=== PATIENT | female | born 1955 | race Caucasian/White ===

== ENCOUNTER → 2017-11-09 15:11 | Outpatient (CLI) | payer OTHER, SELFPAY ==
--- NOTE | 2017-11-09 15:30 | MRI_ITS ---
STUDY: MRI LEFT ANKLE WITHOUT CONTRAST REASON FOR EXAM: Female, 62 years old. Achilles and peroneal tendinitis TECHNIQUE: Standardized fat and water weighted pulse sequences were obtained in all 3 orthogonal planes. COMPARISON: None. FINDINGS: There is thickening at the plantar fascia insertion. There is mild edema at the adjacent soft tissues (image 13/20 sagittal inversion recovery). There is a plantar calcaneal enthesophyte (image 11/20 sagittal T1). There is slight thickening with abnormal signal at the Achilles tendon insertion (image 12/20 sagittal inversion recovery). There is a small amount of fluid at the ankle and posterior subtalar joint (image 10/20 sagittal inversion recovery). There is a small synovial/ganglion cyst at the dorsal lateral aspect of the talonavicular joint measuring approximately 1.5 cm in greatest dimension. Normal posterior tibialis tendon. Normal flexor digitorum longus tendon. Normal flexor hallucis longus tendon. Normal peroneus longus and brevis tendons. Normal tibialis anterior tendon. Normal extensor hallucis longus tendon. Normal extensor digitorum longus tendons. Normal distal tibiofibular syndesmotic ligamentous complex. Normal lateral ligamentous complex. Normal subtalar ligaments and sinus tarsi. Normal deltoid ligamentous complexes. Normal plantar calcaneonavicular (spring) ligament. Normal tibiotalar articulation. Normal talar dome. Normal subtalar articulations. Normal talonavicular articulation. Normal calcaneocuboid articulation. Normal navicular-cuneiform articulations. MRI/Lower Ext Joint Only (Routine) IMPRESSION: Mild insertional Achilles tendinosis Plantar fasciitis Electronically Signed: Fahad Canchola MD at 22:38 EDT Tel , Service support ,
== END ==
PROVIDERS: Family Provider Family Medicine; PCP Family Medicine; Visit Provider Podiatrist
DX: M76.62 Achilles tendinitis, left leg (principal); M76.72 Peroneal tendinitis, left leg; M77.32 Calcaneal spur, left foot
CPT/HCPCS: 73721

== ENCOUNTER → 2018-02-10 09:11 | Outpatient (CLI) | payer OTHER, SELFPAY ==
[2018-02-10 13:04] LABS: T4 Free Direct 0.96 ng/dL (0.76-1.46); Thyroid Stim Hormone (TSH) 1.64 uIU/mL (0.358-3.74)
== END ==
PROVIDERS: Family Provider Family Medicine; PCP Family Medicine; Visit Provider Family Medicine
DX: R53.83 Other fatigue (principal); R68.89 Other general symptoms and signs
CPT/HCPCS: 36415; 84439; 84443

== ENCOUNTER → 2018-08-25 16:18 | Outpatient (CLI) | payer OTHER, SELFPAY ==
[2018-08-25 18:36] LABS: AST(SGOT) 35 U/L (15-37); Alanine Aminotransfer ALT/SGPT 41 U/L (13-56); Albumin, Serum 3.6 g/dL (3.2-5.0); Alkaline Phosphatase 84 U/L (45-117); Anion Gap 10 (5-15); BUN 27 mg/dL (7-18); BUN/Creat Ratio 30.6 RATIO (10-20); Calcium,Total 9.2 mg/dL (8.5-10.1); Chloride 106 mmol/L (98-107); Creatinine, Serum 0.88 mg/dL (0.55-1.02); EST Glomerular Filtration Rate 69 mL/min (>60); Est Glom Filt Rate - Afr Amer 84 mL/min (>60); Globulin 3.6 g/dL (2.2-4.2); Glucose 89 mg/dL (74-106); Potassium 3.9 mmol/L (3.5-5.1); Protein, Total 7.2 g/dL (6.4-8.2); Sodium Level 140 mmol/L (136-145)
[2018-08-25 19:15] LABS: Absolute Lymphocyte Count 2.09 X10^3/ul (0.83-4.51); Absolute Neutrophil Count 4.7 X10^3/uL (2.0-7.7); Basophil# 0.01 X10^3/uL; Basophil% 0.1 % (0-1); Eosinophil# 0.09 X10^3/uL; Eosinophils% 1.2 % (0-5); Hematocrit 41.3 % (37-47); Hemoglobin 13.3 g/dl (12.0-15.0); Lymphocyte # 2.09 X10^3/ul (4.0); Lymphocyte % 28.5 % (19-41); Mean Corp Hgb Conc 32.2 g/gl (32-36); Mean Corpuscular Hgb 29.8 pg (27.0-32.0); Mean Corpuscular Volume 92.4 fL (81-99); Mean Platelet Vol. 11.4 fl (6.2-12.0); Monocyte# 0.44 X10^3/uL; Neutrophil % 64.2 % (47-70); Platelet Count 250 K/mm3 (150-450); RBC Distribution Width CV 13.3 % (11.6-14.6); RBC Distribution Width SD 44.8 fl (35.1-43.9); Red Blood Count 4.47 M/mm3 (4.2-5.4); White Blood Count 7.3 K/mm3 (4.4-11.0)
[2018-08-25 19:18] LABS: POSITIVE COUNT NO; POSITIVE DIFFERENTIAL NO; POSITIVE MORPHOLOGY NO
== END ==
PROVIDERS: Family Provider Family Medicine; PCP Family Medicine; Visit Provider Family Medicine
DX: Z01.818 Encounter for other preprocedural examination (principal); M76.822 Posterior tibial tendinitis, left leg
CPT/HCPCS: 36415; 80053; 85025

== ENCOUNTER → 2018-08-30 16:53 | Outpatient (CLI) | payer OTHER, SELFPAY ==
--- NOTE | 2018-08-30 17:05 | MRI_ITS ---
STUDY: MRI LEFT MIDFOOT REASON FOR EXAM: Pain at the plantar distal metatarsals for 10 months. TECHNIQUE: Standardized fat and water weighted pulse sequences were obtained in all 3 orthogonal planes. COMPARISON: MRI images of the left ankle 11/09/2017. FINDINGS: Normal talonavicular articulation. Normal calcaneocuboid articulation. Normal navicular-cuneiform articulations. Normal intercuneiform articulations. Normal first tarsometatarsal articulation. Normal Lisfranc ligament. Normal second and third tarsometatarsal articulations. Normal cuboid fourth and cuboid fifth tarsometatarsal articulation. There is bone edema in the head and neck of the third metatarsal (inversion recovery sagittal images 12, 13), a stress phenomenon. Normal tibialis anterior tendon. Normal extensor hallucis longus tendon. Normal extensor digitorum longus tendons. Normal peroneus longus tendon and distal insertion. Normal peroneus brevis tendon and distal insertion. There is atrophy with partial fat replacement of the abductor digiti minimi muscle (T1 sagittal image 8) as on the prior study. Normal intermetatarsal spaces (T1 series 4 images 24-27). There is a ganglion cyst dorsal to the distal talus (inversion recovery sagittal images 19, 20) measuring 1.2 cm in length and unchanged since the prior study. MRI/Lower Ext/No Jt/w/o IMPRESSION: Bone edema in the head and neck of the third metatarsal, a stress phenomenon. Atrophy of the abductor digiti minimi muscle. Ganglion cyst dorsal to the distal talus. No demonstrated intermetatarsal neuroma. Electronically Signed: Gordon Sanchez MD at 14:51 EST Tel , Service support ,
== END ==
PROVIDERS: Family Provider Family Medicine; PCP Family Medicine; Referring Provider Podiatrist; Visit Provider Podiatrist
DX: G57.62 Lesion of plantar nerve, left lower limb (principal)
CPT/HCPCS: 73718

== ENCOUNTER 2018-09-10 07:02 | Day surgery (SDC) | payer OTHER, SELFPAY ==
[2018-09-10] VITALS (7 sets, daily range): BP systolic 121–132; BP diastolic 67–83; PULSE 50–72; RESP 14–18; TEMP 36–36.9; O2SAT 97–100; BMI 31.1
[2018-09-10] MEDS: Cefazolin 2 GM in 0.9% Normal Saline 100 ML IV (08:43)
--- NOTE | 2018-09-10 08:45 | TESH_PTH ---
PATIENT: ELEN JACOBSON LOC: [facility] [place] U#:[id number] AGE/SX: 63/F ROOM: RE09/10/[address]: Dr. Rakesh Leo DPM : 1955 BED: DIS: 09/10/2018 SPEC #: [id number] RECD: 09/10/18 12:27 STATUS: YURIY REBOLLEDO #: [id number] CATHERINE: 09/10/18 08:[address]: Rakesh Leo DEPT: SURGICAL PATHOLOGY RECD BY: Eyad Caicedo ENTERED: 09/10/18 12:59 SP TYPE: TENDON OTHR DR: Dr. Jorge L Leigh MD Tissues: A - Tendon and tendon sheath, NOS B - Bone of foot, NOS C - GANGLION CYST Procedures: Decalcification bone/plaque Surgery Specimen Level III Surgery Specimen Level IV HEADER OPERATION: Detach/reattach Achilles, Achilles tendon debridement/repair PRE-OP DIAGNOSIS: Left leg Achilles tendonitis, retrocalcaneal spur, plantar fascitis, Darrel's deformity, third metatarsal stress fracture, ganglion cyst TISSUE SUBMITTED: A - Debride left Achilles tendon and retrocalcaneal spur, B - Third metatarsal biopsy, C - Ganglion cyst MICROSCOPIC DIAGNOSIS A. Left Achilles tendon and retrocalcaneal spur, excisions: Tendinous tissue with focal reparative and reactive change. Osseocartilaginous tissue consistent with bony spur. B. Third metatarsal, biopsy: Focal changes suggestive of fracture site. C. Ganglion cyst, excision: Tissue consistent with ganglion cyst. AM:joey 09/16/18 MICROSCOPIC DESCRIPTION Slides are reviewed. GROSS DESCRIPTION A. Received is one container labeled with the patient name and designated left Achilles tendon and spur. The specimen consists of multiple irregular fragments of olivares-yellow soft tissue that in aggregate measure 2.5 x 2 x 0.2 cm. Also present in the specimen container are multiple irregular fragments of bone measuring in aggregate 3 x 2.5 x 0.2 cm is totally submitted in 2 cassettes as follows: 1 - soft tissue, 2 - bone after decalcification. B. Received is one container labeled with the patient name and designated third metatarsal biopsy. The specimen consists of multiple irregular fragments of minute light olivares bony tissue that in aggregate measure 1.5 x 1 x 0.1 cm. The specimen is totally submitted in one cassette after decalcification. C. Received is one container labeled with the patient name and designated ganglion cyst, left foot. The specimen consists of two irregular fragments of pink-yellow soft tissue that in aggregate measure 1.5 x 1 x 0.2 cm. The specimen is totally submitted in one cassette. / AM:janie 09/10/18 TC:5 CPT: 75952 x2, 16974, 47141 x2
--- NOTE | 2018-09-10 08:45 | RAD_ITS ---
STUDY: X-RAY - LEFT FOOT CLINICAL: Female, 63 years old. The debridement and resection of retrocalcaneal spur. TECHNIQUE: 2 intraoperative view(s) of the foot. COMPARISON: None. FINDINGS: Intraoperative services provided for resection and debridement of the retrocalcaneal spur RAD/Foot 2 Views IMPRESSION: Intraoperative imaging for resection and debridement of the retrocalcaneal spur. Electronically Signed: Donnie Cheney MD at 9:52 EST Tel [phone], Service support ,
[2018-09-10] MEDS: Calcium Chloride 1 GM/10 ML Syringe (09:21)
[2018-09-10] MEDS: Heparin Injection (Vial) 5,000 UNIT/ML VIAL 5000 UNIT (09:21)
[2018-09-10] MEDS: Bupivacaine Mpf 0.5% 30 ML VIAL (11:56)
--- NOTE | 2018-09-10 12:19 | DCINST_ITS ---
Discharge Diet: Light diet - advance as tolerated Discharge Activity: May Not Drive Weight Bearing Status: No weight bearing - No weightbearing left foot Keep extremity elevated above heart level: Left Leg - Keep left foot elevated using pillows for at least 50 minutes of every hour. Keep left heel offloaded and floating at all times Call your doctor if your incision/area has: Continuous Slow Oozing, Sudden Increased Bleeding, Foul Smelling Discharge Call your doctor if you observe: Fever of 101 or Higher, Coldness, Increased Pain, Shortness of breath, Chest pain, Increased palpitations (irregular heartbeat), Calf discomfort, Uncontrolled pain Cleanse incision/area with: Do not get Incision Wet, Keep Dressing Clean & Dry Allergies/Adverse Reactions: Allergies codeine Adverse Reaction (Intermediate, Verified 09/10/18 07:24) vomiting Medications to take at Discharge Ascorbic Acid [Vitamin C] 500 mg PO DAILY 09/03/18 Aspirin/Acetaminophen/Caffeine [Excedrin Migraine Caplet] 1 each PO PRN PRN 09/03/18 Docusate Sodium [Colace] 100 mg PO BID #20 cap 09/10/18 Ondansetron HCl [Zofran] 8 mg PO Q8H PRN PRN #20 tab 09/10/18 Oxycodone HCl/Acetaminophen [Percocet 5-325 mg Tablet] 1 - 2 ea PO Q4H PRN PRN 4 Days #40 tab 09/10/18 Rivaroxaban [Xarelto] 10 mg PO DAILY #30 tab 09/10/18 The following prescriptions were given: Oxycodone HCl/Acetaminophen [Percocet 5-325 mg Tablet] 1 - 2 ea PO Q4H PRN PRN 4 Days #40 tab PRN Reason: Pain Ondansetron HCl [Zofran] 8 mg PO Q8H PRN PRN #20 tab PRN Reason: Nausea/Vomiting Rivaroxaban [Xarelto] 10 mg PO DAILY #30 tab Docusate Sodium [Colace] 100 mg PO BID #20 cap Primary Care Physician: Jorge L Leigh MD [Primary Care Provider] - Test Results: Test results from this visit will be discussed in further detail at your follow- up appointment, if applicable. Please Follow Up With: Rakesh Leo DPM When: 1 week, sooner if needed
--- NOTE | 2018-09-10 12:23 | OP.PCM_ITS ---
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 Plantar fasciitis with infracalcaneal spur, left. Ganglion cyst, left foot. Chronic stress fracture 3rd metatarsal, left foot Post-Operative Diagnosis: Same Surgery/Procedure Performed:: Detach/Reattach Achilles tendon with debridement of achilles tendon, left. Resection of retrocalcaneal spur and Darrel's Deformity, left. Excision of ganglion cyst, left foot. Plantar fasciotomy with resection of infracalcaneal spur, left. Debridement/curettage of 3rd metatarsal with packing of bone graft, left. 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 Brianna Valencia Type of Anesthesia:: General Specimen's removed: 1. Debrided achilles tendon and resected retrocalcaneal spur Darrel's deformity, left. 2. Excision of ganglion cyst, left foot. 3. Debrided bone from left 3rd metatarsal Estimated Blood Loss (mL): 15mL Description of Procedure: Indications: This is a 63 year old female with chronic left posterior heel pain, plantar heel pain, pain to the 3rd metatarsal and ganglion cyst dorsal talonavicular joint. This is chronic and symptoms persist despite nonsurgical care. She has now elected to undergo the procedures surgically. This was discussed with her in great detail, reviewed the possible benefits vs risks and potential complications. Typical post op recovery was reviewed with her. The goals and the expectations were reviewed with her in detail. The consent forms were reviewed with her in detail, and she freely signed them. No guarantees were given nor implied. All of her questions were answered. Operative Procedure: The patient was brought back into the operating room. A time out was performed and the patient was properly identified and the surgical plan was confirmed. The patient received 2 g of IV Cefazolin for antibiotic prophylaxis. A well padded pneumatic tourniquet was applied around the left thigh. The patient received general per the anesthesiologist. The patient was placed on the operating room table in the prone position, with good padding and offloading for the bony prominences. She was carefully secured to the operating room table with a safety belt around her waist. The left foot/ankle/leg was s crubbed, prepped, draped in the usual aseptic fashion. Also of note the patient did receive a left lower extremity popliteal block in the pre operative holding area per the anesthesia team. A timeout was performed and the patient was properly identified and the surgical plan was confirmed. A Jamshidi needle was placed percutaneously to the lateral wall of the body of the calcaneus (at level of safe zone) and a total of 60mL of bone marrow aspirate was obtained, redirecting several times. The aspirated bone marrow aspirate was passed from the surgical field and was concentrated down to 3mL. The left foot and ankle were elevated for 3 minutes and the thigh pneumatic tourniquet was inflated to 350mmHg. Attention was directed to the lateral heel. A small skin incision was made to the lateral aspect at level of the safe zone of the lateral calcaneus. Careful disection was completed down to the lateral calcaneal wall. Using a stan bone biopsy trephine bone was harvested from the calcaneus and was placed into normal saline solution. The concentrated bone marrow aspirate was mixed with the bone graft as well as with some bone allograft for later packing into the 3rd metatarsal site. Attention was directed to the posterior heel. There was a palpable exostosis and Darrel's deformity present at the level of the posterior calcaneus. A linear incision was made using a 15 blade to the posterior aspect of the distal Achilles tendon and posterior calcaneus. Careful dissection was completed down through the subcutaneous tissue layer, down to the Achilles tendon and posterior calcaneus. The distal Achilles tendon was incised at the level of the midline, and was partially reflected off of the central posterior calcaneus exposing the retrocalcaneal spur and Darrel's deformity. The tendon was kept intact to the medial and lateral insertion points on the posterior calcaneus. The retrocalcaneal spur and the Darrel's deformity were resected using a powered sagittal saw and a powered rasp, the resected bone was sent to pathology. The Achilles tendon was also noted to be thickened, calcified, hard with nonviable tissue w/ fraying and tear present at the distal level; this was debrided down to healthy viable normal tendon. The debrided tendon was sent to pathology as well with the resected bone. Otherwise the rest of the tendon was noted to be healthy and viable appearing. The site was flushed out with copious amounts of normal saline solution. The Achilles tendon was reattached to the central portion of the posterior calcaneus using 1 Arthrex Speedbridge using the standar d manufacture's recommended technique as listed in the technique guide. The achilles tendon was intact, and there was negative Jules's test. 4-0 Vicryl was also used to repair the Achilles tendon. The subcutaneous tissue layer was reapproximated using 3-0 Vicryl. the skin was reapproximated using 3-0 Monocryl. Intraoperative fluoroscopy was obtained confirming proper resection of the spur and Darrel deformity. The pneumatic tourniquet was deflated at 58 minutes, there was immediate return of warmth and perfusion to the foot and to all toes on the foot with normal temperature present. CFT < 2 seconds to all toes. The patient was then carefully rotated into the spine position. The surgeons rescrubbed. The patient's left foot/ankle/leg were rescrubbed, prepped, draped in the usual aseptic fashion. The left foot was elevated and exsanguinated using an Esmarch bandage and the left thigh pneumatic tourniquet was inflated to 350mmHg (tourniquet was down for 20 minutes). Next attention was directed to the 3rd metatarsal bone. A skin incision was made overlying the dorsal lateral aspect of the 3rd metatarsal bone and careful dissection was completed down to the 3rd metatarsal head, neck and shaft. The bone to the head and neck as well as the distal shaft on the dorsal aspect did appear yellow, nonviable with a chronic stress fracture noted. This bone was soft as well, it involved the dorsal cortex and most of the bone at this level, but the plantar cortex was intact, the cartilage on the head of the 3rd metatarsal did appear to be intact and viable with no abnormality to the joint itself. The yellow, soft, nonviable bone was debrided using a curette and this bone was sent to pathology for further evaluation. The site was packed with the calcaneal autograft, mixed with the 3mL of concentrated bone marrow aspirate and cancellous bone allograft. The site was checked to see if a plate could be placed to stabilize the site, but the involved bone was to distal and no invol andres for screws to properly purchase distally. The site was stable and all other tissues were healthy and viable. There was no purulence, no maloder, no necrosis present. There was no deep abscess present. The site was flushed out using normal saline solution. The subcutaneous tissue was reapproximated using 3-0 and 4-0 Vicryl and skin was reapproximated using 3-0 Monocryl. Next attention was directed to the plantar fascia and infracalcaneal spur. The infracalcaneal spur was visualized on intra operative fluoroscopy, image was saved. A skin incision was made to the medial hindfoot at the level of the plantar fascia and infracalcaneal spur, careful dissection was completed down through the subcutaneous tissue layer. A plane was created superiorly and inferiorly around the plantar fascia and the medial 50% of the plantar fascia was released via a plantar fasciotomy. It was noted there was significant thickening of the plantar fascia with fibrosis consistent with chronic plantar fasciitis. The infracalcaneal spur was felt, and was carefully resected using a powered rasp. Resection of the infracalcaneal spur was confirmed using intraoperative fluoroscopy. The skin was reapproximated using 3-0 Nylon. Next attention was directed to the dorsal foot at level of the dorsal talonavicular joint. A skin incision was made between the anterior tibial tendon and extensor tendons overlying the dorsal talonavicular joint. Careful dissection was completed down through the subcutaneous tissue layer and a ganglion cyst was noted, it measured 1.5cm x 1.5cm. It was carefully excised and noted to be coming from the talonavicular joint. The excised cyst was sent to pathology as a specimen. A small separate skin incision had to be made lateral to the skin incision to get the lateral aspect of the cyst. The remaining tissues were healthy and viable. There was no purulence, no maloder, no necrosis present. There was no deep abscess present. The site was flushed out using normal saline solution. The subcutaneous tissue was reapproximated using 3-0 and 4-0 Vicryl and skin was reapproximated using 3-0 Monocryl. The pneumatic tourniquet was deflated at 78 minutes, there was immediate return of warmth and perfusion to the foot and to all toes on the foot with normal temperature present. CFT < 2 seconds to all toes. 18mL of 0.5% bupivacaine plain was given as a local nerve block around the surgical sites per ok by the anesthesia team. A dressing was applied which consisted of Cavilon to the sutured skin incisions, steristrips, Betadine soaked adaptic, 4x4 gauze, kerlix and john bandage, and a well padded below the knee posterior splint offloading the posterior heel. The patient tolerated the above operative procedure well at the anesthesia well with no complication. The patient was carefully repositioned into the supine position. The patient was transported to the recovery room with vital signs stable and in good condition. Post operative orders were placed. Post operative instructions were reviewed with her as well as her boyfriend, who was with her today. No weightbearing left foot, keep foot elevated for at least 50 minutes of every hour, keep dressing clean, dry and intact. Keep heel offloaded at all times. Prescription for Percocet 5mg/325mg was prescribed: 1-2 tabs PO q 6 hours PRN pain for pain control, as well as Lovenox 40mg subcutaneous once a day for DVT prophylaxis (was advised Xarelto was not covered). Cefadroxil 500mg PO q 12 hours to help prevent infection, as well as Zofran and Docusate were provided prescriptions as well. She is to follow up with me within 1 week or sooner if needed. Post operative left foot xrays were obtained in the recovery room which confirmed resection of the retrocalcaneal spur / Darrel deformity, resection of the infracalcaneal spur, as well as debridement/curettage and packing of distal 3rd metatarsal, otherwise no acute changes and stable xrays. Grafts/Implants Used: Arthrex Speedbridge - Complications None
--- NOTE | 2018-09-10 13:27 | RAD_ITS ---
STUDY: X-RAY - LEFT FOOT CLINICAL: Female, 63 years old. Achilles tendon resection and repair. TECHNIQUE: 3 postoperative views view(s) of the foot. COMPARISON: None. FINDINGS: The patient is status post resection and repair of the Achilles tendon. The posterior superior aspect of the calcaneus has been resected. RAD/Foot min 3 Views IMPRESSION: Status post resection and repair of the Achilles tendon. Electronically Signed: Donnie Cheney MD at 15:18 EST Tel [phone], Service support ,
--- OUTSIDE RECORDS SUMMARY | 2018-11-14 14:08 | XMS RPT_ITS ---
:1955 Author Organization [facility] Care Team Providers Name Role Phone JORGE L LEIGH Referring Unavailable MARY NUNEZ (MARILYN) Attending Unavailable Jorge L Leigh Attending Unavailable Lu, Jorge L Primary Care Unavailable Rakesh Leo Attending Unavailable Rakesh Leo Referring Unavailable Jorge L Leigh Primary Care Unavailable Rakesh Leo Attending Unavailable Rakesh Leo Referring Unavailable Jorge L Leigh Primary Care Unavailable Rakesh Leo Attending Unavailable Rakesh Leo Referring Unavailable Lu, Jorge L Primary Care Unavailable Jorge L Leigh Attending Unavailable Lu, Jorge L Primary Care Unavailable ASSESSMENT, HEALTH RISK Attending Unavailable Lu, Jorge L Primary Care Unavailable David Hernandez Attending Unavailable Jorge L Leigh Referring Unavailable Lu, Jorge L Primary Care Unavailable PROBLEMS PROBLEMS DATE TYPE CONDITION / CODE ATTENDING STATUS SOURCE 09/10/2018 Unknown M76.62 - AlbertRakesh wolfe Active [facility] tendinitis, left Hospital leg / Repository M76.62(ICD-10) 08/30/2018 Unknown G57.62 - Lesion MikeRakesh casey Active [place] [facility] plantar [facility] nerve, left Hospital lower limb / Repository G57.62(ICD-10) 04/06/2018 Active Unknown / NA Active [facility] UNK(Unknown) [facility] [place] Repository 03/12/2018 Unknown R47.02 - David Hernandez Active [place] Dysphasia / Community R47.02(ICD-10) Hospital Repository 11/09/2017 Unknown M76.72 - FelipaRakesh Active [place] Peroneal [facility] tendinitis, left Hospital leg / Repository M76.72(ICD-10) 11/09/2017 Unknown M77.32 - Albertyaneth Rakesh Active [facility] Calcaneal spur, [facility] left foot / Hospital M77.32(ICD-10) Repository PROCEDURES PROCEDURES No Procedure Records FoundRESULTS RESULTS OPERATIVE REPORT Observed: 09/11/2018 Status: F Source: [place] 5:06 PM [facility] [place], [place] REPOSITORY [facility] Medical Records Department [address] [place] [address] Operative Report 09/10/18 1219 MR#: [id number] Acct: [id number] Name: SOBIA JACOBSON Rep #: [id number] : 1955 63 From: Rakesh Leo DP PCP: Jorge L Leigh MD Status: [facility] Location: [facility] [place] Report of Operation Date of Procedure: 09/10/18 Pre-Operative Diagnosis: 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 Plantar fasciitis with infracalcaneal spur, left. Ganglion cyst, left foot. Chronic stress fracture 3rd metatarsal, left foot Post-Operative Diagnosis: Same Surgery/Procedure Performed:: Detach/Reattach Achilles tendon with debridement of achilles tendon, left. Resection of retrocalcaneal spur and Darrel's Deformity, left. Excision of ganglion cyst, left foot. Plantar fasciotomy with resection of infracalcaneal spur, left. Debridement/curettage of 3rd metatarsal with packing of bone graft, left. Premium of calcaneal autograft as well as bone marrow aspiration, left foot director of strategy & mobile: yes - Dr. Brianna Valencia Type of Anesthesia:: General Specimen's removed: 1. Debrided achilles tendon and resected retrocalcaneal spur Darrel's deformity, left. 2. Excision of ganglion cyst, left foot. 3. Debrided bone from left 3rd metatarsal Estimated Blood Loss (mL): 15mL Description of Procedure: Indications: This is a 63 year old female with chronic left posterior heel pain, plantar heel pain, pain to the 3rd metatarsal and ganglion cyst dorsal talonavicular joint. This is chronic and symptoms persist despite nonsurgical care. She has now elected to undergo the procedures surgically. This was discussed with her in great detail, reviewed the possible benefits vs risks and potential complications. Typical post op recovery was reviewed with her. The goals and the expectations were reviewed with her in detail. The consent forms were reviewed with her in detail, and she freely signed them. No guarantees were given nor implied. All of her questions were answered. Operative Procedure: The patient was brought back into the operating room. A time out was performed and the patient was properly identified and the surgical plan was confirmed. The patient received 2 g of IV Cefazolin for antibiotic prophylaxis. A well padded pneumatic tourniquet was applied around the left thigh. The patient received general per the anesthesiologist. The patient was placed on the operating room table in the prone position, with good padding and offloading for the bony prominences. She was carefully secured to the operating room table with a safety belt around her waist. The left foot/ankle/leg was scrubbed, prepped, draped in the usual aseptic fashion. Also of note the patient did receive a left lower extremity popliteal block in the pre operative holding area per the anesthesia team. A timeout was performed and the patient was properly identified and the surgical plan was confirmed. A Jamshidi needle was placed percutaneously to the lateral wall of the body of the calcaneus (at level of safe zone) and a total of 60mL of bone marrow aspirate was obtained, redirecting several times. The aspirated bone marrow aspirate was passed from the surgical field and was concentrated down to 3mL. The left foot and ankle were elevated for 3 minutes and the thigh pneumatic tourniquet was inflated to 350mmHg. Attention was directed to the lateral heel. A small skin incision was made to the lateral aspect at level of the safe zone of the lateral calcaneus. Careful disection was completed down to the lateral calcaneal wall. Using a stan bone biopsy trephine bone was harvested from the calcaneus and was placed into normal saline solution. The concentrated bone marrow aspirate was mixed with the bone graft as well as with some bone allograft for later packing into the 3rd metatarsal site. Attention was directed to the posterior heel. There was a palpable exostosis and Darrel's deformity present at the level of the posterior calcaneus. A linear incision was made using a 15 blade to the posterior aspect of the distal Achilles tendon and posterior calcaneus. Careful dissection was completed down through the subcutaneous tissue layer, down to the Achilles tendon and posterior calcaneus. The distal Achilles tendon was incised at the level of the midline, and was partially reflected off of the central posterior calcaneus exposing the retrocalcaneal spur and Darrel's deformity. The tendon was kept intact to the medial and lateral insertion points on the posterior calcaneus. The retrocalcaneal spur and the Darrel's deformity were resected using a powered sagittal saw and a powered rasp, the resected bone was sent to pathology. The Achilles tendon was also noted to be thickened, calcified, hard with nonviable tissue w/ fraying and tear present at the distal level; this was debrided down to healthy viable normal tendon. The debrided tendon was sent to pathology as well with the resected bone. Otherwise the rest of the tendon was noted to be healthy and viable appearing. The site was flushed out with copious amounts of normal saline solution. The Achilles tendon was reattached to the central portion of the posterior calcaneus using 1 Arthrex Speedbridge using the standard manufacture's recommended technique as listed in the technique guide. The achilles tendon was intact, and there was negative Jules's test. 4-0 Vicryl was also used to repair the Achilles tendon. The subcutaneous tissue layer was reapproximated using 3-0 Vicryl. the skin was reapproximated using 3-0 Monocryl. Intraoperative fluoroscopy was obtained confirming proper resection of the spur and Darrel deformity. The pneumatic tourniquet was deflated at 58 minutes, there was immediate return of warmth and perfusion to the foot and to all toes on the foot with normal temperature present. CFT < 2 seconds to all toes. The patient was then carefully rotated into the spine position. The surgeons rescrubbed. The patient's left foot/ankle/leg were rescrubbed, prepped, draped in the usual aseptic fashion. The left foot was elevated and exsanguinated using an Esmarch bandage and the left thigh pneumatic tourniquet was inflated to 350mmHg (tourniquet was down for 20 minutes). Next attention was directed to the 3rd metatarsal bone. A skin incision was made overlying the dorsal lateral aspect of the 3rd metatarsal bone and careful dissection was completed down to the 3rd metatarsal head, neck and shaft. The bone to the head and neck as well as the distal shaft on the dorsal aspect did appear yellow, nonviable with a chronic stress fracture noted. This bone was soft as well, it involved the dorsal cortex and most of the bone at this level, but the plantar cortex was intact, the cartilage on the head of the 3rd metatarsal did appear to be intact and viable with no abnormality to the joint itself. The yellow, soft, nonviable bone was debrided using a curette and this bone was sent to pathology for further evaluation. The site was packed with the calcaneal autograft, mixed with the 3mL of concentrated bone marrow aspirate and cancellous bone allograft. The site was checked to see if a plate could be placed to stabilize the site, but the involved bone was to distal and no involved for screws to properly purchase distally. The site was stable and all other tissues were healthy and viable. There was no purulence, no maloder, no necrosis present. There was no deep abscess present. The site was flushed out using normal saline solution. The subcutaneous tissue was reapproximated using 3-0 and 4-0 Vicryl and skin was reapproximated using 3-0 Monocryl. Next attention was directed to the plantar fascia and infracalcaneal spur. The infracalcaneal spur was visualized on intra operative fluoroscopy, image was saved. A skin incision was made to the medial hindfoot at the level of the plantar fascia and infracalcaneal spur, careful dissection was completed down through the subcutaneous tissue layer. A plane was created superiorly and inferiorly around the plantar fascia and the medial 50% of the plantar fascia was released via a plantar fasciotomy. It was noted there was significant thickening of the plantar fascia with fibrosis consistent with chronic plantar fasciitis. The infracalcaneal spur was felt, and was carefully resected using a powered rasp. Resection of the infracalcaneal spur was confirmed using intraoperative fluoroscopy. The skin was reapproximated using 3-0 Nylon. Next attention was directed to the dorsal foot at level of the dorsal talonavicular joint. A skin incision was made between the anterior tibial tendon and extensor tendons overlying the dorsal talonavicular joint. Careful dissection was completed down through the subcutaneous tissue layer and a ganglion cyst was noted, it measured 1.5cm x 1.5cm. It was carefully excised and noted to be coming from the talonavicular joint. The excised cyst was sent to pathology as a specimen. A small separate skin incision had to be made lateral to the skin incision to get the lateral aspect of the cyst. The remaining tissues were healthy and viable. There was no purulence, no maloder, no necrosis present. There was no deep abscess present. The site was flushed out using normal saline solution. The subcutaneous tissue was reapproximated using 3-0 and 4-0 Vicryl and skin was reapproximated using 3-0 Monocryl. The pneumatic tourniquet was deflated at 78 minutes, there was immediate return of warmth and perfusion to the foot and to all toes on the foot with normal temperature present. CFT < 2 seconds to all toes. 18mL of 0.5% bupivacaine plain was given as a local nerve block around the surgical sites per ok by the anesthesia team. A dressing was applied which consisted of Cavilon to the sutured skin incisions, steristrips, Betadine soaked adaptic, 4x4 gauze, kerlix and john bandage, and a well padded below the knee posterior splint offloading the posterior heel. The patient tolerated the above operative procedure well at the anesthesia well with no complication. The patient was carefully repositioned into the supine position. The patient was transported to the recovery room with vital signs stable and in good condition. Post operative orders were placed. Post operative instructions were reviewed with her as well as her boyfriend, who was with her today. No weightbearing left foot, keep foot elevated for at least 50 minutes of every hour, keep dressing clean, dry and intact. Keep heel offloaded at all times. Prescription for Percocet 5mg/325mg was prescribed: 1-2 tabs PO q 6 hours PRN pain for pain control, as well as Lovenox 40mg subcutaneous once a day for DVT prophylaxis (was advised Xarelto was not covered). Cefadroxil 500mg PO q 12 hours to help prevent infection, as well as Zofran and Docusate were provided prescriptions as well. She is to follow up with me within 1 week or sooner if needed. Post operative left foot xrays were obtained in the recovery room which confirmed resection of the retrocalcaneal spur / Darrel deformity, resection of the infracalcaneal spur, as well as debridement/curettage and packing of distal 3rd metatarsal, otherwise no acute changes and stable xrays. Grafts/Implants Used: Arthrex Speedbridge - Complications None 09/11/18 1706 <Electronically signed by Rakesh Leo DPM> Date Rakesh Leo DPM CC: Rakesh Leo DPM; Jorge L Leigh MD Signed DISCHARGE INSTRUCTION Observed: 09/10/2018 Status: F Source: [place] 12:19 PM [facility] [place], [place] REPOSITORY [facility] Medical Records Department [address] [place] [address] Instructions for Home/Discharge Instructions 09/10/18 1217 MR#: [id number] Acct: [id number] Name: SALUDALPASOBIA Rep #: [id number] : 1955 63 From: Rakesh Leo DPM PCP: Jorge L Leigh MD Status: REG SDC Discharge Diet: Light diet - advance as tolerated Discharge Activity: May Not Drive Weight Bearing Status: No weight bearing - No weightbearing left foot Keep extremity elevated above heart level: Left Leg - Keep left foot elevated using pillows for at least 50 minutes of every hour. Keep left heel offloaded and floating at all times Call your doctor if your incision/area has: Continuous Slow Oozing, Sudden Increased Bleeding, Foul Smelling Discharge Call your doctor if you observe: Fever of 101 or Higher, Coldness, Increased Pain, Shortness of breath, Chest pain, Increased palpitations (irregular heartbeat), Calf discomfort, Uncontrolled pain Cleanse incision/area with: Do not get Incision Wet, Keep Dressing Clean AND Dry Allergies/Adverse Reactions: Allergies codeine Adverse Reaction (Intermediate, Verified 09/10/18 07:24) vomiting Medications to take at Discharge Ascorbic Acid [Vitamin C] 500 mg PO DAILY 09/03/18 Aspirin/Acetaminophen/Caffeine [Excedrin Migraine Caplet] 1 each PO PRN PRN 09/03/18 Docusate Sodium [Colace] 100 mg PO BID #20 cap 09/10/18 Ondansetron HCl [Zofran] 8 mg PO Q8H PRN PRN #20 tab 09/10/18 Oxycodone HCl/Acetaminophen [Percocet 5-325 mg Tablet] 1 - 2 ea PO Q4H PRN PRN 4 Days #40 tab 09/10/18 Rivaroxaban [Xarelto] 10 mg PO DAILY #30 tab 09/10/18 The following prescriptions were given: Oxycodone HCl/Acetaminophen [Percocet 5-325 mg Tablet] 1 - 2 ea PO Q4H PRN PRN 4 Days #40 tab PRN Reason: Pain Ondansetron HCl [Zofran] 8 mg PO Q8H PRN PRN #20 tab PRN Reason: Nausea/Vomiting Rivaroxaban [Xarelto] 10 mg PO DAILY #30 tab Docusate Sodium [Colace] 100 mg PO BID #20 cap Primary Care Physician: Jorge L Leigh MD [Primary Care Provider] - Test Results: Test results from this visit will be discussed in further detail at your follow-up appointment, if applicable. Please Follow Up With: Rakesh Leo DPM When: 1 week, sooner if needed 09/10/18 1219 <Electronically signed by Rakesh Leo DPM> Date Rakesh Leo DPM CC: Jorge L Leigh MD Signed FOOT MIN 3 VIEWS Observed: 09/10/2018 Status: F Source: [place] 12:17 PM [facility] [place], [place] REPOSITORY [facility] Imaging Services [address] [place] [address] Foot min 3 Views MR#: [id number] Acct: [id number] Name: SOBIA JACOBSON Rep #: [id number] : 1955 F 63 From: Donnie Cheney MD PCP: Jorge L Leigh MD Status: [facility] Study: Foot min 3 Views Date of Exam: 09/10/18 Exam# [id number] Ordering Dr: Rakesh Leo DPM STUDY: X-RAY - LEFT FOOT CLINICAL: Female, 63 years old. Achilles tendon resection and repair. TECHNIQUE: 3 postoperative views view(s) of the foot. COMPARISON: None. FINDINGS: The patient is status post resection and repair of the Achilles tendon. The posterior superior aspect of the calcaneus has been resected. RAD/Foot min 3 Views IMPRESSION: Status post resection and repair of the Achilles tendon. Electronically Signed: Donnie Cheney MD at 15:18 EST Tel [phone], Service support , CC: Rakesh Leo DPM; Jorge L Leigh MD Imaging Technician: Signed TENDON/OR TENDON Observed: 09/10/2018 Status: F Source: [place] 8:45 AM [facility] [place], [place] REPOSITORY Patient: SOBIA JACOBSON : 1955 (63/F) Acct Num: [id number] Phys: Rakesh Leo DPM Unit Num: [id number] Loc: [facility] [place] Specimen: [id number] Received: 09/10/187 Spec Type: TENDON TISSUES 1 TISSUES: A. Tendon and tendon sheath, NOS B. Bone of foot, NOS C. GANGLION CYST GROSS DESCRIPTION A. Received is one container labeled with the patient name and designated left Achilles tendon and spur. The specimen consists of multiple irregular fragments of olivares-yellow soft tissue that in aggregate measure 2.5 x 2 x 0.2 cm. Also present in the specimen container are multiple irregular fragments of bone measuring in aggregate 3 x 2.5 x 0.2 cm is totally submitted in 2 cassettes as follows: 1 - soft tissue, 2 - bone after decalcification. B. Received is one container labeled with the patient name and designated third metatarsal biopsy. The specimen consists of multiple irregular fragments of minute light olivares bony tissue that in aggregate measure 1.5 x 1 x 0.1 cm. The specimen is totally submitted in one cassette after decalcification. C. Received is one container labeled with the patient name and designated ganglion cyst, left foot. The specimen consists of two irregular fragments of pink-yellow soft tissue that in aggregate measure 1.5 x 1 x 0.2 cm. The specimen is totally submitted in one cassette. / AM:sp 09/10/18 TC:5 CPT: 83834 x2, 83237, 11887 x2 HEADER OPERATION: Detach/reattach Achilles, Achilles tendon debridement/repair PRE-OP DIAGNOSIS: Left leg Achilles tendonitis, retrocalcaneal spur, plantar fascitis, Darrel's deformity, third metatarsal stress fracture, ganglion cyst TISSUE SUBMITTED: A - Debride left Achilles tendon and retrocalcaneal spur, B - Third metatarsal biopsy, C - Ganglion cyst MICROSCOPIC DESCRIPTION Slides are reviewed. MICROSCOPIC DIAGNOSIS A. Left Achilles tendon and retrocalcaneal spur, excisions: Tendinous tissue with focal reparative and reactive change. Osseocartilaginous tissue consistent with bony spur. B. Third metatarsal, biopsy: Focal changes suggestive of fracture site. C. Ganglion cyst, excision: Tissue consistent with ganglion cyst. AM:joey 09/16/18 Signed Yuniel Marcus DO 09/16/18 <signature on file> Performed By: #### PTSAVANA #### [facility] [address] [place], [address] FOOT 2 VIEWS Observed: 09/10/2018 Status: F Source: [place] 5:14 AM [facility] [place], [place] REPOSITORY [facility] Imaging Services [address] [place] [address] Foot 2 Views MR#: [id number] Acct: [id number] Name: SOBIA JACOBSON Rep #: [id number] : 1955 F 63 From: Donnie Cheney MD PCP: Jorge L Leigh MD Status: [facility] Study: Foot 2 Views Date of Exam: 09/10/18 Exam# [id number] Ordering Dr: Rakesh Leo DPM STUDY: X-RAY - LEFT FOOT CLINICAL: Female, 63 years old. The debridement and resection of retrocalcaneal spur. TECHNIQUE: 2 intraoperative view(s) of the foot. COMPARISON: None. FINDINGS: Intraoperative services provided for resection and debridement of the retrocalcaneal spur RAD/Foot 2 Views IMPRESSION: Intraoperative imaging for resection and debridement of the retrocalcaneal spur. Electronically Signed: Donnie Cheney MD at 9:52 EST Tel [phone], Service support , CC: Rakesh Leo DPM; Jorge L Leigh MD Imaging Technician: Signed LOWER EXT/NO JT/W/O Observed: 08/30/2018 Status: F Source: [place] 5:05 PM [facility] [place] [place] REPOSITORY [facility] Imaging Services [address] [place] [address] Lower Ext/No Jt/w/o MR#: [id number] Acct: [id number] Name: SOBIA JACOBSON Rep #: [id number] : 1955 F 62 From: Gordon Sanchez MD PCP: Jorge L Leigh MD Status: [facility] Study: Lower Ext/No Jt/w/o Date of Exam: 08/30/18 Exam# [id number] Ordering Dr: Rakesh Leo DPM STUDY: MRI LEFT MIDFOOT REASON FOR EXAM: Pain at the plantar distal metatarsals for 10 months. TECHNIQUE: Standardized fat and water weighted pulse sequences were obtained in all 3 orthogonal planes. COMPARISON: MRI images of the left ankle 11/09/2017. FINDINGS: Normal talonavicular articulation. Normal calcaneocuboid articulation. Normal navicular-cuneiform articulations. Normal intercuneiform articulations. Normal first tarsometatarsal articulation. Normal Lisfranc ligament. Normal second and third tarsometatarsal articulations. Normal cuboid fourth and cuboid fifth tarsometatarsal articulation. There is bone edema in the head and neck of the third metatarsal (inversion recovery sagittal images 12, 13), a stress phenomenon. Normal tibialis anterior tendon. Normal extensor hallucis longus tendon. Normal extensor digitorum longus tendons. Normal peroneus longus tendon and distal insertion. Normal peroneus brevis tendon and distal insertion. There is atrophy with partial fat replacement of the abductor digiti minimi muscle (T1 sagittal image 8) as on the prior study. Normal intermetatarsal spaces (T1 series 4 images 24-27). There is a ganglion cyst dorsal to the distal talus (inversion recovery sagittal images 19, 20) measuring 1.2 cm in length and unchanged since the prior study. MRI/Lower Ext/No Jt/w/o IMPRESSION: Bone edema in the head and neck of the third metatarsal, a stress phenomenon. Atrophy of the abductor digiti minimi muscle. Ganglion cyst dorsal to the distal talus. No demonstrated intermetatarsal neuroma. Electronically Signed: Gordon Sanchez MD at 14:51 EST Tel , Service support , CC: Rakesh Leo DPM; Jorge L Leigh MD Imaging Technician: Signed COMPREHENSIVE METABOLIC Collected: 08/25/2018 Status: F Source: [place] 4:21 PM [facility] [place], [place] REPOSITORY TYPE CODE TESTS RESULT OUT OF RANGE REFERENCE UNITS LAB L501.0100 74-106 mg/dL Normal GLU 89 Result Comment: Please note revised GLUCOSE reference range effective 2017. LAB L501.1000 7-18 mg/dL High BUN 27 LAB L501.1100 0.55-1.02 mg/dL Normal CREAT,SERUM 0.88 Result Comment: The validity of the calculated GFR AND GFRAA in patients over 70 years has not been determined. Clinical correlation is essential. LAB L501.1110 >60 mL/min Normal EST GFR 69 Result Comment: Non- GFR Calc LAB L501.1115 >60 mL/min Normal EST GFR - AA 84 Result Comment: GFR Calc LAB L501.1300 10-20 RATIO High BUN/CRE 30.6 LAB L501.1500 6.4-8.2 g/dL T Normal PROT 7.2 LAB L501.1800 3.2-5.0 g/dL Normal ALB 3.6 LAB L501.1950 2.2-4.2 g/dL Normal GLOB 3.6 LAB L501.2000 0.9-2.4 RATIO Normal A/G 1.0 LAB L501.2200 8.5-10.1 mg/dL CA Normal 9.2 LAB L501.4100 15-37 U/L Normal AST 35 LAB L501.4305 45-117 U/L Normal ALK P 84 LAB L501.4405 13-56 U/L Normal ALT 41 LAB L501.4600 0.20-1.00 mg/dL T Normal BILI 0.30 LAB L501.5300 136-145 mmol/L NA Normal 140 LAB L501.5600 3.5-5.1 mmol/L K Normal 3.9 LAB L501.5900 98-107 mmol/L CL Normal 106 LAB L501.6100 21.0-32.0 mmol/L Normal CO2 24.0 LAB L501.6200 5-15 Normal GAP 10 Performed By: #### L500.4050 #### [facility] [address] [place], [address] CBC W/DIFF, AUTOMATED Collected: 08/25/2018 Status: F Source: [place] 4:21 PM [facility] [place], [place] REPOSITORY TYPE CODE TESTS RESULT OUT OF RANGE REFERENCE UNITS LAB L100.1000 4.4-11.0 K/mm3 Normal WBC 7.3 LAB L100.1200 4.2-5.4 M/mm3 Normal RBC 4.47 LAB L100.1300 12.0-15.0 g/dl Normal HGB 13.3 LAB L100.1400 37-47 % Normal HCT 41.3 LAB L100.1500 81-99 fL Normal MCV 92.4 LAB L100.1600 27.0-32.0 pg Normal MCH 29.8 LAB L100.1700 32-36 g/gl Normal MCHC 32.2 LAB L100.1810 11.6-14.6 % Normal RDW CV 13.3 LAB L100.1820 35.1-43.9 fl High RDW SD 44.8 LAB L100.1900 150-450 K/mm3 Normal PLT 250 LAB L100.2000 6.2-12.0 fl Normal MPV 11.4 LAB L100.2100 47-70 % Normal NEUT% 64.2 LAB L100.2200 19-41 % Normal LY% 28.5 LAB L100.2300 0-10 % Normal MONO% 6.0 LAB L100.2400 0-5 % Normal EO% 1.2 LAB L100.2500 0-1 % Normal BASO% 0.1 LAB L100.2550 0.0-0.9 % Normal IM GRAN % 0.000 Result Comment: IG% - Immature Granulocytes (promyelocytes, myelocytes and metamyelocytes) > 1% indicates that a LEFT SHIFT is Present. LAB L100.2620 2.0-7.7 X10 3/uL Normal Absolute Neut 4.7 LAB L100.2720 0.83-4.51 X10 3/ul Normal Absolute Lymph 2.09 Performed By: #### L100.0100 #### [facility] [place], [address] PROGRESS Observed: 04/14/2018 Status: COMPLETED Source: [place] 8:32 AM [facility] REPOSITORY HNO ID: [id number] Author: Leeann Hays Service: (none) Author Type: (none) Type: Progress Notes Filed: 04/14/2018 8:32 AM Note Text: Pap logged and normal pap letter sent to patient. Leeann Hays HPV W/GENOTYPE Collected: 04/06/2018 Status: F Source: [place] 2:40 PM [facility] REPOSITORY TYPE CODE TESTS RESULT OUT OF REFERENCE UNITS RANGE LAB HPVT16 HPV HighRisk Negative for Type 16 HPV DNA high risk type 16 by PCR. LAB HPVT18 HPV HighRisk Negative for Type 18 HPV DNA high risk type 18 by PCR. LAB HPVHRO HPV HighRisk Negative for Other HPV DNA high risk types: 31,33,35,39,45 ,51,52,56,58,5 9,66,68 by PCR. Result Comment: This test was developed and its performance characteristics determined by [facility]'s Cory Hoffman [facility] Pathology and Laboratory Medicine [place] ([facility]). It has not been cleared or approved by the FDA. -[facility] is regulated under CLIA as qualified to perform high-complexity testing. This test is used for clinical purposes. It should not be regarded as inv estigational or for research. Performed By: #### HPVHRR #### [facility] [address] [place], [place] [address] CYTOLOGY Observed: 04/06/2018 Status: C Source: [place] 2:40 [facility] REPOSITORY ADDITIONAL PROCEDURES PRESENT Specimen originated from [facility] Specimen #: [id number] Submitting Physician: MARY NUNEZ SPECIMEN SUBMITTED A: CERVICAL, SCREENING, FLUID FINAL DIAGNOSIS A. CERVICAL, SCREENING, FLUID Satisfactory for interpretation. Negative for intraepithelial lesion or malignancy. Atrophic specimen. This specimen has been analyzed by the ThinPrep Imaging System, an automated imaging and review system, which assists the laboratory in evaluating cells on ThinPrep Pap tests. Following automated imaging, selected ramos from every slide are reviewed by a assistant clinical nurse manager. EDGAR Lovell(ASCP) (Electronic Signature) ADDITIONAL PROCEDURE(S) HUMAN PAPILLOMA VIRUS Date Ordered: 04/08/2018 Date Reported: 04/12/2018 Procedure Results and Interpretation Negative for HPV DNA high risk type 16 by PCR. Negative for HPV DNA high risk type 18 by PCR. Negative for HPV DNA high risk types: 31,33,35,39,45,51,52,56,58,59,66,68 by PCR. This test was developed and its performance characteristics determined by [facility] [place] ([facility]). It has not been cleared or approved by the FDA. [facility] is regulated under CLIA as qualified to perform high-complexity testing. This test is used for clinical purposes. It should not be regarded as investigational or for research. 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, [address] [place] [address]. The Pap Smear is a screening test for cervical cancer. False negative results occur with all screening tests, emphasizing the need for rescreening at recommended intervals, and clinical correlation. CNCO Observed: 04/06/2018 Status: COMPLETED Source: [place] 2:38 PM [facility] [place] REPOSITORY HNO ID: [id number] Author: Mammography Coordinator Service: (none) Author Type: Physician Type: Letter Filed: 04/07/2018 11:32 PM Note Text: April 06, 2018 PID: [id number] Sobia Jacobson [address] [place] [address] Dear Ms. Wattsmikhailalpa, We are pleased to inform you that the results of your recent breast imaging exam on 04/06/2018 are normal. Early detection of cancer is very important. We also understand recommendations regarding breast cancer screening are controversial. Please discuss with your primary care provider which strategy is best for you and whether a mammogram is right for you. Your imaging studies and report will be kept on file at [facility] as part of your permanent medical record and are available for your continuing care. Thank you for allowing us to help in meeting your health care needs. Sincerely, Dr. Car Interpreting Radiologist [facility] (Normal over 40) PROGRESS Observed: 04/06/2018 Status: COMPLETED Source: [place] 2:33 PM [facility] [place] REPOSITORY HNO ID: [id number] Author: Mary Drakecalf Service: (none) Author Type: Nurse Practitioner Type: Progress Notes Filed: 04/06/2018 2:59 PM Note Text: Sobia Jacobson is a 62 year old who presents for her annual gynecologic exam without complaints. Postmenopausal: Yes since age [age] HRT use: No. Last Pap: 2011 normal HPV: 2011 negative History of abnormal pap: Yes Last mammogram: 2017 pending History of abnormal mammogram: Yes benign Sexually active: No Hot flashes: Yes Night sweats: Yes Vaginal dryness: No Obstetric History T3 L2 SAB1 TAB0 Ectopic0 Multiple0 Live Births0 Comment: One daughter was stillborn. Pt also has one step-child Pt also has 3 Step-grandchildren and one grandchild PAST MEDICAL HISTORY Diagnosis Date - External hemorrhoids without mention of complication - Internal hemorrhoids without mention of complication - Other forms of migraine PAST SURGICAL HISTORY Procedure Laterality Date - DELIVERY ONLY x3 , low cervical - COLONOSCOP W/ OR W/O [facility] SPEC 12/05/11 repeat 10 years - DANDC, DIAG AND/OR THERAPEUTIC Dilation AND curettage - LIGATE FALLOPIAN TUBE Tubal ligation - PAST SURGICAL HISTORY OF 09/05/2009 Cyst removed from left thumb - STEREOTACTIC CORE BIOPSY 04/16/07 right FAMILY HISTORY Problem Relation Age of Onset - Diabetes Mother - Heart Mother CAD, stent; AFTER AGE 65; - Coronary Artery Disease Father sudden [place], age late 70's - Diabetes Other both parents' families SOCIAL HISTORY Social History Substance Use Topics - Smoking status: Never Smoker - Smokeless tobacco: Never Used - Alcohol use No REVIEW OF SYSTEMS Abdomen: No abdominal pain, nausea, vomiting, or constipation. No bloating, early satiety, indigestion, or increased flatulence. +diarrhea 2-3 weeks ago Bladder: No dysuria, gross hematuria, urinary frequency, urinary urgency, or incontinence Breast: No breast lumps, nipple d/c, overlying skin changes, redness or skin retraction Allergies and current medication updated:Yes EXAM: LMP 03/19/2010 GENERAL: pleasant, female in no apparent distress HEENT: Normocephalic, atraumatic, mucus membranes moist and no lesions NECK: Supple, full range of motion, no adenopathy and thyroid normal DERMATOLOGY: Normal, without lesions, non-icteric and non-hirsute BREAST: soft, non-tender, symmetric, no dominant mass, normal nipple-areolar complex, no lymphadenopathy and no nipple discharge CHEST: Normal inspiratory effort ABDOMEN: soft, non-tender and no masses PELVIC: external genitalia normal, normal Bartholin's glands, urethra, [facility]'s glands, no vulvar lesions, no cervical lesions, physiologic discharge present, normal appearing perineal body and perianal region BIMANUAL: uterus normal size, shape and consistency, no adnexal masses, non-tender and no cervical motion tenderness RECTOVAGINAL: deferred. NEURO: alert and oriented x3,exam grossly non-focal EXTREMITIES: normal ASSESSMENT/PLAN: 1) Health maintenance: Pap done with HPV. Mammogram up to date Nutrition, exercise and routine health maintenance exams reviewed. Calcium/Vitamin D supplementation information provided. 2) Follow up one year or sooner as needed Mary Nunez APRN.MARILYN ALESHA SCREENING Observed: 04/06/2018 Status: F Source: [place] 2:20 PM [facility] * * *Final Report* * * DATE OF EXAM: Apr 06 2018 2:20PM [facility] 0581 - [facility] SCREENING / PROCEDURE REASON: routine * * * * Physician Interpretation * * * * RESULT: #[id number] - ALESHA SCREENING BILATERAL DIGITAL SCREENING MAMMOGRAM WITH CAD: 04/06/2018 HISTORY: Routine Screening Mammogram - patient reports NO breast symptoms /priors available for comparison. RESULT: TECHNIQUE: The study was acquired using full field digital technology and interpreted from soft copy. Current study was also evaluated with a Computer Aided Detection (CAD). Comparison is made to exams dated: 03/23/2017 mammogram - [facility], 03/21/2016 mammogram - [facility], 02/01/2015 mammogram, 12/28/2012 mammogram, 10/17/2011 mammogram - [facility], and 03/17/2007 [facility]. There are scattered fibroglandular elements in both breasts. There are biopsy clips in the right breast. No significant masses, calcifications, or other findings are seen in either breast. There has been no significant interval change. IMPRESSION: NEGATIVE There is no mammographic evidence of malignancy.A 1 year screening mammogram is recommended. The exam was reviewed by a staff physician. Herrera cervantes,mario/irish:04/06/2018 14:38:18 Medical Practice Assistant: Tiny LEON)(Marycruz), [facility] letter sent: Normal over 40 Mammogram BI-RADS: 1 Negative Imaging Technician: Irish Transcribe Date/Time: Apr 06 2018 2:03P Dictated by: PALLAVI CURRIE MD This examination was interpreted and the report reviewed and electronically signed by: HERRERA CAR MD on Apr 06 2018 2:38PM EST [id number] CNOV Observed: 04/06/2018 Status: COMPLETED Source: [place] 2:15 PM [facility] REPOSITORY Office Visit (WOOB) SOBIA JACOBSON ([id number]) 1955 F Date Time Provider Department 04/06/18 2:15 PM MARY NUNEZ (MARILYN) WOOB During your visit today, we recorded the following information about you: Blood pressure Weight Height 110/74 80.7 kg 1.6 m Mary Nunez APRN.CNP 04/06/2018 2:59 PM Signed Sobia Jacobson is a 62 year old who presents for her annual gynecologic exam without complaints. Postmenopausal: Yes since age 56/55 HRT use: No. Last Pap: 2011 normal HPV: 2011 negative History of abnormal pap: Yes Last mammogram: 2017 pending History of abnormal mammogram: Yes benign Sexually active: No Hot flashes: Yes Night sweats: Yes Vaginal dryness: No Obstetric History T3 L2 SAB1 TAB0 Ectopic0 Multiple0 Live Births0 Comment: One daughter was stillborn. Pt also has one step-child Pt also has 3 Step-grandchildren and one grandchild PAST MEDICAL HISTORY Diagnosis Date - External hemorrhoids without mention of complication - Internal hemorrhoids without mention of complication - Other forms of migraine PAST SURGICAL HISTORY Procedure Laterality Date - DELIVERY ONLY x3 , low cervical - COLONOSCOP W/ OR W/O [facility] SPEC 12/05/11 repeat 10 years - DANDC, DIAG AND/OR THERAPEUTIC Dilation AND curettage - LIGATE FALLOPIAN TUBE Tubal ligation - PAST SURGICAL HISTORY OF 09/05/2009 Cyst removed from left thumb - STEREOTACTIC CORE BIOPSY 04/16/07 right FAMILY HISTORY Problem Relation Age of Onset - Diabetes Mother - Heart Mother CAD, stent; AFTER AGE 65; - Coronary Artery Disease Father sudden [place], age late 70's - Diabetes Other both parents' families SOCIAL HISTORY Social History Substance Use Topics - Smoking status: Never Smoker - Smokeless tobacco: Never Used - Alcohol use No REVIEW OF SYSTEMS Abdomen: No abdominal pain, nausea, vomiting, or constipation. No bloating, early satiety, indigestion, or increased flatulence. +diarrhea 2-3 weeks ago Bladder: No dysuria, gross hematuria, urinary frequency, urinary urgency, or incontinence Breast: No breast lumps, nipple d/c, overlying skin changes, redness or skin retraction Allergies and current medication updated:Yes EXAM: LMP 03/19/2010 GENERAL: pleasant, female in no apparent distress HEENT: Normocephalic, atraumatic, mucus membranes moist and no lesions NECK: Supple, full range of motion, no adenopathy and thyroid normal DERMATOLOGY: Normal, without lesions, non-icteric and non-hirsute BREAST: soft, non-tender, symmetric, no dominant mass, normal nipple-areolar complex, no lymphadenopathy and no nipple discharge CHEST: Normal inspiratory effort ABDOMEN: soft, non-tender and no masses PELVIC: external genitalia normal, normal Bartholin's glands, urethra, [facility]'s glands, no vulvar lesions, no cervical lesions, physiologic discharge present, normal appearing perineal body and perianal region BIMANUAL: uterus normal size, shape and consistency, no adnexal masses, non-tender and no cervical motion tenderness RECTOVAGINAL: deferred. NEURO: alert and oriented x3,exam grossly non-focal EXTREMITIES: normal ASSESSMENT/PLAN: 1) Health maintenance: Pap done with HPV. Mammogram up to date Nutrition, exercise and routine health maintenance exams reviewed. Calcium/Vitamin D supplementation information provided. 2) Follow up one year or sooner as needed Mary Nunez APRN.MARILYN Hays 04/14/2018 8:32 AM Signed Pap logged and normal pap letter sent to patient. Leeann Hays Referring Provider: SELF [200] Allergies As of Date: 04/06/2018 Noted Allergy Reaction CODEINE 09/23/2006 8 - GI Upset Date Reviewed: 04/06/2018 Reviewed by: Mary Nunez - Fully Assessed Reason for Visit: Well Woman [[id number]] Primary Visit Diagnosis:Encounter for gynecological examination (general) (routine) without abnormal findings [Z01.419] Other Visit Diagnoses:Visit for screening mammogram [Z12.31] Encounter for screening for human papillomavirus (HPV) [Z11.51] Pap smear for cervical cancer screening [Z12.4] Order(s):ALESHA SCREENING [[id number]] Order #: [id number] FUTURE PAP FLUID CERVICAL SCREENING [[id number]] Order #: [id number] #[id number] HPV W/GENOTYPE [SQHPVHRR] Order #: [id number]. #:[id number] Problem List As Of Date 04/06/2018 Noted Resolved Abnormal mammogram, unspecified [R92.8] INVALID FOR* Priority: B More... Routine general medical examination at a health*INVALID FOR*10/17/2011 Priority: A Class: Chronic More... Routine gynecological examination [Z01.419] INVALID FOR*10/17/2011 Priority: B Class: Chronic More... Family history of other cardiovascular diseases*INVALID FOR* Priority: A More... Obesity [E66.9] INVALID FOR* Priority: A ASCUS favor benign [R87.610] INVALID FOR* Dyspareunia [ULQ9465] INVALID FOR* Disposition: Return in 1 year (on 04/06/2019) for Annual Exam. Follow-up and Disposition History Recorded Letter Text Mary Nunez CNP [facility] [address], [place] [address] Sobia Jacobson [facility] [place] [address] 04/14/2018 [facility]: [id number] Dear Sobia, We are pleased to inform you that your recent Pap Test was within normal limits. Because Pap tests are so effective in the early detection of cervical cancer, you are encouraged to continue having the test at regular intervals. You will be due for a 1 year Gynecological Exam after this date 04/06/2019. If you have any questions regarding the above information, do not hesitate to call our office at between the hours of 8:00 a.m. and 5:00 p.m. Sincerely, Mary Nunez CNP Encounter Status:Closed by MARY NUNEZ on 04/06/18 PROCEDURE Observed: 04/06/2018 Status: COMPLETED Source: [place] 1:58 PM [facility] REPOSITORY O ID: [id number] Author: Tiny Howard) Isabelle Pulido Service: (none) Author Type: Chief Medical Physicist Type: Procedures Filed: 04/06/2018 2:20 PM Note Text: Radiology Service Progress Note PATIENT NAME: Sobia Mimi Jacobson DATE OF SERVICE: April 06, 2018 TIME: 1:58 PM PATIENT IDENTITY VERIFICATION COMPLETED USING TWO (2) METHODS: Patient confirmed name verbally and Date of . PATIENT GENDER DATA: Female. status: : No status: NO. PATIENT RELEVANT IMPLANT DATA REVIEWED: Not Applicable RADIOLOGY DEPARTMENT: [facility] DATA: Not applicable SIGNED BY: RT Shahid April 06, 2018 1:58 PM LIPID PROFILE Collected: 03/16/2018 Status: F Source: [place] 7:16 AM [facility] [place] [place] REPOSITORY TYPE CODE TESTS RESULT OUT OF RANGE REFERENCE UNITS LAB L501.4900 200 mg/dL Normal CHOL 163 Result Comment: <200 mg/dL Desirable 200-240 mg/dL Borderline >240 mg/dL High Risk LAB L501.5000 mg/dL Normal TRIG 102 Result Comment: The drugs N-Acetylcysteine and Metamizole may falsely depress this assay. Serum Triglycerides Reference Interval Normal <150 mg/dL Borderline high 150 - 199 mg/dL High 200 - 499 mg/dL Very High > or = 500 mg/dL LAB L501.6400 mg/dL Normal HDL 52 Result Comment: The drugs N-Acetylcysteine and Metamizole may falsely depress this assay. Reference Range HDL <40 mg/dL Low HDL Cholesterol HDL >or= 60 mg/dL High HDL Cholesterol LAB L501.6500 0-130 mg/dL Normal LDL 91 LAB L501.6600 5-40 mg/dL Normal VLDL 20 Performed By: #### L500.4100, L501.0100 #### [facility] [address] [place], [address] GLUCOSE Collected: 03/16/2018 Status: F Source: [place] 7:16 AM [facility] [place] [place] REPOSITORY TYPE CODE TESTS RESULT OUT OF RANGE REFERENCE UNITS LAB L501.0100 74-106 mg/dL Normal GLU 75 Result Comment: Please note revised GLUCOSE reference range effective 2017. Performed By: #### L500.4100, L501.0100 #### [facility] [address] [place], [address] SURGERY VISIT REPORT Observed: 03/12/2018 Status: F Source: [place] 1:23 PM [facility] [place] [place] REPOSITORY [facility] [address] [place] [address] OFFICE VISIT Date of Service: 03/12/18 MR#: [id number] Acct: [id number] Name: SOBIA JACOBSON Rep #: [id number] : 1955 Provider: David Hernandez MD Age/Sex: 62/F [place] [facility] [place] Status: Signed Intake Vital Signs03/12/18 Height 5 ft 3 in 03/12/18 Weight: 180 lb Intake Visit Reasons: Issues with swallowing discuss EGD Fudger Required: No Is patient in pain?: No Allergies codeine Allergy (Intermediate, Verified 03/12/18 13:03) vomiting Medications omega-3 fatty acids 1,000 mg capsule 1,000 mg PO QDAY 03/12/18 [History Confirmed 03/12/18] potassium 99 mg tablet 2.5 meq PO QDAY 03/12/18 [History Confirmed 03/12/18] PFSH Medical History Acid reflux (Acute) Epigastric pain (Acute) Hemorrhoids (Acute) Surgical History History cyst removed left thumb (Acute) History of (Acute) History of dilatation and curettage (Acute) Family History Mother Diabetes Arthritis Social History Smoking Status: Never smoker alcohol intake: never substance use type: does not use HPI HPI HPI: SOBIA JACOBSON, is a 62 F who presents to the office today for dysphasia. Patient states that over the last 6 months she has noticed food getting stuck in her distal esophagus particularly dry foods. When she swallows water feels like the water is going around it and eventually she will sometimes vomit this food material out. She has had these type of symptoms off and on for better than a year. Worse over the last several months. She has never had an upper scope. ROS General General: No weight change, appetite, fatigue, colon cancer, breast cancer or weakness HEENT HEENT: No difficulty swallowing, eye injury, eye surgery, swollen glands or hoarseness Endo Endocrine: No thyroid disease, diabetes mellitus, thyroid cancer, Hair loss, heat intolerance or cold intolerance Skin Skin: No rash or changing moles Breast Breast: No left breast lump, right breast lump, nipple discharge, breast pain, abnormal mammogram, abnormal US or breast enlargement Musc Musculoskeletal: No back problems, arthritis, rheumatoid arthritis, gout or joint pain Cardio Cardiovascular: No murmur, pacemaker, heart disease, atrial fibrillation, high blood pressure, heart attack, heart stent, palpitations, shortness of breat with exertion or chest pain Psych Psychiatric: No depression, anxiety or hearing voices Resp Respiratory: No shortness of breath, No sleep apnea, No cough, No COPD, No asthma, No emphysema, No wheezing Gastro Gastrointestinal: No abdominal pain, No nausea or vomiting, No diarrhea, No constipation, No blood in stool, Yes acid reflux, Yes hemorrhoids, No ulcers, No gallbladder problem, No black,tarry stools Eber Hematologic: No blood thinners, No blood disorders, No bleeding, No anemia, No blood clots Neuro Neurologic: No system reviewed and no additional complaints, except as docu, No as per HPI, No abnormal walking, No abnormal hearing, No abnormal movements, No abnormal speech, No behavioral changes, No burning sensations, No confusion, No seizure-like activity, No unsteadiness, No dizziness, No localized weakness, No frequent falls, No headache(s), No lack of coordination, No loss of vision, No memory loss, No numbness, No other visual disturbances, No radiating pain, No restless legs, No sensory deficit, No fainting, No tingling, No tremor(s), No weakness, No other Exam Const General: well developed, no acute distress, well hydrated Orientation: oriented to person, oriented to place, oriented to time [facility] Head: normocephalic, atraumatic Ears: external ears normal Mouth: moist mucous membranes Eyes Sclera: sclerae normal Pupils: normal by confrontation Neck Neck: no lymphadenopathy noted Neck mass: No Thyroid: symmetrical, thyroid normal Chest Chest palpation AND inspection: normal inspection of the chest Breast Palpation: No nipple discharge Resp Effort AND Inspection: normal respiratory effort Auscultation: clear to auscultation bilaterally Percussion: percussion normal Cardio Rate: regular rate Rhythm: regular rhythm Heart Sounds: no murmurs GI Palpation: soft, no masses, no hepatosplenomegaly, nontender Rectal Exam: other Other: Rectal exam deferred. Extrem General: no clubbing, cyanosis or edema, normal to inspection Assessment AND Plan Problems 1. Dysphasia R47.02 Plan I have discussed the above with the patient. I have offered the patient esophagogastroduodenoscopy for evaluation. I have explained the risks/benefits of the procedure and described the procedure. I have discussed the risks with the patient, including but not limited to: infection, bleeding, perforation of the GI tract requiring emergency surgery, inability to complete the procedure, injury to any internal organs, complications of anesthesia, etc. - the patient understands and agrees to proceed. I have answered all the patient's questions to the patient's satisfaction and the patient has no further questions. Coding Level of Care Code Off vis,new,level 3 Diagnoses Dysphasia R47.02 03/12/18 1323 <Electronically signed by David Hernandez MD> Date David Hernandez MD Cosigner Signature: Date (if applicable) CC: Jorge L Leigh MD THYROID STIM HORMONE Collected: 02/10/2018 Status: F Source: [place] (TSH) 9:13 AM [facility] [place], [place] REPOSITORY TYPE CODE TESTS RESULT OUT OF RANGE REFERENCE UNITS LAB L501.9520 0.358-3.74 uIU/mL Normal TSH 1.64 Performed By: #### L501.9520, L506.0400 #### [facility] [address] [place], [place], [address] T4 FREE DIRECT Collected: 02/10/2018 Status: F Source: EMILY 9:13 AM [facility] [place], [place] REPOSITORY TYPE CODE TESTS RESULT OUT OF RANGE REFERENCE UNITS LAB L506.0400 0.76-1.46 ng/dL Normal T4 FREE 0.96 DIRECT Performed By: #### L501.9520, L506.0400 #### [facility] [address] [place], [address] LOWER EXT JOINT ONLY Observed: 11/09/2017 Status: F Source: EMILY (ROUTINE) 3:34 PM [facility] [place] [place] REPOSITORY [facility] Imaging Services [address] [place] [address] Lower Ext Joint Only (Routine) MR#: [id number] Acct: [id number] Name: SOBIA JACOBSON Rep #: [id number] : 1955 F 62 From: Fahad Canchola MD PCP: Jorge L Leigh Status: REG CLI Study: Lower Ext Joint Only (Routine) Date of Exam: 11/09/17 Exam# [id number] Ordering Dr: Rakesh Leo DPM STUDY: MRI LEFT ANKLE WITHOUT CONTRAST REASON FOR EXAM: Female, 62 years old. Achilles and peroneal tendinitis TECHNIQUE: Standardized fat and water weighted pulse sequences were obtained in all 3 orthogonal planes. COMPARISON: None. FINDINGS: There is thickening at the plantar fascia insertion. There is mild edema at the adjacent soft tissues (image 13/20 sagittal inversion recovery). There is a plantar calcaneal enthesophyte (image 11/20 sagittal T1). There is slight thickening with abnormal signal at the Achilles tendon insertion (image 12/20 sagittal inversion recovery). There is a small amount of fluid at the ankle and posterior subtalar joint (image 10/20 sagittal inversion recovery). There is a small synovial/ganglion cyst at the dorsal lateral aspect of the talonavicular joint measuring approximately 1.5 cm in greatest dimension. Normal posterior tibialis tendon. Normal flexor digitorum longus tendon. Normal flexor hallucis longus tendon. Normal peroneus longus and brevis tendons. Normal tibialis anterior tendon. Normal extensor hallucis longus tendon. Normal extensor digitorum longus tendons. Normal distal tibiofibular syndesmotic ligamentous complex. Normal lateral ligamentous complex. Normal subtalar ligaments and sinus tarsi. Normal deltoid ligamentous complexes. Normal plantar calcaneonavicular (spring) ligament. Normal tibiotalar articulation. Normal talar dome. Normal subtalar articulations. Normal talonavicular articulation. Normal calcaneocuboid articulation. Normal navicular-cuneiform articulations. MRI/Lower Ext Joint Only (Routine) IMPRESSION: Mild insertional Achilles tendinosis Plantar fasciitis Electronically Signed: Fahad Canchola MD at 22:38 EDT Tel , Service support , CC: Rakesh Leo DPM; Jorge L Leigh Imaging Technician: Signed ALLERGIES ALLERGIES DATE TYPE / CODE NAME / CODE REACTION SEVERITY SOURCE 09/10/2018 Drug codeine/H94883 Vomiting [facility] Allergy/4160 1550(RXNORM) Hospital [address]802(SNOMED Repository CT) 09/23/2006 DRUG CODEINE GI UPSET [facility] INGREDI/4195 [facility] [address](SNOMED Repository CT) ENCOUNTERS ENCOUNTERS ADMIT/DISCHARGE ACCOUNT ADMITTING ENCOUNTER LOCATION SOURCE NUMBER CLASS 09/10/2018/09/10/[id number] ing:SDCRoom: Repository AC04 08/30/2018 [id number] [facility] ing:MRI Repository 08/25/2018 [id number] [facility] ing:BFHLAB Repository 04/06/2018/04/07/20 [id number] Ambulatory [address] Repository 04/06/2018/04/06/[id number] Repository 03/16/2018 [id number] [facility] ing:HW Repository 03/12/2018/03/12/20 [id number] Ambulatory BMSBuilding:B [place] [facility] Repository 02/10/2018 [id number] [facility] ing:BFHLAB Repository 11/09/2017 [id number] [facility] ing:MRI Repository PAYERS PAYERS ENCOUNTER GUARANTOR PAYER SUBSCRIBER SOURCE 09/10/2018 SOBIA Le Primary Insurance:UMR SOBIA Le [place] [id number] [place] [id number] SPEELMANDOB: [facility] Number: [id number], [place] [id number] Repository [address]Isr: (330) Date:[id number] [phone] () [address] [place] [phone]: 09/10/2018 Secondary NOT GIVENUNK Emily Insurance:SELF PAY [facility] Number: Effective Repository Date:2018-07-29 08/30/2018 SOBIA Le Primary Insurance:UMR SOBIA Le [place] [id number] [place] [id number] SPEELMANDOB: [facility] CENTER Number: [id number], [place] [id number] Repository [address]Xcy: ([phone]) Date:[id number] [phone] () [address] [place] [phone]: 08/30/2018 Secondary NOT GIVENUNK [place] Insurance:SELF PAY [facility] Number: Effective Repository Date:2018-08-19 08/25/2018 SOBIA Le Primary Insurance:UMR SOBIA [place] [id number] [place] [id number] SPEELMANDOB: [facility] CENTER Number: [id number], [place] [id number] Repository [address]Nyt: (330) Date:0630-38-02PU [phone] () [address] [place] [phone]: 08/25/2018 Secondary NOT GIVENUNK [place] Insurance:SELF PAY [facility] Number: Effective Repository Date:2018-08-25 03/16/2018 SOBIA C Primary NOT GIVENUNK [place] [id number] Insurance:SELF PAY [place] Number: Effective Repository [id number]: (330) Date:2018-03-03 [phone] () 03/12/2018 SOBIA C Primary Insurance:UMR SOBIA Diaz [id number] [place] [id number] SPEELMANDOB: [facility] Number: [id number], [place] [id number] Repository [address]Iws: (330) Date:4757-51-13YF [phone] () [address] [place] [phone]: 03/12/2018 Secondary NOT GIVENUNK [place] Insurance:SELF PAY [facility]: Effective Repository Date:2018-03-12 02/10/2018 SOBIA C Primary Insurance:UMR SOBIA Diaz [id number] [place] [id number] SPEELMANDOB: [facility] Number: [id number], [place] [id number] Repository [address]Fof: (330) Date:[id number] [phone] () [address] [place] [phone]: 02/10/2018 Secondary NOT GIVENUNK [place] Insurance:SELF PAY [facility] Number: Effective Repository Date:2018-02-10 11/09/2017 SOBIA C Primary Insurance:UMR SOBIA Diaz [id number] [place] [id number] SPEELMANDOB: [facility] Number: [id number], [place] [id number] Repository [address]Vgn: (330) Date:3163-46-04MI [phone] () [address] [place] [phone]: 11/09/2017 Secondary NOT GIVENUNK [place] Insurance:SELF PAY [facility] Number: Effective Repository Date:2017-10-30
== END 2018-09-10 17:59 | disposition home or self-care (01) ==
LOC: SDC 07:04 → AC 07:08
PROVIDERS: Family Provider Family Medicine; PCP Family Medicine; Referring Provider Podiatrist; Visit Provider Podiatrist
PROC: (CPT 28899; principal; 2018-09-10 08:30)
DX: M76.62 Achilles tendinitis, left leg (principal); M92.62 Juvenile osteochondrosis of tarsus, left ankle; M72.2 Plantar fascial fibromatosis; M67.472 Ganglion, left ankle and foot; M84.375A Stress fracture, left foot, initial encounter for fracture; X58.XXXA Exposure to other specified factors, initial encounter
CPT/HCPCS: 01480; 20900; 28090; 28119; 28200; 28485; 64445; 73620; 73630; 76000; 88304; 88305; 88311; C1713; J7120; J2405

== ENCOUNTER 2019-01-12 15:30 | Outpatient (RCR) | payer OTHER, SELFPAY ==
[2018-09-10 07:26] VITALS: BMI 31.1
--- NOTE | 2018-11-30 16:00 | HP.PTEVAL ---
Patient's Visit Information ELEN JACOBSON is a 63 year old F referred to Physical Therapy by Rakesh Leo DPM with a diagnosis of L s/p detach and reattach achilles, removal of spurs, PF, grafting of 3rd m. Date of Evaluation: 11/30/18 Physical Therapist: JAIDA Pablo - Visit Plan Frequency: 2-3x /Week Duration: 4-6 Weeks Plan: 2-3X/ week for 4-6 weeks for L ankle AROM, PROM, stretching gait training, strengthening, reduction in swelling, balance and proprioception with HEP and E-stim PRN - Subjective Findings: Pt had surgery Sep 10, 2018. She has had 2 bone spurs for a number of years and one day she pivioted on her foot and it felt like every bone in foot broke. She walked on it broken for a year and then they had to detach the achilles and reattach to get the bone spur and then did a bone graft to heal the bone. They also took out a couple of cysts. Pt reports that she still has a lot of swelling and the broken bones have healed. Does not have trouble putting weight through her feel. SHe feels like something is wrapped around her 2 little toes and pulling back and it is kind of painful and bothersome. She started this week walking without the boot and did a few hours each day. And she sits so much at work. She has no worn the boot all this week and felt washing machine tender and certain ways she can not move it. He gave her some exercises and has not been faithful of doing them. She has been walking about 1 mile 3-5 times per week and she has some pain/discomfort and swelling after it...... At work she only props it up if it starts to bother her. She thinks that it might be less swollen in the morning. Stairs: she goes up 18 stairs at work and goes up recip with a railing. - Pain L foot pain Pain Intensity (Out of 10): 2 Pain Intensity Range: 7 - Objective Gait: Walks with decrease stance time on the L foot. Decreased heel to toe pattern. Girth measurements: R: lat to med met 24.4 cm, fig 8 50.2 cm, and 21.4 cm met heads. L: 28.2, 53.1 and 22.6. AROM: R: 15 DF, 45 PF, 8 EV, and 30 INV. L: 9 DF, 35 PF, 5 EV, and 25 INV. L ankle MMT NT secondary to surgical procedure - Goals Goal 1:: I HEP Goal Time Frame: 4-6 Weeks Goal 2:: Walk without an antalgic gait in a normal shoe Goal Time Frame: 4-6 Weeks Goal 3:: Increase L ankle AROM to equal that of the R (ankle AROM at time of eval: R: lat to med met 24.4 cm, fig 8 50.2 cm, and 21.4 cm met heads. L: 28.2, 53.1 and 22.6) Goal Time Frame: 4-6 Weeks Goal 4:: No pain with walking 1 mile 3-4 times per week in regular shoe Goal Time Frame: 4-6 Weeks - Rehabilitation Potential Rehabilitation Potential: Good - Anticipated Interventions Patient/Client Instruction: Educate patient on: Condition, Plan of Care For the Purpose of:: To decrease pain, To decrease swelling/inflammation, To increase ROM, To improve nutrient delivery to tissue, To improve muscle performance and motor function, To improve ability to perform ADL's, To increase tolerance to activity/condition/position, To improve performance and independence with ADL's, To improve gait and locomotor functions, To improve health of tissue, To decrease soft tissue restriction, To increase flexibility/ROM, To improve balance Therapeutic Exercise to Include: Strength training, Endurance training, Balance training, Flexibilty training, Gait and locomotor training, Passive ROM, Active ROM For the Purpose of:: To decrease pain, To decrease swelling/inflammation, To increase ROM, To improve nutrient delivery to tissue, To improve muscle performance and motor function, To improve ability to perform ADL's, To increase tolerance to activity/condition/position, To improve performance and independence with ADL's, To improve gait and locomotor functions, To improve health of tissue, To decrease soft tissue restriction, To increase flexibility/ROM, To improve balance Functional Training to Include: Gait training For the Purpose of:: To improve gait and locomotor functions Manual Therapy Techniques to Include: Passive ROM, Soft tissue mobilization For the Purpose of:: To increase ROM IF ES: Yes For the Purpose of:: To decrease pain, To decrease swelling/inflammation, To improve nutrient delivery to tissue Thank you for the opportunity to evaluate your patient. For Medicare and Medicare HMO plans, please review the plan of care and approve it. It will need to be FAXED BACK to us at [phone] for Medicare purposes. For Medicare only, by signing this I certify the plan of care. Please let me know if there are questions or concerns regarding this plan of care. Physician Signature: Date:
--- NOTE | 2019-01-12 16:03 | HP.PTDCSUM ---
HP - PT D/C Summary It has been my pleasure to treat ELEN JACOBSON under orders from Rakesh Leo DPM, for the diagnosis of L s/p detach and reattach achilles, removal of spurs, PF, grafting of 3rd m for a total of 19 visit(s). Discharge Date: 01/12/19 Please see the following information for a summary of their discharge status. - Subjective Subjective: Pt reports that today she feels better today than she has. SHe having trouble curling her toes... Dr not sure if that will ever come back. - Pain L foot pain Pain Intensity (Out of 10): 1 - Overall Improvement % Improvement: 50 - Objective Objective/Function: L AROM: DF 15. PF 44. INV 34. EV 11. Normal gait pattern - Goals Goal 1:: I HEP Goal Progress: Goal Met Goal 2:: Walk without an antalgic gait in a normal shoe Goal Progress: Goal Met Goal 3:: Increase L ankle AROM to equal that of the R (ankle AROM at time of eval: R: 15 DF, 45 PF, 8 EV, and 30 INV. L: 9 DF, 35 PF, 5 EV, and 25 INV) Goal Progress: Goal Met Goal 4:: No pain with walking 1 mile 3-4 times per week in regular shoe Goal Progress: Goal Met - Plan Plan: DC PT to HEP - D/C Information Discharge Comments: DC PT to HEP If there are questions or concerns regarding this patient's physical therapy, please feel free to call me at [phone]. Thank you for the referral of this patient. Sincerely, Negar Dixon, MPT
== END 2019-01-12 19:00 | disposition home or self-care (01) ==
LOC: PT 15:30
PROVIDERS: Family Provider Family Medicine; PCP Family Medicine; Referring Provider Podiatrist; Visit Provider Podiatrist
DX: Z98.890 Other specified postprocedural states (principal)
CPT/HCPCS: 97110; 97161

== ENCOUNTER → 2019-03-04 | Outpatient (CLI) | payer OTHER, SELFPAY ==
[2018-09-10 07:26] VITALS: BMI 31.1
[2019-03-04 13:01] LABS: Vitamin D,25 Hydroxy 26.8 ng/mL (29.95-100.01)
[2019-03-04 13:09] LABS: ALB/GLOB Ratio 0.9 RATIO (0.9-2.4); AST(SGOT) 19 U/L (15-37); Alanine Aminotransfer ALT/SGPT 23 U/L (13-56); Albumin, Serum 3.6 g/dL (3.2-5.0); Alkaline Phosphatase 98 U/L (45-117); Anion Gap 6 (5-15); BUN 22 mg/dL (7-18); BUN/Creat Ratio 27.4 RATIO (10-20); Calcium,Total 9.2 mg/dL (8.5-10.1); Chloride 105 mmol/L (98-107); EST Glomerular Filtration Rate 77 mL/min (>60); Est Glom Filt Rate - Afr Amer 93 mL/min (>60); Globulin 3.8 g/dL (2.2-4.2); Glucose 98 mg/dL (74-106); Magnesium 1.9 mg/dL (1.6-2.6); Potassium 3.7 mmol/L (3.5-5.1); Protein, Total 7.4 g/dL (6.4-8.2); Sodium Level 139 mmol/L (136-145); T4 Free Direct 0.88 ng/dL (0.76-1.46); Thyroid Stim Hormone (TSH) 1.59 uIU/mL (0.358-3.74)
== END | disposition home or self-care (01) ==
LOC: BFHLAB 10:30
PROVIDERS: Family Provider Family Medicine; PCP Family Medicine; Visit Provider Family Medicine
DX: M84.40XA Pathological fracture, unspecified site, initial encounter for fracture (principal)
CPT/HCPCS: 36415; 80053; 82306; 83735; 84439; 84443

== ENCOUNTER → 2019-03-15 | Outpatient (CLI) | payer OTHER, SELFPAY ==
[2018-09-10 07:26] VITALS: BMI 31.1
--- NOTE | 2019-03-15 15:37 | BD_ITS ---
STUDY: DUAL ENERGY X-RAY ABSORPTIOMETRY / DXA REASON FOR EXAM: Female, 63 years old. Loss of height. The patient is postmenopausal. TECHNIQUE: Bone Mineral Density (BMD) measurements of lumbar spine and bilateral hips were obtained. COMPARISON: None. FINDINGS: Lumbar Spine (L1-L4): g/cm2 (1.192) / T-score (0.1) / Z-score (1.4) Findings are suggestive of normal bone density with a low fracture risk. Left Femur Total: g/cm2 (0.889) / T-score (-0.9) / Z-score (0.1) Left Femoral Neck: g/cm2 (0.856) / T-score (-1.3) / Z-score (0.0) Right Femur Total: g/cm2 (0.900) / T-score (-0.9) / Z-score (0.1) Right Femoral Neck: g/cm2 (0.852) / T-score (-1.3) / Z-score (0.0) BD/Dexa Bone Density Study IMPRESSION: The patient is considered osteopenic as outlined below according to World Feroz Organization (WHO) criteria with a low fracture risk. Reference Information: The T-score is the number of standard deviations above or below the standard which is normal for young adults at their peak bone mineral density. The World Health Organization (WHO) interprets the T-scores as follows: Above -1 Normal bone density Between -1 and -2.5 Osteopenia Equal to / or below -2.5 Osteoporosis As a practical clinical guideline, osteopenia may be graded as follows: Mild -1 through -1.5 Moderate -1.6 through -2.0 Severe -2.1 through -2.4 The Z-score is the number of standard deviations above or below age-matched controls. A Z-score of less than -1.5 would be considered abnormal. References: 1. NIH Osteoporosis and Related Bone Diseases http://www.osteo.org 2. International Society for Clinical Densitometry http://www.iscd.org 3. National Osteoporosis Foundation http://www.nof.org Electronically Signed: Donnie Cheney, at 10:21 EDT , Service support ,
== END | disposition home or self-care (01) ==
LOC: OPBD 15:32
PROVIDERS: Family Provider Family Medicine; PCP Family Medicine; Referring Provider Family Medicine; Visit Provider Family Medicine
DX: M84.40XA Pathological fracture, unspecified site, initial encounter for fracture (principal)
CPT/HCPCS: 77080

== ENCOUNTER 2019-04-22 05:52 | Day surgery (SDC) | payer OTHER, SELFPAY ==
[2019-03-31 14:55] VITALS: BMI 31.1
--- NOTE | 2019-04-01 01:21 | HP_ITS ---
Intake Vital Signs 03/31/19 Body Mass Index (BMI) 31.1 03/31/19 Height 5 ft 3 in 03/31/19 Weight: 183 lb 2 oz 03/31/19 Body Mass Index (BMI) 32.4 03/31/19 Blood Pressure 129/79 H 03/31/19 Blood Pressure Location Rt brachial 03/31/19 Blood Pressure Position Sitting 03/31/19 Respiratory Rate 20 H 03/31/19 Pulse Rate 82 03/31/19 Pulse Ox 96 Intake Visit Reasons: Discuss having EGD/Dysphagia Chief Complaint: dysphagia Check Scaler Required: No Is patient in pain?: No Allergies codeine Adverse Reaction (Intermediate, Verified 03/31/19 14:54) vomiting Medications Ascorbic Acid [Vitamin C] 500 mg PO DAILY 09/03/18 [History Confirmed 03/31/19] artificial tears (hypromellose) 0.5 % eye drops 2 drp OPHTHALMIC 4-8XD 03/31/19 [History Confirmed 03/31/19] doxycycline monohydrate 40 mg capsule,immediate - delay release 1 cap PO DAILY 03/31/19 [History Confirmed 03/31/19] flaxseed oil 1,000 mg capsule 1,000 mg PO DAILY PRN 03/31/19 [History Confirmed 03/31/19] Is last menstrual period known: No Post menopausal: Yes Patient : No PFSH Medical History Acid reflux (Acute) Dysphagia (Acute) Epigastric pain (Acute) Hemorrhoids (Acute) Surgical History History cyst removed left thumb (Acute) History of (Acute) History of section (Acute) History of section (Acute) History of dilatation and curettage (Acute) History of right breast biopsy (Acute) Family History Mother Diabetes Arthritis Father Heart disease Hypertension Myocardial infarction Social History (Updated 04/01/19 @ 13:21 by David Hernandez MD) Smoking Status: Never smoker alcohol intake: never substance use type: does not use HPI HPI HPI: ELEN JACOBSON is a 63 F who presents to the office today for HPI HPI Surgical H&P: Yes HPI: ELEN JACOBSON, is a 63 F who presents to the office today for Evaluation of dysphagia. Over the last few years the patient has had random intermittent episodes where food is gotten stuck in her esophagus. She has never had an upper scope.She has also had no testing. There is no pattern to when this happens but recently it has gotten more frequent. ROS General General: No weight change, appetite, fatigue, colon cancer, breast cancer or weakness HEENT HEENT: No difficulty swallowing, eye injury, eye surgery, swollen glands or hoarseness Endo Endocrine: No thyroid disease, diabetes mellitus, thyroid cancer, Hair loss, heat intolerance or cold intolerance Musc Musculoskeletal: Yes back problems; no arthritis, rheumatoid arthritis, gout or joint pain Cardio Cardiovascular: No murmur, pacemaker, heart disease, atrial fibrillation, high blood pressure, heart attack, heart stent, palpitations, shortness of breat with exertion or chest pain Resp Respiratory: No shortness of breath, No sleep apnea, No cough, No COPD, No asthma, No emphysema, No wheezing Gastro Gastrointestinal: No abdominal pain, No nausea or vomiting, No diarrhea, No constipation, No blood in stool, Yes acid reflux, No hemorrhoids, No ulcers, No gallbladder problem, No black,tarry stools Eber Hematologic: No blood thinners, No blood disorders, No bleeding, No anemia, No blood clots Neuro Neurologic: No weakness Exam Const General: no acute distress, well developed, well hydrated Orientation: oriented to person, oriented to place, oriented to time [facility] Head: normocephalic, atraumatic Ears: external ears normal Mouth: moist mucous membranes Eyes Sclera: sclerae normal Pupils: normal by confrontation Neck Neck: no lymphadenopathy noted Neck mass: No Thyroid: thyroid normal, symmetrical Chest Chest palpation & inspection: normal inspection of the chest Resp Effort & Inspection: normal respiratory effort Auscultation: clear to auscultation bilaterally Percussion: percussion normal Cardio Rate: regular rate Rhythm: regular rhythm Heart Sounds: no murmurs GI Palpation: soft, no hepatosplenomegaly, no masses, nontender Rectal Exam: other Other: Rectal exam deferred. Extrem General: normal to inspection, no clubbing, cyanosis or edema Assessment & Plan Problems 1. Esophageal dysphagia R13.10 Plan I have discussed the above with the patient. I have offered the patient esophagogastroduodenoscopy for evaluation. I have explained the risks/benefits of the procedure and described the procedure. I have discussed the risks with the patient, including but not limited to: infection, bleeding, perforation of the GI tract requiring emergency surgery, inability to complete the procedure, injury to any internal organs, complications of anesthesia, etc. - the patient understands and agrees to proceed. I have answered all the patient's questions to the patient's satisfaction and the patient has no further questions. The patient has been given instructions for the colon cleansing preparation. Orders Orders: EGD 03/31/19 R47.02 Coding Level of Care Code Off vis,new,level 3 Diagnoses Esophageal dysphagia R13.10 ??Dysphagia type: esophageal phase 04/01/19 1321 <Electronically signed by David cuellar MD> Date _ David Hernandez MD I have re-examined the patient. There are no clinical changes since date of exam.
[2019-04-22] VITALS (7 sets, daily range): BP systolic 96–123; BP diastolic 35–77; PULSE 53–74; RESP 16; TEMP 36.3–36.8; O2SAT 94–99; BMI 31.7
--- NOTE | 2019-04-22 | IMM_PTH ---
PATIENT: ELEN JACOBSON LOC: EN U#:[id number] AGE/SX: 63/F ROOM: RE04/22/[address]: Dr. David Hernandez MD : 1955 BED: DIS: 04/22/2019 SPEC #: [id number] RECD: 04/22/19 11:44 STATUS: YURIY REKristel #: [id number] CATHERINE: 04/22/19 00:[address]: David Hernandez DEPT: IMMUNOHISTOCHEMISTRY RECD BY: Sharona Lewis ENTERED: 04/22/19 11:45 SP TYPE: IMMUNO OTHR DR: Dr. Jorge L Leigh MD Tissues: Gastric mucous membrane Procedures: H Pylori (initial) Comments: @ Specimen number changed from [id number] to [id number] @ on 04/22/19 at 1154 by GONZALES. PHYSICIAN & INSTITUTION [place] [address] SPECIMEN INFORMATION: Tissue Source: A - Antrum biopsy Clinical Info: Esophageal dysphagia Specimen Number: [id number] CPT code: 35036 METHODOLOGY: Deparaffinized sections of prefer/formalin-fixed tissue or PAP/DQ stained slides are incubated with monoclonal/polyclonal antibodies/oligonucleotide probes. Localization is made via biotin free immunoperoxidase method. Appropriate controls are performed and reacted as expected. Results on target cell population are indicated in the following table: RESULTS: ANTIBODY / CLONE RESULT Block A H Pylori (polyclonal) positive These tests were developed and their performance characteristics determined by [facility]. They may not have been cleared or approved by the U.S. Food and Drug Administration. The FDA has determined that such clearance or approval is not necessary. INTERPRETATION: Antrum biopsy: Positive for Helicobacter pylori organisms. ADELAIDE:joey 04/26/19
[2019-04-22] MEDS: Lactated Ringers 1,000 ML 100 ML IV (06:31)
--- NOTE | 2019-04-22 07:00 | EGD_PTH ---
PATIENT: ELEN JACOBSON LOC: EN U#:[id number] AGE/SX: 63/F ROOM: RE04/22/[address]: Dr. David Hernandez MD : 1955 BED: DIS: 04/22/2019 SPEC #: [id number] RECD: 04/22/19 07:42 STATUS: YURIY AMAURY #: [id number] CATHERINE: 04/22/19 07:[address]: David Hernandez DEPT: SURGICAL PATHOLOGY RECD BY: Eyad Caicedo ENTERED: 04/22/19 10:04 SP TYPE: EGD BIOPSY OT DR: Dr. Jorge L Leigh MD Tissues: A - Gastric mucous membrane B - Esophageal mucous membrane Procedures: Special Stain Group II Surgery Specimen Level IV Alcian Blue/PAS (control) HEADER OPERATION: EGD ([facility] [place], [place]) PRE-OP DIAGNOSIS: Esophageal dysphagia TISSUE SUBMITTED: A. Antrum biopsy for H. pylori and path, B. Distal esophagus biopsy MICROSCOPIC DIAGNOSIS A. Antrum, biopsy: Mild to moderate gastritis. See microscopic description and comment. B. Distal esophagus, biopsy: Fragments of gastroesophageal mucosa with focal ulceration and mild to moderate chronic inflammation. Intestinal metaplasia (goblet cell metaplasia) is not identified. See comment. SJ:rg 04/26/19 COMMENT A. The results of immunohistochemistry for Helicobacter pylori will be reported separately ([id number]). B. Alcian blue/PAS stain with matched control is used in the evaluation of the specimen. MICROSCOPIC DESCRIPTION Slides are reviewed. A. The specimen shows fragments of gastric mucosa with chronic inflammatory cell infiltrates in the lamina propria consisting of lymphocytes and plasma cells, consistent with mild to moderate chronic gastritis. GROSS DESCRIPTION A - Received in fixative is one container labeled with the patient's name and designated antrum biopsy. The specimen consists of one irregular fragment of light olivares soft tissue that measures 0.3 x 0.3 x 0.1 cm. The specimen is totally submitted in one cassette. B - Received in fixative is one container labeled with the patient's name and designated distal esophagus biopsy. The specimen consists of multiple irregular fragments of light olivares soft tissue that in aggregate measure 0.6 x 0.3 x 0.1 cm. The specimen is totally submitted in one cassette. / ADELAIDE:joey 04/22/19 TC:3 CPT: 64913 x2, 76122
--- NOTE | 2019-04-22 07:22 | OP.ENDO_ITS ---
04/22/2019 Jorge L Leigh Re : Upper GI endoscopy procedure for Sobia Hay Dear Lu This procedure was performed on Monday, April 22, 2019. My impressions and recommendations are as follows: Impressions : - LA Grade A reflux esophagitis. Biopsied. - Small hiatal hernia. - Chronic gastritis. Biopsied. - Normal examined duodenum. No specimens collected. Recommendations : - Discharge patient to home. - Resume previous diet. - Use Prilosec OTC 20 mg PO daily daily. - Continue present medications. My findings are described in the full procedure note, which is enclosed. If I can be of further assistance, please feel free to contact me at Doctor phone number(s): , Fax: [phone], Work: . Sincerely, MD David Graham MD 04/22/2019 7:21:48 AM This report has been signed electronically.
== END 2019-04-22 08:22 | disposition home or self-care (01) ==
LOC: EN 05:53 → AC 05:54
PROVIDERS: Family Provider Family Medicine; PCP Family Medicine; Referring Provider Family Medicine; Visit Provider Surgery
PROC: 0DJ08ZZ Inspection of Upper Intestinal Tract, Via Natural or Artificial Opening Endoscopic (ICD-10-PCS; CPT 43235; principal; 2019-04-22 06:55)
DX: K29.50 Unspecified chronic gastritis without bleeding (principal); K22.10 Ulcer of esophagus without bleeding; K21.0 Gastro-esophageal reflux disease with esophagitis; K44.9 Diaphragmatic hernia without obstruction or gangrene; G43.909 Migraine, unspecified, not intractable, without status migrainosus; G25.81 Restless legs syndrome; Z78.0 Asymptomatic menopausal state
CPT/HCPCS: 43239; 88305; 88313; 88342; J7120; J2405

== ENCOUNTER 2019-07-07 07:48 | Day surgery (SDC) | payer OTHER, SELFPAY ==
[2019-06-29 14:34] VITALS: BMI 31.7
[2019-07-07 08:09] VITALS: BP 129/94; PULSE 61; RESP 16; TEMP 36.1; O2SAT 97
== END 2019-07-07 08:55 | disposition home or self-care (01) ==
LOC: EN 07:49
PROVIDERS: Surgery; Family Provider Family Medicine; PCP Family Medicine; Referring Provider Family Medicine; Visit Provider Surgery
PROC: F00ZJWZ Instrumental Swallowing and Oral Function Assessment using Swallowing Equipment (ICD-10-PCS; CPT 43235; principal; 2019-07-07 07:55)
DX: R13.10 Dysphagia, unspecified (principal)
CPT/HCPCS: 91010; 91013

== ENCOUNTER 2020-02-20 08:52 | Inpatient (IN) | payer OTHER, SELFPAY ==
[2019-06-29 14:34] VITALS: BMI 31.7
[2020-02-20] VITALS (23 sets, daily range): BP systolic 87–141; BP diastolic 45–119; PULSE 77–95; RESP 16–18; TEMP 35.8–37.2; O2SAT 94–98; BMI 34.4; BMI 35.0; BMI 35.1
--- NOTE | 2020-02-20 09:04 | ED.DCSUM_ITS ---
History of Present Illness Chief Complaint: GI Bleed Informant: Patient - Nausea/Vomiting/Emesis GI Symptom: Nausea, Vomiting Onset: Today Quality: Coffee ground, Hematemesis - Diarrhea/Melena/Hematochezia GI Symptom: Melena Onset: Today Stool Quality: Black Narrative: Patient is a 64-year-old female presenting from home via EMS for GI bleeding. Patient started having vomiting of coffee-ground/red blood as well as black stools around 1 AM. She states she had 2 episodes of vomiting and about 4 episodes of bowel movements. EMS arrived and she was actually on the toilet. When they transitioned her over patient passed out. Patient became diaphoretic and vomited. Patient is since returned to her baseline. Patient denies any associated abdominal pain. Patient denies any history of GI bleeding. She states she most recently had an upper scope about 6 months ago. She is being worked up for what sounds like strictures of her esophagus. She denies a history of stomach ulcers. She notes she has been taking generic [id number] Excedrin daily for headaches lately. She states she has had some mild heartburn but denies any other symptoms. She is to the past 2 days her stools have been a little bit darker. Patient denies any other complaints at this time. She denies any history of alcohol abuse or cirrhosis of the liver/esophageal varices. She is not on any long-term anticoagulant use. Prior similar symptoms: No Past Medical History - Allergies and Home Meds Allergies/Adverse Reactions: Allergies codeine Adverse Reaction (Intermediate, Verified 02/20/20 09:01) vomiting Past Medical History: - - History of H. pylori infection, hemorrhoids, GERD Surgical History: noncontributory Smoking Status: Never smoker - Family History Maternal Family History: Family History (Last Reviewed 02/20/20 @ 15:08 by ADRIAN Jones) Mother Diabetes Arthritis Father Heart disease Hypertension Myocardial infarction Family History: Reports: No pertinent history Review of Systems General: Reports: Malaise, Sweats. Denies: Chills, Fever Eyes: Denies: Visual changes - bilaterally, Diplopia ENT: Denies: Rhinorrhea, Sore throat Cardiovascular: Denies: Chest pain, Palpitations Respiratory: Denies: Dyspnea, Cough, Dyspnea on exertion Gastrointestinal: Reports: Nausea, Vomiting, Diarrhea, Melena, Hematochezia. Denies: Abdominal pain Genitourinary: Denies: Dysuria, Hematuria, Frequency Musculoskeletal: Denies: Back pain, Extremity Pain Skin: Denies: Rash, Wounds Neurological: Denies: Headache, Weakness, Numbness Physical Exam Vital Signs/Narrative: Vital Signs Temp Pulse Resp BP Pulse Ox 02/20/20 08:56 96.4 F L 88 17 129/119 H 98 Inital Vital Signs reviewed: Yes General: Well nourished, Well developed, No Acute Distress Head: Normocephalic, Atraumatic Eyes: Perrl, EOMI, Pale conjunctiva ENT: Moist mucous membranes, No rhinorrhea Neck: Supple, Nontender Cardiovascular: Regular rate, Regular rhythm, No murmurs Respiratory: No distress, CTA bilaterally, Chest nontender Abdomen: Soft, Nontender, Nondistended, Normal bowel sounds. Negative for: Guarding, Rebound tenderness Rectal: Guaiac positive, Nontender, - - Melena Back: Nontender, Normal Inspection Extremities: Nontender, No edema Skin: No rash, Pallor Neurological: Alert, Oriented x3, Cranial nerves II-XII grossly intact, Normal Strength, Normal Sensation Psychological: Normal affect, Normal Mood Diagnostic/Tx/Re-eval - Rhythm Strip Rhythm Strip: Sinus Rhythm Rate: 87 Ectopy: None - EKG Initial EKG Interpretation: Sinus Rhythm, - - Normal sinus rhythm at a rate of 87 Normal axis Normal intervals Nonspecific T wave inversions in inferior leads as well as V4 through V6 with no reciprocal changes Prior: Changed - T wave inversions are new compared to prior EKG on 08/29/2011 - Medical Decision Making Patient is evaluated for vomiting and diarrhea. Her presentation is consistent with an upper GI bleed she has melena on exam and hematemesis in her emesis basin. Patient's blood pressure is on the low side of normal. She is given 2 L of IV fluids. She does have an elevated lactate however I suspect this is from acute blood loss and dehydration and I do not suspect infection. She does not have sepsis at this time. Patient is given high-dose IV Protonix for concern of GI bleed. Patient been taking [id number] Excedrin which I believe is what could be triggering it. I did discuss the case with surgery on-call, Dr. Walh who is comfortable keeping her at our facility. Patient does have an acute anemia however she does not require transfusion at this time. 2 units of blood are placed on hold just in case. Patient is accepted to the medicine service. Patient is agreeable with plan. She does not have any further bleeding while in the emergency room. She is not tachycardic and remains very hemodynamically stable so I think she should be good for the PCU at disposition. ED Disposition - Plan for ED Patient: Disposition: Acute [facility] Diagnosis: Acute blood loss anemia, Upper GI bleed
[2020-02-20] MEDS: 0.9% Normal Saline 1,000 ML 1000 ML IV (09:14)
[2020-02-20] MEDS: Ondansetron 4 MG/2 ML Vial IV (09:14)
[2020-02-20 09:32] LABS: Absolute Lymphocyte Count 1.83 X10^3/uL (0.83-4.51); Basophil# 0.01 X10^3/uL; Basophil% 0.1 % (0-1); Eosinophil# 0.01 X10^3/uL; Eosinophils% 0.1 % (0-5); Hematocrit 31.6 % (37-47); Lymphocyte # 1.83 X10^3/ul (4.0); Lymphocyte % 16.5 % (19-41); Mean Corp Hgb Conc 31.6 g/dL (32-36); Mean Corpuscular Hgb 29.7 pg (27.0-32.0); Mean Corpuscular Volume 93.8 fL (81-99); Mean Platelet Vol. 12.5 fl (6.2-12.0); Monocyte# 0.18 X10^3/uL; Monocyte% 1.6 % (0-10); NRBC Flagged by Analyzer 0 % (0-5); Neutrophil % 81.3 % (47-70); Platelet Count 267 K/mm3 (150-450); RBC Distribution Width CV 14.5 % (11.6-14.6); RBC Distribution Width SD 49.9 fl (35.1-43.9); Red Blood Count 3.37 M/mm3 (4.2-5.4); White Blood Count 11.1 K/mm3 (4.4-11.0)
[2020-02-20 09:53] LABS: ALB/GLOB Ratio 1.1 RATIO (0.9-2.4); AST(SGOT) 22 U/L (15-37); Alanine Aminotransfer ALT/SGPT 26 U/L (13-56); Alkaline Phosphatase 43 U/L (45-117); Anion Gap 8 (5-15); BUN 59 mg/dL (7-18); BUN/Creat Ratio 52.7 RATIO (10-20); Calcium,Total 8.5 mg/dL (8.5-10.1); Chloride 108 mmol/L (98-107); Creatinine, Serum 1.12 mg/dL (0.55-1.02); EST Glomerular Filtration Rate 52 mL/min (>60); Est Glom Filt Rate - Afr Amer 63 mL/min (>60); Estimated Creatinine Clearance 43.08 ml/min; Globulin 2.8 g/dL (2.2-4.2); Glucose 226 mg/dL (74-106); Lipase 113 U/L (73-393); Potassium 3.2 mmol/L (3.5-5.1); Protein, Total 5.8 g/dL (6.4-8.2); Sodium Level 142 mmol/L (136-145)
[2020-02-20 09:56] LABS: Lactic Acid 4.4 mmol/L (0.4-1.9)
[2020-02-20] MEDS: 0.9% Normal Saline 1,000 ML 999 ML IV (10:12)
--- NOTE | 2020-02-20 10:27 | NURSING ---
DR ARORA FOR DR BLANCO
--- NOTE | 2020-02-20 10:41 | NURSING ---
PCU UPPER GI BLEED MAITE
--- NOTE | 2020-02-20 10:41 | NURSING ---
ENDO ROBOTHEM EGD
--- NOTE | 2020-02-20 10:58 | CON.PCM_ITS ---
Reason for Consult Date of Consultation: 02/20/20 History of Present Illness: The patient is a 64 year old F presented to the ER due to nausea and vomiting, hematemesis. Patient states she started having nausea around 130 this morning and did continue having the vomiting as well. Patient believes that she did have maroonish blood each time however she did not take a good look the first couple times. Patient did also have solid bowel movement followed by more of a diarrhea that is darker in color. Patient has been taking Excedrin 2 tabs daily for several days. She denies any use of ibuprofen or Motrin as she states that does not work. Patient has a history of H. pylori back in March 2019 was katherine ated with a Prevpac. Patient also had issues with some dysphasia and was sent to GI doctor in [place] which required complete repeat work-up however the reading radiologist was not in network patient did not complete work-up. Patient denies any abdominal pain. Patient's last EGD was in March 2019 which did show some gastritis small hiatal hernia and again was H. pylori positive by Dr. Hernandez. Patient's work-up in the ER showed a hemoglobin 10, lactic acid of 4.4, heart rate 70s to 80s, blood pressure systolically low 100s. Past Medical History Medical History: Medical History (Last Reviewed 07/14/19 @ 14:[address] David Hernandez MD) History of Helicobacter pylori infection (Acute) Onset Date: ~03/2019 Z86.19 Dysphagia (Acute) R13.10 Epigastric pain (Acute) R10.13 Hemorrhoids (Acute) K64.9 Acid reflux (Acute) K21.9 Allergies codeine Adverse Reaction (Intermediate, Verified 02/20/20 09:01) vomiting Home Medications: Ambulatory Orders Medication Instructions Recorded artificial tears(hypromellose) 0.5 2 drp OPHTHALMIC 4-8XD 03/31/19 % eye drops flaxseed oil 1,000 mg capsule 1,000 mg PO DAILY 03/31/19 Ibuprofen [Motrin] 600 mg PO Q8H PRN 04/20/19 Surgical History: Surgical History (Last Reviewed 07/14/19 @ 14:[address] 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 David Hernandez MD) Mother Diabetes Arthritis Father Heart disease Hypertension Myocardial infarction History Items: No pertinent history Review of Systems Constitutional: Reports: Anorexia - Physical Exam Vitals/I&O's: Vital Signs Temp Pulse Resp BP Pulse Ox 96.4 F L 88 17 129/119 H 98 02/20/20 08:56 02/20/20 08:56 02/20/20 08:56 02/20/20 08:56 02/20/20 08:56 Oxygen Delivery Method Room Air Weight: 194 lb 3.636 oz Body Mass Index (BMI) 34.4 Intake and Output for Last 24 Hours 02/18/20 02/19/20 02/20/20 23:59 23:59 23:59 Intake Total 35 / 35 Balance 35 / 35 General: Alert, Oriented x3, Cooperative, No apparent distress HEENT: Atraumatic Microbiology Past 72 Hours 02/20/20 09:00 Stool Stool Occult Blood (MICHAEL) - Final Occult Blood Positive Laboratory Results 02/20/20 08:40: WBC 11.1 H, RBC 3.37 L, Hgb 10.0 L, Hct 31.6 L, MCV 93.8, MCH 29.7, MCHC 31.6 L, RDW Std Deviation 49.9 H, RDW Coeff of Pedro 14.5, Plt Count 267, MPV 12.5 H, Immature Gran % (Auto) 0.400, Neut % (Auto) 81.3 H, Lymph % (Auto) 16.5 L, Marshall % (Auto) 1.6, Eos % (Auto) 0.1, Baso % (Auto) 0.1, Absolute Neuts (auto) 9.0 H, Absolute Lymphs (auto) 1.83, Nucleated RBC % 0 02/20/20 08:40: Sodium 142, Potassium 3.2 L, Chloride 108 H, Carbon Dioxide 26.0, Anion Gap 8, BUN 59 H, Creatinine 1.12 H, Estim Creat Clear Calc 43.08, Est GFR (MDRD) Af Amer 63, Est GFR (MDRD) Non-Af 52 L, BUN/Creatinine Ratio 52.7 H, Glucose 226 H, Calcium 8.5, Total Bilirubin 0.30, AST 22, ALT 26, Alkaline Phosphatase 43 L, Troponin I < 0.015, Total Protein 5.8 L, Albumin 3.0 L, Globulin 2.8, Albumin/Globulin Ratio 1.1, Lipase 113 02/20/20 08:40: Lactic Acid 4.4 H* 02/20/20 09:05: Blood Type Pending, Antibody Screen Pending 02/20/20 09:05: Crossmatch See Detail Current Medications Sodium Chloride () 1,000 mls @ 999 mls/hr IV .Q1H1M ONE Stop: 02/20/20 11:11 Last Admin: 02/20/20 10:12 Dose: 999 mls/hr Documented by: Assessment/Plan All Active Problems (Last Reviewed 07/14/19 @ 14:[address] David Hernandez MD) History of Helicobacter pylori infection (Acute ~03/2019) Dysphagia (Acute) Epigastric pain (Acute) Hemorrhoids (Acute) Acid reflux (Acute) 64-year-old female with anemia, upper GI bleed?nausea/vomiting, elevated lactic acid. 1. N.p.o./IV fluids, patient did receive 2 L in the ER. Patient will be admitted to the PCU. Plan to do an EGD and patient was given Protonix 80 mg IV will continue to be on 40 mg IV twice daily. Repeat lactic acid scheduled 2. I have discussed the above with the patient. I have offered the patient EGD for evaluation. I have explained the risks/benefits of the procedure and described the procedure. I have discussed the risks with the patient, including but not limited to: infection, bleeding, perforation of the GI tract requiring emergency surgery, inability to complete the procedure, injury to any internal organs, complications of anesthesia, etc. - the patient understands and agrees to proceed. I did discuss with patient that there is bleeding and cannot control may need to be transferred to another facility with GI. I have answered all the patient's questions to the patient's satisfaction and the patient has no further questions. Genie Wahl M.D. Pager: [phone] [facility] [address] [place] [address], [address] [place] [address] Office: [phone]
--- NOTE | 2020-02-20 11:00 | IMM_PTH ---
PATIENT: ELEN JACOBSON LOC: PCU U#:[id number] AGE/SX: 64/F ROOM: [facility] RE02/20/[address]: Dr. Filiberto Smith DO : 1955 BED: 1 DIS: 02/21/2020 SPEC #: [id number] RECD: 02/21/20 11:52 STATUS: YURIY REQ #: [id number] CATHERINE: 02/20/20 11:[address]: Genie Wahl DEPT: IMMUNOHISTOCHEMISTRY RECD BY: Krysten Gibson ENTERED: 02/21/20 11:53 SP TYPE: IMMUNO OTHR DR: DO Dr. Jorge L Burch MD Tissues: Stomach, NOS Procedures: H Pylori (initial) PHYSICIAN & INSTITUTION [place] [id number] SPECIMEN INFORMATION: Tissue Source: Antrum biopsy Clinical Info: Coffee ground emesis Specimen Number: [id number] CPT code: 52598 METHODOLOGY: Deparaffinized sections of prefer/formalin-fixed tissue or PAP/DQ stained slides are incubated with monoclonal/polyclonal antibodies/oligonucleotide probes. Localization is made via biotin free immunoperoxidase method. Appropriate controls are performed and reacted as expected. Results on target cell population are indicated in the following table: RESULTS: ANTIBODY / CLONE RESULT H Pylori (polyclonal) negative These tests were developed and their performance characteristics determined by [facility]. They may not have been cleared or approved by the U.S. Food and Drug Administration. The FDA has determined that such clearance or approval is not necessary. INTERPRETATION: Antrum biopsy: Negative for Helicobacter pylori organisms. SJ:joey 02/22/20
--- NOTE | 2020-02-20 11:00 | EGD_PTH ---
PATIENT: ELEN JACOBSON LOC: PCU U#:[id number] AGE/SX: 64/F ROOM: [facility] RE02/20/[address]: Dr. Filiberto Smith DO : 1955 BED: 1 DIS: 02/21/2020 SPEC #: [id number] RECD: 02/20/20 11:56 STATUS: YURIY REKristel #: [id number] CATHERINE: 02/20/20 11:[address]: Genie Wahl DEPT: SURGICAL PATHOLOGY RECD BY: Sharona Lewis ENTERED: 02/21/20 09:40 SP TYPE: EGD BIOPSY OT DR: DO Dr. Jorge L Burch MD Tissues: Gastric mucous membrane Procedures: Special Stain Group II Surgery Specimen Level IV Alcian Blue/PAS (control) HEADER OPERATION: EGD (MAC) PRE-OP DIAGNOSIS: Coffee ground emesis TISSUE SUBMITTED: Antrum biopsy for histo and H. pylori MICROSCOPIC DIAGNOSIS Antrum biopsy: Moderate gastritis. Focal intestinal metaplasia (goblet cell metaplasia). See microscopic description and comment. ADELAIDE:joey 02/22/20 COMMENT The results of immunohistochemistry for Helicobacter pylori will be reported separately ([id number]). Alcian blue/PAS stain with matched control is used in the evaluation of the specimen. MICROSCOPIC DESCRIPTION Slides are reviewed. The specimen shows fragments of gastric mucosa with chronic inflammatory cell infiltrates in the lamina propria consisting of lymphocytes and plasma cells, consistent with moderate chronic gastritis. Focal intestinal metaplasia is also noted. GROSS DESCRIPTION Received in fixative is one container labeled with the patient's name and designated antrum biopsy. The specimen consists of one irregular fragment of light olivares soft tissue that measures 0.3 x 0.1 x 0.1 cm. The specimen is totally submitted in one cassette. / ADELAIDE:joey 02/21/20 TC:3 CPT: 82860, 25218
[2020-02-20] MEDS: Lactated Ringers 1,000 ML 100 ML IV (11:23)
--- NOTE | 2020-02-20 11:46 | OP.EGD_ITS ---
Patient Name: Sobia Hay Procedure Date: 02/20/2020 11:00 AM Date of : 1955 Age: 64 Procedure: Upper GI endoscopy Indications: Hematemesis, Melena Providers: Genie Wahl MD Medicines: Monitored Anesthesia Care Patient Profile: This is a 64 year old female. Complications: No immediate complications. Procedure: Pre-Anesthesia Assessment: - Prior to the procedure, a History and Physical was performed, and patient medications and allergies were reviewed. The patient's tolerance of previous anesthesia was also reviewed. The risks and benefits of the procedure and the sedation options and risks were discussed with the patient. All questions were answered, and informed consent was obtained. Prior Anticoagulants: The patient has taken aspirin, last dose was 1 day prior to procedure. ASA Grade Assessment: Per anesthesia. After reviewing the risks and benefits, the patient was deemed in satisfactory condition to undergo the procedure. After obtaining informed consent, the endoscope was passed under direct vision. Throughout the procedure, the patient's blood pressure, pulse, and oxygen saturations were monitored continuously. The Endoscope was introduced through the mouth, and advanced to the second part of duodenum. The upper GI endoscopy was accomplished without difficulty. The patient tolerated the procedure well. Scope In: 11:34:05 AM Scope Out: 11:38:33 AM Total Procedure Duration Time 0 hours 4 minutes 28 seconds Findings: No gross lesions were noted in the entire esophagus. A small hiatal hernia was present. Mildly erythematous mucosa without bleeding was found in the gastric antrum. This was biopsied with a cold forceps for histology. Biopsies were taken with a cold forceps for Helicobacter pylori cultures. Two non-bleeding duodenal ulcers with adherent clot were found in the first portion of the duodenum. The largest lesion was 3 mm in largest dimension. Impression: - No gross lesions in esophagus. - Small hiatal hernia. - Erythematous mucosa in the antrum. Biopsied. - Multiple non-bleeding duodenal ulcers with adherent clot. Recommendation: - Await pathology results. - Return patient to [facility] for ongoing care. - Full liquid diet. - Continue present medications. - - Use Protonix (pantoprazole) 40 mg IV BID while in the hospital, then 40 mg PO BID at home. Procedure Code(s): --- Professional --- 76905, Esophagogastroduodenoscopy, flexible, transoral; with biopsy, single or multiple Diagnosis Code(s): --- Professional --- K44.9, Diaphragmatic hernia without obstruction or gangrene K31.89, Other diseases of stomach and duodenum K26.4, Chronic or unspecified duodenal ulcer with hemorrhage K92.0, Hematemesis K92.1, Melena (includes Hematochezia) CPT copyright 2017 [employer]. All rights reserved. The codes documented in this report are preliminary and upon deicer kit assembler review may be revised to meet current compliance requirements. MD Genie Rios MD 02/20/2020 11:45:49 AM This report has been signed electronically. Number of Addenda: 0 Note Initiated On: 02/20/2020 11:00 AM
--- NOTE | 2020-02-20 11:46 | OP.CCLET_ITS ---
02/20/2020 Jorge L Leigh Re : Upper GI endoscopy procedure for Sobia Hay Dear Lu This procedure was performed on Thursday, February 20, 2020. My impressions and recommendations are as follows: Impressions : - No gross lesions in esophagus. - Small hiatal hernia. - Erythematous mucosa in the antrum. Biopsied. - Multiple non-bleeding duodenal ulcers with adherent clot. Recommendations : - Await pathology results. - Return patient to [facility] for ongoing care. - Full liquid diet. - Continue present medications. - - Use Protonix (pantoprazole) 40 mg IV BID while in the hospital, then 40 mg PO BID at home. My findings are described in the full procedure note, which is enclosed. If I can be of further assistance, please feel free to contact me at Doctor phone number(s): , Work: . Sincerely, MD Genie Rios MD 02/20/2020 11:45:49 AM This report has been signed electronically.
[2020-02-20 13:38] LABS: Hematocrit 26.7 % (37-47); Hemoglobin 8.5 g/dL (12.0-15.0)
--- NOTE | 2020-02-20 15:02 | HP.PCM_ITS ---
Problem List (1) Acute blood loss anemia Status: Acute (2) Upper GI bleed Status: Acute (3) History of Helicobacter pylori infection Status: Chronic (4) Dysphagia Status: Chronic Qualifiers: Dysphagia type: esophageal phase Qualified Code(s): R13.10 - Dysphagia, unspecified (5) Hemorrhoids Status: Chronic (6) Acid reflux Status: Chronic (7) Migraines Status: Chronic History of Present Illness Date of Admission: 02/20/20 Chief Complaint: coffee ground emesis The patient is a 64 year old F with pmhx of migraines for which she uses exedrin and aspirin, GERD, esophageal strictures, H pylori, hemorrhoids who presented to the ER with c/o vomiting coffee ground emesis. This began at about 0100 the day of presentation. She had multiple episodes of vomiting and additionally multiple black stools that day. She was picked up by EMS and loss consciousness. She was found to have + hemoccult blood and was anemic at Hgb of 10.0. The patient was admitted and taken for an EGD with Dr. Wahl which located multiple non bleeding duodenal ulcers with clot. The patient had been using both aspirin containing execdrin and additional aspirin for migraine. She is comfortable in bed post EGD with ongoing diarrhea, no nausea or abd pain. Mild LH while at rest. She plans to have a colonoscopy in the AM. Last was about 8 years ago with no issues. [] Past Medical History Past Medical History (Chronic Problems): Chronic Problems (Last Reviewed 07/14/19 @ 14:[address] David Hernandez MD) Migraines (Chronic) History of Helicobacter pylori infection (Chronic ~03/2019) Dysphagia (Chronic) Epigastric pain (Chronic) Hemorrhoids (Chronic) Acid reflux (Chronic) Medical History: Medical History (Last Reviewed 07/14/19 @ 14:[address] David Hernandez MD) History of Helicobacter pylori infection (Acute) Onset Date: ~03/2019 Z86.19 Dysphagia (Acute) R13.10 Epigastric pain (Acute) R10.13 Hemorrhoids (Acute) K64.9 Acid reflux (Acute) K21.9 Allergies codeine Adverse Reaction (Intermediate, Verified 02/20/20 09:01) vomiting Home Medications: Ambulatory Orders Medication Instructions Recorded artificial tears(hypromellose) 0.5 2 drp OPHTHALMIC 4-8XD 03/31/19 % eye drops flaxseed oil 1,000 mg capsule 1,000 mg PO DAILY 03/31/19 Ibuprofen [Motrin] 600 mg PO Q8H PRN 04/20/19 Surgical History: Surgical History (Last Reviewed 07/14/19 @ 14:[address] David Hernandez MD) History cyst removed left thumb History of Z98.891 History of section Z98.89 History of section Z98.891 History of colonoscopy Onset Date: ~03/2019 Z98.89 History of dilatation and curettage Z.0 History of esophagogastroduodenoscopy (EGD) Onset Date: ~03/2019 Z History of right breast biopsy Z. Surgical History: - - left foot surgery, C section, D&C Psychiatric History: No pertinent psych hx [employer] History: No pertinent [employer] history Lives: With Family Smoking Status: Never smoker Tobacco Use: Non-smoker Alcohol: None Drugs: None - *Family History Maternal Family History: Family History (Last Reviewed 02/20/20 @ 15:08 by ADRIAN Jones) Mother Diabetes Arthritis Father Heart disease Hypertension Myocardial infarction History Items: No pertinent history Review of Systems Constitutional: Reports: Weakness, Fatigue. Denies: Chills, Fever, Weight Change HEENT: Denies: Head Aches, Sinus Congestion, Sinus Drainage Cardiovascular: Reports: Light Headedness, Syncope. Denies: Chest Pain, Chest Pressure, Edema, Heaviness, Palpitations Respiratory: Denies: Cough, Shortness of Breath, Shortness of breath at rest, Sputum production Gastrointestinal: Reports: Diarrhea, Hematochezia, Nausea, Melena, Vomiting. Denies: Abdominal Pain Genitourinary: Denies: Dysuria, Hesitancy, Urgency Musculoskeletal: Denies: Joint Pain, Joint Tenderness, Muscle pain Skin: Denies: Lesions, Rash, Wounds Neurological: Denies: Numbness, Tingling, Focal weakness Psychiatric: Denies: Anxiety, Depression, Homicidal Ideations, Suicidal Ideations Hematologic/ Lymphatic: Denies: Easy Bruising, Easy Bleeding VTE Information - Inpt Only VTE Present on Admission: No VTE Mechan Device Prophylaxis: SCD's VTE Pharm Prophylaxis ordered?: No Reason prophylaxis not ordered:: Medical Contraindication Patient Problems: Active and Suspected Problems (Last Reviewed 07/14/19 @ 14:[address] David Hernandez MD) Acute blood loss anemia (Acute) Upper GI bleed (Acute) - Physical Exam Vitals/I&O's: Vital Signs Temp Pulse Resp BP Pulse Ox 98.2 F 82 18 110/60 98 02/20/20 12:51 02/20/20 13:28 02/20/20 12:51 02/20/20 12:51 02/20/20 12:51 Oxygen Delivery Method Room Air Weight: 197 lb 15.602 oz Body Mass Index (BMI) 35.0 Intake and Output for Last 24 Hours 02/18/20 02/19/20 02/20/20 23:59 23:59 23:59 Intake Total 2196.67 / 2196.67 Balance 2196.67 / 2196.67 General: Alert, Oriented x3, Cooperative HEENT: Atraumatic, PERRLA, EOMI, Normocephalic Neck: Supple, No JVD, Negative Carotid Bruits Lungs: Clear to auscultation, Normal air movement Cardiovascular: Regular rate, No murmurs Abdomen: Bowel Sounds Present, Soft, Non Tender Extremities: No edema, Capillary Refill Less than 3 Seconds Skin: No rashes, No breakdown Musculoskeletal: No Tenderness to Palpation of Joints or Extremities Neurological: Cranial nerves II-XII grossly intact Psych/Mental Status: Normal Affect, Appropriate, Alert and oriented to time, place, person, mood and affect Microbiology Past 72 Hours 02/20/20 09:00 Stool Stool Occult Blood (MICHAEL) - Final Occult Blood Positive Laboratory Results 02/20/20 08:40: WBC 11.1 H, RBC 3.37 L, Hgb 10.0 L, Hct 31.6 L, MCV 93.8, MCH 29.7, MCHC 31.6 L, RDW Std Deviation 49.9 H, RDW Coeff of Pedro 14.5, Plt Count 267, MPV 12.5 H, Immature Gran % (Auto) 0.400, Neut % (Auto) 81.3 H, Lymph % (Auto) 16.5 L, [place] % (Auto) 1.6, Eos % (Auto) 0.1, Baso % (Auto) 0.1, Absolute Neuts (auto) 9.0 H, Absolute Lymphs (auto) 1.83, Nucleated RBC % 0 02/20/20 08:40: Sodium 142, Potassium 3.2 L, Chloride 108 H, Carbon Dioxide 26.0, Anion Gap 8, BUN 59 H, Creatinine 1.12 H, Estim Creat Clear Calc 43.08, Est GFR (MDRD) Af Amer 63, Est GFR (MDRD) Non-Af 52 L, BUN/Creatinine Ratio 52.7 H, Glucose 226 H, Calcium 8.5, Total Bilirubin 0.30, AST 22, ALT 26, Alkaline Phosphatase 43 L, Troponin I < 0.015, Total Protein 5.8 L, Albumin 3.0 L, Globulin 2.8, Albumin/Globulin Ratio 1.1, Lipase 113 02/20/20 08:40: Lactic Acid 4.4 H* 02/20/20 09:05: Blood Type AB POSITIVE, Antibody Screen NEGATIVE 02/20/20 09:05: Crossmatch See Detail 02/20/20 13:27: Hgb 8.5 L, Hct 26.7 L Current Medications Potassium Chloride/Sodium Chloride () 1,000 mls @ 125 mls/hr IV .Q8H DARLYN Last Admin: 02/20/20 13:17 Dose: 125 mls/hr Documented by: Sodium Chloride () 500 mls @ 15 mls/hr IV PRN PRN PRN Reason: Blood Transfusion Sodium Chloride () 250 mls @ 15 mls/hr IV .[id number] PRN PRN Reason: Saline Flush Sodium Chloride () 250 mls @ 15 mls/hr IV .[id number] PRN PRN Reason: Additional IVPB Infusion Ondansetron HCl (Zofran) 4 mg IV Q8H PRN PRN PRN Reason: NAUSEA/VOMITING Sodium Chloride () 10 - 40 ml IV UD PRN PRN Reason: SALINE FLUSH Assessment/Plan All Active Problems (Last Reviewed 07/14/19 @ 14:[address] David Hernandez MD) Acute blood loss anemia (Acute) Upper GI bleed (Acute) 1. Acute blood loss anemia 2/2 upper GI bleed - duodenal ulcers. complicated by heavy aspirin use. s/p EGD. nonbleeding per scope. continue PPI and monitor H/H. Colonoscopy in AM. Transfuse if Hgb <7. Hx H pylori but complete 2 rounds of treatment in past. Bx pending. 2. GERD - ppi. 3. Hx hemorrhoids - colonoscopy tomorrow. 4. Migraines - I advised the patient to discontinue all aspirin products and no NSAIDs. She should discuss alternative migraine therapy or possible referral to neurology if she continues to have migraines frequently. DVT ppx: SCDs DC planning: depending on results of colonoscopy tomorrow This patient was seen by Clifton Torrez PA-C under the supervision of Dr. Smith.
[2020-02-20 16:39] LABS: Bacteria 0 SEEN /hpf (None Seen); Mucous, Urine 0 SEEN /hpf (<or=2+); Red Blood Cells-Urine 0 SEEN /hpf (0-5); Squamous Epithelial Cells - UA 0 SEEN /hpf (5-10)
[2020-02-20 16:45] LABS: Color, Urine Straw (Yellow); Glucose, Dipstick Normal (Normal); Ketone-Dipstick Negative (Negative); Leukocyte Esterase-Dipstick 100 /ul (Negative); Nitrite-Dipstick Negative (Negative); Occult Blood-Urine Negative /ul (Negative); Protein-Dipstick Negative (Negative); Urine Bilirubin Dipstick Negative (Negative); Urine Clarity Clear (Clear); Urine Urobilinogen Normal (Normal)
[2020-02-20 16:49] LABS: Hematocrit 24.7 % (37-47); Hemoglobin 7.9 g/dL (12.0-15.0)
[2020-02-20 16:56] LABS: White Blood Cells 0-5 SEEN /hpf (0-5)
[2020-02-20] MEDS: Acetaminophen 325 MG Tablet 650 MG PO (21:35)
[2020-02-21] MEDS: 0.9% Saline Lock 10 ML Syringe IV ×2 (00:03→06:37)
[2020-02-21 02:59] VITALS: PULSE 83
[2020-02-21] MEDS: Acetaminophen 325 MG Tablet 650 MG PO (04:53)
[2020-02-21 05:20] VITALS: BP 97/54; PULSE 77; RESP 18; TEMP 36.8; O2SAT 95
[2020-02-21 06:52] LABS: Absolute Lymphocyte Count 3.29 X10^3/uL (0.83-4.51); Absolute Neutrophil Count 5.7 X10^3/uL (2.0-7.7); Basophil# 0.02 X10^3/uL; Basophil% 0.2 % (0-1); Eosinophil# 0.03 X10^3/uL; Eosinophils% 0.3 % (0-5); Hemoglobin 9.1 g/dL (12.0-15.0); Lymphocyte # 3.29 X10^3/ul (4.0); Lymphocyte % 34.3 % (19-41); Mean Corp Hgb Conc 32.5 g/dL (32-36); Mean Corpuscular Hgb 30.2 pg (27.0-32.0); Mean Platelet Vol. 11.5 fl (6.2-12.0); Monocyte# 0.52 X10^3/uL; Monocyte% 5.4 % (0-10); NRBC Flagged by Analyzer 0 % (0-5); Neutrophil # 5.68 X10^3/uL (2.7-7.7); Neutrophil % 59.4 % (47-70); Platelet Count 172 K/mm3 (150-450); RBC Distribution Width CV 14.7 % (11.6-14.6); RBC Distribution Width SD 49.6 fl (35.1-43.9); Red Blood Count 3.01 M/mm3 (4.2-5.4); White Blood Count 9.6 K/mm3 (4.4-11.0)
[2020-02-21 07:00] VITALS: PULSE 75
[2020-02-21 07:15] LABS: Anion Gap 3 (5-15); BUN 20 mg/dL (7-18); BUN/Creat Ratio 25.9 RATIO (10-20); Calcium,Total 7.6 mg/dL (8.5-10.1); Chloride 116 mmol/L (98-107); Creatinine, Serum 0.77 mg/dL (0.55-1.02); EST Glomerular Filtration Rate 80 mL/min (>60); Est Glom Filt Rate - Afr Amer 97 mL/min (>60); Estimated Creatinine Clearance 62.66 ml/min; Glucose 97 mg/dL (74-106); Potassium 3.8 mmol/L (3.5-5.1); Sodium Level 147 mmol/L (136-145)
--- NOTE | 2020-02-21 09:26 | PN.SURG_ITS ---
Patient Problems: Active and Suspected Problems (Last Reviewed 07/14/19 @ 14:[address] David Hernandez MD) Acute blood loss anemia (Acute) Upper GI bleed (Acute) Subjective: Patient's hemoglobin did drop to a low of 7.9 to get units of blood current hemoglobin is 9.1, patient did tolerate full liquids yesterday, currently patient has a little bit of nausea she states she can have a little nausea sometimes with her migraines. - Physical Exam Vitals/I&O's: Vital Signs Temp Pulse Resp BP Pulse Ox 98.2 F 75 18 97/54 L 95 02/21/20 05:20 02/21/20 07:00 02/21/20 05:20 02/21/20 05:20 02/21/20 05:20 Oxygen Delivery Method Room Air Weight: 197 lb 15.602 oz Body Mass Index (BMI) 35.0 Intake and Output for Last 24 Hours 02/19/20 02/20/20 02/21/20 23:59 23:59 23:59 Intake Total 3830.00 / 3830.00 834.7 / 834.7 Balance 3830.00 / 3830.00 834.7 / 834.7 General: Alert, Oriented x3, Cooperative, No apparent distress HEENT: Atraumatic Lungs: Normal air movement Cardiovascular: Regular rate Abdomen: Soft, Non Tender, Non-Distended Microbiology Past 72 Hours 02/20/20 09:00 Stool Stool Occult Blood (MICHAEL) - Final Occult Blood Positive Laboratory Results 02/20/20 08:40: WBC 11.1 H, RBC 3.37 L, Hgb 10.0 L, Hct 31.6 L, MCV 93.8, MCH 29.7, MCHC 31.6 L, RDW Std Deviation 49.9 H, RDW Coeff of Pedro 14.5, Plt Count 267, MPV 12.5 H, Immature Gran % (Auto) 0.400, Neut % (Auto) 81.3 H, Lymph % (Auto) 16.5 L, [place] % (Auto) 1.6, Eos % (Auto) 0.1, Baso % (Auto) 0.1, Absolute Neuts (auto) 9.0 H, Absolute Lymphs (auto) 1.83, Nucleated RBC % 0 02/20/20 08:40: Sodium 142, Potassium 3.2 L, Chloride 108 H, Carbon Dioxide 26.0, Anion Gap 8, BUN 59 H, Creatinine 1.12 H, Estim Creat Clear Calc 43.08, Est GFR (MDRD) Af Amer 63, Est GFR (MDRD) Non-Af 52 L, BUN/Creatinine Ratio 52.7 H, Glucose 226 H, Calcium 8.5, Total Bilirubin 0.30, AST 22, ALT 26, Alkaline Phosphatase 43 L, Troponin I < 0.015, Total Protein 5.8 L, Albumin 3.0 L, Globulin 2.8, Albumin/Globulin Ratio 1.1, Lipase 113 02/20/20 08:40: Lactic Acid 4.4 H* 02/20/20 09:05: Blood Type AB POSITIVE, Antibody Screen NEGATIVE 02/20/20 09:05: Crossmatch See Detail 02/20/20 13:27: Hgb 8.5 L, Hct 26.7 L 02/20/20 16:25: Urine Color Straw, Urine Clarity Clear, Urine pH 6.0, Ur Specific [place] 1.010, Urine Protein Negative, Urine Glucose (UA) Normal, Urine Ketones Negative, Urine Occult Blood Negative, Urine Nitrite Negative, Urine Bilirubin Negative, Urine Urobilinogen Normal, Ur Leukocyte Esterase 100 H, Urine RBC 0 SEEN, Urine WBC 0-5 SEEN, Ur Squamous Epith Cells 0 SEEN, Urine Bacteria 0 SEEN, Urine Mucus 0 SEEN 02/20/20 16:25: Hgb 7.9 L, Hct 24.7 L 02/21/20 06:30: WBC 9.6, RBC 3.01 L, Hgb 9.1 L, Hct 28.0 L, MCV 93.0, MCH 30.2, MCHC 32.5, RDW Std Deviation 49.6 H, RDW Coeff of Pedro 14.7 H, Plt Count 172, MPV 11.5, Immature Gran % (Auto) 0.400, Neut % (Auto) 59.4, Lymph % (Auto) 34.3, [place] % (Auto) 5.4, Eos % (Auto) 0.3, Baso % (Auto) 0.2, Absolute Neuts (auto) 5.7, Absolute Lymphs (auto) 3.29, Nucleated RBC % 0 02/21/20 06:30: Sodium 147 H, Potassium 3.8, Chloride 116 H, Carbon Dioxide 28.0, Anion Gap 3 L, BUN 20 H, Creatinine 0.77, Estim Creat Clear Calc 62.66, Est GFR (MDRD) Af Amer 97, Est GFR (MDRD) Non-Af 80, BUN/Creatinine Ratio 25.9 H , Glucose 97, Calcium 7.6 L Current Medications Acetaminophen (Tylenol) 650 mg PO Q6H PRN PRN PRN Reason: Pain Score 1-10/10 Last Admin: 02/21/20 04:53 Dose: 650 mg Documented by: Potassium Chloride/Sodium Chloride () 1,000 mls @ 75 mls/hr IV .[id number] DARLYN Last Admin: 02/21/20 05:32 Dose: 75 mls/hr Documented by: Sodium Chloride () 500 mls @ 15 mls/hr IV PRN PRN PRN Reason: Blood Transfusion Sodium Chloride () 250 mls @ 15 mls/hr IV .[id number] PRN PRN Reason: Saline Flush Sodium Chloride () 250 mls @ 15 mls/hr IV .[id number] PRN PRN Reason: Additional IVPB Infusion Pantoprazole Sodium 40 mg/ (Sodium Chloride) 110 mls @ 330 mls/hr IV Q12 DARLYN Last Infusion: 02/21/20 08:58 Dose: Infused Documented by: Ondansetron HCl (Zofran) 4 mg IV Q8H PRN PRN PRN Reason: NAUSEA/VOMITING Sodium Chloride () 10 - 40 ml IV UD PRN PRN Reason: SALINE FLUSH Last Admin: 02/21/20 06:37 Dose: 10 ml Documented by: Medical Necessity - Tobacco Use Smoking Status: Never smoker Tobacco Use: Non-smoker Assessment/Plan All Active Problems (Last Reviewed 07/14/19 @ 14:[address] David Hernandez MD) Acute blood loss anemia (Acute) Upper GI bleed (Acute) 64-year-old female with anemia, duodenal ulcers on EGD with adherent clot post 2 units packed red blood cells 1. Lab patient continue Protonix 40 mg p.o. twice daily x2. Will have patient follow-up with me in about 4 weeks. Genie Wahl M.D. Pager: [phone] [facility] [address] [place] [address], [facility], [address] [place] [id number] Office: [phone]
[2020-02-21 10:01] VITALS: BP 103/58; PULSE 67; RESP 14; TEMP 36.8; O2SAT 97
--- NOTE | 2020-02-21 10:13 | PCM.DC ---
- Discharge Diagnoses Current Active Problems: Current Active and Chronic Problems (Last Reviewed 07/14/19 @ 14:[address] David Hernandez MD) Acute blood loss anemia (Acute) Upper GI bleed (Acute) Migraines (Chronic) You will use the following diet at home:: No restrictions Your food should be the consistency of: Regular Your liquids should be the consistency of: Regular/Thin Discharge Activity: Return to Normal Activity Call your doctor if you observe: - - black or bloody stools Allergies/Adverse Reactions: Allergies codeine Adverse Reaction (Intermediate, Verified 02/20/20 09:01) vomiting Medications to take at Discharge artificial tears(hypromellose) 0.5 % eye drops 2 drp OPHTHALMIC 4-8XD 03/31/19 flaxseed oil 1,000 mg capsule 1,000 mg PO DAILY 03/31/19 Gabapentin [Neurontin] 200 mg PO BID #56 cap 02/21/20 Ondansetron HCl [Zofran] 4 mg PO Q6H PRN PRN #12 tab 02/21/20 Pantoprazole Sodium 40 mg PO BID #60 tablet.dr 02/21/20 Tramadol HCl [Ultram] 50 mg PO Q6H PRN PRN 3 Days #12 tab 02/21/20 The following prescriptions were given: Gabapentin [Neurontin] 200 mg PO BID #56 cap Transmission Status: Received by [id number] Pantoprazole Sodium 40 mg PO BID #60 tablet.dr Transmission Status: Received by [id number] Tramadol HCl [Ultram] 50 mg PO Q6H PRN PRN 3 Days #12 tab PRN Reason: Headache Transmission Status: Received by [id number] Primary Care Physician: Jorge L Leigh MD [Primary Care Provider] - Please follow up with your Primary Care Physician in: 1-2 weeks Test Results: Test results from this visit will be discussed in further detail at your follow-up appointment, if applicable. Please Follow Up With: Genie Wahl MD When: 4 weeks Proposed Discharge Date: 02/21/20
--- NOTE | 2020-02-21 10:20 | CASEMGMT ---
MELLISSA MCCARTHY assessment: Face to Face with patient for initial transition planning/care coordination assessment. MELLISSA MCCARTHY introduced self and role at [facility], pt voices understanding and consents to assessment at this time. Pt is sitting up in bed in no distress at this time. Pt is A/Ox4 at this time and answers all questions appropriately at this time. Care providers, pharmacy, and demographics verified at this time. Presentation: Dark stool, dizziness, lethargic, diaphoretic, pale Admitting dx: GI Bleed PCP: Lu Specialists: abril Wahl Preferred Pharmacy: [facility] Insurance: UMR Prescription Benefit: UMR Living Will/HPOA: Pt states has LW/HPOA and pt is aware that they are not on file at [facility] at this time. Pt states her son, Jose J Hay, is HPOA. LNOK: Jose J Hay, son/HPOA; Saad Hay, son Living Arrangements: Pt states her mother lives with her in 1 story home and states no concerns at home at this time. Pt states is independent with ADL's. Transportation: Pt states drives self and states no transportation concerns at this time. DME/HHC: Pt states no current DME or need for further DME at this time. Pt states no hx of HHC or SNF in the past. Pt states no concerns with going home at time of discharge. 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 Pt states does not smoke or drink ETOH. Pt states no further concerns/needs at this time. CM to follow for any further discharge planning/needs. Advised pt to ask for CM if any further questions/concerns/needs arise, voices understanding. Pt Goal: Home Plan: [place] MELLISSA MCCARTHY
--- NOTE | 2020-02-21 11:01 | PHA.DC.MC ---
Pharmacy Service has performed discharge medication reconciliation and counseling for this patient. 1. ONDANSETRON 4MG PO Q6H PRN NAUSEA 2. GABAPENTIN 200MG PO BID 3. PANTOPRAZOLE 40MG PO BID 4. TRAMADOL 50MG PO Q6H PRN HEADACHE X 3 DAYS The patient's discharge medication list was reviewed for discrepancies and discrepancies were resolved. Home Medications artificial tears(hypromellose) 0.5 % eye drops 2 drp OPHTHALMIC 4-8XD 03/31/19 flaxseed oil 1,000 mg capsule 1,000 mg PO DAILY 03/31/19 Gabapentin [Neurontin] 200 mg PO BID #56 cap 02/21/20 Ondansetron HCl [Zofran] 4 mg PO Q6H PRN PRN #12 tab 02/21/20 Pantoprazole Sodium 40 mg PO BID #60 tablet.dr 02/21/20 Tramadol HCl [Ultram] 50 mg PO Q6H PRN PRN 3 Days #12 tab 02/21/20 The patient was counseled on the following discharge medications and changes in medications for homegoing were reviewed. The Reason for Use, instructions for use, and potential side effects were reviewed for all new medications. The patient's questions regarding all of their medications were answered. The patient was able to verbally demonstrate an understanding of their discharge medications.
--- NOTE | 2020-02-21 11:42 | DS.PCM_ITS ---
Discharge Date and Diagnosis Date of Admission: 02/20/20 Date of Discharge: 02/21/20 - Primary Discharge Diagnosis Acute Problems: Acute blood loss anemia 2/2 upper GI bleed 2/2 duodenal ulcer likely 2/2 aspirin use Hx H pylori GERD Hemorrhoids Migraines - Secondary Discharge Diagnosis Chronic Problems: Chronic Problems (Last Reviewed 07/14/19 @ 14:[address] David Hernandez MD) Migraines (Chronic) History of Helicobacter pylori infection (Chronic ~03/2019) Dysphagia (Chronic) Epigastric pain (Chronic) Hemorrhoids (Chronic) Acid reflux (Chronic) Hospital Course and Treatment Imaging Results: Diagnostics: EGD: Impression: - No gross lesions in esophagus. - Small hiatal hernia. - Erythematous mucosa in the antrum. Biopsied. - Multiple non-bleeding duodenal ulcers with adherent clot. Recommendation: - Await pathology results. - Return patient to hospital [facility] for ongoing care. - Full liquid diet. - Continue present medications. - - Use Protonix (pantoprazole) 40 mg IV BID while in the hospital, then 40 mg PO BID at home. Consults: [facility] - Gen Surgery Operations: None Procedures: EGD Summary of Care Provided: Hospital Course: The patient is a 64 year old F with past medical history of GERD, H. pylori infection, migraine headaches, who presented to the emergency room with vomiting of coffee-ground emesis and black stools. She was found to be anemic with a hemoglobin of 10, and had positive Hemoccult blood. She had been taking both Excedrin and additional aspirin for daily headaches stating that she had migraines. She was suspected to have an upper GI bleed due to the heavy aspirin use. She was taken for upper endoscopy and found to have multiple duodenal ulcers that were not actively bleeding. She was given IV Protonix and kept in the telemetry unit overnight. Her hemoglobin declined to 7.9 and she was transfused with 2 units of packed red blood cells with good response with a hemoglobin of 9.1 the following day. No further coffee-ground emesis or black stools. She was advised on strict discontinuation of all NSAIDs and aspirin- containing products. She was placed on Protonix twice daily orally to go home with. She was given Neurontin and Ultram for headaches and will need to follow- up with her PCP in 1 to 2 weeks for ongoing care. She can also follow-up with a general surgeon in 4 weeks. She was discharged home in stable condition. This patient was seen by Clifton Torrez PA-C under the supervision of Doctor Luis. [] - Physical Exam Vitals/I&O's: Vital Signs Temp Pulse Resp BP Pulse Ox 98.3 F 67 14 103/58 L 97 02/21/20 10:01 02/21/20 10:01 02/21/20 10:01 02/21/20 10:01 02/21/20 10:01 Oxygen Delivery Method Room Air Weight: 197 lb 15.602 oz Body Mass Index (BMI) 35.0 Intake and Output for Last 24 Hours 02/19/20 02/20/20 02/21/20 23:59 23:59 23:59 Intake Total 3830.00 / 3830.00 1239.7 / 1239.7 Balance 3830.00 / 3830.00 1239.7 / 1239.7 General: Alert, Oriented x3, Cooperative HEENT: Atraumatic, PERRLA, EOMI, Normocephalic Neck: Supple, No JVD, Negative Carotid Bruits Lungs: Clear to auscultation, Normal air movement Cardiovascular: Regular rate, No murmurs Abdomen: Bowel Sounds Present, Soft, Non Tender Extremities: No edema, Capillary Refill Less than 3 Seconds Skin: No rashes, No breakdown Musculoskeletal: No Tenderness to Palpation of Joints or Extremities Neurological: Cranial nerves II-XII grossly intact Psych/Mental Status: Normal Affect, Appropriate, Alert and oriented to time, place, person, mood and affect Microbiology Past 72 Hours 02/20/20 09:00 Stool Stool Occult Blood (MICHAEL) - Final Occult Blood Positive Laboratory Results 02/20/20 09:05: Crossmatch See Detail 02/20/20 13:27: Hgb 8.5 L, Hct 26.7 L 02/20/20 16:25: Urine Color Straw, Urine Clarity Clear, Urine pH 6.0, Ur Specific [place] 1.010, Urine Protein Negative, Urine Glucose (UA) Normal, Urine Ketones Negative, Urine Occult Blood Negative, Urine Nitrite Negative, Urine Bilirubin Negative, Urine Urobilinogen Normal, Ur Leukocyte Esterase 100 H, Urine RBC 0 SEEN, Urine WBC 0-5 SEEN, Ur Squamous Epith Cells 0 SEEN, Urine Bacteria 0 SEEN, Urine Mucus 0 SEEN 02/20/20 16:25: Hgb 7.9 L, Hct 24.7 L 02/21/20 06:30: WBC 9.6, RBC 3.01 L, Hgb 9.1 L, Hct 28.0 L, MCV 93.0, MCH 30.2, MCHC 32.5, RDW Std Deviation 49.6 H, RDW Coeff of Pedro 14.7 H, Plt Count 172, MPV 11.5, Immature Gran % (Auto) 0.400, Neut % (Auto) 59.4, Lymph % (Auto) 34.3, [place] % (Auto) 5.4, Eos % (Auto) 0.3, Baso % (Auto) 0.2, Absolute Neuts (auto) 5.7, Absolute Lymphs (auto) 3.29, Nucleated RBC % 0 02/21/20 06:30: Sodium 147 H, Potassium 3.8, Chloride 116 H, Carbon Dioxide 28.0, Anion Gap 3 L, BUN 20 H, Creatinine 0.77, Estim Creat Clear Calc 62.66, Est GFR (MDRD) Af Amer 97, Est GFR (MDRD) Non-Af 80, BUN/Creatinine Ratio 25.9 H , Glucose 97, Calcium 7.6 L Discharge Diet: No Restrictions Discharge Activity: Return to Normal Activity Call your doctor if you observe: - - black or bloody stools Home Medications: Medications to take at Discharge artificial tears(hypromellose) 0.5 % eye drops 2 drp OPHTHALMIC 4-8XD 03/31/19 flaxseed oil 1,000 mg capsule 1,000 mg PO DAILY 03/31/19 Gabapentin [Neurontin] 200 mg PO BID #56 cap 02/21/20 Ondansetron HCl [Zofran] 4 mg PO Q6H PRN PRN #12 tab 02/21/20 Pantoprazole Sodium 40 mg PO BID #60 tablet. 02/21/20 Tramadol HCl [Ultram] 50 mg PO Q6H PRN PRN 3 Days #12 tab 02/21/20 Following Prescrptions Were Given to Patient: Gabapentin [Neurontin] 200 mg PO BID #56 cap Transmission Status: Received by [facility] Pantoprazole Sodium 40 mg PO BID #60 tablet. Transmission Status: Received by [facility] Tramadol HCl [Ultram] 50 mg PO Q6H PRN PRN 3 Days #12 tab PRN Reason: Headache Transmission Status: Received by [facility] Ondansetron HCl [Zofran] 4 mg PO Q6H PRN PRN #12 tab PRN Reason: Nausea Transmission Status: Received by [facility] Primary Care Physician: Jorge L Leigh MD [Primary Care Provider] - Please follow up with your Primary Care Physician in: 1-2 weeks Please Follow Up With: Genie Wahl MD When: 4 weeks Please Follow Up With: Jorge L Leigh MD Disposition: Home Minutes spent on discharge:: 35 Patient Condition:: Stable Medical Necessity - Tobacco Use Smoking Status: Never smoker Tobacco Use: Non-smoker Meaningful Use Info Meaningful Use Diagnoses (Choose all that apply): None applicable
== END 2020-02-21 11:23 | disposition home or self-care (01) | DRG 811 ==
LOC: ED 11:26 → PCU 11:28
PROVIDERS: Physician Assistant; Surgery; Admitting Provider Internal Medicine; Emergency Provider Emergency Medicine; PCP Family Medicine; Visit Provider Internal Medicine
PROC: 0DJ08ZZ Inspection of Upper Intestinal Tract, Via Natural or Artificial Opening Endoscopic (ICD-10-PCS; CPT 43235; principal; 2020-02-20 10:55)
DX: D62 Acute posthemorrhagic anemia (principal); K26.4 Chronic or unspecified duodenal ulcer with hemorrhage; T39.015A Adverse effect of aspirin, initial encounter; Y92.9 Unspecified place or not applicable; E86.0 Dehydration; E87.6 Hypokalemia; R13.10 Dysphagia, unspecified; K64.9 Unspecified hemorrhoids; G43.909 Migraine, unspecified, not intractable, without status migrainosus; K21.9 Gastro-esophageal reflux disease without esophagitis; Z78.0 Asymptomatic menopausal state; Z79.899 Other long term (current) drug therapy; Z86.19 Personal history of other infectious and parasitic diseases
CPT/HCPCS: 36415; 80048; 80053; 81001; 82274; 83605; 83690; 84484; 85014; 85018; 85025; 86850; 86900; 86901; 86920; 86922; 88305; 88313; 88342; 93005; 99284; J7030; J7040; J7120; P9016; A4216; J2405; J3490

== ENCOUNTER 2020-02-24 13:28 | Inpatient (IN) | payer OTHER, SELFPAY ==
[2020-02-20 12:45] VITALS: BMI 35.0
[2020-02-24] VITALS (16 sets, daily range): BP systolic 94–119; BP diastolic 54–84; PULSE 77–89; RESP 13–20; TEMP 36.9–37.7; O2SAT 93–100; BMI 34.1; BMI 35.2; BMI 35.3
--- NOTE | 2020-02-24 13:47 | CT_ITS ---
STUDY: CT BRAIN WITHOUT CONTRAST REASON FOR EXAM: Female, 64 years old. MIGRAINE, N/V. RADIATION DOSAGE (If Supplied By Facility): CTDIvol = ( 44.99 ) mGy, DLP = ( 779.24 ) mGycm TECHNIQUE: Transaxial CT imaging of the brain was performed without administration of intravenous contrast material. Coronal and sagittal reconstructions were performed. Individualized dose optimization techniques were used for this CT. COMPARISON: None. FINDINGS: Normal soft tissue structures. Normal calvarium. Normal size ventricles and extra-axial spaces for the patient''s age. Normal white matter tracts of the cerebral hemispheres. Normal basal ganglia and thalami. Normal brainstem. Normal cerebellum. There is no intracranial hemorrhage. There are no findings of an acute ischemic infarction. Normal visualized paranasal sinuses. CT/Brain/Head without Contrast IMPRESSION: Normal unenhanced CT scan of the brain. Electronically Signed: Jimy Bill MD at 14:45 EDT , Service support ,
--- NOTE | 2020-02-24 13:49 | ED.DCSUM_ITS ---
History of Present Illness Chief Complaint: Headache Informant: Patient Onset: Days Context: Gradual Onset Timing: Waxes and wanes Current Severity: Mild Maximum Severity: Moderate Narrative: Patient present secondary to continued migraine with nausea. She was recently admitted for a GI bleed. She was found of multiple duodenal ulcers that were not actively bleeding. She was discharged on Neurontin and Ultram to help her headaches in order to avoid NSAIDs and steroids. Patient continues with headache. She reports chills but no fever. She reports mild nausea. She has not noted any more blood in her stool. - Past Medical History (1) Upper GI bleed Status: Resolved (2) History of Helicobacter pylori infection Status: Chronic (3) Migraines Status: Chronic Past Medical History - Allergies and Home Meds Allergies/Adverse Reactions: Allergies codeine Adverse Reaction (Intermediate, Verified 02/24/20 13:31) vomiting Primary Care Physician: Jorge L Leigh MD [Primary Care Provider] - Prior records reviewed: Yes Surgical History: - - left foot surgery, C section, D&C Lives: Spouse/ Significant Other Smoking Status: Never smoker - Family History Maternal Family History: Family History (Last Reviewed 02/20/20 @ 15:08 by ADRIAN Jones) Mother Diabetes Arthritis Father Heart disease Hypertension Myocardial infarction Family History: Reports: No pertinent history Review of Systems General: Denies: Chills, Fever Eyes: Denies: Visual changes - bilaterally ENT: Denies: Bilateral ear pain Cardiovascular: Denies: Chest pain Respiratory: Denies: Dyspnea, Cough Gastrointestinal: Reports: Nausea. Denies: Abdominal pain, Vomiting Genitourinary: Denies: Dysuria Musculoskeletal: Denies: Swelling, Extremity Pain Skin: Denies: Rash Neurological: Reports: Headache, Weakness - Generalized weakness. Denies: Parasthesia Hematologic: Denies: Easy bruising, Easy bleeding Allergy: Denies: Uticaria Physical Exam Vital Signs/Narrative: Vital Signs Temp Pulse Resp BP Pulse Ox 02/24/20 13:31 99 F 89 14 94/84 H 95 Inital Vital Signs reviewed: Yes General: Well nourished, Well developed Head: Normocephalic ENT: Moist mucous membranes Neck: Supple Cardiovascular: Regular rate, Regular rhythm Respiratory: No distress, CTA bilaterally Abdomen: Soft, Nontender Extremities: Nontender Skin: Normal color Neurological: Alert, Oriented x3, Normal Strength, Normal Sensation Psychological: Normal affect Diagnostic/Tx/Re-eval Impressions Brain CT 02/24/20 13:47 IMPRESSION: Normal unenhanced CT scan of the brain. Electronically Signed: Jimy Bill MD at 14:45 EDT , Service support , 02/24/20 13:47 Brain/Head without Contrast [CT] Stat Laboratory Results 02/24/20 02/24/20 02/24/20 13:10 13:10 14:15 WBC 8.7 RBC 1.54 L Hgb 4.7 L* Hct 15.1 L MCV 98.1 D MCH 30.5 MCHC 31.1 L RDW Std Deviation 51.4 H RDW Coeff of Pedro 15.9 H Plt Count 213 MPV 11.5 Immature Gran % (Auto) 1.000 H Neut % (Auto) 74.8 H Lymph % (Auto) 17.0 L [place] % (Auto) 7.0 Eos % (Auto) 0.1 Baso % (Auto) 0.1 Absolute Neuts (auto) 6.5 Absolute Lymphs (auto) 1.47 Nucleated RBC % 0.3 Diff Path Review May foll Platelet Estimate ADEQUATE Polychromasia 1+ Hypochromasia 2+ Basophilic Stippling RARE Anisocytosis 1+ Microcytosis 1+ Sodium 140 Potassium 3.2 L Chloride 104 Carbon Dioxide 32.0 Anion Gap 4 L BUN 13 Creatinine 0.70 Estim Creat Clear Calc 68.93 Est GFR (MDRD) Af Amer 109 Est GFR (MDRD) Non-Af 90 BUN/Creatinine Ratio 18.6 Glucose 123 H Calcium 7.9 L Crossmatch See Detail - Medical Decision Making Patient was given Phenergan with EMS. No further medications were given at this time. Hemoglobin has dropped significantly since her recent discharge, currently down to 4.7. She is typed and crossed for 3 units. Patient denies active bleeding at this time. I did speak with Dr. Wahl who scoped her recently. She did asked the patient remain n.p.o. I will speak with hospitalist for admission. ED Disposition - Plan for ED Patient: Disposition: Acute Care Hospital [facility] Diagnosis: Anemia, Cephalgia Referrals: Jorge L Leigh MD [Primary Care Provider] -
[2020-02-24 13:59] LABS: Absolute Lymphocyte Count 1.47 X10^3/uL (0.83-4.51); Absolute Neutrophil Count 6.5 X10^3/uL (2.0-7.7); Basophil# 0.01 X10^3/uL; Basophil% 0.1 % (0-1); Eosinophil# 0.01 X10^3/uL; Eosinophils% 0.1 % (0-5); Hematocrit 15.1 % (37-47); Lymphocyte # 1.47 X10^3/ul (4.0); Mean Corp Hgb Conc 31.1 g/dL (32-36); Mean Corpuscular Hgb 30.5 pg (27.0-32.0); Mean Corpuscular Volume 98.1 fL (81-99); Mean Platelet Vol. 11.5 fl (6.2-12.0); Monocyte# 0.61 X10^3/uL; NRBC Flagged by Analyzer 0.3 % (0-5); Neutrophil # 6.48 X10^3/uL (2.7-7.7); Neutrophil % 74.8 % (47-70); POSITIVE COUNT YES; Platelet Count 213 K/mm3 (150-450); RBC Distribution Width CV 15.9 % (11.6-14.6); RBC Distribution Width SD 51.4 fl (35.1-43.9); Red Blood Count 1.54 M/mm3 (4.2-5.4); White Blood Count 8.7 K/mm3 (4.4-11.0)
[2020-02-24 14:02] LABS: Differential Indicated SCAN CRITERIA MET; Hemoglobin 4.7 g/dL (12.0-15.0)
--- NOTE | 2020-02-24 14:04 | ED.RN ---
NOTIFIED OF Hgb OF 4.7.
[2020-02-24 14:08] LABS: Anion Gap 4 (5-15); BUN 13 mg/dL (7-18); BUN/Creat Ratio 18.6 RATIO (10-20); Calcium,Total 7.9 mg/dL (8.5-10.1); Chloride 104 mmol/L (98-107); EST Glomerular Filtration Rate 90 mL/min (>60); Est Glom Filt Rate - Afr Amer 109 mL/min (>60); Estimated Creatinine Clearance 68.93 ml/min; Glucose 123 mg/dL (74-106); Potassium 3.2 mmol/L (3.5-5.1); Sodium Level 140 mmol/L (136-145)
[2020-02-24] MEDS: 0.9% Normal Saline 1,000 ML 1000 ML IV (14:14)
[2020-02-24 14:27] LABS: Anisocytosis 1+; Basophilic Stippling RARE; Hypochromasia 2+; Microcytosis 1+; Platelet Estimate ADEQUATE (ADEQ); Polychromasia 1+
--- NOTE | 2020-02-24 15:16 | NURSING ---
MED SURG SEMENTI ANEMIA, HEADACHE
--- NOTE | 2020-02-24 15:52 | NURSING ---
MED SURG ANEMIA, HEADACHE SEMENTI
--- NOTE | 2020-02-24 15:57 | PCM.HP.STD ---
Problem List (1) Hypokalemia Status: Acute (2) Hypocalcemia Status: Acute (3) Acute blood loss anemia Status: Acute (4) Upper GI bleed Status: Acute (5) Migraines Status: Chronic Comment: most days of the month (6) History of Helicobacter pylori infection Status: Chronic Comment: in the past, recent H. Pylori was negative (7) Dysphagia Status: Chronic Qualifiers: Dysphagia type: esophageal phase Qualified Code(s): R13.10 - Dysphagia, unspecified (8) Epigastric pain Status: Chronic (9) Hemorrhoids Status: Chronic (10) Acid reflux Status: Chronic (11) Hiatal hernia Status: Chronic Comment: No evidence of esophagitis on recent EGD done 02/20/[address] Wahl History of Present Illness Date of Admission: 02/24/20 Chief Complaint: severe headache The patient is a 64 year old F with a past medical history significant for GERD, migraines and obesity who was recently admitted to [facility] on 02/20/2020 for an upper GI bleed. She had been taking frequent Excedrin for nearly daily migraine headaches. She was seen by Dr. Wahl and had an EGD done and this showed no gross lesions in the esophagus, small hiatal hernia, erythematous gastric mucosa and multiple nonbleeding duodenal ulcers with adherent clot. She was treated with IV Protonix 40 mg twice daily initially and then discharged on 40 mg twice daily with instructions not to take any nonsteroidal anti-inflammatory agents or aspirin. Her hemoglobin at discharge on 3019 was 9.1. She presented to the emergency room on 02/24/2020 complaining of a severe migraine associated with nausea and vomiting. She denied hematemesis to me and also stated she had not had a BM in 2 days. She denied abdominal pain. she was given Gabapentin 100 mg BID and Ultram 50 mg PRN for migraines at [place]. She has never seen a neurologist about the headaches. Vital signs at presentation to the emergency department were temperature 98.3, pulse rate 67, blood pressure 103/58, respiratory rate 14 and she was 97% saturated on room air. Significant lab included a hemoglobin of 4.7, down from 9.1 on 02/21/2020. Platelets were within normal limits. Potassium was low at 3.2. Calcium was low at 7.9 and the albumin on 02/20/2020 was 3.0 with a corrected serum calcium of 8.6 which is within normal limits. She was treated with Benadryl, Phenergan and Reglan for the migraine and she is going to be admitted to the intensive care unit for severe acute blood loss anemia. 3 units of packed red cells were ordered by Dr. Perera in the emergency department. She had H. pylori earlier in the year but her most recent H. pylori on 02/20/2020 was negative. The biopsy of the gastric antrum showed moderate gastritis and focal metaplasia. Dr. Wahl saw her in the ED and plans on EGD in the AM. Past Medical History Past Medical History (Chronic Problems): Chronic Problems (Last Reviewed 07/14/19 @ 14:[address] David Hernandez MD) Migraines (Chronic) most days of the month Hiatal hernia (Chronic) No evidence of esophagitis on recent EGD done 02/20/[address] Wahl History of Helicobacter pylori infection (Chronic ~03/2019) in the past, recent H. Pylori was negative Dysphagia (Chronic) Epigastric pain (Chronic) Hemorrhoids (Chronic) Acid reflux (Chronic) Medical History: Medical History (Last Reviewed 02/24/20 @ 20:[address] Anju Lewis DO) History of Helicobacter pylori infection (Chronic) Onset Date: ~03/2019 Z86.19 in the past, recent H. Pylori was negative Dysphagia (Chronic) R13.10 Epigastric pain (Chronic) R10.13 Hemorrhoids (Chronic) K64.9 Acid reflux (Chronic) K21.9 Allergies codeine Adverse Reaction (Intermediate, Verified 02/24/20 13:31) vomiting Home Medications: Ambulatory Orders Medication Instructions Recorded artificial tears(hypromellose) 0.5 2 drp OPHTHALMIC 4-8XD 03/31/19 % eye drops flaxseed oil 1,000 mg capsule 1,000 mg PO DAILY 03/31/19 Gabapentin [Neurontin] 200 mg PO BID #56 cap 02/21/20 Ondansetron HCl [Zofran] 4 mg PO Q6H PRN PRN #12 tab 02/21/20 Pantoprazole Sodium 40 mg PO BID #60 tablet. 02/21/20 Surgical History: Surgical History (Last Reviewed 02/24/20 @ 20:[address] Anju Lewis DO) History cyst removed left thumb History of Z98.891 History of section Z98.891 History of section Z98.891 History of colonoscopy Onset Date: ~03/2019 Z98.890 History of dilatation and curettage Z98.890 History of esophagogastroduodenoscopy (EGD) Onset Date: ~03/2019 Z98.890 History of right breast biopsy Z98.890 Surgical History: - - left foot surgery, C section, D&C Psychiatric History: No pertinent psych hx SUEDE BRUSHER History: No pertinent SUEDE BRUSHER history Lives: Spouse/ Significant Other Smoking Status: Never smoker Tobacco Use: Non-smoker Alcohol: None Drugs: None - *Family History Maternal Family History: Family History (Last Reviewed 02/24/20 @ 20:[address] Anju Lewis DO) Mother Diabetes Arthritis Father Heart disease Hypertension Myocardial infarction History Items: No pertinent history Review of Systems Constitutional: Reports: Anorexia, Weakness, Fatigue. Denies: Chills, Fever, Weight Change Eyes: Denies: Blurred vision HEENT: Reports: Head Aches - Almost daily for the past 30 years. Denies: Sinus Congestion, Sinus Drainage, Sore Throat Cardiovascular: Reports: Light Headedness. Denies: Chest Pain, Edema, Palpitations, Syncope Respiratory: Reports: Shortness of Breath, Shortness of breath upon exertion. Denies: Cough, Shortness of breath at rest, Sputum production Gastrointestinal: Reports: Nausea, Vomiting. Denies: Abdominal Pain, Constipation, Diarrhea, Hematemesis, Hematochezia, Melena - No bowel movement for 2 days Genitourinary: Denies: Dysuria Musculoskeletal: Denies: Joint Pain, Joint Tenderness Skin: Denies: Rash, Wounds Neurological: Reports: Headaches. Denies: Balance problems, Slurred speech, Confusion, Focal weakness, Numbness, Tingling, Tremor, Seizures Psychiatric: Denies: Anxiety, Depression, Homicidal Ideations, Suicidal Ideations Endocrine: Denies: Change in Body Habitus Hematologic/ Lymphatic: Denies: Easy Bruising, Easy Bleeding, Hx of blood clot VTE Information - Inpt Only VTE Present on Admission: No VTE Mechan Device Prophylaxis: SCD's, Knee High RANDY Hose VTE Pharm Prophylaxis ordered?: No Reason prophylaxis not ordered:: Treatment Not Indicated - Patient has acute upper GI bleed with severe acute blood loss anemia Patient Problems: Active and Suspected Problems (Last Reviewed 07/14/19 @ 14:[address] David Hernandez MD) Hypokalemia (Acute) Hypocalcemia (Acute) - Physical Exam Vitals/I&O's: Vital Signs Temp Pulse Resp BP Pulse Ox 98.5 F 84 14 99/65 100 02/24/20 15:24 02/24/20 15:24 02/24/20 15:24 02/24/20 15:24 02/24/20 15:24 Oxygen Flow Rate (L/min) 2 Oxygen Delivery Method Nasal Cannula Weight: 192 lb 10.944 oz Body Mass Index (BMI) 34.1 General: Alert, Oriented x3, Cooperative, Well developed, Well nourished, - - she is ghostly pale, even her lips. she appears to be in pain and has photophobia HEENT: Atraumatic, PERRLA, EOMI, Normocephalic, - - Palpebral conjunctiva is very pale Oral: No Gingival or Mucosal Lesions/ Ulcerations, Dry Mucosa Neck: Supple, No JVD, Negative Carotid Bruits Lungs: Clear to auscultation, Normal air movement Cardiovascular: Regular rate, Regular Rhythm, Normal S1, Normal S2, Murmur - She has a soft systolic ejection murmur heard at the second right intercostal space which is most likely a flow murmur because it was not present on 02/20/2020 when she was admitted the first time Abdomen: Bowel Sounds Present - Bowel sounds are present and are not hyperactive, Soft, Non Tender, Non-Distended, Obese, - - No guarding with palpation Extremities: No clubbing, No cyanosis, No edema, Diminished Peripheral Pulses Skin: No rashes, No breakdown Musculoskeletal: No Tenderness to Palpation of Joints or Extremities, No Muscle Wasting Neurological: Cranial nerves II-XII grossly intact, Neuro grossly intact Psych/Mental Status: Appropriate, Flat Affect Laboratory Results 02/24/20 13:10: WBC 8.7, RBC 1.54 L, Hgb 4.7 L*, Hct 15.1 L, MCV 98.1 D, MCH 30.5, MCHC 31.1 L, RDW Std Deviation 51.4 H, RDW Coeff of Pedro 15.9 H, Plt Count 213, MPV 11.5, Immature Gran % (Auto) 1.000 H, Neut % (Auto) 74.8 H, Lymph % (Auto) 17.0 L, [place] % (Auto) 7.0, Eos % (Auto) 0.1, Baso % (Auto) 0.1, Absolute Neuts (auto) 6.5, Absolute Lymphs (auto) 1.47, Nucleated RBC % 0.3, Diff Path Review May foll, Platelet Estimate ADEQUATE, Polychromasia 1+, Hypochromasia 2+, Basophilic Stippling RARE, Anisocytosis 1+, Microcytosis 1+ 02/24/20 13:10: Sodium 140, Potassium 3.2 L, Chloride 104, Carbon Dioxide 32.0, Anion Gap 4 L, BUN 13, Creatinine 0.70, Estim Creat Clear Calc 68.93, Est GFR (MDRD) Af Amer 109, Est GFR (MDRD) Non-Af 90, BUN/Creatinine Ratio 18.6, Glucose 123 H, Calcium 7.9 L 02/24/20 14:15: Blood Type AB POSITIVE, Antibody Screen NEGATIVE, Crossmatch See Detail Assessment/Plan All Active Problems (Last Reviewed 07/14/19 @ 14:[address] David Hernandez MD) Acute blood loss anemia (Acute) Upper GI bleed (Acute) Hypokalemia (Acute) Hypocalcemia (Acute) Impressions 1. Acute severe blood loss anemia secondary to recently diagnosed peptic ulcer disease with multiple nonbleeding duodenal ulcers with adherent clot. H. pylori was negative. Antral biopsy showed moderate chronic gastritis with some focal aplasia. 2. Peptic ulcer disease with multiple duodenal ulcers most likely secondary to frequent Excedrin to help with daily headaches she has had for many years. 3. Migraine cephalgia-almost daily. She has never seen a neurologist. She was on no treatment for migraines other than Excedrin prior to her admission on 02/20/2020 4. History of H. pylori infection-treated with antibiotics earlier this year. 5. Hypokalemia 6. Dehydration 7. Hypocalcemia Plan for treatment She has been seen by Dr. Wahl who plans a repeat EGD in the a.m. 3 units of packed red blood cells have been ordered We will give an 80 mg bolus of IV Protonix and start a continuous Protonix infusion Sips and chips only H&H every 6 hours Magnesium 2 g IV now, Depakene 500 mg p.o. every 8 hours, Decadron 6 mg IV every 6 hours x4 doses to treat cephalgia Hydrate Recheck lab in the a.m. Supplement potassium Check an albumin and calculate the calcium corrected for hypoalbuminemia I recommended to her that she follow-up with a neurologist regarding daily headaches post discharge Inpatient E&M: 40970 Init Hosp L3
--- NOTE | 2020-02-24 17:02 | PCM.CONS.GEN ---
Reason for Consult Date of Consultation: 02/24/20 History of Present Illness: The patient is a 64 year old F well-known to me status post EGD showing nonbleeding duodenal ulcers on 02/19 patient was started on Protonix IV the previous day she was discharged from the hospital on 02/20. Patient states since she left the hospital she has been having some nausea and also issues with her migraines she had was given Neurontin as well as tramadol for the migraines so she would not take Excedrin or aspirin. Patient denies any further black stools at home or hematemesis states she did have some nausea and dry heaves or only clear sputum with vomiting. On admission patient's hemoglobin was 4.7, she is typed and crossed for 3 units packed red blood cells. Patient will be admitted to the ICU overnight for closer monitoring. Past Medical History Past Medical History (Chronic Problems): Chronic Problems (Last Reviewed 02/24/20 @ 20:[address] Anju Lewis DO) Migraines (Chronic) most days of the month Hiatal hernia (Chronic) No evidence of esophagitis on recent EGD done 02/20/[address] Wahl History of Helicobacter pylori infection (Chronic ~03/2019) in the past, recent H. Pylori was negative Dysphagia (Chronic) Epigastric pain (Chronic) Hemorrhoids (Chronic) Acid reflux (Chronic) Medical History: Medical History (Last Reviewed 02/24/20 @ 20:[address] Anju Lewis DO) History of Helicobacter pylori infection (Chronic) Onset Date: ~03/2019 Z86.19 in the past, recent H. Pylori was negative Dysphagia (Chronic) R13.10 Epigastric pain (Chronic) R10.13 Hemorrhoids (Chronic) K64.9 Acid reflux (Chronic) K21.9 Allergies codeine Adverse Reaction (Intermediate, Verified 02/24/20 13:31) vomiting Home Medications: Ambulatory Orders Medication Instructions Recorded artificial tears(hypromellose) 0.5 2 drp OPHTHALMIC 4-8XD 03/31/19 % eye drops flaxseed oil 1,000 mg capsule 1,000 mg PO DAILY 03/31/19 Gabapentin [Neurontin] 200 mg PO BID #56 cap 02/21/20 Ondansetron HCl [Zofran] 4 mg PO Q6H PRN PRN #12 tab 02/21/20 Pantoprazole Sodium 40 mg PO BID #60 tablet. 02/21/20 Surgical History: Surgical History (Last Reviewed 02/24/20 @ 20:[address] Anju Lewis DO) History cyst removed left thumb History of Z98.891 History of section Z98.891 History of section Z98.891 History of colonoscopy Onset Date: ~03/2019 Z98.890 History of dilatation and curettage Z98.890 History of esophagogastroduodenoscopy (EGD) Onset Date: ~03/2019 Z98.890 History of right breast biopsy Z98.890 Surgical History: - - left foot surgery, C section, D&C Psychiatric History: No pertinent psych hx [employer] History: No pertinent [employer] history Lives: Spouse/ Significant Other Smoking Status: Never smoker - *Family History Maternal Family History: Family History (Last Reviewed 02/24/20 @ 20:[address] Anju Lewis DO) Mother Diabetes Arthritis Father Heart disease Hypertension Myocardial infarction History Items: No pertinent history Review of Systems Constitutional: Reports: Anorexia, Fatigue HEENT: Denies: Difficulty Swallowing Cardiovascular: Denies: Chest Pain Respiratory: Denies: Shortness of Breath Gastrointestinal: Reports: Nausea, Vomiting. Denies: Abdominal Pain, Hematemesis, Hematochezia, Melena Genitourinary: Denies: Dysuria Skin: Denies: Rash Neurological: Reports: Headaches Psychiatric: Denies: Anxiety Hematologic/ Lymphatic: Reports: Anemia Patient Problems: Active and Suspected Problems (Last Reviewed 02/24/20 @ 20:[address] Anju Lewis DO) Hypokalemia (Acute) Hypocalcemia (Acute) - Physical Exam Vitals/I&O's: Vital Signs Temp Pulse Resp BP Pulse Ox 99.7 F H 82 16 112/65 100 02/24/20 17:00 02/24/20 17:00 02/24/20 17:00 02/24/20 17:00 02/24/20 17:00 Oxygen Flow Rate (L/min) 2 Oxygen Delivery Method Nasal Cannula Weight: 192 lb 10.944 oz Body Mass Index (BMI) 34.1 Intake and Output for Last 24 Hours 02/22/20 02/23/20 02/24/20 23:59 23:59 23:59 Intake Total 0 / 0 Balance 0 / 0 General: Alert, Oriented x3, Cooperative, - - pale Lungs: Normal air movement Cardiovascular: Regular rate Abdomen: Soft, Non Tender, Non-Distended Extremities: No clubbing, No cyanosis, No edema Neurological: Cranial nerves II-XII grossly intact Psych/Mental Status: Normal Affect Laboratory Results 02/24/20 13:10: WBC 8.7, RBC 1.54 L, Hgb 4.7 L*, Hct 15.1 L, MCV 98.1 D, MCH 30.5, MCHC 31.1 L, RDW Std Deviation 51.4 H, RDW Coeff of Pedro 15.9 H, Plt Count 213, MPV 11.5, Immature Gran % (Auto) 1.000 H, Neut % (Auto) 74.8 H, Lymph % (Auto) 17.0 L, [place] % (Auto) 7.0, Eos % (Auto) 0.1, Baso % (Auto) 0.1, Absolute Neuts (auto) 6.5, Absolute Lymphs (auto) 1.47, Nucleated RBC % 0.3, Diff Path Review December, Platelet Estimate ADEQUATE, Polychromasia 1+, Hypochromasia 2+, Basophilic Stippling RARE, Anisocytosis 1+, Microcytosis 1+ 02/24/20 13:10: Sodium 140, Potassium 3.2 L, Chloride 104, Carbon Dioxide 32.0, Anion Gap 4 L, BUN 13, Creatinine 0.70, Estim Creat Clear Calc 68.93, Est GFR (MDRD) Af Amer 109, Est GFR (MDRD) Non-Af 90, BUN/Creatinine Ratio 18.6, Glucose 123 H, Calcium 7.9 L 02/24/20 14:15: Blood Type AB POSITIVE, Antibody Screen NEGATIVE, Crossmatch See Detail Assessment/Plan All Active Problems (Last Reviewed 02/24/20 @ 20:[address] Anju Lewis, DO) Acute blood loss anemia (Acute) Upper GI bleed (Acute) Hypokalemia (Acute) Hypocalcemia (Acute) 64-year-old female with anemia, recent EGD showing duodenal ulcers nonbleeding on 02/19 1. Patient's hemoglobin is 4.7 she is given 3 units of packed red blood cells. Also Protonix drip. Patient denies any black stools or hematemesis, she states she did not think she has had a bowel movement since she left on Thursday. Patient states she has been nauseated and also very fatigued since she left the hospital. 2. I have discussed the above with the patient. I have offered the patient EGD for evaluation--plan for tomorrow at 8 AM unless patient has any changes in vital signs or does not have adequate change in hemoglobin with the blood. Patient's current vital signs of heart rate in the 80s and blood pressure systolically is 116.. Would plan to likely do a colonoscopy later once she has gotten blood so the prep will not dehydrate her even further. I have explained the risks/benefits of the procedure and described the procedure. I have discussed the risks with the patient, including but not limited to: infection, bleeding, perforation of the GI tract requiring emergency surgery, inability to complete the procedure, injury to any internal organs, complications of anesthesia, etc. - the patient understands and agrees to proceed. I have answered all the patient's questions to the patient's satisfaction and the patient has no further questions. Procedure essential: Yes On 11/08/2019 the [place] Department of Health ([facility]) Public Order signed by [facility] Director Ghazala Forbes M.D., regarding the Management of Non-Essential Surgeries and Procedures for the purpose of preserving Personal Protective Equipment (PPE) and critical hospital capacity and resources within [place] went into effect as of 11/09/2019 at 5:00PM. According to the [facility] Public Order: This action will remain in full force and effect until the State of Emergency declared by the Governor no longer exists or the Director of the [facility] rescinds or modifies this Order. This [facility] order stated all non-essential or elective surgeries and procedures that utilize PPE should be delayed unless there is undue risk to the current or future health of a patient. After reviewing the aforementioned [facility] Public Order and the patients clinical case, I have determined that the scheduled procedure meets the criteria to go forward. Reason for performing procedure: There is a risk of rapidly worsening to severe symptoms (time sensitive). Genie Wahl M.D. Pager: [phone] [facility] [address] [place] [address], [address] [place] [address] Office: [phone] Inpatient E&M: 45173 Init Hosp L2
[2020-02-24] MEDS: dexAMETHasone 4 MG/ML Vial 6 MG IV ×2 (19:03→23:41)
[2020-02-24 21:53] LABS: Magnesium 1.9 mg/dL (1.6-2.6)
[2020-02-24 22:06] LABS: Albumin, Serum 2.4 g/dL (3.2-5.0)
[2020-02-24] MEDS: 0.9% Saline Lock 10 ML Syringe IV (23:41)
[2020-02-25] VITALS (23 sets, daily range): BP systolic 100–120; BP diastolic 58–75; PULSE 64–79; RESP 12–18; TEMP 36.6–37.1; O2SAT 92–99
[2020-02-25] MEDS: dexAMETHasone 4 MG/ML Vial 6 MG IV ×2 (05:01→13:50)
[2020-02-25 05:38] LABS: Hematocrit 29.7 % (37-47); Hemoglobin 9.6 g/dL (12.0-15.0)
[2020-02-25 05:55] LABS: ALB/GLOB Ratio 0.9 RATIO (0.9-2.4); AST(SGOT) 11 U/L (15-37); Alanine Aminotransfer ALT/SGPT 16 U/L (13-56); Albumin, Serum 2.4 g/dL (3.2-5.0); Alkaline Phosphatase 35 U/L (45-117); Anion Gap 5 (5-15); BUN 12 mg/dL (7-18); BUN/Creat Ratio 17.8 RATIO (10-20); Calcium,Total 7.4 mg/dL (8.5-10.1); Chloride 110 mmol/L (98-107); Creatinine, Serum 0.68 mg/dL (0.55-1.02); EST Glomerular Filtration Rate 94 mL/min (>60); Est Glom Filt Rate - Afr Amer 113 mL/min (>60); Estimated Creatinine Clearance 70.96 ml/min; Globulin 2.7 g/dL (2.2-4.2); Glucose 141 mg/dL (74-106); Magnesium 2.5 mg/dL (1.6-2.6); Protein, Total 5.1 g/dL (6.4-8.2); Sodium Level 143 mmol/L (136-145)
[2020-02-25 06:59] LABS: Hematocrit 29.4 % (37-47); Hemoglobin 9.6 g/dL (12.0-15.0); Mean Corp Hgb Conc 32.7 g/dL (32-36); Mean Corpuscular Hgb 31.2 pg (27.0-32.0); Mean Corpuscular Volume 95.5 fL (81-99); Mean Platelet Vol. 11.4 fl (6.2-12.0); Platelet Count 203 K/mm3 (150-450); RBC Distribution Width CV 14.6 % (11.6-14.6); RBC Distribution Width SD 47.2 fl (35.1-43.9); Red Blood Count 3.08 M/mm3 (4.2-5.4); White Blood Count 8.2 K/mm3 (4.4-11.0)
[2020-02-25 07:17] LABS: Scan Indicated on CBC? Y/N NO
[2020-02-25] MEDS: Lactated Ringers 1,000 ML 100 ML IV (08:00)
--- NOTE | 2020-02-25 08:05 | EGD_PTH ---
PATIENT: ELEN JACOBSON LOC: PCU U#:[id number] AGE/SX: 64/F ROOM: [facility] RE02/24/[address]: Dr. Pollo Hwang MD : 1955 BED: 1 DIS: 02/27/2020 SPEC #: [id number] RECD: 02/25/20 10:19 STATUS: YURIY AMAURY #: [id number] CATHERINE: 02/25/20 08:[address]: Genie Wahl DEPT: SURGICAL PATHOLOGY RECD BY: Sharona Lewis ENTERED: 02/27/20 09:35 SP TYPE: EGD [facility]OPSY [facility] DR: DO Dr. Pollo Rodgers MD Dr. Scott Hannan, MD Tissues: Gastric mucous membrane Procedures: Surgery Specimen Level IV HEADER OPERATION: [place] [place] DIAGNOSIS: Acute blood loss, GI bleed TISSUE SUBMITTED: Antrum biopsy for H. pylori and histo MICROSCOPIC DIAGNOSIS Gastric antrum, biopsy: Chronic gastritis. See comment. AM:joey 02/28/20 COMMENT The results of immunohistochemistry for Helicobacter pylori will be reported separately ([id number]). MICROSCOPIC DESCRIPTION Slides are reviewed. GROSS DESCRIPTION Received in fixative is one container labeled with the patient's name and designated antrum biopsy. The specimen consists of one irregular fragment of light olivares soft tissue that measures 0.4 x 0.2 x 0.1 cm. The specimen is totally submitted in one cassette. / SJ:joey 02/27/20 TC:3 CPT: 97559
--- NOTE | 2020-02-25 08:05 | IMM_PTH ---
PATIENT: ELEN JACOBSON LOC: PCU U#:[id number] AGE/SX: 64/F ROOM: [facility] RE02/24/[address]: Dr. Pollo Hwang MD : 1955 BED: 1 DIS: 02/27/2020 SPEC #: [id number] RECD: 02/27/20 11:53 STATUS: SOUT REQ #: [id number] CATHERINE: 02/25/20 08:[address]: Genie Wahl DEPT: IMMUNOHISTOCHEMISTRY RECD BY: Krysten Gibson ENTERED: 02/27/20 11:54 SP TYPE: IMMUNO OTHR DR: DO Dr. Pollo Rodgers MD Dr. Scott Hannan, MD Dr. Tamera Robotham, MD Tissues: Stomach, NOS Procedures: H Pylori (initial) Comments: @ Ordering doctor for H.PYLORI edited from to @ by PARKER at 02/27/20 1154 @ Submitting doctor edited from to @ by RGOOD at 02/27/20 1154 PHYSICIAN & INSTITUTION [place] [address] SPECIMEN INFORMATION: Tissue Source: Antrum biopsy Clinical Info: Acute blood loss, GI bleed Specimen Number: [id number] CPT code: 24972 METHODOLOGY: Deparaffinized sections of prefer/formalin-fixed tissue or PAP/DQ stained slides are incubated with monoclonal/polyclonal antibodies/oligonucleotide probes. Localization is made via biotin free immunoperoxidase method. Appropriate controls are performed and reacted as expected. Results on target cell population are indicated in the following table: RESULTS: ANTIBODY / CLONE RESULT H Pylori (polyclonal) negative These tests were developed and their performance characteristics determined by [facility]. They may not have been cleared or approved by the U.S. Food and Drug Administration. The FDA has determined that such clearance or approval is not necessary. INTERPRETATION: Antrum, biopsy: Negative for Helicobacter pylori organisms. AM:joey 02/28/20
--- NOTE | 2020-02-25 08:34 | OP.CCLET_ITS ---
02/25/2020 Jorge L Leigh Re : Upper GI endoscopy procedure for Sobia Hay Dear Lu This procedure was performed on Tuesday, February 25, 2020. My impressions and recommendations are as follows: Impressions : - Small hiatal hernia. - Gastritis-appeared worse than in last EGD. Biopsied. - Normal examined duodenum. previous small ulcers not seen Recommendations : - Clear liquid diet. - Give Protonix (pantoprazole): 8 mg/hr IV by continuous infusion or 40 mg IV BID while in hospital. - Perform a colonoscopy in 2 days, while still in the hospital. - Continue present medications. My findings are described in the full procedure note, which is enclosed. If I can be of further assistance, please feel free to contact me at Doctor phone number(s): , Work: . Sincerely, MD Genie Rios MD 02/25/2020 8:33:40 AM This report has been signed electronically.
--- NOTE | 2020-02-25 08:34 | OP.EGD_ITS ---
Patient Name: Sobia Hay Procedure Date: 02/25/2020 7:59 AM Date of : 1955 Age: 64 Procedure: Upper GI endoscopy Indications: Iron deficiency anemia due to suspected upper gastrointestinal bleeding Providers: Genie Wahl MD Medicines: Monitored Anesthesia Care Patient Profile: This is a 64 year old female. Complications: No immediate complications. Procedure: Pre-Anesthesia Assessment: - Prior to the procedure, a History and Physical was performed, and patient medications and allergies were reviewed. The patient's tolerance of previous anesthesia was also reviewed. The risks and benefits of the procedure and the sedation options and risks were discussed with the patient. All questions were answered, and informed consent was obtained. Prior Anticoagulants: The patient has taken no previous anticoagulant or antiplatelet agents. ASA Grade Assessment: Per anesthesia. After reviewing the risks and benefits, the patient was deemed in satisfactory condition to undergo the procedure. After obtaining informed consent, the endoscope was passed under direct vision. Throughout the procedure, the patient's blood pressure, pulse, and oxygen saturations were monitored continuously. The gastroscope was introduced through the mouth, and advanced to the second part of duodenum. The upper GI endoscopy was accomplished without difficulty. The patient tolerated the procedure well. Scope In: 8:10:52 AM Scope Out: 8:19:14 AM Total Procedure Duration Time 0 hours 8 minutes 22 seconds Findings: A small hiatal hernia was present. Diffuse moderate inflammation was found in the gastric antrum. Biopsies were taken with a cold forceps for histology. Biopsies were taken with a cold forceps for Helicobacter pylori cultures. Biopsies were taken with a cold forceps for Helicobacter pylori testing using a rapid urease test. The examined duodenum was normal- previous small ulcers not seen. Impression: - Small hiatal hernia. - Gastritis-appeared worse than in last EGD. Biopsied. - Normal examined duodenum. previous small ulcers not seen Recommendation: - Clear liquid diet. - Give Protonix (pantoprazole): 8 mg/hr IV by continuous infusion or 40 mg IV BID while in hospital. - Perform a colonoscopy in 2 days, while still in the hospital. - Continue present medications. Procedure Code(s): --- Professional --- 20427, Esophagogastroduodenoscopy, flexible, transoral; with biopsy, single or multiple Diagnosis Code(s): --- Professional --- K44.9, Diaphragmatic hernia without obstruction or gangrene K29.70, Gastritis, unspecified, without bleeding D50.9, Iron deficiency anemia, unspecified CPT copyright 2017 [employer]. All rights reserved. The codes documented in this report are preliminary and upon rod pointer review may be revised to meet current compliance requirements. MD Genie Rios MD 02/25/2020 8:33:40 AM This report has been signed electronically. Number of Addenda: 0 Note Initiated On: 02/25/2020 7:59 AM
[2020-02-25] MEDS: Sucralfate 1 GM Tablet PO ×3 (09:35→22:06)
--- NOTE | 2020-02-25 09:41 | PN_ITS ---
<Leeann De Jesus - Last Filed: 02/25/20 09:54> Patient Problems: Active and Suspected Problems (Last Reviewed 02/24/20 @ 20:[address] Anju Lewis DO) Hypokalemia (Acute) Hypocalcemia (Acute) Subjective: Patient seen and examined. Underwent EGD this morning which showed gastritis, previous ulcers resolved. Patient denies shortness of breath, lightheadedness, abdominal pain, nausea, vomiting. Denies headache currently. - Physical Exam Vitals/I&O's: Vital Signs Temp Pulse Resp BP Pulse Ox 98.6 F 77 16 113/73 97 02/25/20 08:45 02/25/20 08:45 02/25/20 08:45 02/25/20 08:45 02/25/20 08:45 Oxygen Flow Rate (L/min) 2 Oxygen Delivery Method Room Air Weight: 192 lb 14.472 oz Body Mass Index (BMI) 35.2 Intake and Output for Last 24 Hours 02/23/20 02/24/20 02/25/20 23:59 23:59 23:59 Intake Total 1599 / 1599 2354.17 / 2354.17 Output Total 800 / 800 575 / 575 Balance 799 / 799 1779.17 / 1779.17 General: Alert, Oriented x3, Cooperative HEENT: Atraumatic, PERRLA, EOMI, Normocephalic Neck: Supple, No JVD, Negative Carotid Bruits Lungs: Clear to auscultation, Normal air movement Cardiovascular: Regular rate, No murmurs Abdomen: Bowel Sounds Present, Soft, Non Tender Extremities: No edema, Capillary Refill Less than 3 Seconds Skin: No rashes, No breakdown Musculoskeletal: No Tenderness to Palpation of Joints or Extremities Neurological: Cranial nerves II-XII grossly intact, Neuro grossly intact Psych/Mental Status: Normal Affect, Appropriate Laboratory Results 02/24/20 13:10: WBC 8.7, RBC 1.54 L, Hgb 4.7 L*, Hct 15.1 L, MCV 98.1 D, MCH 30.5, MCHC 31.1 L, RDW Std Deviation 51.4 H, RDW Coeff of Pedro 15.9 H, Plt Count 213, MPV 11.5, Immature Gran % (Auto) 1.000 H, Neut % (Auto) 74.8 H, Lymph % (Auto) 17.0 L, [place] % (Auto) 7.0, Eos % (Auto) 0.1, Baso % (Auto) 0.1, Absolute Neuts (auto) 6.5, Absolute Lymphs (auto) 1.47, Nucleated RBC % 0.3, Diff Path Review December, Platelet Estimate ADEQUATE, Polychromasia 1+, Hypochromasia 2+, Basophilic Stippling RARE, Anisocytosis 1+, Microcytosis 1+ 02/24/20 13:10: Sodium 140, Potassium 3.2 L, Chloride 104, Carbon Dioxide 32.0, Anion Gap 4 L, BUN 13, Creatinine 0.70, Estim Creat Clear Calc 68.93, Est GFR (MDRD) Af Amer 109, Est GFR (MDRD) Non-Af 90, BUN/Creatinine Ratio 18.6, Glucose 123 H, Calcium 7.9 L 02/24/20 13:42: Albumin 2.4 L 02/24/20 13:49: Magnesium 1.9 02/24/20 14:15: Blood Type AB POSITIVE, Antibody Screen NEGATIVE, Crossmatch See Detail 02/25/20 05:15: Hgb 9.6 L, Hct 29.7 L 02/25/20 05:15: WBC 8.2, RBC 3.08 L, Hgb 9.6 L, Hct 29.4 L, MCV 95.5, MCH 31.2, MCHC 32.7 D, RDW Std Deviation 47.2 H, RDW Coeff of Pedro 14.6, Plt Count 203, MPV 11.4 02/25/20 05:15: Sodium 143, Potassium 4.0, Chloride 110 H, Carbon Dioxide 28.0, Anion Gap 5, BUN 12, Creatinine 0.68, Estim Creat Clear Calc 70.96, Est GFR (MDRD) Af Amer 113, Est GFR (MDRD) Non-Af 94, BUN/Creatinine Ratio 17.8, Glucose 141 H, Calcium 7.4 L, Magnesium 2.5, Total Bilirubin 0.20, AST 11 L, ALT 16, Alkaline Phosphatase 35 L, Total Protein 5.1 L, Albumin 2.4 L, Globulin 2.7, Albumin/Globulin Ratio 0.9 Current Medications Dexamethasone Sodium Phosphate (Decadron) 6 mg IV Q6H [facility] Stop: 02/25/20 12:07 Last Admin: 02/25/20 05:01 Dose: 6 mg Documented by: Potassium Chloride 10 meq/ (Sodium Chloride) 1,005 mls @ 80 mls/hr IV .[id number] [facility] Last Infusion: 02/25/20 09:18 Dose: 80 mls/hr Documented by: Sodium Chloride () 500 mls @ 15 mls/hr IV PRN PRN PRN Reason: Blood Transfusion Lactated Ringer's () 1,000 mls @ 100 mls/hr IV .Q10H [facility] Last Infusion: 02/25/20 08:49 Dose: Infused Documented by: Pantoprazole Sodium 40 mg/ (Sodium Chloride) 110 mls @ 330 mls/hr IV Q12 [facility] Nutritional Formula (Lactose Free) (Ensure Clear) 120 ml PO TIDCM [facility] Ondansetron HCl (Zofran) 4 mg IV Q8H PRN PRN PRN Reason: NAUSEA/VOMITING Prochlorperazine Edisylate (Compazine Iv) 5 mg IV Q4H PRN PRN PRN Reason: Breakthrough Nausea/Vomiting Sodium Chloride () 10 - 40 ml IV UD PRN PRN Reason: SALINE FLUSH Last Admin: 02/24/20 23:41 Dose: 40 ml Documented by: Sucralfate (Carafate) 1 gm PO 1HR_ACHS [facility] Last Admin: 02/25/20 09:35 Dose: 1 gm Documented by: Valproic Acid (Depakene) 500 mg PO Q8 [facility] Last Admin: 02/25/20 05:01 Dose: 500 mg Documented by: Medical Necessity - Tobacco Use Smoking Status: Never smoker Tobacco Use: Non-smoker Assessment/Plan All Active Problems (Last Reviewed 02/24/20 @ 20:[address] Anju Lewis, DO) Acute blood loss anemia (Acute) Upper GI bleed (Acute) Hypokalemia (Acute) Hypocalcemia (Acute) 1. Acute blood loss anemia secondary to GI bleed-recent admission for GI bleed with EGD 02/20/2020 that demonstrated multiple nonbleeding duodenal ulcers with adherent clot. Repeat EGD 02/25/2020 demonstrated gastritis, worse than prior EGD with resolved previous ulcers. Continue IV PPI twice daily. General surgery following with plans for colonoscopy on [place]. Trend H&H. Clear liquids. Biopsies taken from EGD, pending. Patient has a history of H. pylori. 2. Migraine cephalgia-previously used Excedrin excessively which she is no longer using secondary to #1. On Depakote and Decadron. Headache resolved currently. Recommend follow-up with neurology. DVT prophylaxis-SCDs This patient was seen by GILMA Christopher under the supervision of Dr. Hwang. <Pollo Hwang E - Last Filed: 02/25/20 10:16> - Physical Exam Vitals/I&O's: Vital Signs Temp Pulse Resp BP Pulse Ox 98.6 F 77 16 113/73 97 02/25/20 08:45 02/25/20 08:45 02/25/20 08:45 02/25/20 08:45 02/25/20 08:45 Oxygen Flow Rate (L/min) 2 Oxygen Delivery Method Room Air Weight: 192 lb 14.472 oz Body Mass Index (BMI) 35.2 Intake and Output for Last 24 Hours 02/23/20 02/24/20 02/25/20 23:59 23:59 23:59 Intake Total 1599 / 1599 2392.84 / 2392.84 Output Total 800 / 800 575 / 575 Balance 799 / 799 1817.84 / 1817.84 Laboratory Results 02/24/20 13:10: WBC 8.7, RBC 1.54 L, Hgb 4.7 L*, Hct 15.1 L, MCV 98.1 D, MCH 30.5, MCHC 31.1 L, RDW Std Deviation 51.4 H, RDW Coeff of Pedro 15.9 H, Plt Count 213, MPV 11.5, Immature Gran % (Auto) 1.000 H, Neut % (Auto) 74.8 H, Lymph % (Auto) 17.0 L, [place] % (Auto) 7.0, Eos % (Auto) 0.1, Baso % (Auto) 0.1, Absolute Neuts (auto) 6.5, Absolute Lymphs (auto) 1.47, Nucleated RBC % 0.3, Diff Path Review December, Platelet Estimate ADEQUATE, Polychromasia 1+, Hypochromasia 2+, Basophilic Stippling RARE, Anisocytosis 1+, Microcytosis 1+ 02/24/20 13:10: Sodium 140, Potassium 3.2 L, Chloride 104, Carbon Dioxide 32.0, Anion Gap 4 L, BUN 13, Creatinine 0.70, Estim Creat Clear Calc 68.93, Est GFR (MDRD) Af Amer 109, Est GFR (MDRD) Non-Af 90, BUN/Creatinine Ratio 18.6, Glucose 123 H, Calcium 7.9 L 02/24/20 13:42: Albumin 2.4 L 02/24/20 13:49: Magnesium 1.9 02/24/20 14:15: Blood Type AB POSITIVE, Antibody Screen NEGATIVE, Crossmatch See Detail 02/25/20 05:15: Hgb 9.6 L, Hct 29.7 L 02/25/20 05:15: WBC 8.2, RBC 3.08 L, Hgb 9.6 L, Hct 29.4 L, MCV 95.5, MCH 31.2, MCHC 32.7 D, RDW Std Deviation 47.2 H, RDW Coeff of Pedro 14.6, Plt Count 203, MPV 11.4 02/25/20 05:15: Sodium 143, Potassium 4.0, Chloride 110 H, Carbon Dioxide 28.0, Anion Gap 5, BUN 12, Creatinine 0.68, Estim Creat Clear Calc 70.96, Est GFR (MDRD) Af Amer 113, Est GFR (MDRD) Non-Af 94, BUN/Creatinine Ratio 17.8, Glucose 141 H, Calcium 7.4 L, Magnesium 2.5, Total Bilirubin 0.20, AST 11 L, ALT 16, Alkaline Phosphatase 35 L, Total Protein 5.1 L, Albumin 2.4 L, Globulin 2.7, Albumin/Globulin Ratio 0.9 Current Medications Dexamethasone Sodium Phosphate (Decadron) 6 mg IV Q6H [facility] Stop: 02/25/20 12:07 Last Admin: 02/25/20 05:01 Dose: 6 mg Documented by: Potassium Chloride 10 meq/ (Sodium Chloride) 1,005 mls @ 80 mls/hr IV .[id number] [facility] Last Infusion: 02/25/20 09:47 Dose: 0 mls/hr Documented by: Sodium Chloride () 500 mls @ 15 mls/hr IV PRN PRN PRN Reason: Blood Transfusion Lactated Ringer's () 1,000 mls @ 100 mls/hr IV .Q10H [facility] Last Infusion: 02/25/20 08:49 Dose: Infused Documented by: Pantoprazole Sodium 40 mg/ (Sodium Chloride) 110 mls @ 330 mls/hr IV Q12 [facility] Last Admin: 02/25/20 09:47 Dose: 330 mls/hr Documented by: Nutritional Formula (Lactose Free) (Ensure Clear) 120 ml PO TIDCM [facility] Ondansetron HCl (Zofran) 4 mg IV Q8H PRN PRN PRN Reason: NAUSEA/VOMITING Prochlorperazine Edisylate (Compazine Iv) 5 mg IV Q4H PRN PRN PRN Reason: Breakthrough Nausea/Vomiting Sodium Chloride () 10 - 40 ml IV UD PRN PRN Reason: SALINE FLUSH Last Admin: 02/24/20 23:41 Dose: 40 ml Documented by: Sucralfate (Carafate) 1 gm PO 1HR_ACHS [facility] Last Admin: 02/25/20 09:35 Dose: 1 gm Documented by: Valproic Acid (Depakene) 500 mg PO Q8 [facility] Last Admin: 02/25/20 05:01 Dose: 500 mg Documented by: Assessment/Plan Hospitalist note: I am seeing this patient in conjunction with Leeann De Jesus. I independently seen and examined the patient. Progress note above, laboratory data and imaging studies reviewed and I concur with above work-up and treatment plan. This morning, patient underwent upper EGD that showed gastritis, previous small ulcers healed. Headache has been improving. Denies abdominal pain, nausea or vomiting. Her vital signs are stable. - Physical Exam General: Alert, Oriented x3, Cooperative, No apparent distress. HEENT: Atraumatic, PERRLA, EOMI. Neck: Supple, No JVD, Negative Carotid Bruits, Trachea Midline, Thyroid Normal. Lungs: Clear to auscultation, Normal air movement, No rhonchi, No wheeze, No rales. Cardiovascular: Regular rate, Regular Rhythm, Normal S1, Normal S2, PMI Normal. Abdomen: Bowel Sounds Present, Soft, Non Tender, Non-Distended, No Hepato- splenomegaly. Extremities: No clubbing, No cyanosis, No edema Skin: No rashes, No breakdown Neurological: Cranial nerves are intact, neuro grossly intact Vital Signs are stable. Assessment and plan: #1 acute severe blood loss anemia: Secondary to GI bleed. Patient had recent a dmission for GI bleed, EGD done on February 20, 2020 that showed multiple nonbleeding duodenal ulcers with adherent clot. Patient received total of 3 months of packed RBCs. Admission globin was 4.7, this morning hemoglobin was 9.6 g/dL. Repeat upper EGD done today and revealed gastritis which looks worse than last EGD, small ulcers healed. Currently, vital signs are stable. General surgery on the case, plan for colonoscopy on Thursday, start clear liquids, transfer to PCU, repeat H&H tomorrow morning. #2 hypokalemia/hypocalcemia: Potassium replaced and corrected. Serum albumin is 2.4. Serum calcium today is 7.4 mg/dL. Corrected calcium for albumin is 8.7 mg/dL which is normal. #3 headache/possible migraine: She is on Decadron Depakote. Headache significant improved. Recommend follow-up with neurology as outpatient. This note was generated with [employer] dictation software. It may contain incorrect words, spelling, and punctuation that were not noted in checking the note before signing. Inpatient E&M: 23166 Subs Hosp L2
[2020-02-25] MEDS: 0.9% Saline Lock 10 ML Syringe IV (13:42)
[2020-02-25] MEDS: Ensure Clear 120 ML Liquid PO (13:45)
[2020-02-26] VITALS (9 sets, daily range): BP systolic 102–136; BP diastolic 54–83; PULSE 64–86; RESP 14–17; TEMP 36.8–36.9; O2SAT 96–100
[2020-02-26 05:54] LABS: Hematocrit 25.6 % (37-47); Hemoglobin 8.3 g/dL (12.0-15.0)
[2020-02-26] MEDS: Sucralfate 1 GM Tablet PO ×4 (06:37→21:50)
--- NOTE | 2020-02-26 08:36 | PN.SURG_ITS ---
Patient Problems: Active and Suspected Problems (Last Reviewed 02/24/20 @ 20:[address] Anju Lewis, DO) Hypokalemia (Acute) Hypocalcemia (Acute) Subjective: Patient still states she feels good, hemoglobin 8.3, patient denies any bowel movement for has been having flatus. - Physical Exam Vitals/I&O's: Vital Signs Temp Pulse Resp BP Pulse Ox 98.5 F 64 14 105/67 98 02/26/20 04:00 02/26/20 07:00 02/26/20 04:00 02/26/20 04:00 02/26/20 04:00 Oxygen Flow Rate (L/min) 2 Oxygen Delivery Method Room Air Weight: 192 lb 3.889 oz Body Mass Index (BMI) 35.2 Intake and Output for Last 24 Hours 02/24/20 02/25/20 02/26/20 23:59 23:59 23:59 Intake Total 1599 / 1599 4308.50 / 4308.50 500 / 500 Output Total 800 / 800 575 / 575 Balance 799 / 799 3733.50 / 3733.50 500 / 500 General: Alert, Oriented x3, Cooperative, No apparent distress HEENT: Atraumatic Lungs: Normal air movement Cardiovascular: Regular rate Abdomen: Soft, Non Tender, Non-Distended Extremities: No clubbing, No cyanosis, No edema Laboratory Results 02/26/20 05:17: Hgb 8.3 L, Hct 25.6 L Current Medications Potassium Chloride 10 meq/ (Sodium Chloride) 1,005 mls @ 80 mls/hr IV .[id number] [facility] Last Infusion: 02/25/20 22:30 Dose: 80 mls/hr Documented by: Sodium Chloride () 500 mls @ 15 mls/hr IV PRN PRN PRN Reason: Blood Transfusion Pantoprazole Sodium 40 mg/ (Sodium Chloride) 110 mls @ 330 mls/hr IV Q12 [facility] Last Infusion: 02/25/20 22:27 Dose: Infused Documented by: Nutritional Formula (Lactose Free) (Ensure Clear) 120 ml PO TIDCM [facility] Last Admin: 02/26/20 07:59 Dose: Not Given Documented by: Ondansetron HCl (Zofran) 4 mg IV Q8H PRN PRN PRN Reason: NAUSEA/VOMITING Prochlorperazine Edisylate (Compazine Iv) 5 mg IV Q4H PRN PRN PRN Reason: Breakthrough Nausea/Vomiting Sodium Chloride () 10 - 40 ml IV UD PRN PRN Reason: SALINE FLUSH Last Admin: 02/25/20 13:42 Dose: 20 ml Documented by: Sucralfate (Carafate) 1 gm PO 1HR_ACHS [facility] Last Admin: 02/26/20 06:37 Dose: 1 gm Documented by: Valproic Acid (Depakene) 500 mg PO Q8 [facility] Last Admin: 02/26/20 06:37 Dose: 500 mg Documented by: Medical Necessity - Tobacco Use Smoking Status: Never smoker Tobacco Use: Non-smoker Assessment/Plan All Active Problems (Last Reviewed 02/24/20 @ 20:[address] Anju dudley, DO) Acute blood loss anemia (Acute) Upper GI bleed (Acute) Hypokalemia (Acute) Hypocalcemia (Acute) 64-year-old female with anemia, recent EGD showing duodenal ulcers nonbleeding on 02/19, yesterday EGD also superiorly healed but there was gastritis which was worse 1. I have discussed the above with the patient. I have offered the patient colonoscopy for evaluation--plan for tomorrow at 8 AM unless patient has any changes in vital signs or does not have adequate change in hemoglobin with the blood. Patient's current vital signs of heart rate in the 80s and blood pressure systolically is 116.. Would plan to likely do a colonoscopy later once she has gotten blood so the prep will not dehydrate her even further. I have explained the risks/benefits of the procedure and described the procedure. I have discussed the risks with the patient, including but not limited to: infection, bleeding, perforation of the GI tract requiring emergency surgery, inability to complete the procedure, injury to any internal organs, complications of anesthesia, etc. - the patient understands and agrees to proceed. I have answered all the patient's questions to the patient's satisfaction and the patient has no further questions. Bowel prep with Gatorade/MiraLAX and Dulcolax. Procedure essential: Yes On 11/08/2019 the [facility] ([facility]) Public Order signed by [facility] Director Ghazala Forbes M.D., regarding the Management of Non-Essential Surgeries and Procedures for the purpose of preserving Personal Protective Equipment (PPE) and critical hospital capacity and resources within [place] went into effect as of 11/09/2019 at 5:00PM. According to the [facility] Public Order: This action will remain in full force and effect until the State of Emergency declared by the Governor no longer exists or the Director of the [facility] rescinds or modifies this Order. This [facility] order stated all non-essential or elective surgeries and procedures that utilize PPE should be delayed unless there is undue risk to the current or future health of a patient. After reviewing the aforementioned [facility] Public Order and the patients clinical case, I have determined that the scheduled procedure meets the criteria to go forward. Reason for performing procedure: There is a risk of rapidly worsening to severe symptoms (time sensitive). Genie Wahl M.D. Pager: [phone] [facility] [address] [place] [address], [address] [place] [address] Office: [phone] Inpatient E&M: 05940 [facility] Hosp L1
--- NOTE | 2020-02-26 10:36 | PN_ITS ---
<Leeann De Jesus - Last Filed: 02/26/20 10:39> Patient Problems: Active and Suspected Problems (Last Reviewed 02/24/20 @ 20:[address] Anju Lewis DO) Hypokalemia (Acute) Hypocalcemia (Acute) Subjective: Patient seen and examined. Hemoglobin stable. Patient denies current symptoms or complaints. Plan for colonoscopy Thursday. Denies further headache. - Physical Exam Vitals/I&O's: Vital Signs Temp Pulse Resp BP Pulse Ox 98.5 F 70 14 102/54 L 96 02/26/20 10:00 02/26/20 10:00 02/26/20 10:00 02/26/20 10:00 02/26/20 10:00 Oxygen Flow Rate (L/min) 2 Oxygen Delivery Method Room Air Weight: 192 lb 3.889 oz Body Mass Index (BMI) 35.2 Intake and Output for Last 24 Hours 02/24/20 02/25/20 02/26/20 23:59 23:59 23:59 Intake Total 1599 / 1599 4308.50 / 4308.50 500 / 500 Output Total 800 / 800 575 / 575 Balance 799 / 799 3733.50 / 3733.50 500 / 500 General: Alert, Oriented x3, Cooperative HEENT: Atraumatic, PERRLA, EOMI, Normocephalic Neck: Supple, No JVD, Negative Carotid Bruits Lungs: Clear to auscultation, Normal air movement Cardiovascular: Regular rate, No murmurs Abdomen: Bowel Sounds Present, Soft, Non Tender, Non-Distended Extremities: No clubbing, No cyanosis, No edema, Capillary Refill Less than 3 Seconds Skin: No rashes, No breakdown Musculoskeletal: No Tenderness to Palpation of Joints or Extremities Neurological: Cranial nerves II-XII grossly intact, Neuro grossly intact Psych/Mental Status: Normal Affect, Appropriate Laboratory Results 02/26/20 05:17: Hgb 8.3 L, Hct 25.6 L Current Medications Potassium Chloride 10 meq/ (Sodium Chloride) 1,005 mls @ 80 mls/hr IV .[id number] [facility] Last Infusion: 02/25/20 22:30 Dose: 80 mls/hr Documented by: Sodium Chloride () 500 mls @ 15 mls/hr IV PRN PRN PRN Reason: Blood Transfusion Pantoprazole Sodium 40 mg/ (Sodium Chloride) 110 mls @ 330 mls/hr IV Q12 [facility] Last Admin: 02/26/20 09:03 Dose: 330 mls/hr Documented by: Ondansetron HCl (Zofran) 4 mg IV Q8H PRN PRN PRN Reason: NAUSEA/VOMITING Prochlorperazine Edisylate (Compazine Iv) 5 mg IV Q4H PRN PRN PRN Reason: Breakthrough Nausea/Vomiting Sodium Chloride () 10 - 40 ml IV UD PRN PRN Reason: SALINE FLUSH Last Admin: 02/25/20 13:42 Dose: 20 ml Documented by: Sucralfate (Carafate) 1 gm PO 1HR_ACHS [facility] Last Admin: 02/26/20 06:37 Dose: 1 gm Documented by: Valproic Acid (Depakene) 500 mg PO Q8 [facility] Last Admin: 02/26/20 06:37 Dose: 500 mg Documented by: Medical Necessity - Tobacco Use Smoking Status: Never smoker Tobacco Use: Non-smoker Assessment/Plan All Active Problems (Last Reviewed 02/24/20 @ 20:[address] Anju Lewis DO) Acute blood loss anemia (Acute) Upper GI bleed (Acute) Hypokalemia (Acute) Hypocalcemia (Acute) 1. Acute blood loss anemia secondary to GI bleed-recent admission for GI bleed with EGD 02/20/2020 that demonstrated multiple nonbleeding duodenal ulcers with adherent clot. Repeat EGD 02/25/2020 demonstrated gastritis, worse than prior EGD with resolved previous ulcers. Continue IV PPI twice daily. General surgery following with plans for colonoscopy on Thursday. Trend H&H. Clear liquids. Biopsies taken from EGD, pending. Patient has a history of H. pylori. 2. Migraine cephalgia-previously used Excedrin excessively which she is no longer using secondary to #1. On Depakote and completed Decadron. Headache resolved currently. Recommend follow-up with neurology. 3. Hypokalemia-replaced per protocol, resolved. DVT prophylaxis-SCDs This patient was seen by GILMA Christopher under the supervision of Dr. Hwang. <Pollo Hwang E - Last Filed: 02/26/20 10:52> - Physical Exam Vitals/I&O's: Vital Signs Temp Pulse Resp BP Pulse Ox 98.5 F 70 14 102/54 L 96 02/26/20 10:00 02/26/20 10:00 02/26/20 10:00 02/26/20 10:00 02/26/20 10:00 Oxygen Flow Rate (L/min) 2 Oxygen Delivery Method Room Air Weight: 192 lb 3.889 oz Body Mass Index (BMI) 35.2 Intake and Output for Last 24 Hours 02/24/20 02/25/20 02/26/20 23:59 23:59 23:59 Intake Total 1599 / 1599 4308.50 / 4308.50 639 / 639 Output Total 800 / 800 575 / 575 Balance 799 / 799 3733.50 / 3733.50 639 / 639 Laboratory Results 02/26/20 05:17: Hgb 8.3 L, Hct 25.6 L Current Medications Sodium Chloride () 500 mls @ 15 mls/hr IV PRN PRN PRN Reason: Blood Transfusion Pantoprazole Sodium 40 mg/ (Sodium Chloride) 110 mls @ 330 mls/hr IV Q12 [facility] Last Infusion: 02/26/20 10:41 Dose: Infused Documented by: Ondansetron HCl (Zofran) 4 mg IV Q8H PRN PRN PRN Reason: NAUSEA/VOMITING Prochlorperazine Edisylate (Compazine Iv) 5 mg IV Q4H PRN PRN PRN Reason: Breakthrough Nausea/Vomiting Sodium Chloride () 10 - 40 ml IV UD PRN PRN Reason: SALINE FLUSH Last Admin: 02/26/20 10:43 Dose: 20 ml Documented by: Sucralfate (Carafate) 1 gm PO 1HR_ACHS [facility] Last Admin: 02/26/20 10:44 Dose: 1 gm Documented by: Valproic Acid (Depakene) 500 mg PO Q8 [facility] Last Admin: 02/26/20 06:37 Dose: 500 mg Documented by: Assessment/Plan Hospitalist note: I am seeing this patient in conjunction with Leeann De Jesus. I independently seen and examined the patient. Progress note above, laboratory data and imaging studies reviewed and I concur with above work-up and treatment plan. Apart from mild abdominal distention, no other complaints. Denied abdominal pain, nausea or vomiting. Denied hematochezia or melena. Denied chest pain or shortness of breath. She has no more headaches. Her vital signs are stable. - Physical Exam General: Alert, Oriented x3, Cooperative, No apparent distress. HEENT: Atraumatic, PERRLA, EOMI. Neck: Supple, No JVD, Negative Carotid Bruits, Trachea Midline, Thyroid Normal. Lungs: Clear to auscultation, Normal air movement, No rhonchi, No wheeze, No rales. Cardiovascular: Regular rate, Regular Rhythm, Normal S1, Normal S2, PMI Normal. Abdomen: Bowel Sounds Present, Soft, Non Tender, Non-Distended, No Hepato- splenomegaly. Extremities: No clubbing, No cyanosis, No edema Skin: No rashes, No breakdown Neurological: Cranial nerves are intact, neuro grossly intact Vital Signs are stable. Assessment and plan: #1 acute severe blood loss anemia: Today's hemoglobin is 8.3 g/dL, it was 9.6 yesterday. She is on IV Protonix. At this time, no evidence of active bleeding. It is secondary to GI bleed. Patient had recent admission for GI bleed, EGD done on February 20, 2020 that showed multiple nonbleeding duodenal ulcers with adherent clot. Patient received total of 3 months of packed RBCs. Repeat upper EGD done yesterday and revealed gastritis which looks worse than last EGD, small ulcers healed. Currently, vital signs are stable. General surgery on the case, plan for colonoscopy tomorrow. #2 hypokalemia/hypocalcemia: Potassium replaced and corrected. Serum albumin is 2.4. Serum calcium today is 7.4 mg/dL. Corrected calcium for albumin is 8.7 mg/dL which is normal. #3 headache/possible migraine: She is on Decadron Depakote. Headache resolved. Recommend follow-up with neurology as outpatient. This note was generated with [employer] dictation software. It may contain incorrect words, spelling, and punctuation that were not noted in checking the note before signing. Inpatient E&M: 47268 Subs Hosp L2
[2020-02-26] MEDS: 0.9% Saline Lock 10 ML Syringe IV (10:43)
[2020-02-26] MEDS: Bisacodyl 5 MG Tablet 20 MG PO (14:42)
[2020-02-26] MEDS: Polyethylene Glycol 3350 BOWEL PREP PO (17:09)
[2020-02-26 18:57] LABS: Hematocrit 31.4 % (37-47)
[2020-02-27] VITALS (11 sets, daily range): BP systolic 103–118; BP diastolic 50–70; PULSE 67–71; RESP 16–18; TEMP 36.6–37.3; O2SAT 95–100; BMI 34.0
--- NOTE | 2020-02-27 | EGD_PTH ---
PATIENT: ELEN JACOBSON LOC: PCU U#:[id number] AGE/SX: 64/F ROOM: [facility] RE02/24/[address]: Dr. Pollo Hwang MD : 1955 BED: 1 DIS: 02/27/2020 SPEC #: [id number] RECD: 02/27/20 09:55 STATUS: YURIY AMAURY #: [id number] CATHERINE: 02/27/20 00:[address]: Genie Wahl DEPT: SURGICAL PATHOLOGY RECD BY: Sharona Lewis ENTERED: 02/27/20 10:48 SP TYPE: EGD BIOPSY [facility] DR: DO Dr. Pollo Rodgers MD Dr. Scott Hannan, MD Tissues: A - Cecum, NOS B - Ileum, NOS C - POLYP Procedures: Surgery Specimen Level IV HEADER OPERATION: EGD ([facility]) PRE-OP DIAGNOSIS: Acute blood loss, GI bleed TISSUE SUBMITTED: A - Cecum biopsy, B - Terminal ileum biopsy, C - Hepatic flexure polyp biopsy MICROSCOPIC DIAGNOSIS A. Cecum, biopsy: Focal acute mild colitis. See microscopic description and comment. B. Terminal ileum, biopsy: A fragment of small intestinal mucosa, no pathologic diagnosis. C. Hepatic flexure polyp, biopsy: Consistent with inflammatory polyp. SJ:joey 02/28/20 COMMENT A. Correlation with clinical, colonoscopic findings and appropriate follow up are necessary. Case has been reviewed in consultation with Dr. Marcus who concurs with the above diagnosis. IDC:AM MICROSCOPIC DESCRIPTION Slides are reviewed. A. The specimen shows fragments of colonic mucosa with mild acute and chronic inflammatory cell infiltrate in the lamina propria, focal minimal cryptitis and crypt abscesses. Significant glandular distortion or granulomas are not seen. GROSS DESCRIPTION A - Received in fixative is one container labeled with the patient's name and designated cecum biopsy. The specimen consists of multiple irregular fragments of light olivares soft tissue that in aggregate measure 1 x 0.2 x 0.1 cm. The specimen is totally submitted in one cassette. B - Received in fixative is one container labeled with the patient's name and designated terminal ileum biopsy. The specimen consists of one irregular fragment of light olivares soft tissue that measures 0.2 x 0.2 x 0.1 cm. The specimen is totally submitted in one cassette. C - Received in fixative is one container labeled with the patient's name and designated hepatic flexure polyp. The specimen consists of one minute fragment of light olivares soft tissue measuring 0.1 cm in greatest dimension. The specimen is totally submitted in one cassette. / SJ:rg 02/27/20 TC:2 CPT: 05469 x3
[2020-02-27 00:09] LABS: Hematocrit 28.9 % (37-47); Hemoglobin 9.3 g/dL (12.0-15.0)
[2020-02-27] MEDS: 0.9% Normal Saline 1,000 ML 15 ML IV (01:51)
--- NOTE | 2020-02-27 05:55 | EKG12_ITS ---
Test Reason : AM EKG Blood Pressure : / mmHG Vent. Rate : 067 BPM Atrial Rate : 067 BPM P-R Int : 150 ms QRS Dur : 088 ms QT Int : 416 ms P-R-T Axes : 019 011 002 degrees QTc Int : 439 ms Normal sinus rhythm Normal ECG Confirmed by DEON HAND, JOSIAH ([id number]), editor managing newspaper YOSHI BARCENAS ([id number]) on 02/29/2020 10:24:45 AM Referred By: GUILLE Confirmed By:JOSIAH CHAVARRIA MD
[2020-02-27 06:23] LABS: Absolute Lymphocyte Count 3.07 X10^3/uL (0.83-4.51); Absolute Neutrophil Count 4.3 X10^3/uL (2.0-7.7); Basophil# 0.02 X10^3/uL; Basophil% 0.2 % (0-1); Eosinophil# 0.26 X10^3/uL; Eosinophils% 3.2 % (0-5); Hematocrit 31.9 % (37-47); Hemoglobin 10.1 g/dL (12.0-15.0); Lymphocyte # 3.07 X10^3/ul (4.0); Lymphocyte % 37.4 % (19-41); Mean Corp Hgb Conc 31.7 g/dL (32-36); Mean Corpuscular Hgb 30.5 pg (27.0-32.0); Mean Corpuscular Volume 96.4 fL (81-99); Mean Platelet Vol. 10.8 fl (6.2-12.0); Monocyte% 6.1 % (0-10); NRBC Flagged by Analyzer 0 % (0-5); Neutrophil # 4.33 X10^3/uL (2.7-7.7); Neutrophil % 52.7 % (47-70); Platelet Count 270 K/mm3 (150-450); Red Blood Count 3.31 M/mm3 (4.2-5.4); White Blood Count 8.2 K/mm3 (4.4-11.0)
[2020-02-27 06:37] LABS: Partial Thromboplast Time 25.4 Seconds (24.1-36.2)
[2020-02-27 06:54] LABS: AST(SGOT) 11 U/L (15-37); Alanine Aminotransfer ALT/SGPT 17 U/L (13-56); Albumin, Serum 2.5 g/dL (3.2-5.0); Alkaline Phosphatase 40 U/L (45-117); Anion Gap 6 (5-15); BUN 5 mg/dL (7-18); BUN/Creat Ratio 5.8 RATIO (10-20); Chloride 112 mmol/L (98-107); Creatinine, Serum 0.86 mg/dL (0.55-1.02); EST Glomerular Filtration Rate 71 mL/min (>60); Est Glom Filt Rate - Afr Amer 85 mL/min (>60); Estimated Creatinine Clearance 56.11 ml/min; Globulin 2.8 g/dL (2.2-4.2); Glucose 83 mg/dL (74-106); Potassium 3.3 mmol/L (3.5-5.1); Protein, Total 5.3 g/dL (6.4-8.2); Sodium Level 145 mmol/L (136-145)
--- NOTE | 2020-02-27 07:43 | OP.COLON_ITS ---
Patient Name: Sobia Hay Procedure Date: 02/27/2020 6:07 AM Date of : 1955 Age: 64 Procedure: Colonoscopy Indications: Melena, Acute post hemorrhagic anemia Providers: Genie Wahl MD Medicines: Monitored Anesthesia Care Patient Profile: This is a 64 year old female. Last Colonoscopy: 7-8 years ago. Complications: No immediate complications. Procedure: Pre-Anesthesia Assessment: - Prior to the procedure, a History and Physical was performed, and patient medications and allergies were reviewed. The patient's tolerance of previous anesthesia was also reviewed. The risks and benefits of the procedure and the sedation options and risks were discussed with the patient. All questions were answered, and informed consent was obtained. Prior Anticoagulants: The patient has taken no previous anticoagulant or antiplatelet agents. ASA Grade Assessment: Per anesthesia. After reviewing the risks and benefits, the patient was deemed in satisfactory condition to undergo the procedure. After I obtained informed consent, the scope was passed under direct vision. Throughout the procedure, the patient's blood pressure, pulse, and oxygen saturations were monitored continuously. The Colonoscope was introduced through the anus and advanced to the cecum, identified by the appendiceal orifice, ileocecal valve and palpation. The colonoscopy was performed without difficulty. The patient tolerated the procedure well. The quality of the bowel preparation was good. Scope In: 7:01:23 AM Scope Withdrawal Time 0 hours 16 minutes 32 seconds Scope Out: 7:34:55 AM Total Procedure Duration Time 0 hours 33 minutes 32 seconds Findings: Skin tags were found on perianal exam. A few small-mouthed diverticula were found in the sigmoid colon and descending colon. The terminal ileum appeared normal. Biopsies were taken with a cold forceps for histology. Mild inflammation characterized by erythema was found in the cecum. Biopsies were taken with a cold forceps for histology. The exam was otherwise without abnormality on direct and retroflexion views. A less than 5 mm polyp was found in the hepatic flexure. The polyp was sessile. The polyp was removed with a cold biopsy forceps. Resection and retrieval were complete. Biopsies were taken with a cold forceps for histology. Impression: - Perianal skin tags found on perianal exam. - Diverticulosis in the sigmoid colon and in the descending colon. - The examined portion of the ileum was normal. Biopsied. - Mild inflammation was found in the cecum. Biopsied. - The examination was otherwise normal on direct and retroflexion views. - One less than 5 mm polyp at the hepatic flexure, removed with a cold biopsy forceps. Resected and retrieved. Biopsied. Recommendation: - Discharge patient to home. - Resume previous diet. - Continue present medications. - Await pathology results. - Repeat colonoscopy in 3 - 5 years for screening purposes. Procedure Code(s): --- Professional --- 08275, Colonoscopy, flexible; with biopsy, single or multiple Diagnosis Code(s): --- Professional --- K52.9, Noninfective gastroenteritis and colitis, unspecified D12.3, Benign neoplasm of transverse colon (hepatic flexure or splenic flexure) K64.4, Residual hemorrhoidal skin tags K92.1, Melena (includes Hematochezia) D62, Acute posthemorrhagic anemia K57.30, Diverticulosis of large intestine without perforation or abscess without bleeding CPT copyright 2017 [employer]. All rights reserved. The codes documented in this report are preliminary and upon online editor review may be revised to meet current compliance requirements. MD Genie Rios MD 02/27/2020 7:43:19 AM This report has been signed electronically. Number of Addenda: 0 Note Initiated On: 02/27/2020 6:07 AM
--- NOTE | 2020-02-27 07:43 | OP.CCLET_ITS ---
02/27/2020 Jorge L Leigh Re : Colonoscopy procedure for Sobia Hay Dear Lu This procedure was performed on Thursday, February 27, 2020. My impressions and recommendations are as follows: Impressions : - Perianal skin tags found on perianal exam. - Diverticulosis in the sigmoid colon and in the descending colon. - The examined portion of the ileum was normal. Biopsied. - Mild inflammation was found in the cecum. Biopsied. - The examination was otherwise normal on direct and retroflexion views. - One less than 5 mm polyp at the hepatic flexure, removed with a cold biopsy forceps. Resected and retrieved. Biopsied. Recommendations : - Discharge patient to home. - Resume previous diet. - Continue present medications. - Await pathology results. - Repeat colonoscopy in 3 - 5 years for screening purposes. My findings are described in the full procedure note, which is enclosed. If I can be of further assistance, please feel free to contact me at Doctor phone number(s): , Work: . Sincerely, MD Genie Rios MD 02/27/2020 7:43:19 AM This report has been signed electronically.
--- NOTE | 2020-02-27 10:36 | DCINST_ITS ---
- Discharge Diagnoses Current Active Problems: Current Active and Chronic Problems (Last Reviewed 02/24/20 @ 20:[address] nAju Lewis, DO) Hypokalemia (Acute) Hypocalcemia (Acute) Hiatal hernia (Chronic) No evidence of esophagitis on recent EGD done 02/20/[address] Wahl You will use the following diet at home:: Other - Light diet- advance as tolerated Discharge Activity: Return to Normal Activity Call your doctor if you observe: Shortness of breath, Dizziness, Fainting spells, Chest pain Allergies/Adverse Reactions: Allergies codeine Adverse Reaction (Intermediate, Verified 02/24/20 13:31) vomiting Medications to take at Discharge artificial tears(hypromellose) 0.5 % eye drops 2 drp OPHTHALMIC 4-8XD 03/31/19 flaxseed oil 1,000 mg capsule 1,000 mg PO DAILY 03/31/19 Ondansetron HCl [Zofran] 4 mg PO Q6H PRN PRN #12 tab 02/21/20 Pantoprazole Sodium 40 mg PO BID #60 tablet.dr 02/27/20 Sucralfate [Carafate] 1 gm PO 1HR_ACHS #120 tab 02/27/20 The following prescriptions were given: Sucralfate [Carafate] 1 gm PO 1HR_ACHS #120 tab [id number] Pantoprazole Sodium 40 mg PO BID #60 tablet. Transmission [facility]: [id number] Primary Care Physician: Jorge L Leigh MD [Primary Care Provider] - Please follow up with your Primary Care Physician in: 1 Week Test Results: Test results from this visit will be discussed in further detail at your follow- up appointment, if applicable. Please Follow Up With: Genie Wahl MD When: 1 Week Please Follow Up With: Dr. Sai Trinidad - Neurology When: Call for appt for chronic migraines. [phone] Proposed Discharge Date: 02/27/20
--- NOTE | 2020-02-27 10:41 | DS.PCM_ITS ---
<Leeann De Jesus - Last Filed: 02/27/20 10:58> Discharge Date and Diagnosis Date of Admission: 02/24/20 Date of Discharge: 02/27/20 - Primary Discharge Diagnosis Acute Problems: Active Problems (Last Reviewed 02/24/20 @ 20:[address] Anju Lewis DO) 1. Acute blood loss anemia secondary to GI bleed 2. Migraine cephalgia 3. Hypokalemia - Secondary Discharge Diagnosis Chronic Problems: Chronic Problems (Last Reviewed 02/24/20 @ 20:[address] Anju Lewis DO) Migraines (Chronic) most days of the month Hiatal hernia (Chronic) No evidence of esophagitis on recent EGD done 02/20/[address] Wahl History of Helicobacter pylori infection (Chronic ~03/2019) in the past, recent H. Pylori was negative Dysphagia (Chronic) Epigastric pain (Chronic) Hemorrhoids (Chronic) Acid reflux (Chronic) Hospital Course and Treatment Imaging Results: Diagnostic Data Brain CT 02/24/20 13:47 IMPRESSION: Normal unenhanced CT scan of the brain. Electronically Signed: Jimy Bill MD at 14:45 EDT , Service support , Dr. Wahl- General Surgery Operations: None Procedures: Colonoscopy, EGD Summary of Care Provided: The patient is a 64 year old F admitted 02/24/2020 due to migraine, found to have severe anemia. 1. Acute blood loss anemia secondary to GI bleed-recent admission for GI bleed with EGD 02/20/2020 that demonstrated multiple nonbleeding duodenal ulcers with adherent clot. Repeat EGD 02/25/2020 demonstrated gastritis, worse than prior EGD with resolved previous ulcers. General surgery consulted during admission. Patient received 3 units PRBC and hemoglobin has since remained stable. EGD biopsies pending. Patient has a history of H. pylori. Patient underwent colonoscopy 02/27/2020 which demonstrated diverticulosis in the sigmoid colon and in the descending colon, mild inflammation was found in the cecum which was biopsied. Otherwise normal. 5 mm polyp at the hepatic flexure removed which was biopsied as well. Continue PPI twice daily and Carafate at discharge. Follow-up with Dr. Wahl in 1 week. 2. Migraine cephalgia-previously used Excedrin excessively which she is no longer using secondary to #1. Treated with Depakote and Decadron during admi ssion, headache resolved. Recommend follow-up with neurology. 3. Hypokalemia-replaced per protocol. General: Alert, Oriented x3, Cooperative HEENT: Atraumatic, PERRLA, EOMI, Normocephalic Neck: Supple, No JVD, Negative Carotid Bruits Lungs: Clear to auscultation, Normal air movement Cardiovascular: Regular rate, No murmurs Abdomen: Bowel Sounds Present, Soft, Non Tender, Non-Distended Extremities: No clubbing, No cyanosis, No edema, Capillary Refill Less than 3 Seconds Skin: No rashes, No breakdown Musculoskeletal: No Tenderness to Palpation of Joints or Extremities Neurological: Cranial nerves II-XII grossly intact, Neuro grossly intact Psych/Mental Status: Normal Affect, Appropriate Patient seen and examined prior to discharge. Physical assessment as noted above. Patient is stable for discharge with follow up recommendations as noted above. This patient was seen by GILMA Christopher under the supervision of Dr. Hwang. - Physical Exam Vitals/I&O's: Vital Signs Temp Pulse Resp BP Pulse Ox 99.2 F H 69 16 118/67 97 02/27/20 09:10 02/27/20 09:10 02/27/20 09:10 02/27/20 09:10 02/27/20 09:10 Oxygen Flow Rate (L/min) 2 Oxygen Delivery Method Room Air Weight: 192 lb 3.889 oz Body Mass Index (BMI) 34.0 Intake and Output for Last 24 Hours 02/25/20 02/26/20 02/27/20 23:59 23:59 23:59 Intake Total 4308.50 / 4308.50 1799 / 1799 107.25 / 107.25 Output Total 575 / 575 Balance 3733.50 / 3733.50 1799 / 1799 107.25 / 107.25 Laboratory Results 02/26/20 18:30: Hgb 10.0 L, Hct 31.4 L 02/27/20 00:00: Hgb 9.3 L, Hct 28.9 L 02/27/20 05:55: WBC 8.2, RBC 3.31 L, Hgb 10.1 L, Hct 31.9 L, MCV 96.4, MCH 30.5, MCHC 31.7 L, RDW Std Deviation 51.0 H, RDW Coeff of Pedro 15.0 H, Plt Count 270, MPV 10.8, Immature Gran % (Auto) 0.400, Neut % (Auto) 52.7, Lymph % (Auto) 37.4, [place] % (Auto) 6.1, Eos % (Auto) 3.2, Baso % (Auto) 0.2, Absolute Neuts (auto) 4.3, Absolute Lymphs (auto) 3.07, Nucleated RBC % 0 02/27/20 05:55: Sodium 145, Potassium 3.3 L, Chloride 112 H, Carbon Dioxide 27.0, Anion Gap 6, BUN 5 L, Creatinine 0.86, Estim Creat Clear Calc 56.11, Est GFR (MDRD) Af Amer 85, Est GFR (MDRD) Non-Af 71, BUN/Creatinine Ratio 5.8 L, Glucose 83, Calcium 8.0 L, Total Bilirubin 0.40, Direct Bilirubin 0.10, AST 11 L , ALT 17, Alkaline Phosphatase 40 L, Total Protein 5.3 L, Albumin 2.5 L, Globulin 2.8 02/27/20 05:55: PT 13.0, INR 1.0, APTT 25.4 Current Medications Sodium Chloride () 500 mls @ 15 mls/hr IV PRN PRN PRN Reason: Blood Transfusion Pantoprazole Sodium 40 mg/ (Sodium Chloride) 110 mls @ 330 mls/hr IV Q12 [facility] Last Admin: 02/27/20 10:14 Dose: 330 mls/hr Documented by: Sodium Chloride () 1,000 mls @ 15 mls/hr IV .Q48H [facility] Last Infusion: 02/27/20 09:00 Dose: Infused Documented by: Ondansetron HCl (Zofran) 4 mg IV Q8H PRN PRN PRN Reason: NAUSEA/VOMITING Prochlorperazine Edisylate (Compazine Iv) 5 mg IV Q4H PRN PRN PRN Reason: Breakthrough Nausea/Vomiting Simethicone (Mylicon) 80 mg PO X1 ONE Stop: 02/27/20 10:24 Sodium Chloride () 10 - 40 ml IV UD PRN PRN Reason: SALINE FLUSH Last Admin: 02/26/20 10:43 Dose: 20 ml Documented by: Sucralfate (Carafate) 1 gm PO 1HR_ACHS [facility] Last Admin: 02/27/20 05:55 Dose: Not Given Documented by: Valproic Acid (Depakene) 500 mg PO Q8 [facility] Last Admin: 02/27/20 05:55 Dose: Not Given Documented by: Discharge Diet: Light diet - advance as tolerated Discharge Activity: Return to Normal Activity Call your doctor if you observe: Shortness of breath, Dizziness, Fainting spells, Chest pain Home Medications: Medications to take at Discharge artificial tears(hypromellose) 0.5 % eye drops 2 drp OPHTHALMIC 4-8XD 03/31/19 flaxseed oil 1,000 mg capsule 1,000 mg PO DAILY 03/31/19 Ondansetron HCl [Zofran] 4 mg PO Q6H PRN PRN #12 tab 02/21/20 Pantoprazole Sodium 40 mg PO BID #60 tablet. 02/27/20 Sucralfate [Carafate] 1 gm PO 1HR_ACHS #120 tab 02/27/20 Following Prescrptions Were Given to Patient: Sucralfate [Carafate] 1 gm PO 1HR_ACHS #120 tab Transmission Status: Received by [id number] Pantoprazole Sodium 40 mg PO BID #60 tablet. Transmission Status: Received by [id number] Primary Care Physician: Jorge L Leigh MD [Primary Care Provider] - Please follow up with your Primary Care Physician in: 1 Week Please Follow Up With: Genie Wahl MD When: 1 Week Please Follow Up With: Dr. Sai Trinidad - Neurology When: Call for appt for chronic migraines Disposition: Home Minutes spent on discharge:: 35 Patient Condition:: Stable Medical Necessity - Tobacco Use Smoking Status: Never smoker Tobacco Use: Non-smoker Meaningful Use Info Meaningful Use Diagnoses (Choose all that apply): None applicable <Pollo Hwang E - Last Filed: 02/27/20 12:36> Discharge Date and Diagnosis - Secondary Discharge Diagnosis Chronic Problems: Chronic Problems (Last Reviewed 02/24/20 @ 20:[address] Anju Lewis DO) Migraines (Chronic) most days of the month Hiatal hernia (Chronic) No evidence of esophagitis on recent EGD done 02/20/[address] Wahl History of Helicobacter pylori infection (Chronic ~03/2019) in the past, recent H. Pylori was negative Dysphagia (Chronic) Epigastric pain (Chronic) Hemorrhoids (Chronic) Acid reflux (Chronic) Hospital Course and Treatment Summary of Care Provided: Hospitalist note: Discharge summary above reviewed and I concur with the above discharge and treatment plan. Patient presented to the emergency room because of headache, found to have severe acute blood loss anemia attributed to GI bleed. On admission, she was found to have hemoglobin of 4.7 g/dL. She received a total of 3 units of packed RBCs. Before this admission and on February 20, 2020, patient had upper EGD for GI bleed, found to have multiple nonbleeding duodenal ulcers with adherent blood clots. During this hospital stay, general surgery consulted repeat EGD done and revealed gastritis which looks worse than the last EGD, small duodenal ulcers healed and there was no evidence of active bleeding. Also, patient had colonoscopy during this hospital stay that revealed diverticulosis, ileum, mild inflammation of the cecum which was pipe sized, there was a small polyp 5 mm in the hepatic flexure which was removed, there was no active bleeding. After blood transfusion, her hemoglobin and hematocrit are stabilized. Patient had abdominal distention for which she was started on simethicone. Patient complained of migraine headaches which was treated with Decadron and Depakote. CT scan brain showed no acute findings. With treatment, headache resolved. Her vital signs remained stable. Patient discharged home in a stable medical condition, discharged on Protonix 40 mg p.o. twice daily as well as Carafate, plan to follow-up with general surgery in 1 week, recommended follow-up with PCP in 1 week as well as follow-up with neurology regarding the migraine headaches as outpatient. - Physical Exam General: Alert, Oriented x3, Cooperative, No apparent distress. HEENT: Atraumatic, PERRLA, EOMI. Neck: Supple, No JVD, Negative Carotid Bruits, Trachea Midline, Thyroid Normal. Lungs: Clear to auscultation, Normal air movement, No rhonchi, No wheeze, No rales. Cardiovascular: Regular rate, Regular Rhythm, Normal S1, Normal S2, PMI Normal. Abdomen: Bowel Sounds Present, Soft, Non Tender, Non-Distended, No Hepato- splenomegaly. Extremities: No clubbing, No cyanosis, No edema Skin: No rashes, No breakdown Neurological: Cranial nerves are intact, neuro grossly intact Vital Signs are stable. This note was generated with [employer] dictation software. It may contain incorrect words, spelling, and punctuation that were not noted in checking the note before signing. - Physical Exam Vitals/I&O's: Vital Signs Temp Pulse Resp BP Pulse Ox 99.2 F H 69 16 118/67 97 02/27/20 09:10 02/27/20 09:10 02/27/20 09:10 02/27/20 09:10 02/27/20 09:10 Oxygen Flow Rate (L/min) 2 Oxygen Delivery Method Room Air Weight: 192 lb 3.889 oz Body Mass Index (BMI) 34.0 Intake and Output for Last 24 Hours 02/25/20 02/26/20 02/27/20 23:59 23:59 23:59 Intake Total 4308.50 / 4308.50 1799 / 1799 817.25 / 817.25 Output Total 575 / 575 Balance 3733.50 / 3733.50 1799 / 1799 817.25 / 817.25 Laboratory Results 02/24/20 13:10: Diff Path Review Reviewed 02/26/20 18:30: Hgb 10.0 L, Hct 31.4 L 02/27/20 00:00: Hgb 9.3 L, Hct 28.9 L 02/27/20 05:55: WBC 8.2, RBC 3.31 L, Hgb 10.1 L, Hct 31.9 L, MCV 96.4, MCH 30.5, MCHC 31.7 L, RDW Std Deviation 51.0 H, RDW Coeff of Pedro 15.0 H, Plt Count 270, MPV 10.8, Immature Gran % (Auto) 0.400, Neut % (Auto) 52.7, Lymph % (Auto) 37.4, [place] % (Auto) 6.1, Eos % (Auto) 3.2, Baso % (Auto) 0.2, Absolute Neuts (auto) 4.3, Absolute Lymphs (auto) 3.07, Nucleated RBC % 0 02/27/20 05:55: Sodium 145, Potassium 3.3 L, Chloride 112 H, Carbon Dioxide 27.0, Anion Gap 6, BUN 5 L, Creatinine 0.86, Estim Creat Clear Calc 56.11, Est GFR (MDRD) Af Amer 85, Est GFR (MDRD) Non-Af 71, BUN/Creatinine Ratio 5.8 L, Glucose 83, Calcium 8.0 L, Total Bilirubin 0.40, Direct Bilirubin 0.10, AST 11 L , ALT 17, Alkaline Phosphatase 40 L, Total Protein 5.3 L, Albumin 2.5 L, Adelina bulin 2.8 02/27/20 05:55: PT 13.0, INR 1.0, APTT 25.4 Current Medications Sodium Chloride () 500 mls @ 15 mls/hr IV PRN PRN PRN Reason: Blood Transfusion Pantoprazole Sodium 40 mg/ (Sodium Chloride) 110 mls @ 330 mls/hr IV Q12 [facility] Last Infusion: 02/27/20 10:34 Dose: Infused Documented by: Sodium Chloride () 1,000 mls @ 15 mls/hr IV .Q48H [facility] Last Infusion: 02/27/20 09:00 Dose: Infused Documented by: Ondansetron HCl (Zofran) 4 mg IV Q8H PRN PRN PRN Reason: NAUSEA/VOMITING Prochlorperazine Edisylate (Compazine Iv) 5 mg IV Q4H PRN PRN PRN Reason: Breakthrough Nausea/Vomiting Sodium Chloride () 10 - 40 ml IV UD PRN PRN Reason: SALINE FLUSH Last Admin: 02/26/20 10:43 Dose: 20 ml Documented by: Sucralfate (Carafate) 1 gm PO 1HR_ACHS [facility] Last Admin: 02/27/20 11:40 Dose: 1 gm Documented by: Valproic Acid (Depakene) 500 mg PO Q8 [facility] Last Admin: 02/27/20 05:55 Dose: Not Given Documented by: Disposition: Home Minutes spent on discharge:: 32 Patient Condition:: Stable Meaningful Use Info Meaningful Use Diagnoses (Choose all that apply): None applicable Inpatient E&M: 53485 [facility]
[2020-02-27] MEDS: Sucralfate 1 GM Tablet PO (11:40)
[2020-02-27 11:41] LABS: Pathologist Review Reviewed
--- NOTE | 2020-02-27 11:42 | CASEMGMT ---
Readmission chart review: Pt was initially admitted 02/19-02/21/2020 for GI bleed/N/v/hematemesis and had an EGD done straight from ED which showed multiple non-bleeding duodenal ulcers with adherent clot. Pt received 2 units of PRBC's while admitted and was then discharged with Protonix 40mg twice daily to f/u with surgeon in 4 weeks. See RN CM assessment note from this RN CM on 02/21/2020. Pt then returned to [facility] ED on 02/24/2020 with c/o migraine, N/V and pt was given 25mg of phenergan by EMS. Pt with a Hgb of 4.7 at that time and repeat EGD done which showed worsened gastritis but ulcers improved from last EGD. Pt then had colonoscopy 02/27/2020 which showed diverticulosis in the sigmoid/descending colon, mild inflammation around the cecum and a 5mm polyp at the hepatic flexure which was removed and biopsied. Pt received 3 units of PRBC's this visit as well. Pt's migraine is gone at this time and hemoglobin is up to 10.1 at this time. Pt to f/u with Dr. Wahl in 1 week. CM to follow for any further discharge planning/needs. SStaten RN CM
--- NOTE | 2020-02-27 12:02 | PHA.DC.MC ---
Pharmacy Service has performed discharge medication reconciliation and counseling for this patient. Home Medications artificial tears(hypromellose) 0.5 % eye drops 2 drp OPHTHALMIC 4-8XD 03/31/19 flaxseed oil 1,000 mg capsule 1,000 mg PO DAILY 03/31/19 Ondansetron HCl [Zofran] 4 mg PO Q6H PRN PRN #12 tab 02/21/20 Pantoprazole Sodium 40 mg PO BID #60 tablet.dr 02/27/20 Sucralfate [Carafate] 1 gm PO 1HR_ACHS #120 tab 02/27/20 The patient was counseled on the following discharge medications and changes in medications for homegoing were reviewed. 1. Pantoprazole 40mg PO BID 2. Carafate 1g PO 1hr_ACHS The Reason for Use, instructions for use, and potential side effects were reviewed for all new medications. The patient's questions regarding all of their medications were answered. The patient was able to verbally demonstrate an understanding of their discharge medications. The patient's discharge medication list was reviewed for discrepancies and discrepancies were resolved.
== END 2020-02-27 14:06 | disposition home or self-care (01) | DRG 811 ==
LOC: ED 15:10 → ICU 17:25 → PCU 02-25 20:12
PROVIDERS: Anesthesiology; Nurse Practitioner Family; Surgery; Admitting Provider Internal Medicine; Emergency Provider Emergency Medicine; PCP Family Medicine; Visit Provider Hospitalist
PROC: 0DJ08ZZ Inspection of Upper Intestinal Tract, Via Natural or Artificial Opening Endoscopic (ICD-10-PCS; CPT 43235; principal; 2020-02-25 08:00)
PROC: 0DJD8ZZ Inspection of Lower Intestinal Tract, Via Natural or Artificial Opening Endoscopic (ICD-10-PCS; CPT 45378; principal; 2020-02-27 07:00)
DX: D62 Acute posthemorrhagic anemia (principal); K57.31 Diverticulosis of large intestine without perforation or abscess with bleeding; K29.71 Gastritis, unspecified, with bleeding; K44.9 Diaphragmatic hernia without obstruction or gangrene; E86.0 Dehydration; D50.9 Iron deficiency anemia, unspecified; D12.3 Benign neoplasm of transverse colon; K64.4 Residual hemorrhoidal skin tags; G43.909 Migraine, unspecified, not intractable, without status migrainosus; E87.6 Hypokalemia; E83.51 Hypocalcemia; R13.10 Dysphagia, unspecified; K21.9 Gastro-esophageal reflux disease without esophagitis; E66.9 Obesity, unspecified; Z68.35 Body mass index [BMI] 35.0-35.9, adult; Z78.0 Asymptomatic menopausal state; Z79.899 Other long term (current) drug therapy; Z86.19 Personal history of other infectious and parasitic diseases; Z87.11 Personal history of peptic ulcer disease
CPT/HCPCS: 36415; 70450; 80048; 80053; 80076; 82040; 83735; 85014; 85018; 85025; 85027; 85610; 85730; 86850; 86900; 86901; 86920; 86922; 88305; 88342; 93005; 99251; 99285; J7030; J7040; J7050; J7120; P9016; A4216; G0463; J3490

== ENCOUNTER → 2020-03-09 09:13 | Outpatient (CLI) | payer OTHER, SELFPAY ==
[2020-02-27 06:04] VITALS: BMI 34.0
[2020-03-09 12:27] LABS: Absolute Lymphocyte Count 2.12 X10^3/uL (0.83-4.51); Basophil# 0.02 X10^3/uL; Basophil% 0.3 % (0-1); Eosinophil# 0.11 X10^3/uL; Eosinophils% 1.9 % (0-5); Hematocrit 31.4 % (37-47); Hemoglobin 9.9 g/dL (12.0-15.0); Lymphocyte # 2.12 X10^3/ul (4.0); Lymphocyte % 36.1 % (19-41); Mean Corp Hgb Conc 31.5 g/dL (32-36); Mean Corpuscular Hgb 30.1 pg (27.0-32.0); Mean Corpuscular Volume 95.4 fL (81-99); Mean Platelet Vol. 11.2 fl (6.2-12.0); Monocyte# 0.65 X10^3/uL; Monocyte% 11.1 % (0-10); NRBC Flagged by Analyzer 0 % (0-5); Neutrophil # 2.96 X10^3/uL (2.7-7.7); Neutrophil % 50.3 % (47-70); Platelet Count 401 K/mm3 (150-450); RBC Distribution Width CV 13.9 % (11.6-14.6); RBC Distribution Width SD 48.3 fl (35.1-43.9); Red Blood Count 3.29 M/mm3 (4.2-5.4); White Blood Count 5.9 K/mm3 (4.4-11.0)
[2020-03-09 12:39] LABS: Anion Gap 5 (5-15); BUN 18 mg/dL (7-18); BUN/Creat Ratio 20.4 RATIO (10-20); Calcium,Total 8.7 mg/dL (8.5-10.1); Chloride 110 mmol/L (98-107); Creatinine, Serum 0.88 mg/dL (0.55-1.02); EST Glomerular Filtration Rate 69 mL/min (>60); Est Glom Filt Rate - Afr Amer 83 mL/min (>60); Glucose 99 mg/dL (74-106); Iron 24 ug/dL (50-170); Potassium 3.9 mmol/L (3.5-5.1); Sodium Level 140 mmol/L (136-145)
== END ==
PROVIDERS: PCP Family Medicine; Visit Provider Family Medicine
DX: K92.2 Gastrointestinal hemorrhage, unspecified (principal); E87.6 Hypokalemia
CPT/HCPCS: 36415; 80048; 83540; 85025

== ENCOUNTER → 2020-03-23 09:08 | Outpatient (CLI) | payer OTHER, SELFPAY ==
[2020-02-27 06:04] VITALS: BMI 34.0
[2020-03-23 12:11] LABS: Absolute Lymphocyte Count 2.01 X10^3/uL (0.83-4.51); Absolute Neutrophil Count 2.3 X10^3/uL (2.0-7.7); Basophil# 0.02 X10^3/uL; Basophil% 0.4 % (0-1); Eosinophil# 0.24 X10^3/uL; Eosinophils% 4.7 % (0-5); Hematocrit 34.5 % (37-47); Hemoglobin 10.5 g/dL (12.0-15.0); Lymphocyte # 2.01 X10^3/ul (4.0); Lymphocyte % 39.6 % (19-41); Mean Corp Hgb Conc 30.4 g/dL (32-36); Mean Corpuscular Hgb 29.1 pg (27.0-32.0); Mean Corpuscular Volume 95.6 fL (81-99); Mean Platelet Vol. 10.9 fl (6.2-12.0); Monocyte# 0.45 X10^3/uL; Monocyte% 8.9 % (0-10); NRBC Flagged by Analyzer 0 % (0-5); Neutrophil # 2.34 X10^3/uL (2.7-7.7); Neutrophil % 46.2 % (47-70); Platelet Count 280 K/mm3 (150-450); RBC Distribution Width CV 14.2 % (11.6-14.6); RBC Distribution Width SD 49.5 fl (35.1-43.9); Red Blood Count 3.61 M/mm3 (4.2-5.4); White Blood Count 5.1 K/mm3 (4.4-11.0)
[2020-03-23 12:34] LABS: Iron 167 ug/dL (50-170)
== END ==
PROVIDERS: PCP Family Medicine; Visit Provider Family Medicine
DX: K92.2 Gastrointestinal hemorrhage, unspecified (principal)
CPT/HCPCS: 36415; 83540; 85025

== ENCOUNTER → 2020-04-20 08:48 | Outpatient (CLI) | payer OTHER, SELFPAY ==
[2020-02-27 06:04] VITALS: BMI 34.0
[2020-04-20 12:01] LABS: Absolute Lymphocyte Count 1.98 X10^3/uL (0.83-4.51); Absolute Neutrophil Count 3.8 X10^3/uL (2.0-7.7); Basophil# 0.03 X10^3/uL; Basophil% 0.5 % (0-1); Eosinophil# 0.11 X10^3/uL; Eosinophils% 1.7 % (0-5); Hematocrit 40.8 % (37-47); Hemoglobin 12.5 g/dL (12.0-15.0); Lymphocyte # 1.98 X10^3/ul (4.0); Lymphocyte % 30.9 % (19-41); Mean Corp Hgb Conc 30.6 g/dL (32-36); Mean Corpuscular Hgb 28.2 pg (27.0-32.0); Mean Corpuscular Volume 91.9 fL (81-99); Mean Platelet Vol. 11.8 fl (6.2-12.0); Monocyte# 0.47 X10^3/uL; Monocyte% 7.3 % (0-10); NRBC Flagged by Analyzer 0 % (0-5); Neutrophil # 3.81 X10^3/uL (2.7-7.7); Neutrophil % 59.4 % (47-70); Platelet Count 276 K/mm3 (150-450); RBC Distribution Width CV 14.2 % (11.6-14.6); RBC Distribution Width SD 47.7 fl (35.1-43.9); Red Blood Count 4.44 M/mm3 (4.2-5.4); White Blood Count 6.4 K/mm3 (4.4-11.0)
[2020-04-20 12:39] LABS: Iron 43 ug/dL (50-170)
== END ==
PROVIDERS: PCP Family Medicine; Visit Provider Family Medicine
DX: D50.0 Iron deficiency anemia secondary to blood loss (chronic) (principal)
CPT/HCPCS: 36415; 83540; 85025

== ENCOUNTER → 2020-07-02 15:17 | Outpatient (CLI) | payer OTHER, SELFPAY ==
[2020-02-27 06:04] VITALS: BMI 34.0
[2020-07-02 17:12] LABS: Hematocrit 45.1 % (37-47); Hemoglobin 14.5 g/dL (12.0-15.0); Mean Corpuscular Hgb 27.9 pg (27.0-32.0); Mean Corpuscular Volume 86.9 fL (81-99); Red Blood Count 5.19 M/mm3 (4.2-5.4); White Blood Count 7.3 K/mm3 (4.4-11.0)
[2020-07-02 17:13] LABS: Basophil% 0.4 % (0-1); Eosinophils% 2.8 % (0-5); Iron 52 ug/dL (50-170); Lymphocyte % 30.7 % (19-41); Mean Corp Hgb Conc 32.2 g/dL (32-36); Mean Platelet Vol. 11.4 fl (6.2-12.0); Monocyte% 7.3 % (0-10); Neutrophil % 58.5 % (47-70); POSITIVE COUNT NO; POSITIVE DIFFERENTIAL NO; POSITIVE MORPHOLOGY NO; Platelet Count 298 K/mm3 (150-450); RBC Distribution Width CV 15.1 % (11.6-14.6); RBC Distribution Width SD 47.9 fl (35.1-43.9)
[2020-07-02 17:14] LABS: Absolute Lymphocyte Count 2.23 X10^3/uL (0.83-4.51); Absolute Neutrophil Count 4.3 X10^3/uL (2.0-7.7); Basophil# 0.03 X10^3/uL; Lymphocyte # 2.23 X10^3/ul (4.0); Monocyte# 0.53 X10^3/uL; Neutrophil # 4.25 X10^3/uL (2.7-7.7)
[2020-07-02 17:17] LABS: Vitamin D,25 Hydroxy 34.9 ng/mL
== END ==
PROVIDERS: PCP Family Medicine; Visit Provider Family Medicine
DX: K92.2 Gastrointestinal hemorrhage, unspecified (principal); E55.9 Vitamin D deficiency, unspecified
CPT/HCPCS: 36415; 82306; 83540; 85025

== ENCOUNTER → 2021-03-05 13:59 | Outpatient (CLI) | payer OTHER, SELFPAY ==
--- NOTE | 2021-03-05 14:03 | RAD_ITS ---
STUDY: X-RAY - RIGHT KNEE REASON FOR EXAM: Female, 65 years old. Knee pain. TECHNIQUE: 4 view(s) of the knee. COMPARISON: None. FINDINGS: Mild osteopenia. Normal visualized distal femur. Normal visualized proximal tibia and fibula. Normal proximal tibiofibular articulation. Mild medial compartmental arthrosis. Normal lateral femorotibial compartment. Slight lateral tilt and subluxation of the patella. Small joint effusion. RAD/Knee 4 or More Views IMPRESSION: Osteopenia with mild medial compartmental arthrosis, slight lateral tilt and subluxation of the patella and small joint effusion. No acute abnormality. Electronically Signed: Miguel Vaughn MD at 11:58 EDT , Service support ,
== END ==
PROVIDERS: PCP Family Medicine; Referring Provider Family Medicine; Visit Provider Family Medicine
DX: M25.561 Pain in right knee (principal); M23.8X1 Other internal derangements of right knee
CPT/HCPCS: 73564

== ENCOUNTER → 2021-04-30 15:28 | Outpatient (CLI) | payer OTHER, SELFPAY ==
--- NOTE | 2021-04-30 15:28 | MRI_ITS ---
STUDY: MRI RIGHT KNEE REASON FOR EXAM: Female, 65 years old. Pain. TECHNIQUE: Standardized fat and water weighted pulse sequences were obtained in all 3 orthogonal planes. COMPARISON: X-ray March 05, 2021 FINDINGS: There is medial meniscus tear of the posterior horn adjacent to the meniscal root, series 8 image . There is diffuse, less than 50% thickness articular cartilage loss of the medial femorotibial compartment. Normal medial femoral condyle and tibial plateau. Normal medial collateral ligamentous complex (MCL). Normal distal semimembranosus, gracilis and semitendinosus tendons. Normal lateral meniscus. Normal hyaline cartilage of the lateral femorotibial compartment. Normal lateral femoral condyle and tibial plateau. Normal proximal tibiofibular articulation. Normal lateral collateral (fibular) ligament. Normal popliteus tendon. Normal biceps femoris tendon. Normal anterior cruciate ligament (ACL). Normal posterior cruciate ligament (PCL). Normal congruent patellofemoral articulation. Normal hyaline cartilage of the patellofemoral compartment. Normal medial and lateral patellar retinaculum. Normal quadriceps tendon. Normal patellar tendon. Normal Hoffa''s fat pad. There is a moderate volume joint effusion. There is a 2.9 cm Miranda''s cyst. There is edema and fluid adjacent to the distal sartorius, gracilis, semitendinosus compatible with pes anserine bursitis. The otherwise visualized osseous structures are unremarkable. MRI/Lower Ext Joint Only (Routine) IMPRESSION: Medial meniscus tear. Degenerative change. Joint effusion with popliteal cyst. Pes anserine bursitis. Electronically Signed: Yifan Hardy MD at 16:42 EDT , Service support ,
== END ==
PROVIDERS: PCP Family Medicine; Referring Provider Orthopaedic Surgery; Visit Provider Orthopaedic Surgery
DX: M25.561 Pain in right knee (principal)
CPT/HCPCS: 73721

== ENCOUNTER 2021-06-25 08:12 | Day surgery (SDC) | payer OTHER, SELFPAY ==
[2021-06-25] VITALS (9 sets, daily range): BP systolic 101–123; BP diastolic 62–74; PULSE 55–88; RESP 12–18; TEMP 36.1–36.6; O2SAT 94–98; BMI 25.2
[2021-06-25] MEDS: Lactated Ringers 1,000 ML 100 ML IV (08:42)
--- NOTE | 2021-06-25 09:55 | PCM.HP.BLA ---
History and Physical Date of Admission: 06/25/21 [facility] [id number] [phone] OFFICE VISITDate of Service: 06/12/21 MR#:[id number]: ELEN JACOBSON #[id number]:[id number] Provider:Dr. Eleno Woodard, DOAge/Sex: 65/F Location:[place]:Signed Intake Intake Visit Reasons: knee pain Allergies cucumber Allergy (Mild, Verified 06/12/21 10:10) Hives melon Allergy (Mild, Verified 06/12/21 10:10) Hives codeine Adverse Reaction (Intermediate, Verified 06/12/21 10:10) vomiting Medications flaxseed oil 1,000 mg capsule 1,000 mg PO DAILY 03/31/19 [History Confirmed 06/12/21] ascorbic acid (vitamin C) 500 mg tablet 500 mg PO DAILY 03/25/21 [History Confirmed 06/12/21] celecoxib 200 mg capsule 200 mg PO DAILY cap 03/25/21 [History Confirmed 06/12/21] chlorpheniramine maleate 4 mg tablet 4 mg PO Q6H PRN 03/25/21 [History Confirmed 06/12/21] cholecalciferol (vitamin D3) 125 mcg (5,000 unit) capsule 125 mcg PO DAILY 03/25/21 [History Confirmed 06/12/21] vitamin A 2,400 mcg capsule 2,400 mcg PO DAILY 03/25/21 [History Confirmed 06/12/21] vitamin B12 500 mcg-folic acid 400 mcg tablet See Rx Instructions PO DAILY 03/25/21 [History Confirmed 06/12/21] vitamin E (dl, acetate) 180 mg (400 unit) capsule 180 mg PO DAILY 03/25/21 [History Confirmed 06/12/21] acetaminophen 500 mg oral powder packet 500 mg PO Q6H PRN 05/06/21 [History Confirmed 06/12/21] echinacea 500 mg capsule See Rx Instructions PO DAILY cap 06/12/21 [History Confirmed 06/12/21] joint promotion: glucosamine See Rx Instructions PO DAILY 06/12/21 [History] magnesium 200 mg tablet 200 mg PO DAILY 06/12/21 [History Confirmed 06/12/21] potassium gluconate 595 mg (99 mg) tablet 595 mg PO DAILY 06/12/21 [History Confirmed 06/12/21] zinc 50 mg tablet 50 mg PO DAILY 06/12/21 [History Confirmed 06/12/21] [facility] Medical History Acid reflux Dysphagia Epigastric pain Hemorrhoids History of Helicobacter pylori infection (~03/2019) Lactose intolerance Surgical History History cyst removed left thumb History of History of section History of section History of colonoscopy (~03/2019) History of dilatation and curettage History of esophagogastroduodenoscopy (EGD) (~03/2019) History of right breast biopsy Family History Mother Diabetes Arthritis Father Heart disease Hypertension Myocardial infarction Social History household members: other details: mother (Merlene) housing: house current occupational status: retired pets and animals: No Smoking Status: Never smoker alcohol intake: never substance use type: does not use what type of physical activity do you participate in: walking frequency: daily do you feel safe at home: Yes HPI knee pain Details: Parts of this documentation were recorded by a scribe, this documentation accurately reflects the service provided and the decisions made by me, Dr. Eleno Woodard, DO 06/12/21 0758. ELEN JACOBSON is a 65 year old F here today for her pre-op appointment. DOS: 06/25/2021 for her right knee. Patient states some days pain is worse than others. However, reports nothing has changed. Patient will take Tylenol qam and Celebrex daily. ROS [facility] [place] reviewed and no additional complaints, except as documented, Reports as per HPI and Reports arthralgias Ortho Exam General General: Yes no acute distress and Yes well groomed Neurologic: Yes alert and Yes oriented x3 Psychologic: Yes reasonable and appropriate Right Knee Knee ROM: No ROM-Extension -20 to 0 (near to full extension) KNEE: Skin/Wound: No erythema, No ecchymosis and No swelling Homans Sign: No Knee ROM: No ROM-Extension -20 to 0 (-4) and No ROM-Flexion 0-140 (110) Examination: Yes Med jt line tenderness, No Lat jt line tenderness, Yes Reina's Test and No TTP Pes Anserine Stability: NML: Anterior Drawer, NML: Posterior Drawer, NML: Valgus 30 and NML: Varus 0 Patella Translation: 1 Patella Grind: No KNEE: pain with extension varicose veins no joint effusion stable pain with medial Reina Supplemental Info 04/30/2021 MRI right knee medial meniscus tear posterior horn diffuse less than 50% cartilage loss medial compartment, Pes anserine bursitis Coding Level of Care Code Off vis,est,level 3 Diagnoses Medial meniscus tear S83.231D Tear current or old: current Encounter type: subsequent encounter Meniscus tear of knee type: complex Laterality: right Right knee DJD M17.11 Osteoarthritis type: primary Mechanical pain of right knee M25.561 Assessment and Plan Assessment and Plan (1) Medial meniscus tear: Status: Acute Qualifiers: Tear current or old: current Encounter type: subsequent encounter Meniscus tear of knee type: complex Laterality: right Qualified Code(s): S83.231D - Complex tear of medial meniscus, current injury, right knee, subsequent encounter (2) Right knee DJD: Status: Acute Qualifiers: Osteoarthritis type: primary Qualified Code(s): M17.11 - Unilateral primary osteoarthritis, right knee (3) Mechanical pain of right knee: Status: Acute Plan - Dr. Eleno Woodard, DO: Personally reviewed the patient's medical history, medications, surgeries and recent exams if available. Discussed with patient to bring her crutches to the hospital the day of her surgery. Patient may have swelling post-op, which can be normal. When not ambulating patient is to elevate, use ice packs and may wear compressions stockings. Advised typically patient's are not prescribed a blood thinner after her surgery. Risks, benefits and alternatives of surgery reviewed including risk of bleeding, infection, nerve, artery and/or tissue damage continued pain or symptoms and expected post-operative course. All questions answered. Patient in agreement of plan. Follow up two weeks post-op or sooner if pain, swelling, numbness or associated symptoms, or concerns develop. Plan Details Goals & Barriers: Goals Decrease pain Decrease spasm Improve misalignment Improve ability to perform ADLs Barriers Anterolisthesis of L4/L5 06/12/21 1111<Electronically signed by Eleno Woodard DO>Date Eleno Woodard DO I have re-examined the patient. There are no clinical changes since date of exam
[2021-06-25] MEDS: Cefazolin 2 GM in 0.9% Normal Saline 100 ML IV (09:57)
[2021-06-25] MEDS: MethylPREDNISolone Acetate 40 MG/ML Vial IM (10:18)
[2021-06-25] MEDS: Lidocaine 1% /Epi 1:100 (20ml) 20 ML Vial (10:18)
[2021-06-25] MEDS: Bupivacaine Mpf 0.5% 30 ML VIAL (10:18)
[2021-06-25] MEDS: Epinephrine (1 mg/ml) 1 MG/ML VIAL (10:18)
--- NOTE | 2021-06-25 10:44 | OP.PCM_ITS ---
Report of Operation Date of Procedure: 06/25/21 Description of Surgical Findings:: Preop diagnosis: Right knee medial meniscus tear DJD Postoperative diagnosis: Complex tear posterior horn medial meniscus grade 3-4 changes medial femoral condyle medial tibial plateau patellar apex degenerative tearing lateral meniscus body Procedure: Right knee arthroscopic partial medial meniscectomy chondroplasty of medial compartment partial lateral meniscectomy Anesthesia: General Estimated blood loss: 5 mL Tourniquet time: 17 minutes 300 mmHg Complications: none Indication for procedure: 65-year-old female patient with ongoing mechanical knee symptoms MRI evidence of medial meniscus tear and DJD patient did wish to proceed with an elective arthroscopic surgery to attempt to alleviate the symptoms. Risk benefits and alternatives of the procedure were reviewed including risk of bleeding infection nerve artery tissue damage need for further surgery continued pain and expected postoperative course. Procedure: The patient was met in the preoperative holding area. The operative extremity was identified by both patient and physician and family and marked. Patient was brought back to the operating room on a wheeled cart and transferred to the operating table in the supine position. Anesthesia was started. A well- padded tourniquet was placed on the operative extremity. A lower extremity leg brown was secured to the operative extremity. The contralateral extremity was well-padded and the end of the bed was flexed to 90 degrees. The patient was prepped and draped in the usual sterile fashion. A timeout was called to ensure the proper patient, procedure, and extremity were being contemplated. 0.5% Marcaine with epinephrine was injected into the planned incisional areas under the skin only. An Esmarch was used to exsanguinate the extremity and the tourniquet was inflated. An 11 blade scalpel was used to make a stab incision in the anterior lateral portal. The arthroscope was inserted into the intercondylar notch and inflow and outflow tubes were attached. Arthroscopic visualization began. The medial compartment was entered. An 18-gauge spinal needle was used to establish the placement for anterior medial portal. An 11 blade scalpel was used to make a stab incision. Blunt probe was inserted followed by a meniscal probe. There was noted be a complex tear of the posterior horn medial meniscus with use of arthroscopic biting instruments shaver and ArthroCare wand partial medial meniscectomy was performed was also noted to be diffuse grade 3 cartilage wear of the medial femoral condyle with some areas of grade 4 the ACL was found to be intact. The lateral compartment was entered degenerative fraying of the body and posterior horn of the lateral meniscus which were debrided with a shaver The arthroscope was switched to the medial portal to complete the procedure. The medial and lateral gutters were inspected and were free of loose bodies. The patellofemoral joint was inspected grade 3 cartilage apex cartilage wear of the apex. There was noted to be grade 3 of the trochlea as well. The knee was thoroughly irrigated and drained. An intra-articular injection with 5 cc 0.5% Marcaine plain and 40 mg of Depo-Medrol was injected intra-articularly. The arthroscope was removed the portals were closed with 3-0 nylon arthroscopic stitches. Followed by Xeroform 4 x 4's ABDs web roll and an Jose wrap. The tourniquet was let down and the drapes were removed. All counts were correct. The patient was brought back to the PACU in stable condition.
--- NOTE | 2021-06-25 10:48 | EX.PCM.DISCH ---
Discharge Instructions Diet Discharge Diet: No restrictions Dressing / Incision Call your doctor if you observe: Shortness of breath and Chest pain Additional Dressing/Incision Instructions:: Ice and elevate next 72 hours .keep dressing on clean and dry for 48 hours then may remove begin showering daily but do not submerge in tub or pool. After shower may apply Band-Aids . Encourage knee range of motion weightbearing as tolerated, use crutches until confident in knee then may discontinue. No strenuous activity. When not ambulating keep iced and elevated next 72 hours. Do not mix pain medication with recreational drugs or alcohol only take as prescribed can be addictive and abusive, call with any questions or concerns. Follow Up Care Please Follow Up With: Eleno Woodard DO When: 2 weeks Test Results: Test results from this visit will be discussed in further detail at your follow-up appointment, if applicable. Discharge Plan Admission Primary Reason for Your Visit: Right knee arthroscopy Attending Provider: Eleno Woodard Primary Care Provider: Jorge L Leigh Discharge Orders/Prescriptions Prescriptions: New oxycodone 5 mg tablet 5 - 10 mg PO Q4H PRN (Reason: pain) 5 Days Qty: 30 RF: 0 Continued flaxseed oil 1,000 mg capsule 1,000 mg PO DAILY RF: 0 celecoxib 200 mg capsule 200 mg PO DAILY RF: 0 vitamin A 2,400 mcg capsule 2,400 mcg PO DAILY RF: 0 chlorpheniramine maleate [Allergy (chlorpheniramine)] 4 mg tablet 4 mg PO Q6H PRN (Reason: ALLERGIES) RF: 0 ascorbic acid (vitamin C) 500 mg tablet 500 mg PO DAILY RF: 0 cholecalciferol (vitamin D3) 125 mcg (5,000 unit) capsule 125 mcg PO DAILY RF: 0 vitamin E (dl, acetate) 180 mg (400 unit) capsule 180 mg PO DAILY RF: 0 vitamin H63-hutxs acid 500-400 mcg tablet See Rx Instructions PO DAILY RF: 0 Tylenol Extra Strength 500 mg powder in packet 500 mg PO Q6H PRN (Reason: Pain) RF: 0 magnesium 200 mg tablet 200 mg PO DAILY RF: 0 zinc 50 mg tablet 50 mg PO DAILY RF: 0 potassium gluconate 595 mg (99 mg) tablet 595 mg PO DAILY RF: 0 echinacea 500 mg capsule See Rx Instructions PO DAILY RF: 0 joint promotion: glucosamine See Rx Instructions PO DAILY RF: 0 Referrals / Follow Up: Jorge L Leigh MD [Primary Care Provider] - Disposition Disposition (needs filled in before D/C Order can be placed): Home, Self Care
[2021-06-25] MEDS: Ondansetron 4 MG/2 ML Vial IV (13:58)
[2021-06-25] MEDS: Acetaminophen 500 MG Tablet 1000 MG PO (15:49)
== END 2021-06-25 16:10 | disposition home or self-care (01) ==
LOC: SDC 08:13 → AC 08:13
PROVIDERS: PCP Family Medicine; Referring Provider Orthopaedic Surgery; Visit Provider Orthopaedic Surgery
PROC: (CPT 29870; principal; 2021-06-25 09:55)
DX: S83.231A Complex tear of medial meniscus, current injury, right knee, initial encounter (principal); S83.281A Other tear of lateral meniscus, current injury, right knee, initial encounter; M17.11 Unilateral primary osteoarthritis, right knee; X58.XXXA Exposure to other specified factors, initial encounter; Y93.9 Activity, unspecified; Y92.9 Unspecified place or not applicable; Y99.9 Unspecified external cause status; Z20.822 Contact with and (suspected) exposure to COVID-19; K21.9 Gastro-esophageal reflux disease without esophagitis; Z79.1 Long term (current) use of non-steroidal anti-inflammatories (NSAID); Z79.899 Other long term (current) drug therapy
CPT/HCPCS: 29880; 87426; 97161; C9803; J7120; J2405

== ENCOUNTER → 2021-07-10 14:17 | Outpatient (CLI) | payer OTHER, SELFPAY ==
--- NOTE | 2021-07-10 14:20 | VDLE_ITS ---
Reason For Study: PAIN RIGHT LEFT GSV is normal. CFV is compressible, spontaneous, phasic, CFV is compressible, spontaneous, phasic, competent, and demonstrates normal competent and demonstrates normal augmentation. augmentation. FV is compressible, spontaneous, phasic, competent and demonstrates normal augmentation. POP V is compressible, spontaneous, phasic, competent and demonstrates normal augmentation. T/P Trunk is compressible. PTV is compressible. RT PerV is compressible. Procedure Exam performed in department. A preliminary report was called and/or faxed to ARIANE MORIN. VL/Venous Duplex US, Unilateral Interpretation Summary There is no evidence of right lower extremity deep vein thrombosis. Right great saphenous vein appears patent and compressible segmentally. Normal flow patterns left common f emoral vein Ordering Physician: Ariane Morin Referring Physician: KATHARINE LORENZO Performed By: Danyell Leone, RAMAN, RVT
== END ==
PROVIDERS: PCP Family Medicine; Referring Provider Physician Assistant; Visit Provider Physician Assistant
DX: M79.661 Pain in right lower leg (principal); G89.18 Other acute postprocedural pain
CPT/HCPCS: 93971

== ENCOUNTER → 2022-04-29 | Outpatient (CLI) | payer OTHER, SELFPAY ==
--- NOTE | 2022-04-29 07:07 | MRI_ITS ---
HISTORY: Low back pain, bilateral leg pain/tingling. TECHNIQUE: Multiplanar and multisequence MR images of the lumbar spine were obtained without intravenous contrast. 126 images. COMPARISON: None. FINDINGS: VERTEBRAE: Vertebral body heights maintained. Mild degenerative endplate changes at L4-5 without significant bone marrow signal abnormality. ALIGNMENT: 3 mm anterolisthesis of L4-5. CONUS: Normal morphology and position of the conus medullaris at T12. INTERVERTEBRAL DISCS: T12-L1, L1-2: No significant posterior disc protrusion, central canal stenosis, or foraminal narrowing. L2-3, L3-4: Minimal disc bulges and facet arthropathy without significant central canal stenosis or foraminal narrowing. L4-5: Mild disc bulge and facet arthropathy resulting in very mild central canal stenosis and bilateral foraminal narrowing. Trace facet effusions bilaterally with 9 mm posterior synovial cyst. L5-S1: No significant posterior disc protrusion, central canal stenosis, or foraminal narrowing. SOFT TISSUES: No paraspinal fluid collection. MRI/Spine Lumbar (Routine) IMPRESSION: Mild disc bulge and anterolisthesis of L4-5 resulting in very mild spinal canal stenosis and foraminal narrowing. Electronically Signed: Susy Helton MD at 9:58 EDT ,
== END | disposition home or self-care (01) ==
PROVIDERS: PCP Family Medicine; Referring Provider Orthopaedic Surgery; Visit Provider Orthopaedic Surgery
DX: M43.10 Spondylolisthesis, site unspecified (principal)
CPT/HCPCS: 72148

== ENCOUNTER → 2022-10-28 | Outpatient (CLI) | payer MEDICARE, OTHER, SELFPAY ==
[2022-10-28 17:42] LABS: Absolute Lymphocyte Count 2.43 X10^3/uL (0.83-4.51); Absolute Neutrophil Count 5.6 X10^3/uL (2.0-7.7); Basophil# 0.02 X10^3/uL; Basophil% 0.2 % (0-1); Eosinophils% 1.2 % (0-5); Hematocrit 43.6 % (37-47); Hemoglobin 14.3 g/dL (12.0-15.0); Lymphocyte # 2.43 X10^3/ul (0.83-4.51); Lymphocyte % 28.1 % (19-41); Mean Corp Hgb Conc 32.8 g/dL (32-36); Mean Corpuscular Hgb 29.8 pg (27.0-32.0); Mean Corpuscular Volume 90.8 fL (81-99); Mean Platelet Vol. 11.7 fl (6.2-12.0); Monocyte# 0.44 X10^3/uL; Monocyte% 5.1 % (0-10); NRBC Flagged by Analyzer 0 % (0-5); Neutrophil # 5.63 X10^3/uL (2.7-7.7); Neutrophil % 64.9 % (47-70); Platelet Count 301 K/mm3 (150-450); RBC Distribution Width CV 14.6 % (11.6-14.6); RBC Distribution Width SD 49.2 fl (35.1-43.9); White Blood Count 8.7 K/mm3 (4.4-11.0)
[2022-10-28 18:16] LABS: ALB/GLOB Ratio 0.9 RATIO (0.9-2.4); AST(SGOT) 21 U/L (15-37); Alanine Aminotransfer ALT/SGPT 28 U/L (13-56); Albumin, Serum 3.4 g/dL (3.2-5.0); Alkaline Phosphatase 67 U/L (45-117); Anion Gap 5 (5-15); BUN 25 mg/dL (7-18); BUN/Creat Ratio 28.4 RATIO (10-20); Calcium,Total 9.7 mg/dL (8.5-10.1); Chloride 106 mmol/L (98-107); Creatinine, Serum 0.88 mg/dL (0.55-1.02); EST Glomerular Filtration Rate 69 mL/min (>60); Est Glom Filt Rate - Afr Amer 83 mL/min (>60); Globulin 3.9 g/dL (2.2-4.2); Glucose 110 mg/dL (74-106); Potassium 3.8 mmol/L (3.5-5.1); Protein, Total 7.3 g/dL (6.4-8.2); Sodium Level 138 mmol/L (136-145); Thyroid Stim Hormone (TSH) 0.74 uIU/mL (0.358-3.74)
[2022-10-28 18:34] LABS: Hepatitis C Antibody Non-Reactive (Nonreactive); Vitamin D,25 Hydroxy 53.4 ng/mL
== END | disposition home or self-care (01) ==
PROVIDERS: PCP Family Medicine; Visit Provider Family Medicine Geriatric Medicine
DX: R53.83 Other fatigue (principal); E55.9 Vitamin D deficiency, unspecified; Z13.89 Encounter for screening for other disorder
CPT/HCPCS: 36415; 80053; 82306; 84443; 85025; 86803

== ENCOUNTER → 2022-11-04 | Outpatient (CLI) | payer MEDICARE, SELFPAY ==
--- NOTE | 2022-11-04 12:49 | BI_ITS ---
MAMMOGRAPHY - BILATERAL SCREENING 3-D TOMOSYNTHESIS REASON FOR EXAM: Female, 67 years old. Routine screening PERTINENT HISTORY: No significant family history. TECHNIQUE: 2-D mammograms and 3-D Tomosynthesis of the breast (s) were performed. CAD was performed. COMPARISON: 04/08/2019 FINDINGS: The breast composition is almost entirely fat. Scattered benign calcifications are seen. No dense spiculated masses or suspicious microcalcifications are identified. No architectural distortion is identified. There is no skin thickening or retraction. There has been no significant change since the prior study. BI/SCRN MAMM (CAD)W/PRISCILLA BILAT IMPRESSION: No mammographic signs of malignancy. Routine yearly mammograms recommended. ASSESSMENT CATEGORY: BIRADS Category 1: Negative. A letter regarding these results will be sent to the patient by the facility within 30 days. FOLLOW UP RECOMMENDATION: Yearly follow up mammogram recommended. (A) Approximately 10% of breast cancers are not detected by mammography. A normal mammogram should not delay biopsy of a clinically suspicious abnormality. Electronically Signed: Marbin Leslie MD at 13:43 EDT ,
== END | disposition home or self-care (01) ==
LOC: OPBI 12:46
PROVIDERS: PCP Family Medicine; Visit Provider Family Medicine Geriatric Medicine
DX: Z12.31 Encounter for screening mammogram for malignant neoplasm of breast (principal); R68.83 Chills (without fever)
CPT/HCPCS: 77063; 77067; 87635; 87804; 87807; C9803; U0003; U0005

== ENCOUNTER → 2023-09-01 | Outpatient (CLI) | payer MEDICARE, SELFPAY ==
--- NOTE | 2023-09-01 10:14 | RAD_ITS ---
INDICATION: BACK PAIN EXAMINATION/TECHNIQUE: X-RAY - XR Spine Lumbar Min 4 Views COMPARISON: Prior study dated: 01/27/2022 FINDINGS: VERTEBRAE: Preserved vertebral body height. No fracture. Grade 1 anterolisthesis of L4 over L5 unchanged. Preservation of the normal lumbar lordosis. No substantial scoliosis. DISCS: Narrowing of L4-L5 disc space. INCLUDED ABDOMEN: Included bowel gas pattern is non-obstructive. RAD/L/S Spine Min 4 Views IMPRESSION: Narrowing of L4-L5 disc space with grade 1 of L4 over L5 unchanged. Electronically Signed: Ry Calvin MD at 12:44 EST ,
--- NOTE | 2023-09-01 10:15 | RAD_ITS ---
INDICATION: NECK PAIN EXAMINATION/TECHNIQUE: X-RAY - XR Spine Cervical 6 or More Views COMPARISON: No relevant prior comparison study available FINDINGS: VERTEBRAE: Preserved vertebral body height. No fracture. Possible minimal anterolisthesis of C4 over C5 on the flexion view. The alignment of the vertebral bodies is otherwise essentially unchanged on the flexion and extension views. Preservation of the normal cervical lordosis. No significant facet arthropathy. DISCS: Narrowing of C5-C6 and C6-C7 disc spaces. Endplate spondylosis. NECK SOFT TISSUES: No prevertebral soft tissue widening. LUNG APICES: Clear. RAD/Cerv Spine Obl/Flex/Ext Comp IMPRESSION: Degenerative changes of the cervical spine as described above.. Electronically Signed: Ry Calvin MD at 12:45 EST ,
== END | disposition home or self-care (01) ==
LOC: MTRAD 10:12
PROVIDERS: PCP Family Medicine; Referring Provider Family Medicine; Visit Provider Family Medicine
DX: M51.36 Other intervertebral disc degeneration, lumbar region (principal); M54.2 Cervicalgia
CPT/HCPCS: 72052; 72110

== ENCOUNTER → 2023-09-02 | Outpatient (CLI) | payer MEDICARE, SELFPAY ==
[2023-09-02 10:37] LABS: Absolute Lymphocyte Count 2.53 X10^3/uL (0.83-4.51); Absolute Neutrophil Count 3.2 X10^3/uL (2.0-7.7); Basophil# 0.02 X10^3/uL; Basophil% 0.3 % (0-1); Eosinophils% 1.6 % (0-5); Hematocrit 42.5 % (37-47); Hemoglobin 13.8 g/dL (12.0-15.0); Lymphocyte # 2.53 X10^3/ul (0.83-4.51); Lymphocyte % 39.6 % (19-41); Mean Corp Hgb Conc 32.5 g/dL (32-36); Mean Corpuscular Hgb 29.9 pg (27.0-32.0); Mean Platelet Vol. 12.9 fl (6.2-12.0); Monocyte% 7.8 % (0-10); NRBC Flagged by Analyzer 0 % (0-5); Neutrophil # 3.23 X10^3/uL (2.7-7.7); Neutrophil % 50.5 % (47-70); Platelet Count 207 K/mm3 (150-450); RBC Distribution Width CV 14.2 % (11.6-14.6); RBC Distribution Width SD 48.2 fl (35.1-43.9); Red Blood Count 4.62 M/mm3 (4.2-5.4); White Blood Count 6.4 K/mm3 (4.4-11.0)
[2023-09-02 11:42] LABS: AST(SGOT) 19 U/L (15-37); Alanine Aminotransfer ALT/SGPT 30 U/L (13-56); Albumin, Serum 3.5 g/dL (3.2-5.0); Alkaline Phosphatase 77 U/L (45-117); Anion Gap 6 (5-15); BUN 14 mg/dL (7-18); BUN/Creat Ratio 18.1 RATIO (10-20); Calcium,Total 9.6 mg/dL (8.5-10.1); Chloride 106 mmol/L (98-107); Cholesterol 220 mg/dL (200); Creatinine, Serum 0.78 mg/dL (0.55-1.02); EST Glomerular Filtration Rate 79 mL/min (>60); Est Glom Filt Rate - Afr Amer 96 mL/min (>60); Globulin 3.5 g/dL (2.2-4.2); Glucose 84 mg/dL (74-106); High Density Lipoprotein 55 mg/dL; Potassium 3.8 mmol/L (3.5-5.1); Sodium Level 139 mmol/L (136-145); Triglycerides 83 mg/dL; Very Low Density Lipoprotein 17 mg/dL (5-40)
[2023-09-02 12:16] LABS: Vitamin D,25 Hydroxy 82.4 ng/mL
== END | disposition home or self-care (01) ==
LOC: MTLAB 07:02
PROVIDERS: PCP Family Medicine; Referring Provider Family Medicine; Visit Provider Family Medicine
DX: Z00.00 Encounter for general adult medical examination without abnormal findings (principal); E78.5 Hyperlipidemia, unspecified; E55.9 Vitamin D deficiency, unspecified
CPT/HCPCS: 36415; 80053; 80061; 82306; 85025

== ENCOUNTER → 2023-09-28 | Outpatient (CLI) | payer MEDICARE, SELFPAY ==
--- NOTE | 2023-09-28 07:05 | MRI_ITS ---
STUDY: MRI CERVICAL SPINE WITHOUT CONTRAST REASON FOR EXAM: Female, 68 years old. DDD C5/6, C6/7 TECHNIQUE: Standardized fat and water weighted pulse sequences were obtained in the sagittal and axial planes. COMPARISON: Cervical spine radiographs 09/01/2023. FINDINGS: Normal foramen magnum and brainstem-cervical cord junction. Normal craniovertebral junction. Normal anterior atlantoaxial articulation. Normal odontoid process. Normal cervical lordosis. Normal vertebral bodies and posterior osseous elements. C2-3: Normal endplates. Normal disc height, signal and morphology. Normal central canal and intervertebral neural foramina. C3-4: Normal endplates. Normal disc height, signal and morphology. Normal central canal and intervertebral neural foramina. C4-5: Normal endplates. Normal disc height, signal and morphology. Normal central canal and intervertebral neural foramina. C5-6: Normal endplates. Mild disc space height narrowing. Mild ventral axial defect due to posterior marginal spurs. Normal central canal and left intervertebral neural foramen. Mild stenosis of the right intervertebral neural foramen due to osteophyte arising from the right uncovertebral joint. C6-7: Normal endplates. Mild disc space height narrowing. Normal central canal and intervertebral neural foramina. C7-T1: Normal endplates. Normal disc height, signal and morphology. Normal central canal and intervertebral neural foramina. T1-T2, T2-T3 and T3-T4: (Sagittal only). Normal endplates. Normal disc height and morphology. Normal central canal and intervertebral neural foramina. Normal cervical cord. Normal upper thoracic spinal cord. Normal included portions of the brainstem and cerebellum. Partly empty sella due to wide diaphragmatic sella. Normal visualized soft tissue structures. MRI/Spine Cervical (Routine) IMPRESSION: 1. No MRI evidence of cervical extruded disc fragment or cervical disc protrusion. 2. Mild stenosis of the right C5-C6 intervertebral neural foramen due to osteophyte arising from the right uncovertebral joint and mild ventral extradural defect due to posterior marginal spurs. 3. Mild C6-C7 degenerative disc space height narrowing. 4. Normal cervical spinal cord. Electronically Signed: Jimy Bill MD at 12:23 EST ,
== END | disposition home or self-care (01) ==
PROVIDERS: PCP Family Medicine; Referring Provider Orthopaedic Surgery; Visit Provider Orthopaedic Surgery
DX: M50.30 Other cervical disc degeneration, unspecified cervical region (principal)
CPT/HCPCS: 72141

== ENCOUNTER → 2023-11-14 | Outpatient (CLI) | payer MEDICARE, SELFPAY ==
--- NOTE | 2023-11-14 07:56 | MRI_ITS ---
STUDY: MRI LUMBAR SPINE WITHOUT CONTRAST REASON FOR EXAM: Female, 68 years old. pain TECHNIQUE: Standardized fat and water weighted pulse sequences were obtained in the sagittal and axial planes. COMPARISON: 04/29/2022 FINDINGS: T12-L1: Normal endplates. Normal disc height, hydration and morphology. Normal bilateral facet joints. Normal central canal and bilateral lateral recesses. Normal bilateral intervertebral neural foramina. Normal lumbar lordosis. There is no substantial scoliosis. Normal conus medullaris that terminates at the T12/L1. L1-2: Normal endplates. Normal disc height, hydration and morphology. Normal bilateral facet joints. Normal central canal and bilateral lateral recesses. Normal bilateral intervertebral neural foramina. L2-3: Disc desiccation but no disc protrusion, spinal stenosis, or neural foraminal stenosis. L3-4: Disc desiccation but no disc protrusion, spinal stenosis, or neural foraminal stenosis. L4-5: Moderate bilateral facet hypertrophy with fluid in the facet joints consistent with instability and moderate ligament flavum hypertrophy. No change in the 2 mm of anterolisthesis of L4 on L5 with a mild broad disc protrusion which produces moderate spinal stenosis and moderate bilateral neural foraminal stenosis. L5-S1: Disc desiccation but no disc detergent, spinal stenosis, or neural foraminal stenosis. Normal visualized sacral ala. Normal visualized paraspinous soft tissue structures. MRI/Spine Lumbar (Routine) IMPRESSION: No change from 04/29/2022. Electronically Signed: Jacob Fierro MD at 23:30 EDT ,
== END | disposition home or self-care (01) ==
LOC: MRI 07:53
PROVIDERS: PCP Family Medicine; Referring Provider Orthopaedic Surgery; Visit Provider Orthopaedic Surgery
DX: M43.10 Spondylolisthesis, site unspecified (principal)
CPT/HCPCS: 72148

== ENCOUNTER 2024-01-12 05:21 | Inpatient (IN) | payer MEDICARE, SELFPAY ==
[2024-01-05 11:10] LABS: Absolute Neutrophil Count 4.4 X10^3/uL (2.0-7.7); Basophil# 0.03 X10^3/uL; Basophil% 0.4 % (0-1); Eosinophil# 0.11 X10^3/uL; Eosinophils% 1.6 % (0-5); Hematocrit 42.6 % (37-47); Hemoglobin 13.5 g/dL (12.0-15.0); Lymphocyte % 27.9 % (19-41); Mean Corp Hgb Conc 31.7 g/dL (32-36); Mean Corpuscular Hgb 29.3 pg (27.0-32.0); Mean Corpuscular Volume 92.4 fL (81-99); Mean Platelet Vol. 12.8 fl (6.2-12.0); Monocyte# 0.39 X10^3/uL; Monocyte% 5.7 % (0-10); NRBC Flagged by Analyzer 0 % (0-5); Neutrophil # 4.36 X10^3/uL (2.7-7.7); Neutrophil % 64.3 % (47-70); Platelet Count 222 K/mm3 (150-450); RBC Distribution Width CV 15.1 % (11.6-14.6); RBC Distribution Width SD 51.8 fl (35.1-43.9); Red Blood Count 4.61 M/mm3 (4.2-5.4); White Blood Count 6.8 K/mm3 (4.4-11.0)
[2024-01-05 11:38] LABS: Anion Gap 3 (5-15); BUN 33 mg/dL (7-18); BUN/Creat Ratio 50.8 RATIO (10-20); Calcium,Total 9.4 mg/dL (8.5-10.1); Chloride 106 mmol/L (98-107); Creatinine, Serum 0.65 mg/dL (0.55-1.02); EST Glomerular Filtration Rate 97 mL/min (>60); Est Glom Filt Rate - Afr Amer 117 mL/min (>60); Glucose 94 mg/dL (74-106); Potassium 4.2 mmol/L (3.5-5.1); Sodium Level 139 mmol/L (136-145)
[2024-01-05 11:47] LABS: Magnesium 2.2 mg/dL (1.6-2.6)
[2024-01-05 12:23] LABS: HIV - WCH Non-Reactive (Nonreactive); Hepatitis B Surface Antibody Non-Reactive; Hepatitis C Antibody Non-Reactive (Nonreactive)
[2024-01-06 05:08] LABS: Hepatitis A AB, Total Negative (Negative)
[2024-01-12] VITALS (16 sets, daily range): BP systolic 88–119; BP diastolic 48–71; PULSE 54–83; RESP 9–18; TEMP 36.3–36.8; O2SAT 95–100; BMI 25.4
[2024-01-12] MEDS: Lactated Ringers 1,000 ML 15 ML IV ×3 (06:05→12:10)
[2024-01-12] MEDS: Magnesium 1 GM over 15 mins IV (06:05)
[2024-01-12] MEDS: Acetaminophen 500 MG Tablet 1000 MG PO ×2 (06:21→21:59)
--- NOTE | 2024-01-12 07:10 | PCM.HP.BLA ---
History and Physical Date of Admission: 01/12/24 MR#: [id number] Acct: [id number] Name: SOBIA JACOBSON Rep #: [id number] : 1955 Provider: Dr. George Parkinson MD Age/Sex: 68/F Location: [facility] – [place] Status: Signed Intake Vital Signs 11/10/2411:15 01/05/2408:00 Height 5 ft 3 in 5 ft 3 in Weight: 145 lb BMI 25.7 Intake Visit Reasons: lumbar spine Chief Complaint: lumbar spine Accompanied by: Self Is patient in pain?: Yes Pain scale (1-10): 5 Allergies cucumber Allergy (Mild, Verified 01/05/24 08:03) Hivesmelon Allergy (Mild, Verified 01/05/24 08:03) HivesNSAIDS (Non-Steroidal Anti-Inflamma Allergy (Mild, Verified 01/05/24 08:03) Othercodeine Adverse Reaction (Intermediate, Verified 01/05/24 08:03) vomiting Medications ?Medication ?Instructions ?Recorded ?Confirmed ?Type cholecalciferol (vitamin D3) 125 125 mcg PO DAILY SUPPLEMENT 03/25/21 01/05/24 History mcg (5,000 unit) capsule vitamin E (dl, acetate) 180 mg 180 mg PO DAILY SUPPLEMENT 03/25/21 01/05/24 History (400 unit) capsule acetaminophen 500 mg oral powder 500 mg PO Q6H PRN Pain 05/06/21 01/05/24 History packet (Tylenol Extra Strength) magnesium 200 mg tablet 200 mg PO DAILY SUPPLEMENT 06/12/21 01/05/24 History potassium gluconate 595 mg (99 mg) 595 mg PO DAILY SUPPLEMENT 06/12/21 01/05/24 History tablet calcium carbonate (Calcium 500) 500 mg PO DAILY SUPPLEMENT 12/30/23 01/05/24 History sumatriptan succinate 25 mg tablet 25 mg PO PRN MIGRAINES 12/30/23 01/05/24 History zinc gluconate 50 mg tablet 50 mg PO DAILY SUPPLEMENT 12/30/23 01/05/24 History PFSH Medical History History of stress test History of irregular heartbeat Wears partial dentures Wears glasses History of steroid therapy Arthritis Anemia Restless legs Back pain Migraine headache Blackout History of ulceration History of hiatal hernia Non-smoker Leg cramps History of pain when walking History of edema Lactose intolerance History of Helicobacter pylori infection (~03/2019) Dysphagia Epigastric pain Hemorrhoids Acid reflux Surgical History Hx of arthroscopy of right knee Hx of foot surgery History of colonoscopy (~03/2019) History of esophagogastroduodenoscopy (EGD) (~03/2019) History of section History of right breast biopsy History of section History of dilatation and curettage History of History cyst removed left thumb Family History Mother Diabetes ArthritisFather Heart disease Hypertension Myocardial infarction Social History household members: other details: mother (Merlene) housing: house current occupational status: retired pets and animals: No Smoking Status: Never smoker alcohol intake: never substance use type: does not use what type of physical activity do you participate in: walking frequency: daily do you feel safe at home: Yes HPI lumbar spine Details: This documentation accurately reflects the service provided and the decisions made by me, Dr. George Parkinson MD 01/05/24 0800. Part of today?s visit was documented by Evette DARDEN , acting as scribe. SOBIA JACOBSON is a 68 year old F here today for Pre-op. Patient is having done a Anterior Posterior L4-5 Fusion on 01/12/24. Patient states no change in her pain in the back. Patient states the legs are worse then her back today. Patient was given the drinks and soap to use before surgery and explained them to her. Sobia continues to have low back pain with bilateral lower extremity radiation and difficulty walking distances. She is here for her preop visit. She denies any new symptoms or injuries. Following is her previous history: 12/02/23: SOBIA JACOBSON is a 68 year old F here today for Lumbar Spine. Patient states her lower back and she has pain that goes down both legs all the way to her feet. Patient states yesterday was really bad. Patient has numbness and tingling going down her legs as well. Patient states more tingling then numbness and pain is extreme sometimes. Patient does use ice on her back, and try to keep her legs warm as the cold bothers them. Patient hasn't seen anyone else since seeing Dr Sheehan last. Sobia low back pain for at least the last 12 years. She denies any injuries. Over the last 1 to 2 years this is severely worsened. Her walking distance is also worsening. She is currently having difficulty with some dizzy when to reach her mailbox. She completely relies on the shopping cart if she ever goes shopping nowadays. She has radiating pain in both lower extremities. This was predominantly lateral thigh and lateral leg region on both sides equally. Sometimes she feels that the pain is slightly worse on the right. She has had at least 2 epidural injections earlier this year but numerous injections last year without significant persistent relief. She had physical therapy as well without much relief. She also has neck pain for which she utilizes traction and other modalities which gives seems to give her temporary relief. She is nondiabetic. She is a non-smoker. Ortho Exam General General: Yes no acute distress Neurologic: Yes alert and Yes oriented x3 Spine SPINE TESTING CERVICAL THORACIC LUMBAR Musculoskeletal Strength 0=absent - 5=normal Details: Examination of the back shows midline and bilateral paraspinal tenderness. Neurologic bilateral lower extremity shows 5 x 5 power in lower extremities with normal sensations in all dermatomes. Coding Level of Care Code Off vis,est,level 4 Diagnoses Degenerative spondylolisthesis M43.10 Spinal stenosis of lumbar region with neurogenic claudication M48.062 Time Spent (min) 35 Comment Modifier 57 Assessment and Plan Assessment and Plan (1) Degenerative spondylolisthesis: Status: Acute (2) Spinal stenosis of lumbar region with neurogenic claudication: Status: Acute Plan I again reviewed her x-rays and MRI of the lumbar as well as cervical spine. Lumbar spine shows L4-5 grade 2 degenerative spondylolisthesis with dynamic instability with severe lateral recess stenosis and facet fluid signal. Cervical spine shows C5-7 disc degeneration without any cord compression. No obvious instability on cervical x-rays. I again explained to her the imaging findings in detail. I explained to her options of treatment which include continued nonoperative treat measures versus surgery. Her neurogenic claudication and walking distance is reducing with time. This is affecting her quality of life. She has tried multiple modalities of nonsurgical treatment including numerous epidural injections which gave only temporary relief. At this point she wishes to proceed with surgical intervention. Surgical options were discussed. L4-5 anterior posterior fusion with indirect decompression was discussed in detail. All risk benefits and alternatives were discussed in detail. The risks include but are not limited to infection, bleeding, need for blood transfusion, injury to nerves and vessels, nerve root injury, foot drop, pseudoarthrosis, hardware failure, need for further surgery, adjacent segment degeneration, DVT, pulmonary embolism, pneumonia, atelectasis, cardiopulmonary event. All restrictions after surgery were discussed in detail. Patient understands and agrees to proceed with surgery. Consent was signed.
--- NOTE | 2024-01-12 07:15 | RAD_ITS ---
EXAM: XR Spine Lumbar 2 or 3 Views HISTORY: ERAS 360 LUMBAR FUSION L4-5 COMPARISON: 12/02/2023 Technique: 11 fluoroscopic C-arm images obtained as the patient is undergoing pedicle screw fusion surgery at L4-5. FINDINGS: 11 Limited intraoperative C-arm films performed during pedicle screw fusion surgery at L4-5. No intraoperative complications noted. RAD/Lumbar Spine 2 or 3 Views IMPRESSION: No intraoperative complications noted during L4-5 screw fusion surgery Electronically Signed: Marbin Leslie MD at 11:27 EDT ,
[2024-01-12] MEDS: Cefazolin 2 GM in 0.9% Normal Saline (100mL Bag) 100 ML IV ×2 (07:42→16:01)
[2024-01-12 08:54] LABS: Bedside Glucose 59 mg/dL (74-106)
[2024-01-12] MEDS: Ropivacaine 0.5% 30 ML Vial (10:45)
--- NOTE | 2024-01-12 10:47 | PCM.OPRPT ---
Report of Operation Date of Procedure: 01/12/24 Description of Surgical Findings:: Preoperative diagnosis: L4-5 spondylolisthesis, disc degeneration, stenosis with neurogenic claudication Postoperative diagnosis: Same Name of procedures L4-5 oblique lumbar interbody fusion (OLIF), minimally invasive left sided approach, lateral decubitus: ? L4-5 anterolateral spinal fusion 04651 ? L4-5 insertion of cage [id number] ? Bone graft aspirate left iliac crest separate incision ? Allograft cancellous chips Attending Surgeon: Dr. George Parkinson Estimated blood loss: 50 mL Anesthesia: General Complications: None Indications: Patient is a 68-year-old pleasant lady who has had a long history of low back pain and bilateral lower extremity radiation difficulty walking distances. Xrays & MRI revealed L4-5 grade 1 degenerative spondylolisthesis with disc degeneration and bilateral lateral recess stenosis. After undergoing a prolonged period of nonoperative treatment, the patient elected to undergo surgical decompression & fusion. All surgical options were discussed with the patient including anterior and posterior approaches. All risks and benefits associated with the procedure were explained to the patient. The risks include but are not limited to infection, bleeding, injury to nerves and vessels including major vessels like IVC and aorta, persistent paresthesia, persistent pain, dural tear, need for further procedures, adjacent segment degeneration, pseudoarthrosis, hardware failure, retrograde ejaculation, paralytic ileus, etc. Procedure: The patient was identified in the preoperative holding suite using Unique patient identifiers. Skin was marked, consent was reviewed, and all questions were answered. The patient was then brought back to the operative room. A surgical timeout was performed to make sure correct procedure was being done on the correct patient and all operative room staff were on the same page. General endotracheal anesthesia was then given to the patient. Eldridge catheter was inserted. The patient was then carefully positioned in right lateral decubitus position with the left side up on a regular OR table. Axillary roll was placed and all bony prominences were well- padded. Hip positioners were placed in the posterior buttocks and anterior sternal area. The surgical area was prepped and draped in usual fashion. Preoperative antibiotic was injected IV as preoperative antibiotic. A final timeout was then again done just before starting the procedure. A 2 inch incision oblique was taken in the left lower quadrant of the abdomen 2 fingerbreadths away from the iliac crest and the lower ribs. Sharp dissection with Bovie was carried out up to the fascia covering the external oblique. The external oblique, internal oblique and transversus abdominis muscles were split along the muscle fibers and retroperitoneal space was entered. Sponge sticks were utilized to move the bowel and peritoneum [id number]-way and psoas muscle was exposed staying within the retroperitoneal plane. Burpple retractor system was positioned and the retractor blade was applied onto the psoas. The interval between psoas and midline structures was developed and appropriate retractors were placed. A persistent left inferior vena cava anomaly was noted. Once adequate interval was carefully cleared, a disc space was identified and a marker x-ray was taken. This identified the L4-5 disc level. Annulotomy was done with a long handled knife. Pituitary was used to remove disc material. Curettes were used to prepare the endplates. Disc space spreaders were utilized to distract and increase the disc height. Near complete discectomy was performed. Smaller disc distractors were also used to bluntly perform a contralateral annulotomy. Trials of serially increasing sizes were used. A Jamshidi needle was used to aspirate bone marrow from the left anterior iliac crest through a separate incision and this aspirate was mixed with the allograft bone chips. A Depuy [place] cage of size of the 18 x 45 x 12 mm with 15 degrees lordosis was packed with corticocancellous allograft bone chips mixed with bone marrow aspirate. This was inserted into the L4-5 disc space. AP and lateral C-arm pictures were taken to confirm good position of the cage. Some bone chips were also packed around the cage. Screw with washer was placed into the lower L4 body with a washer partially covering the cage at L4-5. Hemostasis was confirmed. The retractor blades were removed. Closure was done in layers with a continuous strand of # 1 Vicryl in all muscle layers. 2-0 Vicryl was used for subcutaneous tissue and 4-0 for Monocryl for the skin. Steri-Strips were applied and 4 x 4 gauze and Tegaderm were applied. Surgeon: George Parkinson Admit VTE Documentation VTE Mechan Device Prophylaxis: SCD's Procedures Musculoskeletal 20xxx-29xxx: Other Procedure See Report
--- NOTE | 2024-01-12 10:52 | OP.PCM_ITS ---
Report of Operation Date of Procedure: 01/12/24 Description of Surgical Findings:: Preoperative diagnosis: L4-5 spondylolisthesis, disc degeneration, stenosis with neurogenic claudication Postoperative diagnosis: Same Name of procedures: L4-5 posterior percutaneous pedicle screw instrumented fusion, prone: ? L4-5 posterior spinal fusion ? L4-5 posterior pedicle screw instrumentation [id number] ? Allograft cancellous chips [id number] Attending Surgeon: Dr. George Parkinson Estimated blood loss: 50 mL (total for entire case) Anesthesia: General Complications: None Description of procedure: After the anterior procedure was complete, the patient was then turned supine. The patient was then transferred to Riccardo table in prone position. Back was prepped and draped in usual fashion. C-arm AP view was then taken. C-arm was positioned in a way that L4 was centralized and superior endplate of was parallel to the beam. Spinous process was centered between the pedicles. Midline was marked with skin marker and lateral borders of the pedicles were also marked. Skin marker was also utilized to karine transversely across the middle of the pedicles at L4. 2 longitudinal paramedian incisions of 1 inch were placed. The fascia was incised vertically. Finger dissection was utilized to palpate the transverse process and facet joint. Viper Prime screws with towers were inserted and docked onto the transverse processes. This was then slowly moved medially to reach the superior articular process of L4. This was then confirmed on C-arm and then a mallet was utilized to drive the trocar into the pedicle going up to the medial wall of the pedicle on AP view. This was performed both sides. C-arm lateral view confirmed that the tip of the trocar was in the vertebral body, and the screw was advanced into the pedicle and vertebral body. This was repeated similarly at L5. Screw sizes were 7 x 45 mm at L4 and L5 bilaterally. 50 mm precontoured titanium 5.5 mm lordotic stephanie on the right and 45 mm on the left were then passed through the screw extensions and reduced down to the screws with the help of [place] instrumentation system on both sides. AP and lateral view of the C-arm showed good positioning of the screws and cages. Final tightening with the torque screwdriver was then completed. Lu was utilized to roughen the facet joint at L4-5 on the right side. Cancellous allograft bone chips mixed with bone marrow aspirate were then placed over this decorticated area. Hemostasis was achieved. Closure was done in layers with 0 Vicryls for the fascia, 2-0 Vicryls for the subcutaneous tissue, and Monocryl for the skin. Dermabond was applied. Dressings were applied covered with Tegaderm. The patient was then turned supine onto a hospital bed. The patient was extubated and taken to PACU in stable condition. The patient tolerated the procedure well and no complications occurred. Depuy [place] cage & Viper Prime minimally invasive pedicle screw instrumentation system was utilized in this case. No dural tear was identified intraoperatively. I was present for the entirety of the case and performed the surgery. Surgeon: George Parkinson Admit VTE Documentation VTE Mechan Device Prophylaxis: SCD's Procedures Musculoskeletal 20xxx-[id number]: Other Procedure See Report
--- NOTE | 2024-01-12 12:51 | SUR.PHASEI ---
awaiting room on floor
[2024-01-12 16:02] LABS: Bedside Glucose 156 mg/dL (74-106)
--- NOTE | 2024-01-12 16:26 | CON.PCM.HO_ITS ---
Assessment & Plan Assessment/Plan (1) Spinal stenosis of lumbar region with neurogenic claudication: PLAN: Plan #Spinal stenosis s/p L4-5 fusion * Today's postop day 0. Pain is fairly well controlled when laying still, but aggravated by movement. * Management as per spine surgery. * Incentive spirometry. Counseled to be compliant with incentive spirometer. * PT OT on board. Pain management as per primary team. ON PO tylenol, PO oxycodone and IV morphine prn for pain. * Fall precautions. #Hypotension: Blood pressure is at 88/48. Pain meds may be contributing. Will hydrate with IV fluid normal saline at 150 cc/h x 2 bags and monitor. #History of migraines: On sumatriptan as needed DVT prophylaxis: As per primary team. Currently on SCDs Thank you for the courtesy of the consult. Please contact the hospitalist team with any questions or concerns. HPI Consult Data Date of Consult: 01/12/24 HPI Narrative Reason for Consultation: medical management HPI Narrative: ELEN JACOBSON, is a 68 F with a past medical history as outlined was admitted to the service of spine surgery on 01/12/2024 on account of L4-L5 spondylolisthesis with disc degeneration and stenosis with neurogenic claudication. She had L4-5 posterior percutaneous pedicle screw instrumented fusion on 01/12/2024. Hospitalist service was consulted for medical management. Patient was seen and examined after surgery. Her significant other was by her bedside. She had no active complaints and pain was well-controlled when she lay still, but was aggravated by slight movement.. Blood pressure was running low at 82/48 at time of my review. She denied any dizziness or lightheadedness or any other complaints. Review of systems otherwise negative. [facility] Medical History History of stress test History of irregular heartbeat Wears partial dentures Wears glasses History of steroid therapy Arthritis Anemia Restless legs Back pain Migraine headache Blackout History of ulceration History of hiatal hernia Non-smoker Leg cramps History of pain when walking History of edema Lactose intolerance History of Helicobacter pylori infection (~03/2019) Dysphagia Epigastric pain Hemorrhoids Acid reflux Home Medications ?Medication ?Instructions ?Recorded ?Last Taken ?Type cholecalciferol (vitamin D3) 125 125 mcg PO DAILY SUPPLEMENT 03/25/21 01/11/24 History mcg (5,000 unit) capsule vitamin E (dl, acetate) 180 mg 180 mg PO DAILY SUPPLEMENT 03/25/21 01/11/24 History (400 unit) capsule acetaminophen 500 mg oral powder 500 mg PO Q6H PRN Pain 05/06/21 Unknown History packet (Tylenol Extra Strength) magnesium 200 mg tablet 200 mg PO DAILY SUPPLEMENT 06/12/21 01/11/24 History potassium gluconate 595 mg (99 mg) 595 mg PO DAILY SUPPLEMENT 06/12/21 01/11/24 History tablet calcium carbonate (Calcium 500) 500 mg PO DAILY SUPPLEMENT 12/30/23 01/11/24 History sumatriptan succinate 25 mg tablet 25 mg PO PRN MIGRAINES 12/30/23 Unknown History zinc gluconate 50 mg tablet 50 mg PO DAILY SUPPLEMENT 12/30/23 01/11/24 History acetaminophen 500 mg tablet 1,000 mg PO Q6H PRN headache 01/12/24 01/09/24 History Allergy/AdvReac Type Severity Reaction Status Date / Time cucumber Allergy Mild Hives Verified 01/12/24 06:11 melon Allergy Mild Hives Verified 01/12/24 06:11 NSAIDS (Non-Steroidal Allergy Mild Other Verified 01/12/24 06:11 Anti-Inflamma codeine AdvReac Intermediate vomiting Verified 01/12/24 06:11 Family History Mother Diabetes Arthritis Father Heart disease Hypertension Myocardial infarction Surgical History Hx of arthroscopy of right knee Hx of foot surgery History of colonoscopy (~03/2019) History of esophagogastroduodenoscopy (EGD) (~03/2019) History of section History of right breast biopsy History of section History of dilatation and curettage History of History cyst removed left thumb Social History household members: other details: mother (Merlene) housing: house current occupational status: retired pets and animals: No Smoking Status: Never smoker alcohol intake: never substance use type: does not use what type of physical activity do you participate in: walking frequency: daily do you feel safe at home: Yes ROS Constitutional Constitutional: Denies anorexia, chills, fatigue, fever(s), malaise or weakness Eyes Eyes: Denies change in vision ENT HEENT: Denies dysphagia Cardiovascular Cardiovascular: Denies chest pain, dyspnea on exertion, edema, lightheadedness, orthopnea, palpitations, paroxysmal nocturnal dyspnea or rapid heart rate Respiratory/Chest Respiratory/Chest: Denies cough, dyspnea, shortness of breath at rest or shortness of breath with exertion Gastrointestinal Gastrointestinal: Denies abdominal pain, nausea or vomiting Genitourinary Genitourinary: Denies burning urination or dysuria Musculoskeletal Musculoskeletal: Reports back pain; Denies arthralgias, joint stiffness, joint swelling or myalgias Neurologic Neurologic: Denies confusion, dizziness, focal weakness, headache(s), numbness, paresthesias, seizure-like activity, seizures, syncope or tingling Psychiatric Psychiatric: Denies anxiety or depression Endocrine Endocrinology: Denies change in body appearance Hematologic/Lymphatic Hematologic/Lymphatic: Denies anemia Physical Exam Const alert, oriented x3 and no apparent distress General Appearance: cooperative Orientation / Consciousness: confused HEENT normocephalic, head/scalp atraumatic, hearing grossly normal bilaterally, moist oral mucous membranes and oropharynx normal Mouth: oral and palatal mucosa normal Eyes PERRL, EOMs intact bilaterally and conjunctivae normal Neck no lymphadenopathy and supple Resp normal respiratory effort, no use of accessory muscles and clear to auscultation bilaterally Cardio regular rate, regular rhythm, S1 normal heart sound, S2 normal heart sound and no murmurs GI normal to inspection, nondistended, normoactive bowel sounds, soft to palpation, non-tender and non-distended Extremity normal to inspection, full ROM and no clubbing, cyanosis or edema Extremity Narrative: intact dressing over lower back at site of surgery Neuro oriented x3, CN's II-XII intact bilaterally, moves all extremities, no focal motor deficits and no sensory deficits noted Sensorium / Orientation: awake and alert Motor Exam: strength 5/5 throughout Psych affect normal Lab / Micro Data 01/05/24 09:40 01/05/24 09:40 Labs: Laboratory Results - last 24 hr 01/12/24 06:10: POC Glucose 59 L 01/12/24 15:43: POC Glucose 156 H Imaging Radiology Impression Lumbar Spine X-Ray 01/12/24 07:15 IMPRESSION: No intraoperative complications noted during L4-5 screw fusion surgery Electronically Signed: Marbin Leslie MD at 11:27 EDT , Charges/Coding Visit Charges Inpatient E&M: 12126 Subs Hosp L2
[2024-01-12] MEDS: 0.9% Normal Saline (1000mL) 1,000 ML 125 ML IV (16:51)
[2024-01-12] MEDS: Methocarbamol 500 MG Tablet 1000 MG PO (17:48)
[2024-01-12] MEDS: Senna/Docusate Sodium 1 Tablet 2 TABLET PO (21:58)
[2024-01-12] MEDS: Ondansetron 4 MG/2 ML Vial IV (22:09)
[2024-01-12] MEDS: 0.9% Saline Lock 10 ML Syringe IV (22:10)
[2024-01-13] MEDS: Cefazolin 2 GM in 0.9% Normal Saline (100mL Bag) 100 ML IV (00:17)
[2024-01-13] MEDS: Methocarbamol 500 MG Tablet 1000 MG PO ×3 (00:18→11:20)
[2024-01-13 00:31] VITALS: BP 95/48; PULSE 63; RESP 16; TEMP 36.1; O2SAT 95
[2024-01-13] MEDS: Acetaminophen 500 MG Tablet 1000 MG PO ×2 (05:44→13:38)
[2024-01-13 06:01] VITALS: BP 100/41; PULSE 65; RESP 16; TEMP 36.6; O2SAT 95
[2024-01-13 07:24] LABS: Hematocrit 35.6 % (37-47); Hemoglobin 11.3 g/dL (12.0-15.0); Mean Corp Hgb Conc 31.7 g/dL (32-36); Mean Corpuscular Hgb 29.7 pg (27.0-32.0); Mean Corpuscular Volume 93.7 fL (81-99); Platelet Count 167 K/mm3 (150-450); RBC Distribution Width CV 15.2 % (11.6-14.6); RBC Distribution Width SD 52.6 fl (35.1-43.9); White Blood Count 9.5 K/mm3 (4.4-11.0)
[2024-01-13 07:59] LABS: Anion Gap 3 (5-15); BUN 13 mg/dL (7-18); BUN/Creat Ratio 23.3 RATIO (10-20); Calcium,Total 8.5 mg/dL (8.5-10.1); Chloride 110 mmol/L (98-107); Creatinine, Serum 0.56 mg/dL (0.55-1.02); EST Glomerular Filtration Rate 116 mL/min (>60); Est Glom Filt Rate - Afr Amer 140 mL/min (>60); Estimated Creatinine Clearance 62.73 ml/min; Glucose 90 mg/dL (74-106); Sodium Level 140 mmol/L (136-145)
--- NOTE | 2024-01-13 08:35 | RAD_ITS ---
EXAM: XR LUMBOSACRAL SPINE, 2 OR 3 VIEWS CLINICAL INDICATION: s/p fusion -- Please do upright AP lateral TECHNIQUE: Frontal and lateral views of the lumbar spine and sacrum. COMPARISON: XR Lumbosacral Spine dated 12/02/2023 FINDINGS: VERTEBRAE: Interval intrapedicular screw fixation of L4 and L5 with disc implantation. Previously noted grade 2 listhesis of L4 on L5 is significantly reduced. DISC SPACES: No acute findings. Disc spaces are maintained. RAD/Lumbar Spine 2 or 3 Views IMPRESSION: Satisfactory postop changes. Electronically Signed: Qasim Robledo MD at 9:27 EDT ,
--- NOTE | 2024-01-13 09:32 | PN.HOSP_ITS ---
Reason for Visit Reason for Visit: Diagnoses Spinal stenosis, lumbar region with neurogenic claudication (01/12/24) Encounter for other preprocedural examination (01/12/24) Subjective Subjective Patient is a 68-year-old lady who underwent L4-5 fusion on account of spinal stenosis Objective Data Objective Data Vital Signs: Vital Signs Temp Pulse Resp BP Pulse Ox O2 Del Method O2 Flow Rate 98 F 65 16 100/41 L 95 Room Air 4 01/13/24 06:01 01/13/24 06:01 01/13/24 06:01 01/13/24 06:01 01/13/24 06:01 01/13/24 06:01 01/12/24 12:30 Oxygen Flow Rate (L/min) 4 Oxygen Delivery Method Room Air Weight: 65 kg Body Mass Index (BMI) 25.4 Intake & Output: Intake and Output for Last 24 Hours 01/11/24 01/12/24 01/13/24 23:59 23:59 23:59 Intake Total 1354.75 / 1354.75 1110 / 1110 Output Total 350 / 350 Balance 1004.75 / 1004.75 1110 / 1110 Lab / Micro Data 01/13/24 06:47 01/13/24 06:47 Labs: Laboratory Results - last 24 hr 01/12/24 15:43: POC Glucose 156 H 01/13/24 06:47: WBC 9.5, RBC 3.80 L, Hgb 11.3 L, Hct 35.6 L, MCV 93.7, MCH 29.7, MCHC 31.7 L, RDW Std Deviation 52.6 H, RDW Coeff of Pedro 15.2 H, Plt Count 167, M PV 13.0 H, Sodium 140, Potassium 4.0, Chloride 110 H, Carbon Dioxide 27.0, Anion Gap 3 L, BUN 13, Creatinine 0.56, Estim Creat Clear Calc 62.73, Est GFR (MDRD) Af Amer 140, Est GFR (MDRD) Non-Af 116, BUN/Creatinine Ratio 23.3 H, Glucose 90, Calcium 8.5 Micro: Microbiology 01/05/24 09:40 Swab (Method) Nasal Screen MRSA/MSSA - Final Radiography Diagnostic Testing: Radiology Impression Lumbar Spine X-Ray 01/12/24 07:15 IMPRESSION: No intraoperative complications noted during L4-5 screw fusion surgery Electronically Signed: Marbin Leslie MD at 11:27 EDT , Lumbar Spine X-Ray 01/13/24 08:35 IMPRESSION: Satisfactory postop changes. Electronically Signed: Qasim Robledo MD at 9:27 EDT , Physical Exam Narrative GENERAL: cooperative HEENT: Atraumatic; normocephalic EYES; Anicteric, Normal Conjunctiva NECK; supple, normal thyroid, RESPIRATORY: Diminished to auscultation CARDIOVASCULAR: Regular S1 S2, GI: soft, normoactive bowel sounds, : No Renal angle tenderness; EXTREMITIES: No edema, no clubbing, MUSCULOSKELETAL: no muscle wasting NEURO: Awake; no lateralizing signs. SKIN: No Rash PSYCH; Flat affect Assessment & Plan Assessment/Plan (1) Spinal stenosis of lumbar region with neurogenic claudication: PLAN: Plan Patient is a 68-year-old lady who underwent L4-5 fusion on account of spinal stenosis 1. Spinal stenosis ? Status post L4-5 fusion. Postoperative orders regarding pain management PT OT DVT prophylaxis defer to primary service 2. Hypotension ? Patient was resuscitated with IV fluid patient blood pressure has stabilized 3. History of chronic migraines ? Patient is on sumatriptan 4. Anemia ? Secondary to chronic disorder monitoring H&H and transfuse if patient becomes symptomatic or hemoglobin falls below 7 5. DVT prophylaxis ? Deferred to primary service Time spent in the patient's overall evaluation,decision-making process, review of diagnostic data, adjustment of management, discussion with other providers, nursing nursing and ancillary staff involved in patient's care documentation, 35 Minutes Charges/Coding Visit Charges Inpatient E&M: 18640 Subs Hosp L2
[2024-01-13 09:42] VITALS: BP 102/53; PULSE 61; RESP 16; TEMP 36.8; O2SAT 96
[2024-01-13] MEDS: Senna/Docusate Sodium 1 Tablet 2 TABLET PO (09:52)
[2024-01-13] MEDS: Calcium (Elemental) 500 MG Tablet PO (09:52)
[2024-01-13] MEDS: Cholecalciferol (Vit D3) 125 MCG CAPSULE (5,000 UNITS) PO (09:52)
[2024-01-13] MEDS: Vitamin E 400 UNITS Capsule PO (09:52)
[2024-01-13] MEDS: Ensure Surgery 237 ML LIQUID PO ×2 (09:54→11:22)
[2024-01-13 10:21] VITALS: O2SAT 96
[2024-01-13 11:53] VITALS: BP 109/63; PULSE 62; RESP 16; TEMP 36.6; O2SAT 100
--- NOTE | 2024-01-13 12:00 | CASEMGMT ---
MELLISSA MCCARTHY Assessment: Face to Face with pt for initial transition planning/care coordination assessment. MELLISSA MCACRTHY introduced self and role at [facility], pt voices understanding and consents to assessment. Pt is A&O x4 and answers all questions appropriately at this time. Pt lying in bed in no distress. Care providers, pharmacy, and demographics verified/updated. Admitting Dx: status post lumbar fusion PCP:Hayley Specialists:Iggy, ortho; Spencer, pain mgmt Preferred Pharmacy: [facility] Retail Insurance: O [facility] Prescription Benefit: yes LNOK: Jose J Hay, son; Saad Hay, son Living Arrangements: Pt lives with fishavon in a single story home with 3 steps to enter with a rail. Pt reports prior to surgery she was I in ADL and IADL but was painful. Pt denies concerns at home. Transportation: Pt drives self and denies concerns with transportation. Pt fiance to transport pt until she can drive again. DME:grab bars in the bathroom, pt is borrowing a walker from a friend and will have it at her home upon dc. HHC/SNF: Denies hx of Pt states no concerns with going home at time of dc. Pt states no further concerns/needs. CM to follow. Advised pt to ask CM if any further question/concerns/needs arise, voices understanding. Pt Goal: Home Plan: Home Saw MALLOY CM
--- NOTE | 2024-01-13 15:08 | PN.ORTHO_ITS ---
Subjective Subjective Postop day 1 status post L4-5 fusion. Pain reasonably well-controlled. Mostly getting up from lying down position. Did not do much ambulation last night. Feels much better when walks. Passed flatus, tolerated solid diet. Objective Data Objective Data Vital Signs: Vital Signs Temp Pulse Resp BP Pulse Ox O2 Del Method O2 Flow Rate 97.9 F 62 16 109/63 100 Room Air 4 01/13/24 11:53 01/13/24 11:53 01/13/24 11:53 01/13/24 11:53 01/13/24 11:53 01/13/24 13:22 01/12/24 12:30 Oxygen Flow Rate (L/min) 4 Oxygen Delivery Method Room Air Weight: 143 lb 4.807 oz Body Mass Index (BMI) 25.4 Intake & Output: Intake and Output for Last 24 Hours 01/11/24 01/12/24 01/13/24 23:59 23:59 23:59 Intake Total 1354.75 / 1354.75 1410 / 1410 Output Total 350 / 350 Balance 1004.75 / 1004.75 1410 / 1410 Lab / Micro Data 01/13/24 06:47 01/13/24 06:47 Labs: Laboratory Results - last 24 hr 01/12/24 15:43: POC Glucose 156 H 01/13/24 06:47: WBC 9.5, RBC 3.80 L, Hgb 11.3 L, Hct 35.6 L, MCV 93.7, MCH 29.7, MCHC 31.7 L, RDW Std Deviation 52.6 H, RDW Coeff of Pedro 15.2 H, Plt Count 167, M PV 13.0 H, Sodium 140, Potassium 4.0, Chloride 110 H, Carbon Dioxide 27.0, Anion Gap 3 L, BUN 13, Creatinine 0.56, Estim Creat Clear Calc 62.73, Est GFR (MDRD) Af Amer 140, Est GFR (MDRD) Non-Af 116, BUN/Creatinine Ratio 23.3 H, Glucose 90, Calcium 8.5 Micro: Microbiology 01/05/24 09:40 Swab (Method) Nasal Screen MRSA/MSSA - Final Radiography Diagnostic Testing: Radiology Impression Lumbar Spine X-Ray 01/13/24 08:35 IMPRESSION: Satisfactory postop changes. Electronically Signed: Qasim Robledo MD at 9:27 EDT , Physical Exam Narrative Dressing?CDI. Neurologic bilateral lower extremity shows 5 x 5 power normal shows normal sensations in all dermatomes. Assessment & Plan Assessment/Plan (1) Status post lumbar spinal fusion: PLAN: Plan Postop day 1 status post L4-5 fusion. PT OT mobilization. Appears to have cleared PT. X-rays reviewed. Past flatus and tolerating solid diet. Okay to discharge home and follow-up in 2 weeks.
== END 2024-01-13 16:37 | disposition home or self-care (01) | DRG 455 ==
LOC: MS3 01-13 07:56 → ACINP 01-13 14:33 → MS3 01-13 14:33
PROVIDERS: Anesthesiology; Admitting Provider Orthopaedic Surgery Orthopaedic Surgery of the Spine; PCP Family Medicine; Visit Provider Internal Medicine
PROC: 0SG00A0 Fusion of Lumbar Vertebral Joint with Interbody Fusion Device, Anterior Approach, Anterior Column, Open Approach (ICD-10-PCS; principal; 2024-01-12 07:00)
DX: M48.062 Spinal stenosis, lumbar region with neurogenic claudication (principal); G43.709 Chronic migraine without aura, not intractable, without status migrainosus; M43.16 Spondylolisthesis, lumbar region; M51.36 Other intervertebral disc degeneration, lumbar region; I95.2 Hypotension due to drugs; T39.95XA Adverse effect of unspecified nonopioid analgesic, antipyretic and antirheumatic, initial encounter; Y92.239 Unspecified place in hospital as the place of occurrence of the external cause; Z79.899 Other long term (current) drug therapy
CPT/HCPCS: 36415; 72100; 76000; 80048; 82962; 83735; 85025; 85027; 86703; 86706; 86708; 86803; 86850; 86900; 86901; 87081; 93005; 94668; 97162; 97166; C1713; J7030; J7120; A4216; J2405; J3475

== ENCOUNTER 2024-03-09 09:30 | Outpatient (RCR) | payer MEDICARE, SELFPAY ==
--- NOTE | 2024-02-09 13:24 | HP.PTEVAL_ITS ---
Patient's Visit Information Visit Information Visit Information: ELEN JACOBSON is a 68 year old F referred to Physical Therapy by Dr. George Parkinson MD with a diagnosis of ARTHODESIS STATUS. Date of Evaluation: 02/09/24 Physical Therapist: Mitchell Moon PT, Cert MDT, OCS Visit Plan Frequency: 2x /Week Duration: 4 Weeks Plan: S/P LUMBAR FUSION 01/11 PT INTERVENTIONS DLS ,POSTURAL EX'S ,LE FLEXABILITY ,ACTIVITY MODIFICATION AND BLE STRENGTHENING Subjective Subjective: This 68 y/o female presents to physical therapy with s/p lumbar fusion L4-5 on Jan [address] Parkinson at [facility]. Patient uses bone stimulator every 2 hrs in morning. Patient had pain 20 years ad had MRI showed anterolisthesis. Patient also had pain management which is stopped helping. Patient seen recommended PT No BLT or 3 months. Patient is doing good walking 1 mile x2 . Patient has some back soreness maybe over doing it at home. Bowel/bladder- . Coughing/sneezing -. Sleeping good. Patient denies paresthesia/tingling. Patient condition affects QOL and function/ADLS. Patient goals to return to normal activity. SOCAIL: VOCATION: retired Objective Objective: POSTURE:mild forward posture GAIT: reciprocal pattern SKIN: incision well approximate NEURO: denies paresthesia/tingling ,reflexes L3-4,L4-5,L5-S 1 1/3 FLEXABILITY: hamstrings WFL MMT: quads/hams 4/5 ,hip flexion/abduction 4-/5 ,ankle 4/5 LUMBAR ROM: flexion min/mod loss ,extension mod loss ,side glides mod loss Special Tests L/S Slump test left side: Negative L/S Slump test right side: Negative L/S Left Straight Leg Raise: Negative L/S Right Straight Leg Raise: Negative Balance/Special Test Scores Oswestry Low Back Score: 18 Goals Goal 1:: Patient to be I with HEP for lumbar spine Goal Time Frame: 4-6 Weeks Goal 2:: Patient to demonstrate 70% improvement with increase function and ADLS Goal Time Frame: 4-6 Weeks Goal 3:: Patient to improve lumbar ROM for function of recovery to put on shoes Goal Time Frame: 4-6 Weeks Goal 4:: Patient to improve back oswestry score by 5 points to improve QOL and function Goal Time Frame: 4-6 Weeks Goal 5:: Patient to improve posture/body mechanics 80% of the time. Goal Time Frame: 4-6 Weeks Rehabilitation Potential Physical Therapy Diagnosis: This patient underwent s/p lumbar fusion with decrease ROM ,weakness impairs walking/standing thus benefit from skilled PT Rehabilitation Potential: Good Anticipated Interventions Patient/Client Instruction: Educate patient on: Condition and Plan of Care For the Purpose of:: To decrease pain, To increase ROM, To improve muscle performance and motor function, To improve ability to perform ADL's, To increase tolerance to activity/condition/position, To improve ability of physical actions for home/community/work/leisure, To improve health of tissue, To decrease soft tissue restriction, To increase flexibility/ROM, To prevent re-injury and To improve tolerance to ADL's Therapeutic Exercise to Include: Strength training, Body mechanics, Postural training, Flexibilty training, Active ROM and Dynamic Lumbar Stabilization Comment: BLE For the Purpose of:: To decrease pain, To increase ROM, To improve muscle performance and motor function, To improve ability to perform ADL's, To increase tolerance to activity/condition/position, To improve ability of physical actions for home/community/work/leisure, To improve health of tissue, To decrease soft tissue restriction and To increase flexibility/ROM Text: Thank you for the opportunity to evaluate your patient. For Medicare and Medicare HMO plans, please review the plan of care and approve it. It will need to be FAXED BACK to us at [phone] for Medicare purposes. For Medicare only, by signing this I certify the plan of care. Please let me know if there are questions or concerns regarding this plan of care. Physician Signature: Date:
--- NOTE | 2024-03-09 09:57 | HP.PTDCSUM ---
Discharge Summary D/C summary: It has been my pleasure to treat ELEN JACOBSON referred by Dr. George Parkinson MD, with the diagnosis of ARTHODESIS STATUS for a total of 9 visit(s). Discharge Date: 03/09/24 Please see the following information for a summary of their discharge status. Subjective Subjective: Doing great , seen Dr Parkinson doing great Pain Right Back: Pain Intensity (Out of 10): 0 Overall Improvement % Improvement: 100 Objective Objective/Function: POSTURE:mild forward posture GAIT: reciprocal pattern SKIN: well approximate NEURO: denies paresthesia/tingling ,reflexes L3-4,L4-5,L5-S 1 / FLEXABILITY: hamstrings WFL MMT: quads/hams 4/5 ,hip flexion/abduction 4-/5 ,ankle 4/5 LUMBAR ROM: flexion min/mod loss ,extension mod loss ,side glides min loss Goals Goal 1:: Patient to be I with HEP for lumbar spine Goal Progress: Goal Met Goal 2:: Patient to demonstrate 70% improvement with increase function and ADLS Goal Progress: Goal Met Goal 3:: Patient to improve lumbar ROM for function of recovery to put on shoes Goal Progress: Goal Met Goal 4:: Patient to improve back oswestry score by 5 points to improve QOL and function Goal Progress: Goal Met Goal 5:: Patient to improve posture/body mechanics 80% of the time. Goal Progress: Goal Met Plan Plan: D/C D/C Information Discharge Comments: HEP d/c sentence: If there are questions or concerns regarding this patient's physical therapy, please feel free to call me at [phone]. Thank you for the referral of this patient. Sincerely, Mitchell Moon, PT, Cert MDT, OCS Balance/Gait/Functional tests Balance/Special Test Scores Oswestry Low Back Score: 0 Improvement % Improvement: 100
== END 2024-03-09 19:00 | disposition home or self-care (01) ==
LOC: PT 09:30
PROVIDERS: PCP Family Medicine; Visit Provider Orthopaedic Surgery Orthopaedic Surgery of the Spine
DX: Z98.1 Arthrodesis status (principal)
CPT/HCPCS: 97110; 97162; 97530

== ENCOUNTER → 2024-07-04 | Outpatient (CLI) | payer MEDICARE, SELFPAY | END | disposition home or self-care (01) | LOC: LABSPEC 09:57 | PROVIDERS: PCP Family Medicine; Referring Provider Physician Assistant; Visit Provider Physician Assistant | DX: N39.0 Urinary tract infection, site not specified (principal) | CPT/HCPCS: 87077; 87086; 87088; 87186 ==

== ENCOUNTER 2024-07-05 17:33 | Emergency (ER) | payer MEDICARE, SELFPAY ==
[2024-07-05] VITALS (7 sets, daily range): BP systolic 123–152; BP diastolic 73–115; PULSE 60–78; RESP 14–18; TEMP 36.6–36.8; O2SAT 94–97; BMI 30.2
[2024-07-05 18:35] LABS: Absolute Lymphocyte Count 2.73 X10^3/uL (0.83-4.51); Absolute Neutrophil Count 3.3 X10^3/uL (2.0-7.7); Basophil# 0.02 X10^3/uL; Basophil% 0.3 % (0-1); Eosinophils% 1.5 % (0-5); Hematocrit 44.5 % (37-47); Hemoglobin 14.4 g/dL (12.0-15.0); Lymphocyte # 2.73 X10^3/ul (0.83-4.51); Lymphocyte % 41.2 % (19-41); Mean Corp Hgb Conc 32.4 g/dL (32-36); Mean Corpuscular Hgb 28.5 pg (27.0-32.0); Mean Corpuscular Volume 88.1 fL (81-99); Mean Platelet Vol. 11.8 fl (6.2-12.0); Monocyte# 0.45 X10^3/uL; Monocyte% 6.8 % (0-10); NRBC Flagged by Analyzer 0 % (0-5); Neutrophil # 3.31 X10^3/uL (2.7-7.7); Platelet Count 259 K/mm3 (150-450); RBC Distribution Width CV 14.7 % (11.6-14.6); RBC Distribution Width SD 47.6 fl (35.1-43.9); Red Blood Count 5.05 M/mm3 (4.2-5.4); White Blood Count 6.6 K/mm3 (4.4-11.0)
[2024-07-05 18:45] LABS: Anion Gap 4 (5-15); BUN 27 mg/dL (7-18); BUN/Creat Ratio 29.9 RATIO (10-20); Calcium,Total 9.9 mg/dL (8.5-10.1); Chloride 105 mmol/L (98-107); EST Glomerular Filtration Rate 66 mL/min (>60); Est Glom Filt Rate - Afr Amer 80 mL/min (>60); Estimated Creatinine Clearance 60.56 ml/min; Glucose 141 mg/dL (74-106); Magnesium 1.9 mg/dL (1.6-2.6); Potassium 3.7 mmol/L (3.5-5.1); Sodium Level 140 mmol/L (136-145); Troponin-I HS (w/2H Reflex) 3 pg/mL (3.0-54.0)
[2024-07-05 20:26] LABS: Reflex Troponin-HS? (from REC) Y
[2024-07-05 20:47] LABS: Troponin-I HS 4 pg/mL (3.0-54.0)
== END 2024-07-05 21:50 | disposition home or self-care (01) ==
PROVIDERS: Emergency Provider Emergency Medicine; PCP Family Medicine; Visit Provider Emergency Medicine
DX: R07.89 Other chest pain (principal); M54.9 Dorsalgia, unspecified; N39.0 Urinary tract infection, site not specified; K21.9 Gastro-esophageal reflux disease without esophagitis; Z79.899 Other long term (current) drug therapy
CPT/HCPCS: 71260; 74177; 80048; 83735; 84484; 85025; 93005; 99284; Q9967; A4216

== ENCOUNTER → 2024-12-06 | Outpatient (CLI) | payer MEDICARE, SELFPAY ==
[2024-12-06 12:39] LABS: Absolute Lymphocyte Count 2.02 X10^3/uL (0.83-4.51); Absolute Neutrophil Count 2.8 X10^3/uL (2.0-7.7); Basophil# 0.02 X10^3/uL; Basophil% 0.4 % (0-1); Eosinophil# 0.19 X10^3/uL; Eosinophils% 3.5 % (0-5); Hematocrit 42.9 % (37-47); Lymphocyte # 2.02 X10^3/ul (0.83-4.51); Lymphocyte % 37.3 % (19-41); Mean Corp Hgb Conc 32.6 g/dL (32-36); Mean Corpuscular Hgb 28.7 pg (27.0-32.0); Mean Corpuscular Volume 88.1 fL (81-99); Mean Platelet Vol. 12.3 fl (6.2-12.0); Monocyte# 0.36 X10^3/uL; Monocyte% 6.6 % (0-10); NRBC Flagged by Analyzer 0 % (0-5); Neutrophil # 2.81 X10^3/uL (2.7-7.7); Neutrophil % 51.8 % (47-70); Platelet Count 231 K/mm3 (150-450); RBC Distribution Width CV 14.4 % (11.6-14.6); RBC Distribution Width SD 46.6 fl (35.1-43.9); Red Blood Count 4.87 M/mm3 (4.2-5.4); White Blood Count 5.4 K/mm3 (4.4-11.0)
[2024-12-06 13:20] LABS: ALB/GLOB Ratio 1.5 RATIO (0.9-2.4); AST(SGOT) 27 U/L (<=31); Alanine Aminotransfer ALT/SGPT 22 U/L (<=34); Albumin, Serum 3.9 g/dL (3.4-4.8); Alkaline Phosphatase 59 U/L (35-104); Anion Gap 10 (5-15); BUN 22 mg/dL (4-19); Calcium,Total 9.8 mg/dL (7.6-11.0); Carbon Dioxide 23.6 mmol/L (21.0-32.0); Chloride 107 mmol/L (98-108); Cholesterol 202 mg/dL (<=200); Creatinine, Serum 0.73 mg/dL (0.70-1.20); EST Glomerular Filtration Rate 89 (>60); Globulin 2.7 g/dL (2.2-4.2); Glucose 95 mg/dL (70-99); High Density Lipoprotein 58 mg/dL; Low Density Lipoprotein Calc. 124 mg/dL; Potassium 4.7 mmol/L (3.3-5.1); Protein, Total 6.6 g/dL (5.9-8.4); Sodium Level 141 mmol/L (133-145); Total Bilirubin 0.32 mg/dL (0.00-1.30); Triglycerides 99 mg/dL; Very Low Density Lipoprotein 20 mg/dL (5-40); Vitamin D,25 Hydroxy 44.3 ng/mL (30-100); cholesterol:hdl ratio screen 3.47
== END | disposition home or self-care (01) ==
PROVIDERS: PCP Family Medicine; Visit Provider Family Medicine
DX: Z00.00 Encounter for general adult medical examination without abnormal findings (principal); E78.5 Hyperlipidemia, unspecified; R73.09 Other abnormal glucose
CPT/HCPCS: 36415; 80053; 80061; 82306; 83036; 85025

== ENCOUNTER → 2024-12-20 | Outpatient (CLI) | payer MEDICARE, SELFPAY ==
--- NOTE | 2024-12-20 07:47 | BI_ITS ---
EXAM: SCRN MAMM (CAD)W/PRISCILLA BILAT 12/20/2024 CLINICAL HISTORY: F, Age 69 y/o , SCREENING TECHNIQUE: Bilateral screening digital breast tomosynthesis with 2D and 3D images. Computer aided detection. COMPARISON: Prior exam(s) dated 11/04/2022. FINDINGS: TISSUE DENSITY: The breast tissue is composed of scattered area of fibroglandular density. Bilateral Breast Mammographic Findings: No significant masses, calcifications or other abnormalities are identified. BI/SCRN MAMM (CAD)W/PRISCILLA BILAT IMPRESSION: Right Breast: BIRADS 1 NEGATIVE. Left Breast: BIRADS 1 NEGATIVE. OVERALL FINAL ASSESSMENT: BIRADS 1 NEGATIVE. RECOMMENDATION: Routine annual follow-up in 1 Year A letter with findings and recommendations will be mailed to the patient. Reading Location: [facility]
--- NOTE | 2024-12-20 07:52 | BD_ITS ---
PROCEDURE: DEXA BONE DENSITY STUDY REASON FOR EXAM: None provided TECHNIQUE: DEXA scan of the lumbar spine and bilateral hips, using a Hologic Horizon W unit. REFERENCE LINKS: [facility] Adult Positions COMPARISON: 03/15/2019 ; note that images only are available for review, the report is not available at the time of the dictation.. Measurements obtained are retained by the imaging unit. FINDINGS: LUMBAR SPINE: Bone mineral denisty, L1-L3: 0.938 g/cm??? T-score: -0.7 LEFT FEMORAL NECK: Bone mineral denisty: 0.678 g/cm??? T-score: -1.5 LEFT TOTAL HIP: Bone mineral denisty: 0.789 g/cm??? T-score: -1.3 RIGHT FEMORAL NECK: Bone mineral denisty: 0.696 g/cm??? T-score: -1.4 RIGHT TOTAL HIP: Bone mineral denisty: 0.754 g/cm??? T-score: -1.5 FRAX*: 10 Year Probability of Fracture: Major Osteoporotic Fracture(1): 15.0% Hip Fracture(2): 1.8% *FRAX is a trademark of the [employer]'s [employer] for Metabolic Bone Disease, World Health Organization (WHO) Collaborating [place]. 1-Major Osteoporotic Fracture: Clinical Spine, Forearm, Hip or Shoulder. 2-The 10-year probability of fracture may be lower than reported if the patient has received treatment. The National Osteoporosis Foundation recommends that medical therapy be considered in postmenopausal women and men, age 50 and older, with a: * hip or vertebral fracture * T-score less than or equal to -2.5 in the spine or hip * T-score between -1.0 and -2.5 and FRAX equal to or less than 3 percent for hip fracture or equal to or less than 20 percent for major osteoporotic fracture. World Health Organization criteria for BMD interpretation classify patients as Normal (T-score at or above -1.0), Osteopenic (T-score between -1.0 and -2.5), or Osteoporotic (T-score at or below -2.5). BD/Dexa Bone Density Study IMPRESSION: 1. Osteopenia. 2. Since the prior exam there has been a decrease of 0.108 g/cm??? (10.4 %) in the bone mineral density of the lumbar spine. Although direct comparison may be limited by interval lumbar spinal fusion, the re has also been a decrease of 9.9% in the bone mineral density of the total RIGHT hip. 3. Additional description as above. Reading Location: [id number]
== END | disposition home or self-care (01) ==
PROVIDERS: PCP Family Medicine; Referring Provider Family Medicine; Visit Provider Family Medicine
DX: Z12.31 Encounter for screening mammogram for malignant neoplasm of breast (principal); Z78.0 Asymptomatic menopausal state
CPT/HCPCS: 77063; 77067; 77080

== ENCOUNTER → 2025-05-17 | Outpatient (CLI) | payer MEDICARE, SELFPAY ==
--- NOTE | 2025-05-17 07:11 | MRI_ITS ---
PROCEDURE: SPINE CERVICAL (ROUTINE) 05/17/2025 REASON FOR EXAM: RADICULOPATHY, CERVICAL REGION TECHNIQUE: Procedure Code: MRISPC Modality: MR Procedure: SPINE CERVICAL (ROUTINE) Multiplanar and multisequence images were obtained without IV contrast administration. COMPARISON: MRI cervical spine 09/28/2023. FINDINGS: Vertebrae: Cervical vertebral body heights are preserved. Bone marrow signal is unremarkable. Alignment: Normal. No spondylolisthesis. Spinal Cord: Cervical spinal cord is of normal size and signal intensities. Structures at the foramen magnum are unremarkable. C2-3: Disc osteophyte complex . No foraminal or canal stenosis. C3-4: No significant foraminal or canal stenosis. C4-5: Disc osteophyte complex. Facet joint arthropathy. Mild canal stenosis. No significant foramina stenosis. C5-6: Right paracentral disc osteophyte complex measures 2 mm. Mild bilateral foramina stenosis. Mild canal stenosis. C6-7: No significant foraminal or canal stenosis. C7-T1: Unremarkable MRI/Spine Cervical (Routine) IMPRESSION: No significant progression of degenerative changes compared to MRI 09/28/2023. Mild canal stenosis at C4-C5 and C5-C6. Reading Location: [id number]
--- OUTSIDE RECORDS SUMMARY | 2025-05-17 07:12 | XMS RPT_ITS | CCD ---
Author Organization [facility] Care Team Providers Care Inspector And Tester Name Role Phone Dr. Jorge L Leigh Primary Care Provider Dr. Jorge L Leigh Referring Provider Dr. David Seaman Attending Provider Dr. Kain Sheehan Attending Provider MD Zandra Hardy Primary Care Provider MD Zandra Hardy Referring Provider Dr. Kain Sheehan Attending Provider ADRIAN Montague Attending Provider MD Zandra Hardy Primary Care Provider MD Zandra Hardy Referring Provider Dr. Kain Sheehan Attending Provider ADRIAN Montague Attending Provider Zandra Hardy MD Primary Care Provider Zandra Hardy MD Referring Provider Fahad Montague Attending Provider Silvestre Bar Attending Provider Zandra Hardy MD Attending Provider Zandra Hardy MD Primary Care Provider Zandra Hardy MD Referring Provider Self Schedule, [facility] Attending Provider Clare mitra Parkinson MD, Dr. Vazquez Attending Provider Dr. David Seaman MD Attending Provider Fahad Montague Attending Unavailable Fahad Montague Referring Unavailable Hayley, Chalon Primary Care Unavailable Basali, Ayman Attending Unavailable Basali, Ayman Referring Unavailable Hayley, Chalon Primary Care Unavailable Hayley, Chalon Attending Unavailable Hayley, Chalon Primary Care Unavailable Hayley, Chalon Attending Unavailable Hayley, Chalon Referring Unavailable Hayley, Chalon Primary Care Unavailable Hayley, Chalon Primary Care Unavailable ReJimy patel Attending Unavailable Hayley, Chalon Primary Care Unavailable Fahad Montague Attending Unavailable Hayley, Chalon Referring Unavailable Hayley, Chalon Primary Care Unavailable Silvestre Bañuelos H Attending Unavailable Hayley, Chalon Referring Unavailable Mariela Montalvo Attending Unavailable Hayley, Chalon Referring Unavailable Hayley, Chalon Primary Care Unavailable Hayley, Chalon Referring Unavailable Parkinson, George Attending Unavailable Hayley, Chalon Primary Care Unavailable Urszula, David Attending Unavailable Hayley, Chalon Primary Care Unavailable Fahad Montague Attending Unavailable Hayley, Chalon Primary Care Unavailable Hayley, Chalon Referring Unavailable Hayley, Chalon Primary Care Unavailable Clifton Glass Attending Unavailable Hayley, Chalon Referring Unavailable Hayley, Chalon Primary Care Unavailable Parkinson, George Attending Unavailable Hayley, Chalon Referring Unavailable Hayley, Chalon Primary Care Unavailable Urszula, David Attending Unavailable Allergies Allergy Classification Reported Allergen(s) Allergy Type Date of Onset Reaction(s) Facility (9 sources) Codeine Drug Allergy 2 [facility] (9 sources) Jasper extract Drug Allergy 2 [facility] (9 sources) Melon Allergy to substance 2 [facility] (5 sources) Nonsteroidal Anti-inflammatory Compounds Allergy to substance 4 [facility] Comment on above: Can't take due to th e ulcers. (1 source) Codeine Drug Allergy 5 [facility] (1 source) Jasper extract Drug Allergy 5 [facility] (1 source) Melon Drug allergy (disorder) 5 [facility] (1 source) NSAIDs Drug allergy (disorder) 5 [facility] Medications Current Medications Medication Drug Class(es) Dates Sig (Normalized) Sig (Original) biotin 5 mg oral tablet (3 sources) Start: 07-28-2024 take 1 tablet by mouth once daily Biotin 5 mg tablet Active 5 mg PO daily July 28, 2024 1:00am unsure of dose chlorpheniramine maleate 4 mg oral tablet (6 sources) Histamine-1 Receptor Antagonist Start: 03-25-2021 take 1 tablet by mouth every six hours Chlorpheniramine Maleate (Allergy (Chlorpheniramine)) 4 mg tablet Active 4 MG PO EVERY 6 HOURS March 25, 2021 12:00am cholecalciferol 0.125 mg oral capsule (9 sources) Vitamin D Start: 03-25-2021 take 1 capsule by mouth once daily Cholecalciferol (Vitamin D3) 125 mcg (5,000 unit) capsule Active 125 ug PO DAILY March 25, 2021 12:00am vitamin e 180 mg oral capsule (9 sources) Start: 03-25-2021 take 1 capsule by mouth once daily Vitamin E (Dl, Acetate) 180 mg (400 unit) capsule Active 180 mg PO DAILY March 25, 2021 12:00am Completed/Discontinued Medications Medication Drug Class(es) Dates Sig (Normalized) Sig (Original) acetaminophen 500 mg oral tablet (6 sources) Start: 01-13-2024 End: 12-17-2024 take 1 tablet by mouth every six hours Acetaminophen 500 mg tablet Discontinued 500 mg PO EVERY 6 HOURS 28 7 January 13, 2024 3:07pm December 17, 2024 9:37am Start: 01-12-2024 End: 01-13-2024 take 2 tablets by mouth every six hours as needed for headache Acetaminophen 500 mg tablet Discontinued 1000 mg PO EVERY 6 HOURS as needed for headache January 12, 2024 12:00am January 13, 2024 3:07pm Acetaminophen (Tylenol Extra Strength) 500 mg powder in packet (9 sources) Start: 05-06-2021 End: 12-17-2024 take 500 mg by mouth every six hours as needed for pain Acetaminophen (Tylenol Extra Strength) 500 mg powder in packet Discontinued 500 mg PO EVERY 6 HOURS as needed for Pain May 06, 2021 12:00am December 17, 2024 9:37am Start: 05-06-2021 take 500 mg by mouth every six hours as needed for pain Acetaminophen (Tylenol Extra Strength) 500 mg powder in packet Active 500 mg PO EVERY 6 HOURS as needed for Pain May 06, 2021 12:00am Start: 05-06-2021 take 500 mg by mouth every six hours Acetaminophen (Tylenol Extra Strength) 500 mg powder in packet Active 500 MG PO EVERY 6 HOURS May 05, 2021 11:00pm Start: 05-06-2021 take 500 mg by mouth every six hours Acetaminophen (Tylenol Extra Strength) 500 mg powder in packet Active 500 MG PO EVERY 6 HOURS May 06, 2021 12:00am acetaminophen 250 mg / aspirin 250 mg / caffeine 65 mg oral tablet (9 sources) Platelet Aggregation Inhibitor, Nonsteroidal Anti-inflammatory Drug, Central Nervous System Stimulant, Methylxanthine Start: 09-03-2018 End: 03-31-2019 Oymhiau-Ufrddpocnfkii-Kclodm ne 1 EACH tablet Discontinued 1 NMA PO NEEDED as needed for Headache September 03, 2018 1:00am March 31, 2019 2:54pm Start: 09-03-2018 End: 03-31-2019 Xorbuxp-Egbraazkohdtz-Mxpbwl ne Discontinued 1 EACH PO NEEDED September 03, 2018 1:00am March 31, 2019 2:54pm acetaminophen 325 mg / oxyCODONE hydrochloride 5 mg oral tablet (9 sources) Opioid Agonist Start: 09-10-2018 End: 09-14-2018 Oxycodone-Acetaminophen 1 EA CH tablet Discontinued 1 - 2 NMA PO EVERY 4 HOURS NEEDED as needed for Pain 40 4 September 10, 2018 9:45am September 13, 2018 1:00am September 14, 2018 1:09am Start: 09-10-2018 End: 09-14-2018 Oxycodone-Acetaminophen Disc ontinued 1 - 2 EACH PO EVERY 4 HOURS NEEDED 40 4 September 10, 2018 9:45am September 14, 2018 1:09am amoxicillin 500 mg oral capsule (16 sources) Penicillin-class Antibacterial Start: 12-17-2024 End: 12-27-2024 take 1 capsule by mouth every twelve hours Amoxicillin 500 mg capsule Discontinued 500 mg PO Q12H 20 December 17, 2024 12:00am December 26, 2024 12:00am December 27, 2024 12:07am Start: 09-22-2023 End: 10-02-2023 take 1 capsule by mouth three times daily Amoxicillin 500 mg capsule Discontinued 500 mg PO THREE TIMES A DAY 22 06September 22, 2023 1:00am October 01, 2023 1:00am October 02, 2023 1:05am Start: 06-09-2019 End: 06-23-2019 take 1 capsule by mouth twice daily Amoxicillin 500 mg capsule Discontinued 500 mg PO TWICE A DAY 28 June 09, 2019 12:00am June 22, 2019 12:00am June 23, 2019 12:08am amoxicillin 875 mg / clavulanate 125 mg oral tablet (3 sources) Penicillin-class Antibacterial Start: 07-16-2024 End: 08-15-2024 Amoxicillin-Pot Clavulanate 875-125 mg tablet Discontinued 1 {tbl} PO Q12H July 16, 2024 1:00am August 15, 2024 10:13am ascorbic acid 500 mg oral tablet (9 sources) Vitamin C Start: 03-25-2021 End: 12-30-2023 take 1 tablet by mouth once daily Ascorbic Acid (Vitamin C) 500 mg tablet Discontinued 500 mg PO DAILY March 25, 2021 12:00am December 30, 2023 9:02am azithromycin 250 mg oral tablet (6 sources) Macrolide Antimicrobial Start: 08-15-2024 End: 12-17-2024 Azithromycin 250 mg tablet Discontinued 250 mg PO .COMPLEX September 24, 2024 11:20am December 17, 2024 9:37am 2 tablets (500 mg) on day 1, then 1 tablet daily on days 2 through 11 bismuth subsalicylate 262 mg chewable tablet (18 sources) Bismuth Start: 06-09-2019 End: 06-23-2019 take 1 tablet by mouth every six hours Bismuth Subsalicylate 262 mg tablet,chewable Discontinued 2 {tbl} PO .q 6hrs 112 June 09, 2019 12:00am June 22, 2019 12:00am June 23, 2019 12:08am Start: 04-29-2019 End: 06-09-2019 Bismuth Subsalicylate 525 mg /15 mL suspension Discontinued 525 mg PO .qid 354 April 29, 2019 12:00am June 09, 2019 2:19pm do not exceed 8 doses in a 24 hour period calcium carbonate 1250 mg chewable tablet (3 sources) Start: 12-30-2023 End: 12-17-2024 take 1 tablet by mouth once daily Calcium Carbonate (Calcium 500) 500 mg calcium (1,250 mg) tablet,chewable Discontinued 500 mg PO DAILY December 30, 2023 12:00am December 17, 2024 9:37am cefadroxil 500 mg oral capsule (9 sources) Cephalosporin Antibacterial Start: 09-10-2018 End: 03-31-2019 take 1 capsule by mouth every twelve hours Cefadroxil 500 MG capsule Discontinued 500 mg PO Q12H September 10, 2018 1:00am March 31, 2019 2:54pm celecoxib 200 mg oral capsule (9 sources) Nonsteroidal Anti-inflammatory Drug Start: 03-25-2021 End: 09-17-2023 take 1 capsule by mouth once daily Celecoxib 200 mg capsule Discontinued 200 mg PO DAILY March 25, 2021 12:00am September 17, 2023 3:57pm clarithromycin 500 mg oral tablet (9 sources) Macrolide Antimicrobial Start: 06-09-2019 End: 06-23-2019 take 1 tablet by mouth twice daily Clarithromycin 500 mg tablet Discontinued 500 mg PO TWICE A DAY June 09, 2019 12:00am June 22, 2019 12:00am June 23, 2019 12:08am docusate sodium 100 mg oral capsule (9 sources) Start: 09-10-2018 End: 03-31-2019 take 1 capsule by mouth twice daily Docusate Sodium 100 MG capsule Discontinued 100 mg PO TWICE A DAY September 10, 2018 1:00am March 31, 2019 2:54pm docusate sodium 50 mg / sennosides, senior care 8.6 mg oral tablet (3 sources) Start: 01-13-2024 End: 03-09-2024 Sennosides-Docusate Sodium (Stool Softener-Stimulant Laxat) 8.6-50 mg Tablet Discontinued 2 {tbl} PO TWICE A DAY as needed for constipation 20 03January 13, 2024 3:07pm March 09, 2024 8:18am doxycycline anhydrous 40 mg delayed release oral capsule (9 sources) Tetracycline-class Drug Start: 03-31-2019 End: 06-09-2019 take 1 capsule by mouth once daily Doxycycline Monohydrate (Oracea) 40 mg capsule,IR - delay rel,biphase Discontinued 1 NMA PO DAILY March 31, 2019 12:00am June 09, 2019 2:19pm Echinacea (9 sources) Start: 06-12-2021 End: 12-30-2023 take 2 tablets by mouth once daily at mealtime Echinacea 500 mg capsule Discontinued 0 PO DAILY June 12, 2021 12:00am December 30, 2023 9:02am take 2 tablets of 760mg PO daily; administer with meals Start: 06-12-2021 take 2 tablets by mo uth once daily at mealtime Echinacea Active 0 PO DAILY June 11, 2021 11:00pm take 2 tablets of 760mg PO daily; administer with meals Start: 06-12-2021 take 2 tablets by mo uth once daily at mealtime Echinacea Active 0 PO DAILY June 12, 2021 12:00am take 2 tablets of 760mg PO daily; administer with meals folic acid 0.4 mg / vitamin b12 0.5 mg oral tablet (9 sources) Vitamin B12 Start: 03-25-2021 End: 12-30-2023 take 1 tablet by mouth once daily Vitamin E69-Qvhua Acid 500-400 mcg tablet Discontinued 0 PO DAILY March 25, 2021 12:00am December 30, 2023 9:02am 6,000mcg PO daily; administer with a meal gabapentin 300 mg oral capsule (18 sources) Anti-epileptic Agent Start: 11-28-2020 End: 03-25-2021 Gabapentin 300 mg capsule Discontinued CAPSULE PO November 28, 2020 12:00am March 25, 2021 11:10am Start: 11-28-2020 End: 03-25-2021 Gabapentin Discontinued CAPS ULE PO November 28, 2020 12:00am March 25, 2021 11:10am Start: 02-21-2020 End: 02-27-2020 take 2 capsules by mouth twice daily Gabapentin 100 MG capsule Discontinued 200 mg PO TWICE A DAY February 21, 2020 12:00am February 27, 2020 10:33am Start: 02-21-2020 End: 02-27-2020 take 200 mg by mouth twice daily Gabapentin Discontinu ed 200 MG PO TWICE A DAY February 21, 2020 12:00am February 27, 2020 10:33am hypromellose 5 mg/ml ophthalmic solution (9 sources) Start: 03-31-2019 End: 03-25-2021 Artificial Tears(Hypromellose) 0.5 % drops Discontinued 2 NMA OPHTHALMIC 4 to 8 times per day March 31, 2019 12:00am March 25, 2021 11:10am ibuprofen 600 mg oral tablet (9 sources) Nonsteroidal Anti-inflammatory Drug Start: 04-20-2019 End: 02-21-2020 take 1 tablet by mouth every eight hours as needed for pain Ibuprofen 600 MG tablet Discontinued 600 mg PO Q8H as needed for Pain April 20, 2019 12:00am February 21, 2020 9:29am joint promotion: glucosamine (9 sources) Start: 06-12-2021 End: 12-30-2023 take 3 tablets by mouth once daily joint promotion: glucosamine Discontinued 0 PO DAILY June 12, 2021 12:00am December 30, 2023 9:02am take 3 tablets PO daily; Start: 06-12-2021 take 3 tablets by mo ut once daily joint promotion: glucosamine Active 0 PO DAILY June 11, 2021 11:00pm take 3 tablets PO daily; Start: 06-12-2021 take 3 tablets by mo ut once daily joint promotion: glucosamine Active 0 PO DAILY June 12, 2021 12:00am take 3 tablets PO daily; lansoprazole 30 mg delayed release oral capsule (18 sources) Proton Pump Inhibitor Start: 04-29-2019 End: 06-23-2019 take 1 capsule by mouth twice daily Lansoprazole 30 mg capsule,delayed release(DR/EC) Discontinued 30 mg PO TWICE A DAY June 09, 2019 12:00am June 22, 2019 12:00am June 23, 2019 12:08am linseed oil 1000 mg oral capsule (9 sources) Start: 03-31-2019 End: 12-30-2023 take 1 capsule by mouth once daily Flaxseed Oil 1,000 mg capsule Discontinued 1000 mg PO DAILY March 31, 2019 12:00am December 30, 2023 9:02am Magnesium (9 sources) Start: 06-12-2021 End: 12-17-2024 take 1 tablet by mouth once daily Magnesium 200 mg tablet Discontinued 200 mg PO DAILY June 12, 2021 12:00am December 17, 2024 9:37am Start: 06-12-2021 [facility] Magn[facility] 200 mg tablet Active 200 mg PO DAILY June 12, 2021 12:00am Start: 06-12-2021 take 200 mg by mouth once marylou y Magnesium Active 200 MG PO DAILY June 11, 2021 11:00pm Start: 06-12-2021 take 200 mg by mouth once marylou y Magnesium Active 200 MG PO DAILY June 12, 2021 12:00am methocarbamol 500 mg oral tablet (3 sources) Muscle Relaxant Start: 01-13-2024 End: 03-09-2024 take 1 tablet by mouth three times daily as needed for pain Methocarbamol 500 mg Tablet Discontinued 500 mg PO THREE TIMES A DAY as needed for Pain/spasms 13 03January 13, 2024 3:05pm March 09, 2024 8:18am metroNIDAZOLE 250 mg oral tablet (9 sources) Nitroimidazole Antimicrobial Start: 04-29-2019 End: 06-09-2019 take 1 tablet by mouth four times daily Metronidazole (Flagyl) 250 mg tablet Discontinued 250 mg PO .qid 56 April 29, 2019 12:00am June 09, 2019 2:19pm nitrofurantoin, macrocrystals 25 mg / nitrofurantoin, monohydrate 75 mg oral capsule (3 sources) Nitrofuran Antibacterial Start: 07-04-2024 End: 07-09-2024 take 1 capsule by mouth every twelve hours at mealtime Nitrofurantoin Monohyd/M-Cryst (Macrobid) 100 mg capsule Discontinued 100 mg PO Q12H 05 28July 04, 2024 1:00am July 08, 2024 1:00am July 09, 2024 1:15am must administer with a meal/food ondansetron 4 mg oral tablet (18 sources) Serotonin-3 Receptor Antagonist Start: 02-21-2020 End: 03-25-2021 take 1 tablet by mouth every six hours as needed for nausea Ondansetron Hcl 4 MG tablet Discontinued 4 mg PO EVERY 6 HOURS NEEDED as needed for Nausea February 21, 2020 10:15am March 25, 2021 11:10am Start: 09-10-2018 End: 03-31-2019 take 1 tablet by mouth every eight hours as needed for nausea Ondansetron Hcl 8 MG tablet Discontinued 8 mg PO EVERY 8 HOURS NEEDED as needed for Nausea/Vomiting September 10, 2018 9:42am March 31, 2019 2:54pm oxyCODONE hydrochloride 5 mg oral tablet (12 sources) Opioid Agonist Start: 01-13-2024 End: 01-29-2024 take 2.5-5 mg by mouth every six hours as needed for pain Oxycodone 5 mg Tablet Discontinued 2.5 - 5 mg PO EVERY 6 HOURS as needed for pain 28 7 January 13, 2024 January 29, 2024 8:01am Start: 06-25-2021 End: 09-17-2023 take 5-10 mg by mouth every four hours as needed for pain Oxycodone 5 mg tablet Discontinued 5 - 10 mg PO Q4H as needed for pain 30 June 25, 2021 September 17, 2023 3:57pm pantoprazole 40 mg delayed release oral tablet (18 sources) Proton Pump Inhibitor Start: 02-21-2020 End: 03-25-2021 take 1 tablet by mouth twice daily Pantoprazole 40 MG tablet,delayed release (DR/EC) Discontinued 40 mg PO TWICE A DAY 60 February 27, 2020 10:35am March 25, 2021 11:10am potassium gluconate 2.5 meq oral tablet (9 sources) Start: 06-12-2021 End: 12-17-2024 take 1 tablet by mouth once daily Potassium Gluconate 595 mg (99 mg) tablet Discontinued 595 mg PO DAILY June 12, 2021 12:00am December 17, 2024 9:37am rivaroxaban 10 mg oral tablet (9 sources) Factor Xa Inhibitor Start: 09-10-2018 End: 03-31-2019 take 1 tablet by mouth once daily Rivaroxaban 10 MG tablet Discontinued 10 mg PO DAILY September 10, 2018 1:00am March 31, 2019 2:54pm sucralfate 1000 mg oral tablet (9 sources) Aluminum Complex Start: 02-27-2020 End: 03-25-2021 take 1 tablet by mouth 1 hour(s) before mealtime Sucralfate 1 GM tablet Discontinued 1 g PO ONE HOURS BEFORE MEALS & BED 120 February 27, 2020 12:00am March 25, 2021 11:10am SUMAtriptan 25 mg oral tablet (3 sources) Serotonin-1b and Serotonin-1d Receptor Agonist Start: 12-30-2023 End: 12-17-2024 Sumatriptan Succinate 25 mg tablet Discontinued 25 mg PO NEEDED December 30, 2023 12:00am December 17, 2024 9:37am tetracycline hydrochloride 500 mg oral capsule (9 sources) Tetracycline-class Antimicrobial Start: 04-29-2019 End: 06-09-2019 take 1 capsule by mouth four times daily Tetracycline 500 mg capsule Discontinued 500 mg PO .qid 56 April 29, 2019 12:00am June 09, 2019 2:19pm traMADol hydrochloride 50 mg oral tablet (12 sources) Opioid Agonist Start: 01-21-2024 End: 01-28-2024 take 1 tablet by mouth every eight hours as needed for pain Tramadol 50 mg tablet Discontinued 50 mg PO Q8H as needed for pain 13 03January 21, 2024 12:00am January 27, 2024 12:00am January 28, 2024 12:05am Start: 02-21-2020 End: 02-24-2020 take 1 tablet by mouth every six hours as needed for headache Tramadol 50 MG tablet Discontinued 50 mg PO EVERY 6 HOURS NEEDED as needed for Headache 12 February 21, 2020 10:09am February 23, 2020 12:00am February 24, 2020 12:02am vitamin a 2.4 mg oral capsule (9 sources) Vitamin A Start: 03-25-2021 End: 12-30-2023 Vitamin A 2,400 mcg capsule Discontinued 2400 ug PO DAILY March 25, 2021 12:00am December 30, 2023 9:02am Zinc (9 sources) Start: 06-12-2021 End: 12-30-2023 take 1 tablet by mouth once daily Zinc 50 mg tablet Discontinued 50 mg PO DAILY June 12, 2021 12:00am December 30, 2023 9:00am Start: 06-12-2021 take 50 mg by mouth once daily Zinc Active 50 MG PO DAILY June 11, 2021 11:00pm Start: 06-12-2021 take 50 mg by mouth once daily Zinc Active 50 MG PO DAILY June 12, 2021 12:00am zinc gluconate 50 mg oral tablet (3 sources) Start: 12-30-2023 End: 12-17-2024 take 1 tablet by mouth once daily Zinc Gluconate 50 mg tablet Discontinued 50 mg PO DAILY December 30, 2023 12:00am December 17, 2024 9:37am zolpidem tartrate 5 mg oral tablet (3 sources) gamma-Aminobuty loida Acid-ergic Agonist Start: 01-29-2024 End: 12-17-2024 take 1 tablet by mouth at bedtime as needed Zolpidem 5 mg tablet Discontinued 5 mg PO AT BEDTIME as needed January 29, 2024 12:00am December 17, 2024 9:37am Problems Active Problems Problem Classification Problem Date Documented Da te Episodic/Chronic Abdominal hernia (9 sources) Hiatal hernia; Translations: [Diaphragmatic hernia without obstruction or gangrene] 02-27-2020 Episodic Comment on above: No evidence of esoph agitis on recent EGD done 02/20/[address] Wahl Abdominal pain (9 sources) Epigastric pain; Translations: [Epigastric pain] 02-20-2020 Episodic Acute posthemorrhagic anemia (9 sources) Acute posthemorrhagic anemia; Translations: [Acute posthemorrhagic anemia] 02-20-2020 Episodic Esophageal disorders (9 sources) Gastroesophageal reflux disease; Translations: [Gastro-esophageal reflux disease without esophagitis] 02-20-2020 Chronic Fluid and electrolyte disorders (9 sources) Hypokalemia; Translations: [Hypokalemia] 02-27-2020 Episodic Gastrointestinal hemorrhage (9 sources) Upper gastrointestinal bleeding; Translations: [Gastrointestinal hemorrhage, unspecified] 02-24-2020 Episodic Headache; including migraine (9 sources) Migraine; Translations: [Migraine, unspecified, not intractable, without status migrainosus] 02-24-2020 Chronic Comment on above: most days of the thu Hemorrhoids (9 sources) Hemorrhoids; Translations: [Unspecified hemorrhoids] 02-20-2020 Episodic Joint disorders and dislocations; trauma-related (9 sources) Tear of medial meniscus of knee; Translations: [Other tear of medial meniscus, current injury, unspecified knee, initial encounter] 05-06-2021 Episodic Osteoarthritis (9 sources) Osteoarthritis of right knee joint; Translations: [Unilateral primary osteoarthritis, right knee] 05-06-2021 Chronic Other acquired deformities (9 sources) Spondylolisthesis; Translations: [Spondylolisthesis, site unspecified] 11-29-2020 Episodic Comment on above: L4/L5 Other acquired deformities (17 sources) Degenerative spondylolisthesis; Translations: [Spondylolisthesis, site unspecified] 02-26-2022 Episodic Other acquired deformities (4 sources) Spondylolisthesis, site unspecified; Translations: [Acquired spondylolisthesis] Episodic Other bone disease and musculoskeletal deformities (20 sources) Segmental and somatic dysfunction; Translations: [Segmental and somatic dysfunction of lumbar region] 11-29-2020 Episodic Other connective tissue disease (9 sources) Pain in calf; Translations: [Pain in right lower leg] 07-10-2021 Episodic Other connective tissue disease (3 sources) History of lumbar fusion; Translations: [Arthrodesis status] 01-13-2024 Episodic Other gastrointestinal disorders (9 sources) Dysphagia; Translations: [Dysphagia, unspecified] 02-20-2020 Episodic Other nervous system disorders (18 sources) Acute postoperative pain; Translations: [Other acute postprocedural pain] 06-25-2021 Episodic Other non-traumatic joint disorders (9 sources) Pain in right knee; Translations: [Mechanical pain of right knee] 03-25-2021 Episodic Other nutritional; endocrine; and metabolic disorders (9 sources) Intolerance to lactose; Translations: [Lactose intolerance, unspecified] 03-25-2021 Chronic Other nutritional; endocrine; and metabolic disorders (9 sources) Hypocalcemia; Translations: [Hypocalcemia] 02-27-2020 Chronic Other upper respiratory infections (6 sources) Maxillary sinusitis; Translations: [Chronic maxillary sinusitis] 09-24-2024 Chronic Other upper respiratory infections (11 sources) Acute sinusitis; Translations: [Acute sinusitis, unspecified] Onset: 07-16-2024 Episodic Spondylosis; intervertebral disc disorders; other back problems (17 sources) Degeneration of cervical intervertebral disc; Translations: [Other cervical disc degeneration, unspecified cervical region] 09-17-2023 Chronic Spondylosis; intervertebral disc disorders; other back problems (20 sources) Lumbar radiculopathy; Translations: [Radiculopathy, lumbar region] Onset: 02-26-2022 Episodic Varicose veins of lower extremity (9 sources) Varicose veins of lower extremity; Translations: [Asymptomatic varicose veins of bilateral lower extremities] 07-10-2021 Episodic Past or Other Problems Problem Classification Problem Date Documented Da te Episodic/Chronic Genitourinary symptoms and ill-defined conditions (1 source) Dysuria; Translations: [Dysuria] Onset: 07-05-2024 Episodic Nonspecific chest pain (7 sources) Chest wall pain; Translations: [Other chest pain] Onset: 07-30-2024 07-13-2024 Episodic Other connective tissue disease (1 source) Arthrodesis status; Translations: [Arthrodesis status] Onset: 01-10-2025 Episodic Other infections; including parasitic (9 sources) History of Helicobacter pylori infection; Translations: [Personal history of other infectious and parasitic diseases] Onset: 08-24-2018 02-24-2020 Episodic Comment on above: in the past, recent H. Pylori was negative Other non-traumatic joint disorders (1 source) Pain in unspecified hip; Translations: [Pain in unspecified hip] Onset: 07-28-2024 Episodic Other screening for suspected conditions (not mental disorders or infectious disease) (1 source) Encounter for screening mammogram for malignant neoplasm of breast; Translations: [Encounter for screening mammogram for malignant neoplasm of breast] Onset: 12-26-2024 Episodic Unclassified (9 sources) History cyst removed left thumb 03-12-2022 Urinary tract infections (1 source) Urinary tract infection, site not specified; Translations: [Urinary tract infection, site not specified] Onset: 07-31-2024 Episodic Results Test Name Value Interpretation Reference Range Facility Cerv Spine 4 or 5 Viewson Cerv Spine 4 or 5 Views [facility] Imaging Services [address] [place] [address] [id number] Cerv Spine 4 or 5 Views MR#: [id number] Acct: [id number] Name: ELEN JACBOSON Rep #: [id number] : 1955 F 69 From: Damion Ortiz MD PCP: Dr. Zandra Hardy MD Status: DEP AMB Study: Cerv Spine 4 or 5 Views Date of Exam: 01/10/25 Exam# [id number] Ordering Dr: Eunice Graham PROCEDURE: CERV SPINE 4 OR 5 VIEWS 01/10/2025 REASON FOR EXAM: CHRONIC PAIN TECHNIQUE: Frontal, lateral, flexion, and extension views of the cervical spine COMPARISON: September 01, 2023 FINDINGS: Vertebral body height and alignment are maintained. There is no significant instability demonstrated on the flexion or extension views. There is loss of disc height from C5-T1, similar to the prior. Soft tissues are unremarkable. The facets are aligned. RAD/Cerv Spine 4 or 5 Views IMPRESSION: There is no significant instability demonstrated on the flexion or extension views. There is loss of disc height from C5-T1, similar to the prior. Reading Location: [facility] CC: ADRIAN Berger; Dr. Zandra Hardy MD Shift Supervisor Rn: Signed Normal [facility] Lumbar Spine 2 or 3 Viewson 01-10-2025 Lumbar Spine 2 or 3 Views [facility] Imaging Services [address] [place], [place] [id number] Lumbar Spine 2 or 3 Views MR#: [id number] Acct: [id number] Name: ELEN JACOBSON Rep #: [id number] : 1955 F 69 From: Cory Kumar MD PCP: Dr. Zandra Hardy MD Status: DEP AMB Study: Lumbar Spine 2 or 3 Views Date of Exam: Exam# [id number] Ordering Dr: Eunice Graham PROCEDURE: LUMBAR SPINE 2 OR 3 VIEWS 01/10/2025 REASON FOR EXAM: S/P FUSION TECHNIQUE: 2 view(s) of the lumbar spine COMPARISON: 07/28/2024 FINDINGS: Status post L4-5 intervertebral disc spacer with left lateral L4 anchor screw and bilateral posterior fusion appears intact and anatomic. No significant interval change in alignment. No fracture. The disc spaces appear within limits. RAD/Lumbar Spine 2 or 3 Views IMPRESSION: Status post L4-5 intervertebral disc spacer with left lateral L4 anchor screw and bilateral posterior fusion appears intact and anatomic. No significant interval change in alignment. No fracture. Reading Location: [facility] CC: ADRIAN Berger; Dr. Zandra Hardy MD Shift Supervisor Rn: Signed Normal [facility] Orthopedic Visit Reporton Orthopedic Visit Report [facility] [address] [place] [address] [address] [place] [address] OFFICE VISIT Date of Service: 01/10/25 MR#: [id number] Acct: [id number] Name: ELEN JACOBSON Rep #: [id number] : 1955 Provider: Dr. George Parkinson MD Age/Sex: 69/F Location: [facility] Status: Signed Intake Vital Signs 07/16/24 09:15 12/20/24 07:51 01/10/25 07:58 Height 5 ft 3 in 5 ft 3 in 5 ft 3 in Weight: 167 lb BMI 29.5 Intake Visit Reasons: LUMBAR SPINE Chief Complaint: 1 year post op Accompanied by: Self Is patient in pain?: No Allergies cucumber Allergy (Mild, Verified 01/10/25 08:02) Hives melon Allergy (Mild, Verified 01/10/25 08:02) Hives NSAIDS (Non-Steroidal Anti-Inflamma Allergy (Mild, Verified 01/10/25 08:02) Other codeine Adverse Reaction (Intermediate, Verified 01/10/25 08:02) vomiting Medications ???Medication ???Instructions ???Recorded ???Confirmed ???Type cholecalciferol (vitamin D3) 125 125 mcg PO DAILY SUPPLEMENT 01/10/25 History mcg (5,000 unit) capsule vitamin E (dl, acetate) 180 mg 180 mg PO DAILY SUPPLEMENT 01/10/25 History (400 unit) capsule biotin 5 mg tablet 5 mg PO QDAY 07/28/24 01/10/25 His tory Have you fallen in the past year?: No PFSH Medical History History of stress test History of irregular heartbeat Wears partial dentures Wears glasses History of steroid therapy Arthritis Anemia Restless legs Back pain Migraine headache Blackout History of ulceration History of hiatal hernia Non-smoker Leg cramps History of pain when walking History of edema Lactose intolerance History of Helicobacter pylori infection ( 03/2019) Dysphagia Epigastric pain Hemorrhoids Acid reflux Surgical History Hx of arthroscopy of right knee Hx of foot surgery History of colonoscopy ( 03/2019) History of esophagogastroduodenoscopy (EGD) ( 03/2019) History of section History of right breast biopsy History of section History of dilatation and curettage History of History cyst removed left thumb Family History Mother Diabetes Arthritis Father Heart disease Hypertension Myocardial infarction Social History household members: other details: mother (Merlene) housing: house current occupational status: retired pets and animals: No Smoking Status: Never smoker alcohol intake: never substance use type: does not use what type of physical activity do you participate in: walking frequency: daily do you feel safe at home: Yes HPI LUMBAR SPINE Details: This documentation accurately reflects the service provided and the decisions made by me, Dr. George Parkinson MD 01/10/25 0758. Part of today???s visit was documented by Ryan Holcomb MA, acting as scribe. ELEN JACOBSON is a 69 year old F here today for 1 year post op. Patient thinks she is doing well with her back. Her back gets sore in the lower back area sometimes. Patient states that physical therapy was fine. She states that she hasn't had any injections in her back recently. Patient states that she is also having some neck pain. Patient denies any injections in the neck. The pain goes down both shoulders, but the pain is worse in the left side then the right side. When she is reaching it makes the pain worse. She gets pain in the neck when she reaches up. Patient denies droping any items, or balnce issues. She states that she would like to look in to this more in the fall. Ortho Exam General General: Yes no acute distress Neurologic: Yes alert and Yes oriented x3 Spine SPINE TESTING CERVICAL THORACIC LUMBAR Musculoskeletal Strength 0=absent - 5=normal Details: Examination the back and belly show incisions well-healed. Neurologic motion of lower extremity shows 5 x 5 power normal shows normal sensations in all dermatomes. No midline or paraspinal tenderness. Figure 4 positive on right. Examination of the neck shows right paraspinal tenderness in lower cervical region. Neurologic motion of upper extremity shows 5 x 5 power normal shows normal sensations in all dermatomes. Mona's is negative. Romberg's is negative. Tandem gait shows mild imbalance. There is no hyperreflexia in lower extremities. Coding Level of Care Code Off vis,est,level 4 Diagnoses Status post lumbar spinal fusion Z98.1 Cervical radiculopathy M54.12 Time Spent (min) 35 Assessment and Plan Assessment and Plan (1) Status post lumbar spinal fusion: Status: Acute (2) Cervical radiculopathy: Status: Acute Order (more content not included)... Normal [facility] Dexa Bone Density Studyon Dexa Bone Density Study [facility] Imaging Services [address] [place] [address] Dexa Bone Density Study MR#: [id number] Acct: [id number] Name: ELEN JACOBSON Rep #: [id number] : 1955 F 69 From: Filiberto Romero MD PCP: Dr. Zandra Hardy MD Status: REG CLI Study: Dexa Bone Density Study Date of Exam: 12/20/24 Exam# [id number] Ordering Dr: Zandra Hardy MD PROCEDURE: DEXA BONE DENSITY STUDY REASON FOR EXAM: None provided TECHNIQUE: DEXA scan of the lumbar spine and bilateral hips, using a Hologic Horizon W unit. REFERENCE LINKS: ISCD Adult Positions COMPARISON: 03/15/2019 ; note that images only are available for review, the report is not available at the time of the dictation.. Measurements obtained are retained by the imaging unit. FINDINGS: LUMBAR SPINE: Bone mineral denisty, L1-L3: 0.938 g/cm??? T-score: -0.7 LEFT FEMORAL NECK: Bone mineral denisty: 0.678 g/cm??? T-score: -1.5 LEFT TOTAL HIP: Bone mineral denisty: 0.789 g/cm??? T-score: -1.3 RIGHT FEMORAL NECK: Bone mineral denisty: 0.696 g/cm??? T-score: -1.4 RIGHT TOTAL HIP: Bone mineral denisty: 0.754 g/cm??? T-score: -1.5 FRAX*: 10 Year Probability of Fracture: Major Osteoporotic Fracture(1): 15.0% Hip Fracture(2): 1.8% *FRAX is a trademark of the [employer]'s [place] for Metabolic Bone Disease, World Health Organization (WHO) Collaborating [place]. 1-Major Osteoporotic Fracture: Clinical Spine, Forearm, Hip or Shoulder. 2-The 10-year probability of fracture may be lower than reported if the patient has received treatment. The National Osteoporosis Foundation recommends that medical therapy be considered in postmenopausal women and men, age 50 and older, with a: * hip or vertebral fracture * T-score less than or equal to -2.5 in the spine or hip * T-score between -1.0 and -2.5 and FRAX equal to or less than 3 percent for hip fracture or equal to or less than 20 percent for major osteoporotic fracture. World Health Organization criteria for BMD interpretation classify patients as Normal (T-score at or above -1.0), Osteopenic (T-score between -1.0 and -2.5), or Osteoporotic (T-score at or below -2.5). BD/Dexa Bone Density Study IMPRESSION: 1. Osteopenia. 2. Since the prior exam there has been a decrease of 0.108 g/cm??? (10.4 %) in the bone mineral density of the lumbar spine. Although direct comparison may be limited by interval lumbar spinal fusion, there has also been a decrease of 9.9% in the bone mineral density of the total RIGHT hip. 3. Additional description as above. Reading Location: [facility] CC: Dr. Zandra Hardy MD Shift Supervisor Rn: Signed Normal [facility] SCRN MAMM (CAD)W/PRISCILLA BILATo n 12-20-2024 SCRN MAMM (CAD)W/PRISCILLA BILAT [facility] Imaging Services [address] [place] [address] SCRN MAMM (CAD)W/PRISCILLA BILAT MR#: [id number] Acct: [id number] Name: ELEN JACOBSON Rep #: [id number] : 1955 F 69 From: Socorro Bermudez MD PCP: Dr. Zandra Hardy MD Status: [facility] Study: SCRN MAMM (CAD)W/PRISCILLA BILAT Date of Exam: 11/23 05/18 Exam# [id number] Ordering Dr: Zandra Hardy MD EXAM: SCRN MAMM (CAD)W/PRISCILLA BILAT 12/20/2024 CLINICAL HISTORY: F, Age 69 y/o , SCREENING TECHNIQUE: Bilateral screening digital breast tomosynthesis with 2D and 3D images. Computer aided detection. COMPARISON: Prior exam(s) dated 11/04/2022. FINDINGS: TISSUE DENSITY: The breast tissue is composed of scattered area of fibroglandular density. Bilateral Breast Mammographic Findings: No significant masses, calcifications or other abnormalities are identified. BI/SCRN MAMM (CAD)W/PRISCILLA BILAT IMPRESSION: Right Breast: BIRADS 1 NEGATIVE. Left Breast: BIRADS 1 NEGATIVE. OVERALL FINAL ASSESSMENT: BIRADS 1 NEGATIVE. RECOMMENDATION: Routine annual follow-up in 1 Year A letter with findings and recommendations will be mailed to the patient. Reading Location: [facility] CC: Dr. Zandra Hardy MD Shift Supervisor Rn: Signed Normal [facility] Rapid group A Streptococcus antigen assay at point of careOrdered By: Mariela Mcnamara on 12-17-2024 S. pyogenes Ag IA.rapid Ql (Throat) Positive [facility] Urgent Care Visit Reporton 0 12-17-2024 Urgent Care Visit Report [facility] [address], [address] [place] [address] OFFICE VISIT Date of Service: 12/17/24 MR#: [id number] Acct: [id number] Name: ELEN JACOBSON Rep #: [id number] : 1955 Provider: [facility] Self Schedule Age/Sex: 69/F [place] [facility] [place] Status: Signed Intake Vital Signs 09/24/24 08:28 12/17/24 09:29 Height 5 ft 3 in BP 120/60 Position Sitting Pulse 73 Temp 98.6 F Temp Source Oral Pulse Oximetry (%) 98 Oxygen Delivery Method room air Intake Visit Reasons: SWOLLEN AND SORE THROAT Accompanied by: Self Allergies cucumber Allergy (Mild, Verified 09/24/24 10:02) Hives melon Allergy (Mild, Verified 09/24/24 10:02) Hives NSAIDS (Non-Steroidal Anti-Inflamma Allergy (Mild, Verified 09/24/24 10:02) Other codeine Adverse Reaction (Intermediate, Verified 09/24/24 10:02) vomiting Medications ???Medication ???Instructions ???Recorded ???Confirmed ???Type cholecalciferol (vitamin D3) 125 125 mcg PO DAILY SUPPLEMENT 12/17/24 History mcg (5,000 unit) capsule vitamin E (dl, acetate) 180 mg 180 mg PO DAILY SUPPLEMENT 1 12/17/24 History (400 unit) capsule biotin 5 mg tablet 5 mg PO QDAY 07/28/24 12/17/24 His tory amoxicillin 500 mg capsule 500 mg PO Q12H 10 days #20 caps 12/17/24 Rx Have you fallen in the past year?: No Nurse's Note: Patient has a ST and its swollen this has been going on since /thu. Patient states her neck is tender to touch. Patient also states that when she is laying down she feels like her throat is going to close this is also when she is trying to sleep sitting up. [facility] Medical History History of stress test History of irregular heartbeat Wears partial dentures Wears glasses History of steroid therapy Arthritis Anemia Restless legs Back pain Migraine headache Blackout History of ulceration History of hiatal hernia Non-smoker Leg cramps History of pain when walking History of edema Lactose intolerance History of Helicobacter pylori infection ( 03/2019) Dysphagia Epigastric pain Hemorrhoids Acid reflux Surgical History Hx of arthroscopy of right knee Hx of foot surgery History of colonoscopy ( 03/2019) History of esophagogastroduodenoscopy (EGD) ( 03/2019) History of section History of right breast biopsy History of section History of dilatation and curettage History of History cyst removed left thumb Family History Mother Diabetes Arthritis Father Heart disease Hypertension Myocardial infarction Social History household members: other details: mother (Merlene) housing: house current occupational status: retired pets and animals: No Smoking Status: Never smoker alcohol intake: never substance use type: does not use what type of physical activity do you participate in: walking frequency: daily do you feel safe at home: Yes HPI HPI Details: ELEN JACOBSON, is a 69 F who presents to the office today for evaluation of the above. Patient describes sore throat painful swallowing, congestion slight postnasal drip ongoing since Thursday. She does complain of some cervical lymphadenopathy as well. She denies fever, chills or other constitutional complaint. She does state that her 11-year-old grandson recently was diagnosed with strep pharyngitis. She also admits to some seasonal allergies and has been outdoors over the last few days. Jued-tbk-zpzdzwn medications have not been helpful. She presents for evaluation today. Currently denies headache nausea vomiting. No chest pain or shortness of breath. No hemoptysis. She denies any concern for influenza or COVID at this time and does not want to be tested. She plans on following up with her primary care provider as well. Other than above she denies other complaints. ROS Const Constitutional: No body ache, chills, fatigue, fever(s) or headache(s) Eyes Eyes: No change in vision, irritation or dry eyes ENT ENT: Positive for sore throat; No headache(s) Resp Respiratory: No cough, shortness of breath, stridor or wheezing Cardio Cardiology: No chest pain at rest or chest pain with exertion Gastro GI: No abdominal pain Skin Skin: No rash Neuro Neurology: No headache(s) Endo Endocrine: No fatigue Aller/Imm Allergy/Immunologic: No wheezing Exam Const General: cooperative, healthy appearing, comfortable and no acute distress Orientation: alert, not awake and oriented x3 HENMT Head: normal to inspection Ears: hearing grossly normal bilaterally Nose: external nose normal Face an (more content not included)... Normal [facility] Absolute lymphocyte countOrd ered By: Zandra Hardy on 12-06-2024 Lymphocytes Auto (Unsp spec) [#/Vol] 2.02 10*3/uL 0.83-4.51 [facility] Absolute neutrophil countOrd ered By: Zandra Hardy on 12-06-2024 Neutrophils (Bld) [#/Vol] 2.8 10*3/uL 2.0-7.7 [facility] Anion gap in Serum or Plasma Ordered By: Zandra Hardy on 12-06-2024 Anion gap [Moles/Vol] 10 mmol/L 01-05 [facility] Automated lymphocyte count a s percentage of total leukocytesOrdered By: Zandra Hardy on 12-06-2024 Lymphocytes/100 WBC Auto (Unsp spec) 37.3 % - [facility] BUN/creatinine ratioOrdered By: Zandra Hardy on 12-06-2024 Urea nitrogen/Creatinine [Mass ratio] 30.0 mg/mg High 10- [facility] Basophil percentageOrdered B y: Zandra Hardy on 12-06-2024 Basophils/100 WBC (Bld) 0.4 % 0- [facility] Bilirubin, totalOrdered By: Zandra Hardy on 12-06-2024 Bilirubin [Mass/Vol] 0.32 mg/dL 0.00-1.30 [facility] CBC W/Diff, Automatedon 11-22 Absolute Lymph 2.02 X10 3/uL Normal 0.83-4.51 [facility] Comment on above: Order Comment: Order Date: 12/06/24 Order Info: 0184-1 - CBCD Performed By: #### L 100.0100, L500.4050, L500.4100, L501.9985 #### [facility] [address] [place], [place], [id number] Absolute Neut 2.8 X10 3/uL Normal 2.0-7.7 [facility] Comment on above: Order Comment: Order Date: 12/06/24 Order Info: 0184-1 - CBCD Performed By: #### L 100.0100, L500.4050, L500.4100, L501.9985 #### [facility] [address] [place], [address] Basophils/100 WBC (Bld) 0.4 % Normal 0-1 [facility] Comment on above: Order Comment: Order Date: 12/06/24 Order Info: 0184-1 - CBCD Performed By: #### L 100.0100, L500.4050, L500.4100, L501.9985 #### [facility] [address] [place], [address] Eosinophils/100 WBC (Bld) 3.5 % Normal 0-5 [facility] Comment on above: Order Comment: Order Date: 12/06/24 Order Info: 0184-1 - CBCD Performed By: #### L 100.0100, L500.4050, L500.4100, L501.9985 #### [facility] [address] [place], [address] Erythrocyte distribution width (RBC) [Ratio] 14.4 % Normal 11.6-14.6 [facility] Comment on above: Order Comment: Order Date: 12/06/24 Order Info: 0184-1 - CBCD Performed By: #### L 100.0100, L500.4050, L500.4100, L501.9985 #### [facility] [address] [place], [address] Hematocrit (Bld) [Volume fraction] 42.9 % Normal 37-47 [facility] Comment on above: Order Comment: Order Date: 12/06/24 Order Info: 0184-1 - CBCD Performed By: #### L 100.0100, L500.4050, L500.4100, L501.9985 #### [facility] [address] [place], [address] Hemoglobin (Bld) [Mass/Vol] 14.0 g/dL Normal 12.0-15.0 [facility] Comment on above: Order Comment: Order Date: 12/06/24 Order Info: 0184-1 - CBCD Performed By: #### L 100.0100, L500.4050, L500.4100, L501.9985 #### [facility] [address] [place], [address] IG% 0.400 Normal 0.0-0.9 [facility] Comment on above: Order Comment: Order Date: 12/06/24 Order Info: 0184- - CBCD Result Comment: IG% - Immature Granulocytes (promyelocytes, myelocytes and metamyelocytes) > 1% indicates that a LEFT SHIFT is Present. Performed By: #### L 100.0100, L500.4050, L500.4100, L501.9985 #### [facility] [address] [place], [address] Lymphocytes/100 WBC (Bld) 37.3 % Normal 19-41 [facility] Comment on above: Order Comment: Order Date: 12/06/24 Order Info: 018- - CBCD Performed By: #### L 100.0100, L500.4050, L500.4100, L501.9985 #### [facility] [address] [place], [address] MCH (RBC) [Entitic mass] 28.7 pg Normal 27.0-32.0 [facility] Comment on above: Order Comment: Order Date: 12/06/24 Order Info: 0184- - CBCD Performed By: #### L 100.0100, L500.4050, L500.4100, L501.9985 #### [facility] [address] [place], [address] MCHC (RBC) [Mass/Vol] 32.6 g/dL Normal 32-36 [facility] Comment on above: Order Comment: Order Date: 12/06/24 Order Info: 0184- - CBCD Performed By: #### L 100.0100, L500.4050, L500.4100, L501.9985 #### [facility] [address] [place], [address] MCV (RBC) [Entitic vol] 88.1 fL Normal 81-99 [facility] Comment on above: Order Comment: Order Date: 12/06/24 Order Info: 0184- - CBCD Performed By: #### L 100.0100, L500.4050, L500.4100, L501.9985 #### [facility] [address] [place], [address] Monocytes/100 WBC (Bld) 6.6 % Normal 0-10 [facility] Comment on above: Order Comment: Order Date: 12/06/24 Order Info: 0184-1 - CBCD Performed By: #### L 100.0100, L500.4050, L500.4100, L501.9985 #### [facility] [address] [place], [address] Neutrophils/100 WBC (Bld) 51.8 % Normal 47-70 [facility] Comment on above: Order Comment: Order Date: 12/06/24 Order Info: 0184-1 - CBCD Performed By: #### L 100.0100, L500.4050, L500.4100, L501.9985 #### [facility] [address] [place], [address] Nucleated RBC (Bld) [#/Vol] 0 10*3/uL Normal 0-5 [facility] Comment on above: Order Comment: Order Date: 12/06/24 Order Info: 0184-1 - CBCD Performed By: #### L 100.0100, L500.4050, L500.4100, L501.9985 #### [facility] [address] [place], [address] Platelet mean volume (Bld) [Entitic vol] 12.3 fL High 6.2-12.0 [facility] Comment on above: Order Comment: Order Date: 12/06/24 Order Info: 0184-1 - CBCD Performed By: #### L 100.0100, L500.4050, L500.4100, L501.9985 #### [facility] [address] [place], [address] Platelets (Bld) [#/Vol] 231 10*3/uL Normal 150-450 [facility] Comment on above: Order Comment: Order Date: 12/06/24 Order Info: 0184-1 - CBCD Performed By: #### L 100.0100, L500.4050, L500.4100, L501.9985 #### [facility] [address] [place], [address] RBC (Bld) [#/Vol] 4.87 10*6/uL Normal 4.2-5.4 [facility] Comment on above: Order Comment: Order Date: 12/06/24 Order Info: 0184-1 - CBCD Performed By: #### L 100.0100, L500.4050, L500.4100, L501.9985 #### [facility] [address] [place], [address] RDW SD 46.6 fl High 35.1-43.9 [facility] Comment on above: Order Comment: Order Date: 12/06/24 Order Info: 0184- - CBCD Performed By: #### L 100.0100, L500.4050, L500.4100, L501.9985 #### [facility] [address] [place], [address] WBC (Bld) [#/Vol] 5.4 10*3/uL Normal 4.4-11.0 [facility] Comment on above: Order Comment: Order Date: 12/06/24 Order Info: 0184-1 - CBCD Performed By: #### L 100.0100, L500.4050, L500.4100, L501.9985 #### [facility] [address] [place], [address] Calculated very low density lipoprotein (VLDL) cholesterol measurementOrdered By: Zandra Hardy on 12-06-2024 Calculated very low density lipoprotein (VLDL) cholesterol measurement 20 mg/dL 5-40 [facility] VLDL Cholesterol 20 mg/dL -40 [facility] Carbon dioxide, total [Moles /volume] in Central venous bloodOrdered By: Zandra Hardy on 12-06-2024 CO2 [Moles/Vol] 23.6 mmol/L 21.0-32.0 [facility] Chloride assayOrdered By: Earnest Hardy on 12-06-2024 Chloride [Moles/Vol] 107 mmol/L 98-108 [facility] Comprehensive Metabolic Prof ilon 12-06-2024 Albumin [Mass/Vol] 3.9 g/dL Normal 3.4-4.8 [facility] Comment on above: Order Comment: Order Date: 12/06/24 Order Info: [id number] - CMP Order Info: [id number] - LIPID Performed By: #### L 100.0100, L500.4050, L500.4100, L501.9985 #### [facility] [address] [place], [address] Albumin/Globulin [Mass ratio] 1.5 {ratio} Normal 0.9-2.4 [facility] Comment on above: Order Comment: Order Date: 12/06/24 Order Info: [id number] - CMP Order Info: [id number] - LIPID Performed By: #### L 100.0100, L500.4050, L500.4100, L501.9985 #### [facility] [address] [place], [address] ALK PHOS 59 U/L Normal 35-104 [facility] Comment on above: Order Comment: Order Date: 12/06/24 Order Info: [id number] - CMP Order Info: [id number] - LIPID Performed By: #### L 100.0100, L500.4050, L500.4100, [id number] #### [facility] [address] [place], [address] ALT [Catalytic activity/Vol] 22 U/L Normal <=34 [facility] Comment on above: Order Comment: Order Date: 12/06/24 Order Info: [id number] - CMP Order Info: [id number] - LIPID Performed By: #### L 100.0100, L500.4050, L500.4100, [id number] #### [facility] [address] [place], [address] AST [Catalytic activity/Vol] 27 U/L Normal <=31 [facility] Comment on above: Order Comment: Order Date: 12/06/24 Order Info: [id number] - CMP Order Info: [id number] - LIPID Performed By: #### L 100.0100, L500.4050, L500.4100, [id number] #### [facility] [address] [place], [address] Bilirubin [Mass/Vol] 0.32 mg/dL Normal 0.00-1.30 [facility] Comment on above: Order Comment: Order Date: 12/06/24 Order Info: [id number] - CMP Order Info: [id number] - LIPID Performed By: #### L 100.0100, L500.4050, L500.4100, L501.9985 #### [facility] [address] [place], [address] BUN/CRE 30.0 RATIO High 10-20 [facility] Comment on above: Order Comment: Order Date: 12/06/24 Order Info: [id number] - CMP Order Info: [id number] - LIPID Performed By: #### L 100.0100, L500.4050, L500.4100, L501.9985 #### [facility] [address] [place], [address] Calcium [Mass/Vol] 9.8 mg/dL Normal 7.6-11.0 [facility] Comment on above: Order Comment: Order Date: 12/06/24 Order Info: [id number] - CMP Order Info: [id number] - LIPID Performed By: #### L 100.0100, L500.4050, L500.4100, L501.9985 #### [facility] [address] [place], [place], [id number] Chloride [Moles/Vol] 107 mmol/L Normal 98-108 [facility] Comment on above: Order Comment: Order Date: 12/06/24 Order Info: [id number]- - CMP Order Info: [id number] - LIPID Performed By: #### L 100.0100, L500.4050, L500.4100, L501.9985 #### [facility] [address] [place], [place], [address] CO2 [Moles/Vol] 23.6 mmol/L Normal 21.0-32.0 [facility] Comment on above: Order Comment: Order Date: 12/06/24 Order Info: [id number] - CMP Order Info: [id number] - LIPID Performed By: #### L 100.0100, L500.4050, L500.4100, L501.9985 #### [facility] [address] [place], [place], [address] Creatinine [Mass/Vol] 0.73 mg/dL Normal 0.70-1.20 [facility] Comment on above: Order Comment: Order Date: 12/06/24 Order Info: [id number]- - CMP Order Info: [id number] - LIPID Performed By: #### L 100.0100, L500.4050, L500.4100, L501.9985 #### [facility] [address] [place], [place], [address] GAP 10 Normal 5-15 [facility] Comment on above: Order Comment: Order Date: 12/06/24 Order Info: [id number] - CMP Order Info: [id number] - LIPID Performed By: #### L 100.0100, L500.4050, L500.4100, L501.9985 #### [facility] [address] [place], [place], [id number] [phone] GFR/1.73 sq M.predicted among non-blacks MDRD (S/P/Bld) [Vol rate/Area] 89 mL/min/{1.73_m2} Normal >60 [facility] Comment on above: Order Comment: Order Date: 12/06/24 Order Info: [id number] - CMP Order Info: [id number] - LIPID Result Comment: mL/m in/1.73m2 CKD-EPI Creatinine Equation (2020) Performed By: #### L 100.0100, L500.4050, L500.4100, L501.9985 #### [facility] [address] [place], [address] Globulin (S) [Mass/Vol] 2.7 g/dL Normal 2.2-4.2 [facility] Comment on above: Order Comment: Order Date: 12/06/24 Order Info: [id number] - CMP Order Info: [id number] - LIPID Performed By: #### L 100.0100, L500.4050, L500.4100, L501.9985 #### [facility] [address] [place], [address] Glucose [Mass/Vol] 95 mg/dL Normal 70-99 [facility] Comment on above: Order Comment: Order Date: 12/06/24 Order Info: [id number] - CMP Order Info: [id number] - LIPID Performed By: #### L 100.0100, L500.4050, L500.4100, L501.9985 #### [facility] [address] [place], [address] Potassium [Moles/Vol] 4.7 mmol/L Normal 3.3-5.1 [facility] Comment on above: Order Comment: Order Date: 12/06/24 Order Info: [id number] - CMP Order Info: [id number] - LIPID Performed By: #### L 100.0100, L500.4050, L500.4100, L501.9985 #### [facility] [address] [place], [address] Sodium [Moles/Vol] 141 mmol/L Normal 133-145 [facility] Comment on above: Order Comment: Order Date: 12/06/24 Order Info: [id number] - CMP Order Info: [id number] - LIPID Performed By: #### L 100.0100, L500.4050, L500.4100, L501.9985 #### [facility] [address] [place], [address] T PROT 6.6 g/dL Normal 5.9-8.4 [facility] Comment on above: Order Comment: Order Date: 12/06/24 Order Info: [id number] - CMP Order Info: [id number] - LIPID Performed By: #### L 100.0100, L500.4050, L500.4100, L501.9985 #### [facility] [address] [place], [address] Urea nitrogen [Mass/Vol] 22 mg/dL High 4-19 [facility] Comment on above: Order Comment: Order Date: 12/06/24 Order Info: [id number] - CMP Order Info: [id number] - LIPID Performed By: #### L 100.0100, L500.4050, L500.4100, L501.9985 #### [facility] [address] [place], [address] Eosinophil percentageOrdered By: Zandra Hayley on 12-06-2024 Eosinophils/100 WBC (Bld) 3.5 % 0-5 [facility] Erythrocyte distribution wid th (RBC) [Ratio]Ordered By: Zandra Hardy on 12-06-2024 Erythrocyte distribution width (RBC) [Entitic vol] 46.6 fL High 35.1-43.9 [facility] Erythrocyte distribution wid th ratioOrdered By: Zandra Hayley on 12-06-2024 Erythrocyte distribution width (RBC) [Ratio] 14.4 % 11.6-14.6 [facility] Erythrocyte distribution wid th standard deviationOrdered By: [facility] on 12-06-2024 Erythrocyte distribution width (RBC) [Ratio] 46.6 fl High 35.1-43.9 [facility] [facility] GFR/1.73 sq M.predicted ying g non-blacks MDRD (S/P/Bld) [Vol rate/Area]Ordered By: Zandra Hardy on 12-06-2024 Estimated GFR (MDRD) Non-Af Amer 89 >60 [facility] Comment on above: mL/min/1.73m2 CKD-EP I Creatinine Equation (2020) Glomerular filtration rate ( GFR) estimation/1.73 sq m using serum, plasma, or whole bOrdered By: Zandra Hardy on 12-06-2024 GFR/1.73 sq M.predicted among non-blacks MDRD (S/P/Bld) [Vol rate/Area] 89 mL/min/{1.73_m2} >60 [facility] Comment on above: mL/min/1.73m2 CKD-EP I Creatinine Equation (2020) Hematocrit Auto (Bld) [Volum e fraction]Ordered By: Zandra Hardy on 12-06-2024 Hematocrit (Bld) [Volume fraction] 42.9 % 37-47 [facility] Hemoglobin A1con 12-06-2024 HbA1c (Bld) [Mass fraction] 6.0 % High <=5.6 [facility] Comment on above: Order Comment: Order Date: 12/06/24 Order Info: [id number] - A1C Result Comment: Norm al < 5.7 % Prediabetic 5.7 - 6.4 % Diabetic >or= 6.5 % Please note range changes. Performed By: #### L 100.0100, L500.4050, L500.4100, L501.9985 #### [facility] [address] [place], [place] [address] [place], [address] Hemoglobin A1c percentageOrd ered By: Zandra Hardy on 12-06-2024 HbA1c (Bld) [Mass fraction] 6.0 % High <5.7 [facility] Comment on above: Normal < 5.7 % Predi abetic 5.7 - 6.4 % Diabetic >or= 6.5 % Please note range changes. Hemoglobin measurementOrdere d By: Zandra Hardy on 12-06-2024 Hemoglobin (Bld) [Mass/Vol] 14.0 g/dL 12.0-15.0 [facility] Immature granulocytes/100 WB C Auto (Bld)Ordered By: Zandra Hardy on 12-06-2024 Immature granulocytes/100 WBC (Bld) 0.400 % 0.0-0.9 [facility] Comment on above: IG% - Immature Granu locytes (promyelocytes, myelocytes and metamyelocytes) > 1% indicates that a LEFT SHIFT is Present. LDL calc ser/plasOrdered By: Zandra Hardy on 12-06-2024 Cholesterol in LDL [Mass/Vol] 124 mg/dL [facility] Comment on above: Dmzhojhtmj=276-691 m g/dL & Higher Esyj=949 mg/dL or greater LDL Cholesterol, Calculated 124 mg/dL [facility] Comment on above: Ykapbcilpw=615-490 m g/dL & Higher Lfzb=667 mg/dL or greater Laboratory - Chemistry and C hemistry - challengeOrdered By: Zandra Hardy on 12-06-2024 AST [Catalytic activity/Vol] 27 U/L <32 [facility] Lipid Profileon 12-06-2024 CHOL:HDL 3.47 Normal [facility] Comment on above: Order Comment: Order Date: 12/06/24 Order Info: [id number] - CMP Order Info: [id number] - LIPID Performed By: #### L 100.0100, L500.4050, L500.4100, L501.9985 #### [facility] [address] [place], [address] Cholesterol [Mass/Vol] 202 mg/dL High <=200 [facility] Comment on above: Order Comment: Order Date: 12/06/24 Order Info: [id number] - CMP Order Info: [id number] - LIPID Result Comment: Chol esterol level, Desirable <200 mg/dL Borderline high cholesterol 200-239 mg/dL High cholesterol >=240 mg/dL Recommendations of the NCEP Adult Treatment Panel for the following risk-cutoff thresholds for the [place] population. Performed By: #### L 100.0100, L500.4050, L500.4100, L501.9985 #### [facility] [address] [place], [address] Cholesterol in HDL [Mass/Vol] 58 mg/dL Normal [facility] Comment on above: Order Comment: Order Date: 12/06/24 Order Info: [id number] - CMP Order Info: [id number] - LIPID Result Comment: Stephanie onal Cholesterol Education Program (NCEP) guidelines: <40 mg/dL: Low HDL-cholesterol (major risk factor for CHD) >= 60 mg/dL: High HDL-cholesterol (negative risk factor for CHD) HDL-cholesterol is affected by a number of factors, e.g. smoking, exercise, hormones, sex and age. Performed By: #### L 100.0100, L500.4050, L500.4100, L501.9985 #### [facility] [address] [place], [address] Cholesterol in LDL [Mass/Vol] 124 mg/dL Normal [facility] Comment on above: Order Comment: Order Date: 12/06/24 Order Info: [id number]- - CMP Order Info: [id number] - LIPID Result Comment: Bord tamwfd=041-290 mg/dL Higher Kdoj=891 mg/dL or greater Performed By: #### L 100.0100, L500.4050, L500.4100, L501.9985 #### [facility] [address] [place], [address] Cholesterol in VLDL [Mass/Vol] 20 mg/dL Normal 5-40 [facility] Comment on above: Order Comment: Order Date: 12/06/24 Order Info: [id number] - CMP Order Info: [id number] - LIPID Performed By: #### L 100.0100, L500.4050, L500.4100, L501.9985 #### [facility] [address] [place], [address] Triglyceride [Mass/Vol] 99 mg/dL Normal [facility] Comment on above: Order Comment: Order Date: 12/06/24 Order Info: [id number] - CMP Order Info: [id number] - LIPID Result Comment: The drugs N-Acetylcysteine and Metamizole may falsely depress this assay. Normal range: <150 mg/dL Borderline High: 150-199 mg/dL High: 200-499 mg/dL Very High: >500 mg/dL Performed By: #### L 100.0100, L500.4050, L500.4100, L501.9985 #### [facility] [address] [place], [address] Lymphocytes Auto (Unsp spec) [#/Vol]Ordered By: Zandra Hardy on 12-06-2024 Lymphocytes (Bld) [#/Vol] 2.02 10*3/uL 0.83-4.51 [facility] Lymphocytes/100 WBC Auto (Un sp spec)Ordered By: Zandra Hardy on 12-06-2024 Lymphocytes/100 WBC (Bld) 37.3 % 19-41 [facility] MCV (mean corpuscular volume ) determinationOrdered By: Zandra Hardy on 12-06-2024 MCV (RBC) [Entitic vol] 88.1 fL 81-99 [facility] Mean corpuscular hemoglobin (MCH) determinationOrdered By: [facility] Hayley on 12-06-2024 MCH (RBC) [Entitic mass] 28.7 pg 27.0-32.0 [facility] Mean corpuscular hemoglobin concentration (MCHC) determinationOrdered By: [facility] on 12-06-2024 MCHC (RBC) [Mass/Vol] 32.6 g/dL 32-36 [facility] Mean platelet volume determi nationOrdered By: Zandra Hardy on 12-06-2024 Platelet mean volume (Bld) [Entitic vol] 12.3 fL High 6.2-12.0 [facility] Monocyte percentageOrdered B y: Zandra Hardy on 12-06-2024 Monocytes/100 WBC (Bld) 6.6 % 0-10 [facility] Neutrophil percentageOrdered By: Zandra Hardy on 12-06-2024 Neutrophils/100 WBC (Bld) 51.8 % 47-70 [facility] Nucleated red blood cell per centageOrdered By: Zandra Hardy on 12-06-2024 Nucleated RBC/100 WBC (Bld) [Ratio] 0 % 0-5 [facility] Platelet countOrdered By: Earnest Hardy on 12-06-2024 Platelets (Bld) [#/Vol] 231 10*3/uL 150-450 [facility] Potassium (Unsp spec) [Mass/ Vol]Ordered By: Zandra Hardy on 12-06-2024 Potassium [Moles/Vol] 4.7 mmol/L 3.3-5.1 [facility] Potassium measurement (mass/ volume)Ordered By: Zandra Hardy on 12-06-2024 Potassium (Unsp spec) [Mass/Vol] 4.7 mmol/L 3.3-5.1 [facility] RBC Auto (Bld) [#/Vol]Ordere d By: Zandra Hardy on 12-06-2024 RBC (Bld) [#/Vol] 4.87 10*6/uL 4.2-5.4 [facility] Screening total cholesterol/ high density lipoprotein (HDL) cholesterol ratioOrdered By: Zandra Hardy on 12-06-2024 Cholesterol.total/Cho lesterol in HDL [Mass ratio] 3.47 {ratio} [facility] Serum creatinine measurement (mass/volume)Ordered By: Zandra Hardy on 12-06-2024 Creatinine [Mass/Vol] 0.73 mg/dL 0.70-1.20 [facility] Serum globulin measurementOr dered By: Zandra Hardy on 12-06-2024 Globulin (S) [Mass/Vol] 2.7 g/dL 2.2-4.2 [facility] Serum glucose measurement (m ass/volume)Ordered By: Zandra Hardy on 12-06-2024 Glucose [Mass/Vol] 95 mg/dL 70-99 [facility] Serum or plasma alanine mercer otransferase (ALT) measurementOrdered By: Zandra Hardy 12-06-2024 ALT [Catalytic activity/Vol] 22 U/L <35 [facility] Serum or plasma albumin edith urement (mass/volume)Ordered By: Zandra Hardy on 12-06-2024 Albumin [Mass/Vol] 3.9 g/dL 3.4-4.8 [facility] Serum or plasma albumin/glob ulin mass ratioOrdered By: Zandra Hardy on 12-06-2024 Albumin/Globulin [Mass ratio] 1.5 {ratio} 0.9-2.4 [facility] Serum or plasma alkaline david sphatase measurementOrdered By: Zandra Hardy on 12-06-2024 ALP [Catalytic activity/Vol] 59 U/L 35-104 [facility] Serum or plasma calcium edith urement (mass/volume)Ordered By: Zandra Hardy on 12-06-2024 Calcium [Mass/Vol] 9.8 mg/dL 7.6-11.0 [facility] Serum or plasma cholesterol in HDL measurement (mass/volume)Ordered By: Zandra Hardy on 12-06-2024 Cholesterol in HDL [Mass/Vol] 58 mg/dL >40 [facility] Comment on above: National Cholesterol Education Program (NCEP) guidelines:<40 mg/dL: Low HDL-cholesterol (major risk factor for CHD)>= 60 mg/dL: High HDL-cholesterol (negative risk factor for CHD)HDL-cholesterol is affected by a number of factors, e.g. smoking, exercise, hormones, sex and age. Serum or plasma cholesterol measurement (mass/volume)Ordered By: Zandra Hardy on 12-06-2024 Cholesterol [Mass/Vol] 202 mg/dL High <201 [facility] Comment on above: Cholesterol level, D esirable <200 mg/dLBorderline high cholesterol 200-239 mg/dLHigh cholesterol >=240 mg/dLRecommendations of the NCEP Adult Treatment Panel for the following risk-cutoff thresholds for the [place] population. Serum or plasma urea nitroge n measurement (mass/volume)Ordered By: Zandra Hardy on 12-06-2024 Urea nitrogen [Mass/Vol] 22 mg/dL High 4-19 [facility] Sodium levelOrdered By: Willard Hardy on 12-06-2024 Sodium [Moles/Vol] 141 mmol/L 133-145 [facility] Total proteinOrdered By: Monalisa Hardy on 12-06-2024 Protein [Mass/Vol] 6.6 g/dL 5.9-8.4 [facility] Triglycerides measurementOrd ered By: Zandra Hardy on 12-06-2024 Triglyceride [Mass/Vol] 99 mg/dL <199 [facility] Comment on above: The drugs N-Acetylcy steine and Metamizole may falsely depress this assay. Normal range: <150 mg/dLBorderline High: 150-199 mg/dLHigh: 200-499 mg/dLVery High: >500 mg/dL Vitamin D, 25-hydroxyOrdered By: Zandra Hardy on 12-06-2024 Vitamin D 25-Hydroxy 44.3 ng/mL 30-100 [facility] Comment on above: Vitamin D StatusDefi ciency: <20 ng/mL (50nmol/L)Insufficiency: 20-30 ng/mL (50-75 nmol/L)Sufficiency: 30-100 ng/mL (75-250 nmol/L)Toxicity: >100 ng/mL (>250 nmol/L) Vitamin D,25 Hydroxyon 12-06 Vitamin D 25-OH 44.3 ng/mL Normal 30-100 [facility] Comment on above: Order Comment: Order Date: 12/06/24 Order Info: [id number] - CMP Order Info: [id number] - LIPID Result Comment: Claudia min D Status Deficiency: <20 ng/mL (50nmol/L) Insufficiency: 20-30 ng/mL (50-75 nmol/L) Sufficiency: 30-100 ng/mL (75-250 nmol/L) Toxicity: >100 ng/mL (>250 nmol/L) Performed By: #### L 506.1001 #### [facility] [place], [address] White blood cell (WBC) count Ordered By: Zandra Hardy on 12-06-2024 WBC (Bld) [#/Vol] 5.4 10*3/uL 4.4-11.0 [facility] Urgent Care Visit Reporton 0 09-24-2024 Urgent Care Visit Report [facility] [address], [address] [place] [address] OFFICE VISIT Date of Service: 09/24/24 MR#: [id number] Acct: [id number] Name: SALUDMILLICENTELEN Rep #: [id number] : 1955 Provider: [employer] Silvestre H Jeannie f Age/Sex: 69/F Location: [facility] Status: Signed Intake Vital Signs 07/16/24 09:15 09/24/24 10:02 Height 5 ft 3 in Weight: 172 lb BMI 30.4 BP 132/80 H 112/70 Blood Pressure Location Rt brachial Position Sitting Respiration 12 Pulse 83 72 Pulse Source NIBP Temp 98.4 F 97.6 F L Temp Source Oral Oral Pulse Oximetry (%) 96 98 Oxygen Delivery Method room air room air Intake Visit Reasons: SINUS INFECTION Chief Complaint: sinus pressure and congestion Allergies cucumber Allergy (Mild, Verified 09/24/24 10:02) Hives melon Allergy (Mild, Verified 09/24/24 10:02) Hives NSAIDS (Non-Steroidal Anti-Inflamma Allergy (Mild, Verified 09/24/24 10:02) Other codeine Adverse Reaction (Intermediate, Verified 09/24/24 10:02) vomiting Have you fallen in the past year?: No PFSH Medical History History of stress test History of irregular heartbeat Wears partial dentures Wears glasses History of steroid therapy Arthritis Anemia Restless legs Back pain Migraine headache Blackout History of ulceration History of hiatal hernia Non-smoker Leg cramps History of pain when walking History of edema Lactose intolerance History of Helicobacter pylori infection ( 03/2019) Dysphagia Epigastric pain Hemorrhoids Acid reflux Surgical History Hx of arthroscopy of right knee Hx of foot surgery History of colonoscopy ( 03/2019) History of esophagogastroduodenoscopy (EGD) ( 03/2019) History of section History of right breast biopsy History of section History of dilatation and curettage History of History cyst removed left thumb Family History Mother Diabetes Arthritis Father Heart disease Hypertension Myocardial infarction Social History household members: other details: mother (Merlene) housing: house current occupational status: retired pets and animals: No Smoking Status: Never smoker alcohol intake: never substance use type: does not use what type of physical activity do you participate in: walking frequency: daily do you feel safe at home: Yes HPI HPI Chief Complaint: sinus pressure and congestion Details: ELEN JACOBSON, is a 69 F who presents to the office today for concern for sinus infection has been on and off since June 2024. She has been taking antibiotics and OTC medications. She has received Augmentin and Zithromax. ROS Const Constitutional: Positive for headache(s) and abnormal sleep pattern (sinus drainage keeps he up and chronic back issues); No body ache, chills, fatigue, fever(s) or change in appetite Eyes Eyes: Positive for discharge (watery); No blurry vision, change in vision, double vision, irritation, vision loss, dry eyes, bulging eyes, floaters, visual disturbances, eye pain, Light sensitivity, spots in vision, tunnel vision or other ENT ENT: Positive for nasal congestion, sinus pressure, sinus pain, nasal discharge (Clear), post nasal drip, headache(s), hoarseness and sore throat; No ear or mastoid pain, ear discharge, ear pressure, tinnitus, dizziness/vertigo, nosebleed/epistaxis, nose pain, facial pain, dental pain, difficulty swallowing, bad breath, lip swelling, mouth lesions, mouth pain, neck pain, tongue swelling or throat swelling Resp Respiratory: Positive for cough Cough: Yes non-productive; No change in phlegm color, chest congestion, hemoptysis, pain on inspiration, shortness of breath, pain with cough, stridor or wheezing Cardio Cardiology: No chest pain at rest, chest pain with exertion, shortness of breath, dyspnea on exertion or lightheadedness Gastro GI: No abdominal pain, change in bowel habits, constipation, diarrhea, difficulty swallowing, nausea/dyspepsia or vomiting Genitourinary-Female: No burning urination or urinary frequency Musc Musculoskeletal: No joint pain or neck pain Skin Skin: No rash Neuro Neurology: Positive for headache(s); No visual disturbances Psych Psychiatric: Positive for abnormal sleep pattern (sinus drainage keeps he up and chronic back issues) and No change in appetite Endo Endocrine: No fatigue Aller/Imm Allergy/Immunologic: No lip swelling, throat swelling, tongue swelling or wheezing Exam Const General: cooperative, healthy appearing, comfortable and no acute distress Orientation: alert, awake and oriented x3 HENMT Head: (more content not included)... Normal [facility] Urgent Care Visit Reporton 1 10-16-2023 Urgent Care Visit Report [facility] [address], [address] [place] [id number] OFFICE VISIT Date of Service: 08/15/24 MR#: [id number] Acct: [id number] Name: ELEN JACOBSON Rep #: [id number] : 1955 Provider: ADRIAN Kelly Age/Sex: 68/F [place] [facility] [place]: Signed Intake Vital Signs 07/16/24 09:15 08/15/24 09:11 Height 5 ft 3 in Weight: 172 lb BMI 30.4 BP 132/80 H 118/70 Blood Pressure Location Lt brachial Position Sitting Respiration 12 Pulse 83 83 Pulse Source NIBP Temp 98.4 F 97.4 F L Temp Source Oral Oral Pulse Oximetry (%) 96 98 Oxygen Delivery Method room air room air Intake Visit Reasons: SINUS COMP/ST Chief Complaint: sinus pressure and drainage and sore throat 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 Is patient in pain?: No Allergies cucumber Allergy (Mild, Verified 08/15/24 09:12) Hives melon Allergy (Mild, Verified 08/15/24 09:12) Hives NSAIDS (Non-Steroidal Anti-Inflamma Allergy (Mild, Verified 08/15/24 09:12) Other codeine Adverse Reaction (Intermediate, Verified 08/15/24 09:12) vomiting Medications ???Medication ???Instructions ???Recorded ???Confirmed ???Type cholecalciferol (vitamin D3) 125 125 mcg PO DAILY SUPPLEMENT 03/25/21 08/15/24 History mcg (5,000 unit) capsule vitamin E (dl, acetate) 180 mg 180 mg PO DAILY SUPPLEMENT 03/25/21 08/15/24 History (400 unit) capsule acetaminophen 500 mg oral powder 500 mg PO Q6H PRN Pain 05/06/21 08/15/24 History packet (Tylenol Extra Strength) magnesium 200 mg tablet 200 mg PO DAILY SUPPLEMENT 06/12/21 08/15/24 History potassium gluconate 595 mg (99 mg) 595 mg PO DAILY SUPPLEMENT 06/12/21 08/15/24 History tablet calcium carbonate (Calcium 500) 500 mg PO DAILY SUPPLEMENT 12/30/23 08/15/24 History sumatriptan succinate 25 mg tablet 25 mg PO PRN MIGRAINES 12/30/23 08/15/24 History zinc gluconate 50 mg tablet 50 mg PO DAILY SUPPLEMENT 12/30/23 08/15/24 History acetaminophen 500 mg tablet 500 mg PO Q6H 7 days #28 tabs 01/13/24 08/15/24 Rx zolpidem 5 mg tablet 5 mg PO QHS PRN 01/29/24 08/15/24 History biotin 5 mg tablet 5 mg PO QDAY 07/28/24 08/15/24 History azithromycin 250 mg tablet 250 mg PO .COMPLEX #12 tabs 08/15/24 08/15/24 Rx Is last menstrual period known: No Post menopausal: Yes Patient : No Have you fallen in the past year?: No Nurse's Note: patient here for continuation of sinus pressure and drainage and sore throat since Thursday. [facility] Medical History History of stress test History of irregular heartbeat Wears partial dentures Wears glasses History of steroid therapy Arthritis Anemia Restless legs Back pain Migraine headache Blackout History of ulceration History of hiatal hernia Non-smoker Leg cramps History of pain when walking History of edema Lactose intolerance History of Helicobacter pylori infection ( 03/2019) Dysphagia Epigastric pain Hemorrhoids Acid reflux Surgical History Hx of arthroscopy of right knee Hx of foot surgery History of colonoscopy ( 03/2019) History of esophagogastroduodenoscopy (EGD) ( 03/2019) History of section History of right breast biopsy History of section History of dilatation and curettage History of History cyst removed left thumb Family History Mother Diabetes Arthritis Father Heart disease Hypertension Myocardial infarction Social History household members: other details: mother (Merlene) housing: house current occupational status: retired pets and animals: No Smoking Status: Never smoker alcohol intake: never substance use type: does not use what type of physical activity do you participate in: walking frequency: daily do you feel safe at home: Yes HPI HPI Chief Complaint: sinus pressure and drainage and sore throat Details: ELEN JACOBSON, is a 68 F who presents to the office today [facility] for approximately 5-week history of progressively worsening facial pressure/congestion with purulent postnasal drip/cough and bilateral ear pressure, noting he was treated about 4 weeks ago here at the [facility] by another medical provider with 1 weeks worth of Augmentin, stating symptoms had partially resolved though never fully resolved and is progressively worsened particularly over the last week. Non-smoker. No complaints of fever, chills, myalgias, fatigue, runny nose, or nausea/vomiting/diarrhea. No complaints of chest pain/shortness of breath/dyspnea on exertion. No close contacts with similar complaints. No other associated symptoms and no other (more content not included)... Normal [facility] HIP, UNI W/ Pelvis 2-3 Views on 07-28-2024 HIP, UNI W/ Pelvis 2-3 Views [facility] [address] [place] [address] HIP, UNI W/ Pelvis 2-3 Views MR#: [id number] Acct: [id number] Name: ELEN JACOBSON Rep #: [id number] : 1955 F 68 From: John Sweeney MD PCP: Dr. Zandra Hardy MD Status: DEP AMB Study: HIP, UNI W/ Pelvis 2-3 Views Date of Exam: 01/14 Exam# [id number] Ordering Dr: Eunice Graham [id number] EXAM: XR RIGHT HIP WITH PELVIS WHEN PERFORMED, 2 OR 3 VIEWS CLINICAL INDICATION: hip pain TECHNIQUE: Two or three views of the right hip with pelvis when performed. COMPARISON: No relevant prior studies available. FINDINGS: BONES/JOINTS: Unremarkable. No displaced fracture. No destructive or sclerotic lesions. Note that overlapping bowel shadows may however obscure fine detail. Sacroiliac joint is unremarkable. No widening of the pubic symphysis. The articular structures are unremarkable. SOFT TISSUES: Unremarkable. No soft tissue swelling or gas. RAD/HIP, UNI W/ Pelvis 2-3 Views IMPRESSION: No evidence of displaced pelvic or hip fracture. Electronically Signed: John Sweeney MD at 23:51 EST , CC: ADRIAN Berger; Dr. Zandra Hardy MD Shift Supervisor Rn: Signed [facility] Lumbar Spine 2 or 3 Viewson 07-28-2024 Lumbar Spine 2 or 3 Views [facility] [address] [place] [address] Lumbar Spine 2 or 3 Views MR#: [id number] Acct: [id number] Name: ELEN JACOBSON Rep #: [id number] : 1955 F 68 From: John Sweeney MD PCP: Dr. Zandra Hardy MD Status: DEP AMB Study: Lumbar Spine 2 or 3 Views Date of Exam: Exam# [id number] Ordering Dr: Eunice Graham [id number] EXAM: XR LUMBOSACRAL SPINE, 2 OR 3 VIEWS CLINICAL INDICATION: s/p fusion -- please do upright AP and LAT TECHNIQUE: Frontal and lateral views of the lumbar spine and sacrum. COMPARISON: No relevant prior studies available. FINDINGS: VERTEBRAE: There is a posterior fusion at L4-5. Preserved vertebral body height. No fracture. No spondylolisthesis. Preservation of the normal lumbar lordosis. No significant facet arthropathy. DISC SPACES: See above. GASTROINTESTINAL TRACT: Unremarkable as visualized. Included bowel gas pattern is non-obstructive. RAD/Lumbar Spine 2 or 3 Views IMPRESSION: No acute osseous abnormalities. Posterior fusion of L4-5 with hardware in good position. Electronically Signed: John Sweeney MD at 23:52 EST , CC: ADRIAN Berger; Dr. Zandra Hardy MD Shift Supervisor Rn: Signed [facility] Orthopedic Visit Reporton Orthopedic Visit Report [facility] [facility] [address] [place] [address] OFFICE VISIT Date of Service: 07/28/24 MR#: [id number] Acct: [id number] Name: ELEN JACOBSON Rep #: [id number] : 1955 Provider: Dr. George Parkinson MD Age/Sex: 68/F [place] [facility] [place] Status: Signed Intake Vital Signs 01/12/24 15:12 07/16/24 09:15 Height 5 ft 3 in 5 ft 3 in Intake Visit Reasons: LUMBAR SPINE Accompanied by: Self Is patient in pain?: Yes (Right hip ) Pain scale (1-10): 5 Allergies cucumber Allergy (Mild, Verified 07/28/24 08:00) Hives melon Allergy (Mild, Verified 07/28/24 08:00) Hives NSAIDS (Non-Steroidal Anti-Inflamma Allergy (Mild, Verified 07/28/24 08:00) Other codeine Adverse Reaction (Intermediate, Verified 07/28/24 08:00) vomiting Medications ???Medication ???Instructions ???Recorded ???Confirmed ???Type cholecalciferol (vitamin D3) 125 125 mcg PO DAILY SUPPLEMENT 03/25/21 07/28/24 History mcg (5,000 unit) capsule vitamin E (dl, acetate) 180 mg 180 mg PO DAILY SUPPLEMENT 03/25/21 07/28/24 History (400 unit) capsule acetaminophen 500 mg oral powder 500 mg PO Q6H PRN Pain 05/06/21 07/28/24 History packet (Tylenol Extra Strength) magnesium 200 mg tablet 200 mg PO DAILY SUPPLEMENT 06/12/21 07/28/24 History potassium gluconate 595 mg (99 mg) 595 mg PO DAILY SUPPLEMENT 06/12/21 07/28/24 History tablet calcium carbonate (Calcium 500) 500 mg PO DAILY SUPPLEMENT 12/30/23 07/28/24 History sumatriptan succinate 25 mg tablet 25 mg PO PRN MIGRAINES 12/30/23 07/28/24 History zinc gluconate 50 mg tablet 50 mg PO DAILY SUPPLEMENT 12/30/23 07/28/24 History acetaminophen 500 mg tablet 500 mg PO Q6H 7 days #28 tabs 01/13/24 07/28/24 Rx zolpidem 5 mg tablet 5 mg PO QHS PRN 01/29/24 07/28/24 History amoxicillin 875 mg-potassium 1 tab PO Q12H #14 tabs 07/16/24 07/28/24 Rx clavulanate 125 mg tablet biotin 5 mg tablet 5 mg PO QDAY 07/28/24 07/28/24 History Have you fallen in the past year?: No PFSH Medical History History of stress test History of irregular heartbeat Wears partial dentures Wears glasses History of steroid therapy Arthritis Anemia Restless legs Back pain Migraine headache Blackout History of ulceration History of hiatal hernia Non-smoker Leg cramps History of pain when walking History of edema Lactose intolerance History of Helicobacter pylori infection ( 03/2019) Dysphagia Epigastric pain Hemorrhoids Acid reflux Surgical History Hx of arthroscopy of right knee Hx of foot surgery History of colonoscopy ( 03/2019) History of esophagogastroduodenoscopy (EGD) ( 03/2019) History of section History of right breast biopsy History of section History of dilatation and curettage History of History cyst removed left thumb Family History Mother Diabetes Arthritis Father Heart disease Hypertension Myocardial infarction Social History household members: other details: mother (Merlene) housing: house current occupational status: retired pets and animals: No Smoking Status: Never smoker alcohol intake: never substance use type: does not use what type of physical activity do you participate in: walking frequency: daily do you feel safe at home: Yes HPI LUMBAR SPINE Details: This documentation accurately reflects the service provided and the decisions made by me, Dr. George Parkinson MD 07/28/24 0756. Part of today???s visit was documented by Evette DARDEN, acting as scribe. ELEN JACOBSON is a 68 year old F here today for f/u on her lumbar spine dos: 01/12/24, L4-5 posterior percutaneous pedicle screw instrumented fusion. Patient states her back is good most of the time occasional if she has a over stresses day she feels like a pulling. Patient does where her bone stimulator belt thing everyday. Patient has complete PT at [facility]. Patient states she is having pain in her Right hip. Patient states that is bothers her sometimes when she goes to stand up. Patient has tried ice and heat and nothing seems to help. Patient states some days are worse then others. Patient can't lay on her right side for long. She states about 10 mins into laying on her side she will get pain. Her pain is down her right buttock and hamstring to her knee. Ortho Exam General General: Yes no acute distress Neurologic: Yes alert and Yes oriented x3 Spine SPINE TESTING CERVICAL THORACIC LUMBAR Musculoskeletal Strength 0=absent - 5=normal Details: Examination the back and belly show incisions well-healed. Neurologic motion (more content not included)... Normal [facility] Office Visit Reporton 2023 Office Visit Report [facility] [address] [place] [address] OFFICE VISIT Date of Service: 07/16/24 MR#: [id number] Acct: [id number] Patient: ELEN JACOBSON Rep #: [id number] : 1955 Provider: ADRIAN Jones Age/Sex: 68/F [place] [facility] [place] Status: Signed Intake Vital Signs 07/05/24 17:35 07/16/24 08:38 07/16/24 09:15 Height 1.6 m 1.6 m 1.6 m Weight: 78.018 kg BMI 30.4 BP 132/80 H Pulse 83 Temp 98.4 F Temp Source Oral Pulse Oximetry (%) 96 Oxygen Delivery Method room air Intake Visit Reasons: SINUS INFECTION/SORE THROAT Chief Complaint: sinus pressure Accompanied by: Self Allergies cucumber Allergy (Mild, Verified 07/16/24 09:13) Hives melon Allergy (Mild, Verified 07/16/24 09:13) Hives NSAIDS (Non-Steroidal Anti-Inflamma Allergy (Mild, Verified 07/16/24 09:13) Other codeine Adverse Reaction (Intermediate, Verified 07/16/24 09:13) vomiting Medications ???Medication ???Instructions ???Recorded ???Confirmed ???Type cholecalciferol (vitamin D3) 125 125 mcg PO DAILY SUPPLEMENT 03/25/21 07/16/24 History mcg (5,000 unit) capsule vitamin E (dl, acetate) 180 mg 180 mg PO DAILY SUPPLEMENT 03/25/21 07/16/24 History (400 unit) capsule acetaminophen 500 mg oral powder 500 mg PO Q6H PRN Pain 05/06/21 07/16/24 History packet (Tylenol Extra Strength) magnesium 200 mg tablet 200 mg PO DAILY SUPPLEMENT 06/12/21 07/16/24 History potassium gluconate 595 mg (99 mg) 595 mg PO DAILY SUPPLEMENT 06/12/21 07/16/24 History tablet calcium carbonate (Calcium 500) 500 mg PO DAILY SUPPLEMENT 12/30/23 07/16/24 History sumatriptan succinate 25 mg tablet 25 mg PO PRN MIGRAINES 12/30/23 07/16/24 History zinc gluconate 50 mg tablet 50 mg PO DAILY SUPPLEMENT 12/30/23 07/16/24 History acetaminophen 500 mg tablet 500 mg PO Q6H 7 days #28 tabs 01/13/24 07/16/24 Rx zolpidem 5 mg tablet 5 mg PO QHS PRN 01/29/24 07/16/24 History amoxicillin 875 mg-potassium 1 tab PO Q12H #14 tabs 07/16/24 07/16/24 Rx clavulanate 125 mg tablet Have you fallen in the past year?: No Nurse's Note: Patient has a sinus infection that has been going on for less than a week. [facility] Medical History History of stress test History of irregular heartbeat Wears partial dentures Wears glasses History of steroid therapy Arthritis Anemia Restless legs Back pain Migraine headache Blackout History of ulceration History of hiatal hernia Non-smoker Leg cramps History of pain when walking History of edema Lactose intolerance History of Helicobacter pylori infection ( 03/2019) Dysphagia Epigastric pain Hemorrhoids Acid reflux Surgical History Hx of arthroscopy of right knee Hx of foot surgery History of colonoscopy ( 03/2019) History of esophagogastroduodenoscopy (EGD) ( 03/2019) History of section History of right breast biopsy History of section History of dilatation and curettage History of History cyst removed left thumb Family History Mother Diabetes Arthritis Father Heart disease Hypertension Myocardial infarction Social History household members: other details: mother (Merlene) housing: house current occupational status: retired pets and animals: No Smoking Status: Never smoker alcohol intake: never substance use type: does not use what type of physical activity do you participate in: walking frequency: daily do you feel safe at home: Yes HPI HPI Chief Complaint: sinus pressure Details: ELEN JACOBSON, is a 68 F who presents to the office today for sinus pressure. This began 1 week ago. She has increased sinus pressure, congestion, post nasal drainage, and sore throat. She has occasional cough that started this AM. No fever/chills/sweats/aches. She took some aleve cold and sinus with minimal improvement. ROS Const Constitutional: No chills, fatigue or fever(s) ENT ENT: Positive for nasal congestion, sinus pressure, sinus pain and sore throat; No ear or mastoid pain or ear pressure Resp Respiratory: Positive for cough; No shortness of breath or wheezing Endo Endocrine: No fatigue Aller/Imm Allergy/Immunologic: No wheezing Exam Const General: cooperative, healthy appearing, comfortable, no acute distress, well developed and well groomed Nutritional Appearance: average body habitus and well nourished Orientation: alert, awake and oriented x3 HENMT Head: normocephalic and atraumatic Ears: hearing grossly normal bilaterally, external ears normal and TM's normal bilaterally Nose: mucous membranes and turbinates abnormal erythematous and nasal discharge Face and (more content not included)... Normal [facility] Urine Cultureon 07-06-2024 URC Escherichia coli Brewster Count 25,000-50,000 Escherichia coli: REACTION Ampicillin Islt MICHAEL >=32 Ampicillin+Sulbac Islt MICHAEL >=32 R ceFAZolin Islt MICHAEL 16 I Cefepime Islt MICHAEL <=0.12 S cefTRIAXone Islt MICHAEL <=0.25 S Ciprofloxacin Islt MICHAEL <=0.25 S B-Lactamase Extended Susc Islt NEG Gentamicin Islt MICHAEL <=1 S Imipenem Islt MICHAEL <=0.25 S levoFLOXacin Islt MICHAEL <=0.12 S Nitrofurantoin Islt MICHAEL <=16 S Pip+Tazo Islt MICHAEL <=4 S Tobramycin Islt MICHAEL <=1 S TMP SMX Islt MICHAEL <=20 S Normal [facility] Comment on above: Performed By: #### L 100.0100, L500.4050, L500.4100, L501.9985 #### [facility] [address] [place], [address] 12 Lead EKGon 07-05-2024 12 Lead EKG [facility] Cardiovascular Services [address] [place] [address] 12 Lead EKG 07/05/24 1747 MR#: [id number] Acct: [id number] Name: ELEN JACOBSON Rep #: [id number] : 1955 68 From: David Seaman MD Attending Dr: Status: DEP ER Ordering Dr: Jimy Higuera MD Date: 07/05/24 Location: ED Sex: F C Admitted: Test Reason : CP Blood Pressure : */* mmHG Vent. Rate : 69 BPM Atrial Rate : 69 BPM P-R Int : 158 ms QRS Dur : 80 ms QT Int : 382 ms P-R-T Axes : 28 13 8 degrees QTcB Int : 409 ms Normal sinus rhythm Normal ECG Confirmed by URSZULA HAND, DAVID ([id number]), editor farm journal KEYSHAWN CAMACHO ([id number]) on 07/06/2024 8:57:20 AM Referred By: HOWIE/BETTY Confirmed By: DAVID SEAMAN MD 07/06/24 0857 Date David Seaman MD CC: Dr. Jimy Higuera MD; Dr. Zandra Hardy MD Signed Normal [facility] Basic Metabolic Profile (BMP )on 07-05-2024 BUN/CRE 29.9 RATIO High 10-20 [facility] Comment on above: Order Comment: 1 Y Performed By: #### L 100.0100, L501.5200, L500.2500, L501.5425 #### [facility] [address] [place], [address] CA,Total 9.9 mg/dL Normal 8.5-10.1 [facility] Comment on above: Order Comment: 1 Y Performed By: #### L 100.0100, L501.5200, L500.2500, L501.5425 #### [facility] [address] [place], [address] Chloride [Moles/Vol] 105 mmol/L Normal 98-107 [facility] Comment on above: Order Comment: 1 Y Performed By: #### L 100.0100, L501.5200, L500.2500, L501.5425 #### [facility] [address] [place], [address] CO2 [Moles/Vol] 31.0 mmol/L Normal 21.0-32.0 [facility] Comment on above: Order Comment: 1 Y Performed By: #### L 100.0100, L501.5200, L500.2500, L501.5425 #### [facility] [address] [place], [address] Creatinine [Mass/Vol] 0.90 mg/dL Normal 0.55-1.02 [facility] Comment on above: Order Comment: 1 Y Result Comment: The validity of the calculated GFR GFRAA in patients over 70 years has not been determined. Clinical correlation is essential. Performed By: #### L 100.0100, L501.5200, L500.2500, L501.5425 #### [facility] [address] [place], [address] ECRCL 60.56 ml/min Normal [facility] Comment on above: Order Comment: 1 Y Performed By: #### L 100.0100, L501.5200, L500.2500, L501.5425 #### [facility] [address] [place], [address] EST GFR - AA 80 mL/min Normal >60 [facility] Comment on above: Order Comment: 1 Y Result Comment: Afri can [place] GFR Calc Performed By: #### L 100.0100, L501.5200, L500.2500, L501.5425 #### [facility] [address] [place], [address] GAP 4 Low 5-15 [facility] Comment on above: Order Comment: 1 Y Performed By: #### L 100.0100, L501.5200, L500.2500, L501.5425 #### [facility] [address] [place], [address] GFR/1.73 sq M.predicted among non-blacks MDRD (S/P/Bld) [Vol rate/Area] 66 mL/min/{1.73_m2} Normal >60 [facility] Comment on above: Order Comment: 1 Y Result Comment: Non- GFR Calc Performed By: #### L 100.0100, L501.5200, L500.2500, L501.5425 #### [facility] [address] [place], [address] Glucose [Mass/Vol] 141 mg/dL High 74-106 [facility] Comment on above: Order Comment: 1 Y Result Comment: Fast ing Glucose result greater than or equal to 126 mg/dL suggests DIABETES MELLITUS per A.D.A. criteria. Performed By: #### L 100.0100, L501.5200, L500.2500, L501.5425 #### [facility] [address] [place], [address] Potassium [Moles/Vol] 3.7 mmol/L Normal 3.5-5.1 [facility] Comment on above: Order Comment: 1 Y Performed By: #### L 100.0100, L501.5200, L500.2500, L501.5425 #### [facility] [address] [place], [address] Sodium [Moles/Vol] 140 mmol/L Normal 136-145 [facility] Comment on above: Order Comment: 1 Y Performed By: #### L 100.0100, L501.5200, L500.2500, L501.5425 #### [facility] [address] [place], [address] Urea nitrogen [Mass/Vol] 27 mg/dL High 7-18 [facility] Comment on above: Order Comment: 1 Y Performed By: #### L 100.0100, L501.5200, L500.2500, L501.5425 #### [facility] [address] [place], [address] CBC W/Diff, Automatedon 06-24 Absolute Lymph 2.73 X10 3/uL Normal 0.83-4.51 [facility] Comment on above: Performed By: #### L 100.0100, L501.5200, L500.2500, L501.5425 #### [facility] [address] [place], [address] Absolute Neut 3.3 X10 3/uL Normal 2.0-7.7 [facility] Comment on above: Performed By: #### L 100.0100, L501.5200, L500.2500, L501.5425 #### [facility] [address] [place], [address] Basophils/100 WBC (Bld) 0.3 % Normal 0-1 [facility] Comment on above: Performed By: #### L 100.0100, L501.5200, L500.2500, L501.5425 #### [facility] [address] [place], [address] Eosinophils/100 WBC (Bld) 1.5 % Normal 0-5 [facility] Comment on above: Performed By: #### L 100.0100, L501.5200, L500.2500, L501.5425 #### [facility] [address] [place], [address] Erythrocyte distribution width (RBC) [Ratio] 14.7 % High 11.6-14.6 [facility] Comment on above: Performed By: #### L 100.0100, L501.5200, L500.2500, L501.5425 #### [facility] [address] [place], [address] Hematocrit (Bld) [Volume fraction] 44.5 % Normal 37-47 [facility] Comment on above: Performed By: #### L 100.0100, L501.5200, L500.2500, L501.5425 #### [facility] [address] [place], [address] Hemoglobin (Bld) [Mass/Vol] 14.4 g/dL Normal 12.0-15.0 [facility] Comment on above: Performed By: #### L 100.0100, L501.5200, L500.2500, L501.5425 #### [facility] [address] [place], [address] IG% 0.200 Normal 0.0-0.9 [facility] Comment on above: Result Comment: IG% - Immature Granulocytes (promyelocytes, myelocytes and metamyelocytes) > 1% indicates that a LEFT SHIFT is Present. Performed By: #### L 100.0100, L501.5200, L500.2500, L501.5425 #### [facility] [address] [place], [address] Lymphocytes/100 WBC (Bld) 41.2 % High 19-41 [facility] Comment on above: Performed By: #### L 100.0100, L501.5200, L500.2500, L501.5425 #### [facility] [address] [place], [address] MCH (RBC) [Entitic mass] 28.5 pg Normal 27.0-32.0 [facility] Comment on above: Performed By: #### L 100.0100, L501.5200, L500.2500, L501.5425 #### [facility] [address] [place], [address] MCHC (RBC) [Mass/Vol] 32.4 g/dL Normal 32-36 [facility] Comment on above: Performed By: #### L 100.0100, L501.5200, L500.2500, L501.5425 #### [facility] [address] [place], [address] MCV (RBC) [Entitic vol] 88.1 fL Normal 81-99 [facility] Comment on above: Performed By: #### L 100.0100, L501.5200, L500.2500, L501.5425 #### [facility] [address] [place], [address] Monocytes/100 WBC (Bld) 6.8 % Normal 0-10 [facility] Comment on above: Performed By: #### L 100.0100, L501.5200, L500.2500, L501.5425 #### [facility] [address] [place], [address] Neutrophils/100 WBC (Bld) 50.0 % Normal 47-70 [facility] Comment on above: Performed By: #### L 100.0100, L501.5200, L500.2500, L501.5425 #### [facility] [address] [place], [address] Nucleated RBC (Bld) [#/Vol] 0 10*3/uL Normal 0-5 [facility] Comment on above: Performed By: #### L 100.0100, L501.5200, L500.2500, L501.5425 #### [facility] [address] [place], [address] Platelet mean volume (Bld) [Entitic vol] 11.8 fL Normal 6.2-12.0 [facility] Comment on above: Performed By: #### L 100.0100, L501.5200, L500.2500, L501.5425 #### [facility] [address] [place], [address] Platelets (Bld) [#/Vol] 259 10*3/uL Normal 150-450 [facility] Comment on above: Performed By: #### L 100.0100, L501.5200, L500.2500, L501.5425 #### [facility] [address] [place], [address] RBC (Bld) [#/Vol] 5.05 10*6/uL Normal 4.2-5.4 [facility] Comment on above: Performed By: #### L 100.0100, L501.5200, L500.2500, L501.5425 #### [facility] [address] [place], [address] RDW SD 47.6 fl High 35.1-43.9 [facility] Comment on above: Performed By: #### L 100.0100, L501.5200, L500.2500, L501.5425 #### [facility] [address] [place], [address] WBC (Bld) [#/Vol] 6.6 10*3/uL Normal 4.4-11.0 [facility] Comment on above: Performed By: #### L 100.0100, L501.5200, L500.2500, L501.5425 #### [facility] [address] [place], [address] CT Chest, Abd, Pel w/Contras ton 07-05-2024 CT Chest, Abd, Pel w/Contrast [facility] [address] [place], [place] [address] CT Chest, Abd, Pel w/Contrast MR#: [id number] Acct: [id number] Name: ELEN JACOBSON Rep #: [id number] : 1955 F 68 From: Yifan Hardy MD PCP: Dr. Zandra Hardy MD Status: REG ER Study: CT Chest, Abd, Pel w/Contrast Date of Exam: Exam# [id number] Ordering Dr: Jimy Higuera MD [id number] STUDY: CT CHEST, ABDOMEN T PELVIS WITH CONTRAST REASON FOR EXAM: Female, 68 years old. Chest pain, back pain RADIATION DOSAGE (If Supplied By Facility): CTDIvol = ( 14.65 ) mGy, DLP = ( 1312.82 ) mGycm TECHNIQUE: Transaxial imaging was performed following intravenous administration of IV 100mL Isovue-370. Multiplanar coronal and sagittal images were reformatted. Individualized dose optimization techniques were used for this CT. COMPARISON: No relevant priors. FINDINGS: CHEST The lungs are normal. There is no demonstrated pleural abnormality. Normal heart and pericardium. Normal mediastinum. Normal hilar regions. Normal unenhanced pulmonary arteries. Normal aorta arch and descending thoracic aorta. There are multi-level degenerative changes of the thoracic spine. There is no demonstrated abnormality of the visualized upper abdomen. ABDOMEN The visualized lung bases are unremarkable. The visualized portions of the heart are within normal limits. There are hypodensities compatible with small cysts in the liver. Normal gallbladder and extrahepatic biliary system. Normal spleen. Normal pancreas. Normal bilateral adrenal glands. Normal right kidney. Normal left kidney. There is a small hiatal hernia. Normal small intestine. Normal colon. There is abundant stool. The appendix is visualized and appears normal. Normal abdominal aorta. Normal inferior vena cava. Normal retroperitoneum. Normal abdominal wall. There are degenerative and postoperative changes of the spine with anterior and posterior fusion including hardware at L4-5. PELVIS Normal urinary bladder. Normal visualized small intestine. Normal visualized colon. There is no pelvic fluid. There is no pelvic lymphadenopathy or mass lesion. Normal visualized uterus. Normal visualized pelvic arteries. Normal abdominal wall. Normal osseous structures. CT/CT Chest, Abd, Pel w/Contrast IMPRESSION: No mass or obstruction. No hydronephrosis. No focal infiltrate. Small hiatal hernia. Abundant stool. Electronically Signed: Yifan Hardy MD at 20:15 EST , CC: Dr. Jimy Higuera MD; Dr. Zandra Hardy MD Shift Supervisor Rn: Signed Normal [facility] Emergency Department Summary on 07-05-2024 Emergency Department Summary [facility] Medical Records Department [address] [place] [address] Emergency Department Summary 07/05/24 MR#: [id number] Acct: [id number] Name: ELEN JACOBSON Rep #: [id number] : 1955 68 From: Jimy Higuera MD PCP: Dr. Zandra Hardy MD Status:REG ER Location: ED HPI History of Present Illness Chief Complaint: Chest Pain Narrative Narrative: 68-year-old female presents with left-sided chest pain that she has had since Thursday, over the last 4 days. She states that sometimes it is worse when she moves her arm, and other times she does not have the pain. Very fleeting. Other times it is associated with trying to take a deep breath. She denies any recent trauma, no fevers or chills, no other exacerbating or alleviating factors. She states that she may have pain in her back as well, but she had low back surgery. She denies any tearing sensation between her shoulder blades, no other exacerbating or alleviating factors. She also states she is currently being treated for a urinary tract infection for which she is taking nitrofurantoin. She was seen at urgent care and started the medication recently. [facility] Medical History History of stress test History of irregular heartbeat Wears partial dentures Wears glasses History of steroid therapy Arthritis Anemia Restless legs Back pain Migraine headache Blackout History of ulceration History of hiatal hernia Non-smoker Leg cramps History of pain when walking History of edema Lactose intolerance History of Helicobacter pylori infection ( 03/2019) Dysphagia Epigastric pain Hemorrhoids Acid reflux Home Medications ???Medication ???Instructions ???Recorded ???Last Taken ???Type cholecalciferol (vitamin D3) 125 125 mcg PO DAILY SUPPLEMENT 03/25/21 01/11/24 History mcg (5,000 unit) capsule vitamin E (dl, acetate) 180 mg 180 mg PO DAILY SUPPLEMENT 03/25/21 01/11/24 History (400 unit) capsule acetaminophen 500 mg oral powder 500 mg PO Q6H PRN Pain 05/06/21 Unknown History packet (Tylenol Extra Strength) magnesium 200 mg tablet 200 mg PO DAILY SUPPLEMENT 06/12/21 01/11/24 History potassium gluconate 595 mg (99 mg) 595 mg PO DAILY SUPPLEMENT 06/12/21 01/11/24 History tablet calcium carbonate (Calcium 500) 500 mg PO DAILY SUPPLEMENT 12/30/23 01/11/24 History sumatriptan succinate 25 mg tablet 25 mg PO PRN MIGRAINES 12/30/23 Unknown History zinc gluconate 50 mg tablet 50 mg PO DAILY SUPPLEMENT 12/30/23 01/11/24 History acetaminophen 500 mg tablet 500 mg PO Q6H 7 days #28 tabs 01/13/24 01/09/24 Rx zolpidem 5 mg tablet 5 mg PO QHS PRN 01/29/24 Unknown History nitrofurantoin 100 mg PO Q12H 5 days #10 caps 07/04/24 Unknown Rx monohydrate/macrocrystals 100 mg capsule (Macrobid) Allergy/AdvReac Type Severity Reaction Status Date / Time cucumber Allergy Mild Hives Verified 07/05/24 17:35 melon Allergy Mild Hives Verified 07/05/24 17:35 NSAIDS (Non-Steroidal Allergy Mild Other Verified 07/05/24 17:35 Anti-Inflamma codeine AdvReac Intermediate vomiting Verified 07/05/24 17:35 Family History Mother Diabetes Arthritis Father Heart disease Hypertension Myocardial infarction Surgical History Hx of arthroscopy of right knee Hx of foot surgery History of colonoscopy ( 03/2019) History of esophagogastroduodenoscopy (EGD) ( 03/2019) History of section History of right breast biopsy History of section History of dilatation and curettage History of History cyst removed left thumb Social History household members: other details: mother (Merlene) housing: house current occupational status: retired pets and animals: No Smoking Status: Never smoker alcohol intake: never substance use type: does not use what type of physical activity do you participate in: walking frequency: daily do you feel safe at home: Yes ROS ROS ED ROS Narrative Constitutional: No fever, no chills. HEENT: No sore throat. No neck pain. No loss of vision. No rhinorrhea. Cardiovascular: Left-sided chest pain. Sometimes worse with movement of arm, other times exacerbated by deep breathing. No palpitations. No pedal edema. Respiratory: No cough, no shortness of breath. Abdominal: No abdominal pain. No nausea. No vomiting. Musculoskeletal: No myalgias. No arthralgias. Psychiatric: No depression. No anxiety. EXAM Physical Exam Narrative Exam Narrative: Afebrile. Vital signs noted. Regular rate and rhythm. Lungs are clear to auscultation bilaterally. Abdomen soft nontender with normal active bowel sounds. No chest wall tenderness or crepita (more content not included)... Normal [facility] L501.4020on 07-05-2024 TROPONIN-I HS 4 pg/mL Normal 3.0-54.0 [facility] Comment on above: Result Comment: Oracio ulloa Note: New Test Units and Gender Specific Reference Ranges. For more information see Policy Stat Procedure [place] High Sensitivity Troponin (TNIH) and attachments. Performed By: #### L 501.4020 #### [facility] [address] [place], [address] L501.5425on 07-05-2024 TROPONIN-I HS 3 pg/mL Normal 3.0-54.0 [facility] Comment on above: Order Comment: Order Date: 12/06/24 Order Info: [id number] - CBCD Result Comment: Oracio ulloa Note: New Test Units and Gender Specific Reference Ranges. For more information see Policy Stat Procedure [place]ite High Sensitivity Troponin (TNIH) and attachments. Performed By: #### L 100.0100, L500.4050, L500.4100, L501.9985 #### [facility] [address] [place], [address] Magnesiumon 07-05-2024 Magnesium [Mass/Vol] 1.9 mg/dL Normal 1.6-2.6 [facility] Comment on above: Order Comment: 1 Y Performed By: #### L 100.0100, L501.5200, L500.2500, L501.5425 #### [facility] [address] [place], [address] Urgent Care Visit Reporton 1 09-03-2023 Urgent Care Visit Report [facility] [address], [address] [place], [place] [address] OFFICE VISIT Date of Service: 07/04/24 MR#: [id number] Acct: [id number] Name: ELEN JACOBSON Rep #: [id number] : 1955 Provider: ADRIAN Kelly Age/Sex: 68/F [place] [facility] [place]: Signed Intake Vital Signs 01/12/24 15:12 07/04/24 08:28 Height 5 ft 3 in BP 124/76 H Blood Pressure Location Rt brachial Position Sitting Respiration 17 Pulse 72 Pulse Source NIBP Temp 98.2 F Temp Source Oral Pulse Oximetry (%) 97 Oxygen Delivery Method room air Intake Visit Reasons: CONCERN FOR YEAST INFECTION/L SIDE NECK PAIN Chief Complaint: dysuria, blood, odor 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 Is patient in pain?: No Allergies cucumber Allergy (Mild, Verified 07/04/24 08:29) Hives melon Allergy (Mild, Verified 07/04/24 08:29) Hives NSAIDS (Non-Steroidal Anti-Inflamma Allergy (Mild, Verified 07/04/24 08:29) Other codeine Adverse Reaction (Intermediate, Verified 07/04/24 08:29) vomiting Is last menstrual period known: No Post menopausal: Yes Patient : No Have you fallen in the past year?: No Nurse's Note: dysuria, blood, odor x 4 days. denies abd pain/back pain/fever. concern for UTI PFSH Medical History History of stress test History of irregular heartbeat Wears partial dentures Wears glasses History of steroid therapy Arthritis Anemia Restless legs Back pain Migraine headache Blackout History of ulceration History of hiatal hernia Non-smoker Leg cramps History of pain when walking History of edema Lactose intolerance History of Helicobacter pylori infection ( 03/2019) Dysphagia Epigastric pain Hemorrhoids Acid reflux Surgical History Hx of arthroscopy of right knee Hx of foot surgery History of colonoscopy ( 03/2019) History of esophagogastroduodenoscopy (EGD) ( 03/2019) History of section History of right breast biopsy History of section History of dilatation and curettage History of History cyst removed left thumb Family History Mother Diabetes Arthritis Father Heart disease Hypertension Myocardial infarction Social History household members: other details: mother (Merlene) housing: house current occupational status: retired pets and animals: No Smoking Status: Never smoker alcohol intake: never substance use type: does not use what type of physical activity do you participate in: walking frequency: daily do you feel safe at home: Yes HPI HPI Chief Complaint: dysuria, blood, odor Details: ELEN JACOBSON, is a 68 F who presents to the office today for [facility] evaluation at the [facility] for approximately 5 day history of dysuria and urinary frequency with suprapubic pressure. No complaints of fever, chills, sweats, lightheadedness/dizziness, nausea/vomiting. No changes in color/ character of stool - though hematuria appreciated w/ fowl odor as she describes; no new urethral/ vaginal discharge. No [id number] products taken to assist. Upon asking regarding chest pain or shortness of breath, she states that she has had left anterior neck and left upper extremity pain with chest wall discomfort aggravated with deep inspiration though she states she has no shortness of breath or dyspnea on exertion. She notes the symptoms been going on for approximately 2 days, states she had similar symptoms several years ago which self resolved and no recurrence since. She notes pain is inconsistently relieved with localized palpation of the left anterior lateral chest wall. She has taken [id number] products to assist with the above described chest wall symptoms. No other associated symptoms and no alleviating/aggravating factors. ROS Const Constitutional: No other (As above) Exam Const General: cooperative, healthy appearing and no acute distress Orientation: alert, awake and oriented x3 Chest Chest palpation inspection: normal inspection of the chest Resp Effort Inspection: normal respiratory effort and able to speak in complete sentences Auscultation: Bilateral: Clear to Auscultation Cardio Palpation: normal PMI Rate: regular rate Rhythm: regular rhythm Heart Sounds: S1 normal, S2 normal, no gallops, no murmurs and no rubs Pulses: radial pulses present GI Inspection: normal to inspection Palpation: soft and tender suprapubic (Patient describes upon self-palpation) General: No CVA tenderness Skin General: no rashes or lesions noted Neuro General: patient alert, patient awake and patient oriented x3 Cognition: normal cognition S (more content not included)... Normal [facility] Absolute lymphocyte countOrd ered By: Znadra Mitchellke on 09-02-2023 Lymphocytes Auto (Unsp spec) [#/Vol] 2.53 10*3/uL 0.83-4.51 [facility] Basophil percentageOrdered B y: Zandra Hayley on 09-02-2023 Basophils/100 WBC (Bld) 0.3 % 0-1 [facility] Bilirubin [Mass/Vol] 0.60 mg/dL 0.20-1.00 [facility] Comment on above: For patients on eltr ombopag therapy, use of Dimension T[place]ite TBIL is not recommended. Chloride [Moles/Vol] 106 mmol/L 98-107 [facility] Cholesterol [Mass/Vol] 220 mg/dL <200 [facility] Comment on above: <200 mg/dL Desirable 200-240 mg/dL Borderline >240 mg/dL High Risk Eosinophils/100 WBC (Bld) 1.6 % 0-5 [facility] Glucose [Mass/Vol] 84 mg/dL 74-106 [facility] Neutrophils (Bld) [#/Vol] 3.2 10*3/uL 2.0-7.7 [facility] Neutrophils/100 WBC (Bld) 50.5 % 47-70 [facility] Potassium [Moles/Vol] 3.8 mmol/L 3.5-5.1 [facility] Protein [Mass/Vol] 7.0 g/dL 6.4-8.2 [facility] Sodium [Moles/Vol] 139 mmol/L 136-145 [facility] Triglyceride [Mass/Vol] 83 mg/dL <199 [facility] Comment on above: The drugs N-Acetylcy steine and Metamizole may falsely depress this assay.Serum Triglycerides Reference Interval Normal <150 mg/dL Borderline high 150 - 199 mg/dL High 200 - 499 mg/dL Very High > or = 500 mg/dL WBC (Bld) [#/Vol] 6.4 10*3/uL 4.4-11.0 [facility] Blood erythrocytes count (nu mber/volume)Ordered By: Zandra Hardy on 09-02-2023 RBC (Bld) [#/Vol] 4.62 10*6/uL 4.2-5.4 [facility] Blood hemoglobin measurement (mass/volume)Ordered By: Zandra Hardy on 09-02-2023 Hemoglobin (Bld) [Mass/Vol] 13.8 g/dL 12.0-15.0 [facility] Blood lymphocytes/100 leukoc ytesOrdered By: Zandra Hardy on 09-02-2023 Lymphocytes/100 WBC (Bld) 39.6 % 19-41 [facility] Blood monocytes/100 leukocyt esOrdered By: Zandra Hardy on 09-02-2023 Monocytes/100 WBC (Bld) 7.8 % 0-10 [facility] Blood platelet mean volumeOr dered By: Zandra Hardy on 09-02-2023 Platelet mean volume (Bld) [Entitic vol] 12.9 fL 6.2-12.0 [facility] Determination of erythrocyte mean corpuscular volume (MCV)Ordered By: Zandra Hardy on 09-02-2023 MCV (RBC) [Entitic vol] 92.0 fL 81-99 [facility] Hematocrit Auto (Bld) [Volum e fraction]Ordered By: Zandra Hardy on 09-02-2023 Hematocrit (Bld) [Volume fraction] 42.5 % 37-47 [facility] - Chemistry and C hemistry - challengeOrdered By: [facility] on 09-02-2023 ALP [Catalytic activity/Vol] 77 U/L 45-117 [facility] ALT [Catalytic activity/Vol] 30 U/L 13-56 [facility] CO2 [Moles/Vol] 27.0 mmol/L 21.0-32.0 [facility] Globulin (S) [Mass/Vol] 3.5 g/dL 2.2-4.2 [facility] Urea nitrogen/Creatinine [Mass ratio] 18.1 mg/mg 10-20 [facility] - Hematology and Cell countsOrdered By: [facility] on 09-02-2023 Erythrocyte distribution width (RBC) [Entitic vol] 48.2 fL 35.1-43.9 [facility] Erythrocyte distribution width (RBC) [Ratio] 14.2 % 11.6-14.6 [facility] Immature granulocytes/100 WBC (Bld) 0.200 % 0.0-0.9 [facility] Comment on above: IG% - Immature Granu locytes (promyelocytes, myelocytes and metamyelocytes) > 1% indicates that a LEFT SHIFT is Present. MCH (RBC) [Entitic mass] 29.9 pg 27.0-32.0 [facility] Nucleated RBC/100 WBC (Bld) [Ratio] 0 % 0-5 [facility] MCHC Auto (RBC) [Mass/Vol]Or dered By: Zandra Hardy on 09-02-2023 MCHC (RBC) [Mass/Vol] 32.5 g/dL 32-36 [facility] No Panel InformationOrdered By: Zandra Hardy on 09-02-2023 Estimated GFR (MDRD) Amer 96 mL/min >60 [facility] Comment on above: GFR Calc Estimated GFR (MDRD) Non-Af Amer 79 mL/min >60 [facility] Comment on above: Non- GFR Calc Vitamin D 25-Hydroxy 82.4 ng/mL [facility] Comment on above: Vitamin D 25(OH) Sta tus Range Deficiency <20 ng/mL (50nmol/L) Insufficiency 20 - 30 ng/mL (50 - 75 nmol/L) Sufficiency 30 - 100 ng/mL (75 - 250 nmol/L) Toxicity >100 ng/mL (>250 nmol/L) Platelets bldOrdered By: Monalisa Hardy on 09-02-2023 Platelets (Bld) [#/Vol] 207 10*3/uL 150-450 [facility] Serum or plasma albumin edith urement (mass/volume)Ordered By: Zandra Hardy on 09-02-2023 Albumin [Mass/Vol] 3.5 g/dL 3.2-5.0 [facility] Serum or plasma albumin/glob ulin mass ratioOrdered By: Zandra Hardy on 09-02-2023 Albumin/Globulin [Mass ratio] 1.0 {ratio} 0.9-2.4 [facility] Serum or plasma calcium edith urement (mass/volume)Ordered By: Zandra Hardy on 09-02-2023 Calcium [Mass/Vol] 9.6 mg/dL 8.5-10.1 [facility] Serum or plasma cholesterol in HDL measurement (mass/volume)Ordered By: Zandra Hardy on 09-02-2023 Cholesterol in HDL [Mass/Vol] 55 mg/dL >40 [facility] Comment on above: The drugs N-Acetylcy steine and Metamizole may falsely depress this assay. Reference Range HDL <40 mg/dL Low HDL Cholesterol HDL >or= 60 mg/dL High HDL Cholesterol Serum or plasma cholesterol in VLDL measurement (mass/volume)Ordered By: Zandra Hardy on 09-02-2023 Cholesterol in VLDL [Mass/Vol] 17 mg/dL 5-40 [facility] Serum or plasma creatinine m easurement (mass/volume)Ordered By: Zandra Hardy on 09-02-2023 Creatinine [Mass/Vol] 0.78 mg/dL 0.55-1.02 [facility] Comment on above: The validity of the calculated GFR & GFRAA in patients over 70 years has not been determined. Clinical correlation is essential. Serum or plasma low density lipoprotein (LDL) cholesterol measurement (mass/volume)Ordered By: Zandra Hardy on 09-02-2023 Cholesterol in LDL [Mass/Vol] 148 mg/dL 0-130 [facility] Serum or plasma urea nitroge n measurement (mass/volume)Ordered By: Zandra Hardy on 09-02-2023 Urea nitrogen [Mass/Vol] 14 mg/dL 7-18 [facility] Thin prep Papanicolaou smear with manual screeningOrdered By: Zandra Hardy on 09-02-2023 Thin prep Papanicolaou smear with manual screening 19 U/L 15-37 [facility] Thin prep Papanicolaou smear with manual screening 6 5-15 [facility] COVID-19 virus antigen assay Ordered By: Dr. Medrano on 11-04-2022 SARS-CoV-2 (COVID-19) Ag IA.rapid Ql (Resp) Not detected Not Detect [facility] Comment on above: Normal Reference Ran ge: Not DetectedMethod:(RT-PCR) real-time reverse transcriptase PCRLuminex CELIA Instrument*The Food and Drug Administration (FDA) has issued an Emergency Use Authorization (EAU) for the CELIA SARS-CoV-2 Assay for the rapid detection of the virus that causes COVID-19. This test has been validated, but the FDAs independent review of this validation is pending.*Negative results do not preclude infection and should not be used as the sole basis for treatment or patient management. Optimum specimen types and timing for peak viral levels during infections caused by SARS-CoV-2 have not been determined. Collection of multiple specimens from the same patient may be necessary to detect the virus. The possibility of a false negative result should be considered if the patient has clinical presentation or has had recent exposure. No Panel InformationOrdered By: Dr. Medrano on 11-04-2022 Influenza Types A,B Direct FA (MICHAEL) [facility] RSV Ag EIAOrdered By: Dr. Joleen madrid on 11-04-2022 RSV Ag Immune stain Ql (Tiss) [facility] Absolute lymphocyte countOrd ered By: Manoj Medrano on 10-28-2022 Lymphocytes Auto (Unsp spec) [#/Vol] 2.43 10*3/uL 0.83-4.51 [facility] Basophil percentageOrdered B y: Manoj Medrano on 10-28-2022 Basophils/100 WBC (Bld) 0.2 % 0-1 [facility] Bilirubin [Mass/Vol] 0.30 mg/dL 0.20-1.00 [facility] Comment on above: For patients on eltr ombopag therapy, use of Dimension [place] TBIL is not recommended. Chloride [Moles/Vol] 106 mmol/L 98-107 [facility] Eosinophils/100 WBC (Bld) 1.2 % 0-5 [facility] Glucose [Mass/Vol] 110 mg/dL 74-106 [facility] Comment on above: Fasting Glucose resu lt from 100 to 125 mg/dL suggests IMPAIRED HOMEOSTASIS per A.D.A. criteria. Neutrophils (Bld) [#/Vol] 5.6 10*3/uL 2.0-7.7 [facility] Neutrophils/100 WBC (Bld) 64.9 % 47-70 [facility] Potassium [Moles/Vol] 3.8 mmol/L 3.5-5.1 [facility] Protein [Mass/Vol] 7.3 g/dL 6.4-8.2 [facility] Sodium [Moles/Vol] 138 mmol/L 136-145 [facility] WBC (Bld) [#/Vol] 8.7 10*3/uL 4.4-11.0 [facility] Blood erythrocytes count (nu mber/volume)Ordered By: Manoj Medrano on 10-28-2022 RBC (Bld) [#/Vol] 4.80 10*6/uL 4.2-5.4 [facility] Blood hemoglobin measurement (mass/volume)Ordered By: Manoj Medrano on 10-28-2022 Hemoglobin (Bld) [Mass/Vol] 14.3 g/dL 12.0-15.0 [facility] Blood lymphocytes/100 leukoc ytesOrdered By: Manoj Medrano on 10-28-2022 Lymphocytes/100 WBC (Bld) 28.1 % 19-41 [facility] Blood monocytes/100 leukocyt esOrdered By: Manoj Medrano on 10-28-2022 Monocytes/100 WBC (Bld) 5.1 % 0-10 [facility] Blood platelet mean volumeOr dered By: Manoj Medrano on 10-28-2022 Platelet mean volume (Bld) [Entitic vol] 11.7 fL 6.2-12.0 [facility] Determination of erythrocyte mean corpuscular volume (MCV)Ordered By: Manoj Medrano on 10-28-2022 MCV (RBC) [Entitic vol] 90.8 fL 81-99 [facility] Hematocrit Auto (Bld) [Volum e fraction]Ordered By: Manoj Medrano on 10-28-2022 Hematocrit (Bld) [Volume fraction] 43.6 % 37-47 [facility] Laboratory - Chemistry and C hemistry - challengeOrdered By: Manoj Medrano 10-28-2022 ALP [Catalytic activity/Vol] 67 U/L 45-117 [facility] ALT [Catalytic activity/Vol] 28 U/L 13-56 [facility] CO2 [Moles/Vol] 27.0 mmol/L 21.0-32.0 [facility] Globulin (S) [Mass/Vol] 3.9 g/dL 2.2-4.2 [facility] Urea nitrogen/Creatinine [Mass ratio] 28.4 mg/mg 10-20 [facility] Laboratory - Hematology and Cell countsOrdered By: Manoj Medrano 10-28-2022 Erythrocyte distribution width (RBC) [Entitic vol] 49.2 fL 35.1-43.9 [facility] Erythrocyte distribution width (RBC) [Ratio] 14.6 % 11.6-14.6 [facility] Immature granulocytes/100 WBC (Bld) 0.500 % 0.0-0.9 [facility] Comment on above: IG% - Immature Granu locytes (promyelocytes, myelocytes and metamyelocytes) > 1% indicates that a LEFT SHIFT is Present. MCH (RBC) [Entitic mass] 29.8 pg 27.0-32.0 [facility] Nucleated RBC/100 WBC (Bld) [Ratio] 0 % 0-5 [facility] MCHC Auto (RBC) [Mass/Vol]Or dered By: Manoj Medrano on 10-28-2022 MCHC (RBC) [Mass/Vol] 32.8 g/dL 32-36 [facility] No Panel InformationOrdered By: Manoj Medrano on 10-28-2022 Estimated GFR (MDRD) Amer 83 mL/min >60 [facility] Comment on above: GFR Calc Estimated GFR (MDRD) Non-Af Amer 69 mL/min >60 [facility] Comment on above: Non- GFR Calc Hepatitis C Antibody Non-Reactive Nonreactive [facility] Comment on above: Non Reactive: < 0.8 Equivocal: >/= 0.8 to < 1.0 Reactive: >/= 1.0The CDC recommends that a reactive/equivocal HCV antibody result be followed up by the HCV Nucleic Acid Amplificationtest (443870) Thyroid Stimulating Hormone (TSH) 0.74 uIU/mL 0.358-3.74 [facility] Vitamin D 25-Hydroxy 53.4 ng/mL [facility] Comment on above: Vitamin D 25(OH) Sta tus Range Deficiency <20 ng/mL (50nmol/L) Insufficiency 20 - 30 ng/mL (50 - 75 nmol/L) Sufficiency 30 - 100 ng/mL (75 - 250 nmol/L) Toxicity >100 ng/mL (>250 nmol/L) Platelets bldOrdered By: Manoj Medrano on 10-28-2022 Platelets (Bld) [#/Vol] 301 10*3/uL 150-450 [facility] Serum or plasma albumin edith urement (mass/volume)Ordered By: Manoj Medrano on 10-28-2022 Albumin [Mass/Vol] 3.4 g/dL 3.2-5.0 [facility] Serum or plasma albumin/glob ulin mass ratioOrdered By: Manoj Medrano on 10-28-2022 Albumin/Globulin [Mass ratio] 0.9 {ratio} 0.9-2.4 [facility] Serum or plasma calcium edtih urement (mass/volume)Ordered By: Manoj Medrano on 10-28-2022 Calcium [Mass/Vol] 9.7 mg/dL 8.5-10.1 [facility] Serum or plasma creatinine m easurement (mass/volume)Ordered By: Manoj Medrano on 10-28-2022 Creatinine [Mass/Vol] 0.88 mg/dL 0.55-1.02 [facility] Comment on above: The validity of the calculated GFR & GFRAA in patients over 70 years has not been determined. Clinical correlation is essential. Serum or plasma urea nitroge n measurement (mass/volume)Ordered By: Manoj Medrano on 10-28-2022 Urea nitrogen [Mass/Vol] 25 mg/dL 7-18 [facility] Thin prep Papanicolaou smear with manual screeningOrdered By: Manoj Medrano on 10-28-2022 Thin prep Papanicolaou smear with manual screening 21 U/L 15-37 [facility] Thin prep Papanicolaou smear with manual screening 5 5-15 [facility] Vital Signs Date Time Vital Sign Value Performing Clinician Cheng urias 01-10-2025 07:58-0400 Body height 160.02 cm Zandra Hardy MD Work Phone: [facility] 01-10-2025 07:58-0400 Body mass index (BMI) [Ratio] 29.5 kg/m2 Zandra Hardy MD Work Phone: [facility] 01-10-2025 07:58-0400 Body weight 75.74 kg Zandra Hardy MD Work Phone: [facility] 12-17-2024 09:29-0400 Body temperature 98.6 [degF] Zandra Hardy MD Work Phone: [facility] 12-17-2024 09:29-0400 Diastolic blood pressure 60 mm[Hg] Zandra Hardy MD Work Phone: [facility] 12-17-2024 09:29-0400 Heart rate 73 /min Zandra Hardy MD Work Phone: [facility] 12-17-2024 09:29-0400 SaO2% (BldA) [Mass fraction] 98 % Zandra Hardy MD Work Phone: [facility] 12-17-2024 09:29-0400 Systolic blood pressure 120 mm[Hg] Zandra Hardy MD Work Phone: [facility] 09-24-2024 10:02-0500 Body temperature 97.6 [degF] Zandra Hardy MD Work Phone: [facility] 09-24-2024 10:02-0500 Diastolic blood pressure 70 mm[Hg] Zandra Hardy MD Work Phone: [facility] 09-24-2024 10:02-0500 Heart rate 72 /min Zandra Hardy MD Work Phone: [facility] 09-24-2024 10:02-0500 Respiratory rate 12 /min Zandra Hardy MD Work Phone: [facility] 09-24-2024 10:02-0500 SaO2% (BldA) [Mass fraction] 98 % Zandra Hardy MD Work Phone: [facility] 09-24-2024 10:02-0500 Systolic blood pressure 112 mm[Hg] Zandra Hardy MD Work Phone: [facility] 09-24-2024 08:28-0500 Body height 160.02 cm Zandra Hardy MD Work Phone: [facility] 08-15-2024 09:11-0500 Body temperature 97.4 [degF] Zandra Hardy MD Work Phone: [facility] 08-15-2024 09:11-0500 Diastolic blood pressure 70 mm[Hg] Zandra Hardy MD Work Phone: [facility] 08-15-2024 09:11-0500 Heart rate 83 /min Zandra Hardy MD Work Phone: [facility] 08-15-2024 09:11-0500 Respiratory rate 12 /min Zandra Hardy MD Work Phone: [facility] 08-15-2024 09:11-0500 SaO2% (BldA) [Mass fraction] 98 % Zandra Hardy MD Work Phone: [facility] 08-15-2024 09:11-0500 Systolic blood pressure 118 mm[Hg] Zandra Hardy MD Work Phone: [facility] 11-10-2023 12:15-0400 Body height 160.02 cm MD Zandra Hardy Work Phone: [facility] 09-22-2023 09:08-0500 Body height 160.02 cm MD Zandra Hardy Work Phone: [facility] 09-22-2023 09:08-0500 Body mass index (BMI) [Ratio] 26.5 kg/m2 MD Zandra Hardy Work Phone: [facility] 09-22-2023 09:08-0500 Body temperature 97.5 [degF] MD Zandra Hardy Work Phone: [facility] 09-22-2023 09:08-0500 Body weight 68.03 kg MD Zandra Hardy Work Phone: [facility] 09-22-2023 09:08-0500 Diastolic blood pressure 86 mm[Hg] MD Zandra Hardy Work Phone: [facility] 09-22-2023 09:08-0500 Heart rate 88 /min MD Zandra Hardy Work Phone: [facility] 09-22-2023 09:08-0500 Respiratory rate 16 /min MD Zandra Hardy Work Phone: [facility] 09-22-2023 09:08-0500 SaO2% (BldA) [Mass fraction] 99 % MD Zandra Hardy Work Phone: [facility] 09-22-2023 09:08-0500 Systolic blood pressure 128 mm[Hg] MD Zandra Hardy Work Phone: [facility] 09-17-2023 14:51-0500 Body mass index (BMI) [Ratio] 26.9 kg/m2 MD Zandra Hardy Work Phone: [facility] 09-17-2023 14:51-0500 Body weight 69.11 kg MD Zandra Hardy Work Phone: [facility] 02-06-2022 14:31-0400 Body height 160.[address] Jorge L Leigh Work Phone: [facility] Work Phone: Encounters Encounter Date Encounter Type Care Provider Facility Start: 05-17-2025 ambulatory Felix Alamnzacassidy Facility:[facility] Start: 01-10-2025 End: 01-10-[address] David Seaman MD -[facility] Start: 01-10-2025 End: 01-10-2025 ambulatory Zandra Hardy MD Work Phone: [facility] Work Phone: Start: 12-20-2024 End: 12-20-[address] Zandra Hardy MD -Outpatient [facility] Work Phone: Start: 12-20-2024 End: 12-[facility] Start: 12-17-2024 End: 12-17-2024 [facility] Work Phone: Start: 12-17-2024 End: 12-17-2024 ambulatory [place]iela [place] [place]: 12-12-2024 Encounter for genera l adult medical examination [facility] Start: 12-06-2024 End: 12-06-2024 ambulatory Zandra Hardy MD Work Phone: [facility] Work Phone: Start: 12-06-2024 End: 12-06-[address] 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 ENGINEER-C [facility] Work Phone: Start: 09-24-2024 End: 09-24-2024 ambulatory Zandra Hay[place] [place] Start: 08-15-2024 End: 08-15-2024 Patient encounter procedure Fahad CAMPBELL -[facility] Work Phone: Start: 08-15-2024 End: 08-15-2024 ambulatory Willarddorys Mitchellke Facility:[facility] Start: 07-28-2024 End: 07-28-2024 ambulatory Chalon Hayley Facility:[facility] Start: 07-16-2024 End: 07-16-2024 ambulatory Chalon Hayley [place] [place] Start: 07-05-2024 End: 07-05-2024 Emergency department patient visit Chaldorys Hayley Facility:[facility] Start: 07-04-2024 End: 07-04-2024 ambulatory Fahad CAMPBELL [place] [place] Start: 07-04-2024 End: 07-04-2024 ambulatory Fahad CAMPBELL Facility:[facility] Start: 11-19-2023 End: 11-19-2023 Patient encounter procedure MD Zandra Hardy Work Phone: [facility] Work Phone: Start: 11-14-2023 End: 11-14-2023 ambulatory MD Zandra Hardy Work Phone: [facility] Work Phone: Start: 11-14-2023 End: 11-14-2023 Patient encounter procedure MD Zandra Hardy Work Phone: [facility] Work Phone: Start: 10-29-2023 End: 10-29-2023 Patient encounter procedure MD Zandra Hardy Work Phone: [facility] Work Phone: Start: 09-30-2023 End: 09-30-2023 Patient encounter procedure MD Zandra Hardy Work Phone: [facility] Work Phone: Start: 09-28-2023 End: 09-28-2023 ambulatory MD Zandra Hardy Work Phone: [facility] Work Phone: Start: 09-28-2023 End: 09-28-2023 Patient encounter procedure MD Zandra Hardy Work Phone: [facility] Work Phone: Start: 09-22-2023 End: 09-22-2023 Patient encounter procedure MD Zandra Hardy Work Phone: [facility] Work Phone: Start: 09-17-2023 End: 09-17-2023 Patient encounter procedure MD Zandra Hardy Work Phone: [facility] Work Phone: Start: 09-02-2023 End: 09-02-2023 ambulatory [facility] Work Phone: Start: 09-02-2023 End: 09-02-2023 [facility] Start: 09-01-2023 End: 09-01-2023 ambulatory [facility] Work Phone: Start: 09-01-2023 End: 09-01-2023 Patient encounter procedure [facility]-Radiology, [place] Work Phone: Start: 11-04-2022 Patient encounter procedure [facility]-Outpatient Breast Imaging Start: 10-28-2022 End: 10-28-2022 ambulatory [facility] Work Phone: Start: 10-28-2022 End: 10-28-2022 [facility] Start: 04-29-2022 End: 04-29-[address] Jorge L Leigh Work Phone: [facility] Work Phone: Start: 04-29-2022 End: 04-29-[address] Jorge L Leigh Work Phone: [facility] Start: 04-02-2022 End: 04-02-[address] Jorge L Leigh Work Phone: [facility] Start: 02-26-2022 End: 02-26-[address] Jorge L Leigh Work Phone: [facility] Start: 01-27-2022 End: 01-27-[address] Jorge L Leigh Work Phone: [facility] Procedures Date Procedure Procedure Detail Performing Clinician Start: 12-20-2024 Dual energy X-ray absorptiometry Zandra Hardy MD Work Phone: Start: 12-20-2024 Screening mammography Mimi Hardy MD Work Phone: Start: 12-06-2024 Vitamin D, 25-hydrox y measurement Zandra Hardy MD Work Phone: Comment on above: Vitamin D StatusDefi ciency: <20 ng/mL (50nmol/L)Insufficiency: 20-30 ng/mL (50-75 nmol/L)Sufficiency: 30-100 ng/mL (75-250 nmol/L)Toxicity: >100 ng/mL (>250 nmol/L) Start: 11-14-2023 MRI of lumbar spine MD Zandra Hardy Work Phone: Start: 09-28-2023 MRI of cervical spine Marycruz Hardy Work Phone: Start: 09-01-2023 X-ray of cervical spine Start: 09-01-2023 X-ray of lumbosacral spine Start: 11-04-2022 Screening mammography Start: 04-29-2022 MRI of lumbar spine Dr. Jorge L Leigh Work Phone: Start: 01-27-2022 X-ray of lumbosacral spine Dr. Jorge L Leigh Work Phone: Influenza Types A,B Direct FA (MICHAEL) Respiratory syncytia l virus antigen assay Plan of Treatment Date Care Activity Detail Author Start: 01-10-2025 X-ray of cervical spine Cerv S pine 4 or 5 Views [facility] Start: 01-10-2025 X-ray of lumbar spin e, two or three views Lumbar Spine 2 or 3 Views [facility] Start: 01-10-2025 XR Cervical spine 4 or 5 Views [facility] Start: 01-10-2025 XR Lumbar spine 2 or 3 Views [facility] Start: 09-30-2023 Patient referral [facility] Work Phone: MR Lumbar spine [facility] Work Phone: Patient referral [facility] Work Phone: Immunizations Immunization Date Immunization Notes Care Provider [facility] 06-24-[address] Jorge L Leigh Work Phone: [facility] Payers Date Payer Category Payer Self-pay [id number] 2024 Medicare [id number] Medicare MEDICARE PART A B [id number] Unknown [id number] Unknown [facility] [id number] Unknown [facility] [id number] Unknown [id number] 2.16.8 [id number] Unknown [id number] 2.16.8 [id number] Unknown [id number] 2.16.8 [id number] Unknown [id number] 2.16.8 [id number] Unknown [id number] 2.16.8 [id number] Unknown [id number] 2.16.8 [id number] Unknown [id number] 2.16.8 [id number] Unknown [id number] 2.16.8 [id number] Unknown [id number] 2.16.8 [id number] Unknown [id number] 2.16.8 [id number] Unknown [id number] 2.16.8 [id number] Unknown [id number] 2.16.8 [id number] Unknown [id number] 2.16.8 [id number] Unknown [id number] 2.16.8 [id number] Social History Date Type Detail Facility Start: 04-02-2022 End: 11-19-2023 Tobacco smoking status NEIS Unknown if ever smoked [facility] Start: 02-06-[address] [facility] Start: 02-06-[address] [facility] Start: 02-24-[address]-sm[address] [facility] Start: 1955 Sex Assigned At Female [facility] Start: 09-24-2024 Tobacco smoking stat [facility] Never smoked tobacco (finding) [facility] Start: 12-12-2024 Sex Female (finding) [facility] Medical Equipment Procedure Code Equipment Code Equipment Origin al Text Equipment Identifier Dates Fusion, spine, lumbar, 360 degree, starting in supine position transitioning to prone BONE,30CC CRUSH CANC FDA Start: 01-12-2024 Fusion, spine, lumbar, 360 degree, starting in supine position transitioning to prone VIPER SCREW FDA Start: 01-12-2024 Fusion, spine, lumbar, 360 degree, starting in supine position transitioning to prone VIPER SCREW FDA Start: 01-12-2024 Fusion, spine, lumbar, 360 degree, starting in supine position transitioning to prone VIPER SCREW FDA Start: 01-12-2024 Fusion, spine, lumbar, 360 degree, starting in supine position transitioning to prone WASHER FDA Start: 01-12-2024 Fusion, spine, lumbar, 360 degree, starting in supine position transitioning to prone BOW TIE SCREW FDA Start: 01-12-2024 Fusion, spine, lumbar, 360 degree, starting in supine position transitioning to prone COUGAR LS CAGE FDA Start: 01-12-2024 Fusion, spine, lumbar, 360 degree, starting in supine position transitioning to prone JUANITA FDA Start: 01-12-2024 Fusion, spine, lumbar, 360 degree, starting in supine position transitioning to prone SET SCREW FDA Start: 01-12-2024 Fusion, spine, lumbar, 360 degree, starting in supine position transitioning to prone SET SCREW FDA Start: 01-12-2024 Fusion, spine, lumbar, 360 degree, starting in supine position transitioning to prone SET SCREW FDA Start: 01-12-2024 Fusion, spine, lumbar, 360 degree, starting in supine position transitioning to prone SET SCREW FDA Start: 01-12-2024 Fusion, spine, lumbar, 360 degree, starting in supine position transitioning to prone VIPER SCREW FDA Start: 01-12-2024 Fusion, spine, lumbar, 360 degree, starting in supine position transitioning to prone BONE,30CC CRUSH CANC FDA Start: 01-12-2024 Fusion, spine, lumbar, 360 degree, starting in supine position transitioning to prone VIPER SCREW FDA Start: 01-12-2024 Fusion, spine, lumbar, 360 degree, starting in supine position transitioning to prone VIPER SCREW FDA Start: 01-12-2024 Fusion, spine, lumbar, 360 degree, starting in supine position transitioning to prone VIPER SCREW FDA Start: 01-12-2024 Fusion, spine, lumbar, 360 degree, starting in supine position transitioning to prone WASHER FDA Start: 01-12-2024 Fusion, spine, lumbar, 360 degree, starting in supine position transitioning to prone BOW TIE SCREW FDA Start: 01-12-2024 Fusion, spine, lumbar, 360 degree, starting in supine position transitioning to prone COUGAR LS CAGE FDA Start: 01-12-2024 Fusion, spine, lumbar, 360 degree, starting in supine position transitioning to prone JUANITA FDA Start: 01-12-2024 Fusion, spine, lumbar, 360 degree, starting in supine position transitioning to prone SET SCREW FDA Start: 01-12-2024 Fusion, spine, lumbar, 360 degree, starting in supine position transitioning to prone SET SCREW FDA Start: 01-12-2024 Fusion, spine, lumbar, 360 degree, starting in supine position transitioning to prone SET SCREW FDA Start: 01-12-2024 Fusion, spine, lumbar, 360 degree, starting in supine position transitioning to prone SET SCREW FDA Start: 01-12-2024 Fusion, spine, lumbar, 360 degree, starting in supine position transitioning to prone VIPER SCREW FDA Start: 01-12-2024 Fusion, spine, lumbar, 360 degree, starting in supine position transitioning to prone BONE,30CC CRUSH CANC FDA Start: 01-12-2024 Fusion, spine, lumbar, 360 degree, starting in supine position transitioning to prone VIPER SCREW FDA Start: 01-12-2024 Fusion, spine, lumbar, 360 degree, starting in supine position transitioning to prone VIPER SCREW FDA Start: 01-12-2024 Fusion, spine, lumbar, 360 degree, starting in supine position transitioning to prone VIPER SCREW FDA Start: 01-12-2024 Fusion, spine, lumbar, 360 degree, starting in supine position transitioning to prone WASHER FDA Start: 01-12-2024 Fusion, spine, lumbar, 360 degree, starting in supine position transitioning to prone BOW TIE SCREW FDA Start: 01-12-2024 Fusion, spine, lumbar, 360 degree, starting in supine position transitioning to prone COUGAR LS CAGE FDA Start: 01-12-2024 Fusion, spine, lumbar, 360 degree, starting in supine position transitioning to prone JUANITA FDA Start: 01-12-2024 Fusion, spine, lumbar, 360 degree, starting in supine position transitioning to prone SET SCREW FDA Start: 01-12-2024 Fusion, spine, lumbar, 360 degree, starting in supine position transitioning to prone SET SCREW FDA Start: 01-12-2024 Fusion, spine, lumbar, 360 degree, starting in supine position transitioning to prone SET SCREW FDA Start: 01-12-2024 Fusion, spine, lumbar, 360 degree, starting in supine position transitioning to prone SET SCREW FDA Start: 01-12-2024 Fusion, spine, lumbar, 360 degree, starting in supine position transitioning to prone VIPER SCREW FDA Start: 01-12-2024 BONE,CRUSHED CANCELLOUS 15CC FDA Start: 09-10-2018 [employer] FDA Start: 09-10-2018 [employer] FDA Start: 09-10-2018 BONE,CRUSHED CANCELLOUS 15CC FDA Start: 09-10-2018 [employer]ellen [employer] FDA Start: 09-10-2018 [employer] FDA Start: 09-10-2018 BONE,CRUSHED CANCELLOUS 15CC FDA Start: 09-10-2018 Mag[facility] MAROMax FDA Start: 09-10-2018 [facility] FDA Start: 09-10-2018 BONE,CRUSHED CANCELLOUS 15CC FDA Start: 09-10-2018 Magellen MAROMax FDA Start: 09-10-2018 [facility] FDA Start: 09-10-2018 BONE,CRUSHED CANCELLOUS 15CC FDA Start: 09-10-2018 Magellen MAR[facility] FDA Start: 09-10-2018 [facility] FDA Start: 09-10-2018 BONE,CRUSHED CANCELLOUS 15CC FDA Start: 09-10-2018 Magellen MAROMax FDA Start: 09-10-2018 [facility] FDA Start: 09-10-2018 BONE,CRUSHED CANCELLOUS 15CC FDA Start: 09-10-2018 Magellen MAROMax FDA Start: 09-10-2018 [facility] FDA Start: 09-10-2018 BONE,CRUSHED CANCELLOUS 15CC FDA Start: 09-10-2018 Magellen MAROMax FDA Start: 09-10-2018 [facility] FDA Start: 09-10-2018 BONE,CRUSHED CANCELLOUS 15CC FDA Start: 09-10-2018 Magellen MAROMax FDA Start: 09-10-2018 [facility] FDA Start: 09-10-2018 Goals Date Patient Goal Desired Activity /State Evaluation note 09-24-2024 Note Date & Type Note Facility 09-24-2024 Evaluation note Diagnosis Onset Date Resolution Maxillary sinusitis acute Febru 2024 8:30am [facility] Work Phone: Evaluation note 09-24-2024 Note Date & Type Note Facility 09-24-2024 Evaluation note Diagnosis Onset Date Resolution Maxillary sinusitis acute Febru 2024 8:30am Strep pharyngitis acute November 232024 8:47am [facility] Work Phone: Evaluation note Note Date & Type Note Facility Evaluation note Diagnosis Onset Date Degenerative spondylolisthesis acute Degenerative spondylolisthesis acute [facility] Work Phone: Evaluation note Note Date & Type Note Facility Evaluation note No assessment information availa ble [facility] Work Phone: Evaluation note Note Date & Type Note Facility Evaluation note Diagnosis Onset Date Degenerative disc disease, cervical acute HNP (herniated nucleus pulposus), cervical acute [facility] Work Phone: Evaluation note Note Date & Type Note Facility Evaluation note Diagnosis Onset Date Degenerative disc disease, cervical acute HNP (herniated nucleus pulposus), cervical acute Degenerative spondylolisthesis acute Degenerative spondylolisthesis acute [facility] Work Phone: Hospital Discharge instructions Note Date & Type Note Facility Hospital Discharge instructions Ambulatory OrdersPain Management Location: None Selected [facility] Work Phone: Reason for referral (narrative) Note Date & Type Note Facility Reason for referral (narrative) No reason for referral information available [facility] Work Phone: Chief Complaint and Reason for Visit Chief Complaint X-rays LUMBER SPINE LUMBER SPINE LUMBAR PAIN Reason for Visit Degenerative spondyl olisthesis Degenerative spondylolisthesis Chief Complaint SCREENING Chief Complaint NECK AND BACK PAIN Chief Complaint NECK AND BACK PAIN CERVICAL SPINE CONCERN FOR SINUS INFECTION DDD C5/6 C6/7 CERVICAL SPINE Reason for Visit Degenerative disc di sease, cervical HNP (herniated nucleus pulposus), cervical Chief Complaint NECK AND BACK PAIN CERVICAL SPINE CONCERN FOR SINUS INFECTION DDD C5/6 C6/7 CERVICAL SPINE LUMBAR SPINE Spondylolisthesis, site unspecified LUMBAR SPINE Reason for Visit Degenerative disc di sease, cervical HNP (herniated nucleus pulposus), cervical Degenerative spondylolisthesis Degenerative spondylolisthesis Chief Complaint Admit Date SINUS COMP/ST August 15, 2024 9:11am SINUS INFECTION September 24, 2024 8 :30am Reason for Visit Admit Date Maxillary sinusitis September 24, 2024 8 :30am Chief Complaint Admit Date SINUS INFECTION September 24, 2024 8 :30am SWOLLEN AND SORE THROAT December 17, 2024 8:47am SCREENING/POST MOLLY December 20, 2024 7:4 6am LUMBAR SPINE January 10, 2025 7:51a m Room 3 January 10, 2025 8:10a m Reason for Visit Admit Date Maxillary sinusitis September 24, 2024 8 :30am Strep pharyngitis December 17, 2024 8:4 7am Family History No Family History Records Found Relationship Condition Age at Onset Recorded Date/T cele mother Diabetes mellitus Unknown Arthritis Unknown father Cardiac disease Unknown Hypertension Unknown Myocardial infarction Unknown Advance Directives No Advanced Directives Records Found Advance Directive Response Recorded Date/ Time Living Will Yes February 06, 2022 2:31pm Power of Asbestos Removal Worker Yes February 06 2:31pm Advance Directive Response Recorded Date/ Time Living Will Yes February 06, 2022 1:31pm Power of Asbestos Removal Worker Yes February 06 1:31pm Advance Directive Response Recorded Date/ Time Living Will Yes November 10, 2023 12:15pm Power of Asbestos Removal Worker Yes November 09 12:15pm Summary Purpose Additional Source Comments Care Teams (unrecognized sec tion and content) Team Status: Active Member Role Status Dates Dr. Jorge L Leigh MD Family Provider Active Dr. Jorge L Leigh MD Primary Care Provider Active Team Status: Inactive Member Role Status Dates Dr. Jorge L Leigh MD Primary Care Provider Active Manoj COCHRAN MD Attending Provider Active Team Status: Active Member Role Status Dates Dr. Jorge L Leigh MD Primary Care Provider Active Dr. Manoj Medrano MD Attending Provider Active Team Status: Active Member Role Status Dates Dr. Jorge L Leigh MD Family Provider Active Zandra Hardy MD Primary Care Provider Active Team Status: Inactive Member Role Status Roberto Hardy MD Primary Care Provide r, Attending Provider, Referring Provider Active Team Status: Active Member Role Status Roberto Hardy MD Primary Care Provide r, Attending Provider, Referring Provider Active Team Status: Inactive Member Role Status Roberto Hardy MD Primary Care Provider, Referring Prov ider Active Dr. Kain Sheehan DO Attending Provider Active Team Status: Inactive Member Role Status Roberto Hardy MD Primary Care Provider, Referring Prov ider Active Fahad Wright PA, PA Attending Provider Active Team Status: Inactive Member Role Status Roberto Hardy MD Primary Care Provider Active Dr. Kain Sheehan DO Attending Provider, Referring P yadiel Active Team Status: Active Member Role Status Roberto Hardy MD Primary Care Provider Active Team Status: Inactive Member Role Status Roberto Hardy MD Primary Care Provider Active St art: August 15, 2024 End: August 15, 2024 Zandra Hardy MD Referring Provider Active Start : August 15, 2024 End: August 15, 2024 Fahad Wright PA, PA Attending Provider Active Start: August 15, 2024 End: August 15, 2024 Team Status: Inactive Member Role Status Roberto Hardy MD Primary Care Provider Active St art: September 24, 2024 End: September 24, 2024 Zandra Hardy MD Referring Provider Active Start : September 24, 2024 End: September 24, 2024 Silvestre Bañuelos GEOTHERMAL OPERATIONS ENGINEER, GEOTHERMAL OPERATIONS ENGINEER-C Attending Provider Active S tart: September 24, 2024 End: September 24, 2024 Team Status: Inactive Member Role Status Roberto Hardy MD Primary Care Provider Active St art: December 06, 2024 End: December 06, 2024 Zandra Hardy MD Attending Provider Active Start : December 06, 2024 End: December 06, 2024 Team Status: Inactive Member Role Status Roberto Hardy MD Primary Care Provider Active St art: December 17, 2024 End: December 17, 2024 Zandra Hardy MD Referring Provider Active Start : December 17, 2024 End: December 17, 2024 [facility] Attending Provider Active Start: December 17, 2024 End: December 17, 2024 Team Status: Inactive Member Role Status Roberto Hardy MD Primary Care Provider Active St art: December 20, 2024 End: December 20, 2024 Zandra Hardy MD Attending Provider Active Start : December 20, 2024 End: December 20, 2024 Zandra Hardy MD Referring Provider Active Start : December 20, 2024 End: December 20, 2024 Team Status: Active Member Role Status Roberto Hardy MD Primary Care Provider Active St art: January 10, 2025 Zandra Hardy MD Referring Provider Active Start : January 10, 2025 Dr. George Parkinson MD Attending Provider Active Start: January 10, 2025 Team Status: Inactive Member Role Status Roberto Hardy , MD Primary Care Provider Active St art: January 10, 2025 End: January 10, 2025 Dr. David Seaman MD Attending Provider Active S tart: January 10, 2025 End: January 10, 2025 Team Status: Inactive Member Role Status Roberto Hardy MD Primary Care Provider Active St art: January 10, 2025 End: January 10, 2025 Zandra Hardy MD Referring Provider Active Start : January 10, 2025 End: January 10, 2025 Dr. George Parkinson MD Attending Provider Active Start: January 10, 2025 End: January 10, 2025 INFORMATION SOURCE (unrecogn ized section and content) DATE CREATED AUTHOR 05/17/2025 [facility] FOR RECORDS PERTAINING TO PATIENTS WHO ARE OR HAVE BEEN ENROLLED IN A CHEMICAL DEPENDENCY/SUBSTANCEABUSE PROGRAM, SOME INFORMATION MAY BE OMITTED. This clinical summary was aggregated from multiple sources. Caution should be exercised in using it in the provision of clinical care. This summary normalizes information from multiple sources, and as a consequence, information in this document may materially change the coding, format and clinical context of patient data. In addition, data may be omitted in some cases. CLINICAL DECISIONS SHOULD BE BASED ON THE PRIMARY CLINICAL RECORDS. [employer] [facility]. provides no warranty or guarantee of the accuracy or completeness of information in this document.
== END | disposition home or self-care (01) ==
LOC: OPMRI 07:10
PROVIDERS: PCP Family Medicine; Referring Provider Anesthesiology Pain Medicine; Visit Provider Anesthesiology Pain Medicine
DX: M54.12 Radiculopathy, cervical region (principal)
CPT/HCPCS: 72141